=== PATIENT | male | born 1950 | race Caucasian/White ===

== ENCOUNTER 2018-06-13 20:42 | Emergency (ER) | payer MEDICARE ==
[~2018-06-13] VITALS: Ht 175.3 cm; Wt 65.9 kg
[2018-06-13 20:44] VITALS: BP 162/103
[2018-06-13 22:09] LABS: VENOUS BASE EXCESS 0.8 (-2.0-2.0); VENOUS HCO3 26.8 MEQ/L (23.0-27.0); VENOUS O2 SATURATION 61.8 % (60.0-80.0); VENOUS PARTIAL PRESSURE CO2 48.5 mmHg (38.0-50.0); VENOUS PARTIAL PRESSURE O2 33.5 mmHg (30.0-50.0); VENOUS PH 7.361 UNITS (7.330-7.430); VENOUS STANDARD HCO3 24.3 MEQ/L; VENOUS TOTAL CO2 28.3 MEQ/L (24.0-28.0)
[2018-06-13 22:29] LABS: HEMOGLOBIN A1c 15.4 %
[2018-06-13 23:00] LABS: CALCIUM LEVEL 8.6 MG/DL (8.8-10.2); CREATININE FOR GFR 1.33 MG/DL (0.70-1.30); GLOMERULAR FILTRATION RATE 57.3 (>49); POTASSIUM SERUM 4.2 MEQ/L (3.5-5.1)
[2018-06-13] MEDS ORDERED: LEVEMIR (INSULIN DETEMIR) 1 UNITS/0.01ML SC ONE (23:30)
[2018-06-13] MEDS ORDERED: CVS1KIT XX (23:39)
[2018-06-13] MEDS ORDERED: LANTINJ4 SC (23:39)
== END 2018-06-14 00:39 | disposition home or self-care (01) ==
LOC: M ED 20:42
DX: E11.65 Type 2 diabetes mellitus with hyperglycemia (principal); Z88.1 Allergy status to other antibiotic agents; Z88.2 Allergy status to sulfonamides; Z88.8 Allergy status to other drugs, medicaments and biological substances

== ENCOUNTER → 2019-11-27 | Outpatient (CLI) | payer MEDICARE ==
[~2019-11-27] MED LIST: CVS1KIT XX; GLIP5TAB8 PO; LANTINJ4 SC
== END ==
LOC: M LABSMTC 12:35
PROVIDERS: ATTEND Anesthesiology
DX: Z01.818 Encounter for other preprocedural examination (principal); Z11.59 Encounter for screening for other viral diseases; Z03.818 Encounter for observation for suspected exposure to other biological agents ruled out
CPT/HCPCS: C9803; U0003

== ENCOUNTER 2019-11-30 07:32 | Day surgery (SDC) | payer MEDICARE ==
[~2019-11-30] VITALS: Ht 175.3 cm; Wt 73.7 kg
[~2019-11-30 07:32] MED LIST changes: +LIDOCAINE 1% MDV 20ML VIAL SQ PRN; +LIDOCAINE 2% 100MG/5ML SDV (FOR ANES.) As Ordered ONE; +MIDAZOLAM INJ 2MG/2ML VIAL (J2250 PER 1MG) As Ordered ONE; +ONDANSETRON 4MG/2ML VIAL As Ordered ONE; +propofoL 200 MG/20 ML VIAL As Ordered ONE
[2019-11-30] MEDS ORDERED: LR 1,000 ML IV ONE (08:00)
[2019-11-30] MEDS ORDERED: CIPRODEX OTIC SUSP 7.5ML As Ordered ONE (08:22)
[2019-11-30] MEDS ORDERED: dexameTHASONE 4 MG/ML 1ML VIAL (J1100 PER 1MG) As Ordered ONE (08:35)
[2019-11-30] MEDS ORDERED: fentaNYL 100 MCG/2 ML INJECTION (J3010) As Ordered ONE (09:21)
[2019-11-30] MEDS ORDERED: PERCOCET 5MG/325MG TAB As Ordered ONE (09:21)
[2019-11-30] MEDS: fentaNYL 100 MCG/2 ML INJECTION (J3010) IV PRN ×4 (09:25→09:50)
[2019-11-30] MEDS ORDERED: METOCLOPRAMIDE INJ 10MG/2ML VIAL (J2765 PER 1) IV PRN (09:30)
[2019-11-30] MEDS ORDERED: LR 1,000 ML IV SCH (09:30)
[2019-11-30] MEDS ORDERED: ONDANSETRON 4MG/2ML VIAL IV PRN (09:30)
[2019-11-30] MEDS ORDERED: PERCOCET 5MG/325MG TAB PO PRN (09:30)
[2019-11-30 12:00] VITALS: BP 166/93
--- NOTE | 2019-12-02 08:52 | RO ---
DATE OF PROCEDURE: 11/30/2019 PREOPERATIVE DIAGNOSIS: Chronic otitis media with effusion. POSTOPERATIVE DIAGNOSIS: Chronic otitis media with effusion. PROCEDURE: Bilateral myringotomies with T-tubes. SURGEON: Dr. Orion Zhao DOWEL INSERTING MACHINE OPERATOR: ANESTHESIA: INDICATIONS: This is a 69-year-old who has had a life long history of having chronic middle ear fluid and T-tubes to manage it. The previous set of tubes had fallen out and he developed conductive hearing loss. DESCRIPTION OF PROCEDURE: Satisfactory mask anesthesia was administered. The right ear examined and cleaned under the microscope. Anterior inferior myringotomy made. Mild hyperemic and inflamed tympanic membrane encountered. Serous fluid suctioned from the middle ear. A T-tube was inserted easily into the myringotomy position. Ciprodex drops used to irrigate the tube. Next, the left ear was examined and cleaned under the microscope. Anterior inferior myringotomy made. Serous fluid suctioned. A T-tube easily inserted and positioned in the tympanic membrane. Ciprodex drops instilled. He tolerated the procedure well and was sent to recovery in satisfactory condition. He will be seen back in the office in 1 week.
== END 2019-11-30 12:10 | disposition home or self-care (01) ==
LOC: M SDC 07:32
PROVIDERS: ATTEND Specialist
DX: H65.23 Chronic serous otitis media, bilateral (principal); I10 Essential (primary) hypertension; E11.9 Type 2 diabetes mellitus without complications; E78.00 Pure hypercholesterolemia, unspecified; Z79.84 Long term (current) use of oral hypoglycemic drugs; Z88.2 Allergy status to sulfonamides; Z88.8 Allergy status to other drugs, medicaments and biological substances
CPT/HCPCS: 69436; J1100; J2250; J2405

== ENCOUNTER → 2020-06-09 | Outpatient (CLI) | payer MEDICARE ==
[~2020-06-09] MED LIST changes: -LIDOCAINE 1% MDV 20ML VIAL SQ PRN; -LIDOCAINE 2% 100MG/5ML SDV (FOR ANES.) As Ordered ONE; -MIDAZOLAM INJ 2MG/2ML VIAL (J2250 PER 1MG) As Ordered ONE; -ONDANSETRON 4MG/2ML VIAL As Ordered ONE; -propofoL 200 MG/20 ML VIAL As Ordered ONE
--- NOTE | 2020-06-09 16:41 | REP ---
INDICATION: L KNEE TWISTED, PAIN COMPARISON: None. TECHNIQUE: AP, lateral, bilateral oblique views of the left knee. FINDINGS: Lateral view demonstrates a moderate suprapatellar effusion. The osseous structures demonstrate osteopenia and moderate to early advanced tricompartmental osteoarthritic degenerative changes including cortical irregularity, sclerosis to the tibial plateau and posterior patellar margin with so seated joint space narrowing and early chondrocalcinosis. No obvious acute fracture identified. IMPRESSION: Moderate suprapatellar effusion. Osteopenia and tricompartmental degenerative changes. No obvious acute fracture or dislocation. <Electronically signed by Paolo Hernadez > 06/09/20 [id number]
== END ==
LOC: M RAD 15:47
PROVIDERS: ATTEND Physician Assistant
DX: M25.562 Pain in left knee (principal); M25.462 Effusion, left knee

== ENCOUNTER → 2020-07-05 | Outpatient (CLI) | payer SELFPAY | LOC: M LABSMTC 13:08 | PROVIDERS: ATTEND Pediatrics | DX: Z20.822 Contact with and (suspected) exposure to COVID-19 (principal) ==

== ENCOUNTER → 2020-07-07 | Outpatient (CLI) | payer OTHER ==
--- NOTE | 2020-07-08 05:35 | REP ---
INDICATION: ENCOUNTER FOR GENERAL ADULT MEDICAL EXAM W ABNORMAL FINDINGS COMPARISON: None. TECHNIQUE: PA and lateral. FINDINGS: The mediastinum and cardiac silhouette are normal. The lung bishop are clear and without acute consolidation, effusion, or pneumothorax. The skeletal structures are intact and normal. IMPRESSION: No acute cardiopulmonary process. <Electronically signed by Paolo Hernadez > 07/08/20 0531
== END ==
LOC: M RAD 15:53
PROVIDERS: ATTEND Nurse Practitioner Adult Health
DX: Z00.00 Encounter for general adult medical examination without abnormal findings (principal)

== ENCOUNTER → 2020-07-19 | Outpatient (CLI) | payer SELFPAY | LOC: M LABSMTC 13:24 | PROVIDERS: ATTEND Pediatrics | DX: Z20.822 Contact with and (suspected) exposure to COVID-19 (principal) ==

== ENCOUNTER → 2020-09-02 | Outpatient (CLI) | payer OTHER ==
--- NOTE | 2020-09-02 18:03 | REP ---
INDICATION: PREOP. COMPARISON: None. TECHNIQUE: Single AP radiograph bilateral knees. FINDINGS: Standing AP radiograph both knees demonstrate advanced osteoarthritis on the right. There is extensive a joint space narrowing in the medial compartment with some remodeling of the medial tibial plateau and well established spurring. There is lateral compartment spurring and mild joint space narrowing. Diffuse osteopenia is noted. Joint spaces are preserved on the left. IMPRESSION: Advanced osteoarthritis right knee as above. <Electronically signed by Rafat Diaz > 09/02/20 1800
== END ==
LOC: M SOG 11:15
PROVIDERS: ATTEND Family Medicine
DX: M17.11 Unilateral primary osteoarthritis, right knee (principal); M85.88 Other specified disorders of bone density and structure, other site; F10.99 Alcohol use, unspecified with unspecified alcohol-induced disorder; F41.8 Other specified anxiety disorders; F32.89 Other specified depressive episodes

== ENCOUNTER → 2020-09-06 | Outpatient (CLI) | payer OTHER ==
[2020-09-06 13:32] LABS: BASO # 0.1 10^3/uL (0.0-0.2); BASO % 1.6 % (0.0-1.0); EOS # 0.1 10^3/uL (0.0-0.5); EOS % 2.8 % (0.0-3.0); HEMATOCRIT 41.1 % (42.0-52.0); HEMOGLOBIN 14.3 g/dl (13.5-17.5); LYMPH # 0.7 10^3/uL (1.5-5.0); LYMPH % 16.7 % (24.0-44.0); MEAN CORPUSCULAR HEMOGLOBIN 31.7 pg (27.0-33.0); MEAN CORPUSCULAR HGB CONC 34.8 g/dl (32.0-36.5); MEAN CORPUSCULAR VOLUME 91.1 fl (80.0-96.0); MONO # 0.3 10^3/uL (0.0-0.8); MONO % 6.8 % (2.0-8.0); NEUTROPHILS # 3.1 10^3/uL (1.5-8.5); NEUTROPHILS % 71.6 % (36.0-66.0); PLATELET COUNT, AUTOMATED 161 10^3/uL (150-450); RED BLOOD COUNT 4.51 10^6/uL (4.30-6.10); WHITE BLOOD COUNT 4.3 10^3/uL (4.0-10.0)
[2020-09-06 13:33] LABS: APPEARANCE, URINE CLEAR (CLEAR); BACTERIA, URINE AUTO NEGATIVE (NEGATIVE); BILIRUBIN, URINE AUTO NEGATIVE (NEGATIVE); BLOOD, URINE BLOOD NEGATIVE (NEGATIVE); COLOR, URINE YELLOW (YELLOW); GLUCOSE, URINE (UA) AUTO 3+ mg/dL (NEGATIVE); KETONE, URINE AUTO NEGATIVE (NEGATIVE); LEUKOCYTE ESTERASE, URINE AUTO NEGATIVE (NEGATIVE); NITRITE, URINE AUTO NEGATIVE (NEGATIVE); PROTEIN, URINE AUTO 3+ mg/dL (NEGATIVE); RBC, URINE AUTO 0 /HPF (0-3); SPECIFIC GRAVITY URINE AUTO 1.018 (1.002-1.035); SQUAMOUS EPITHELIAL CELL UR AU 0 /HPF (0-6); UROBILINOGEN, URINE AUTO 0.2 mg/dL (0.0-2.0); WBC, URINE AUTO 0 /HPF (0-3)
[2020-09-06 13:41] LABS: PROTHROMBIN TIME 13.4 SECONDS (12.5-14.3)
[2020-09-06 14:12] LABS: ALBUMIN 3.8 GM/DL (3.2-5.2); BILIRUBIN,TOTAL 0.7 MG/DL (0.2-1.0); CALCIUM LEVEL 9.2 MG/DL (8.8-10.2); CHOLESTEROL RISK RATIO 6.641 (<5); CREATININE FOR GFR 1.37 MG/DL (0.70-1.30); POTASSIUM SERUM 3.9 MEQ/L (3.5-5.1); PROSTATIC SPECIFIC AG MONITOR 0.71 NG/ML (< 4.00); THYROID STIMULATING HORMONE 2.32 uIU/ML (0.358-3.740); TOTAL PROTEIN 6.6 GM/DL (6.4-8.2)
[2020-09-06 14:38] LABS: HEMOGLOBIN A1c 11.3 %
--- NOTE | 2020-09-06 15:56 | REP ---
INDICATION: ENCOUNTER FOR PREPROCEDURAL EXAMINATION, LAB 1ST THEN XR. COMPARISON: 07/07/2020. TECHNIQUE: Upright PA and lateral chest. FINDINGS: The lung bishop are clear. Cardiac size is normal. The matilde, mediastinum and skeletal structures are unremarkable. IMPRESSION: Essentially negative PA and lateral chest There is no significant interval change. <Electronically signed by Vinod Almonte > 09/06/20 [id number]
== END ==
LOC: M LAB 12:24
PROVIDERS: ATTEND Nurse Practitioner Family
DX: Z01.818 Encounter for other preprocedural examination (principal); F17.210 Nicotine dependence, cigarettes, uncomplicated; Z79.84 Long term (current) use of oral hypoglycemic drugs

== ENCOUNTER 2020-10-24 12:30 | Outpatient (RCR) | payer OTHER ==
[2020-11-09] MEDS ORDERED: FERR1TAB8 PO (09:16)
[2020-11-09] MEDS ORDERED: DOK1CAP7 PO (09:16)
[2020-11-09] MEDS ORDERED: ASCO50TA PO (09:16)
[2020-11-09] MEDS ORDERED: ASPI-551 PO (09:16)
[2020-11-09] MEDS ORDERED: ACET1TAB55 PO (09:16)
[2020-11-09] MEDS ORDERED: SENN18TA PO (09:16)
[2020-11-09] MEDS ORDERED: OXYC-517 PO (09:16)
== END 2020-11-14 ==
LOC: M PT 12:30
PROVIDERS: ATTEND Orthopaedic Surgery Adult Reconstructive Orthopaedic Surgery
DX: M17.12 Unilateral primary osteoarthritis, left knee (principal)

== ENCOUNTER → 2020-10-27 | Outpatient (CLI) | payer OTHER ==
--- NOTE | 2020-10-28 19:32 | REP ---
INDICATION: PRE OP PLANNING ASSESS BONE QUALITY/DEFORMITY. COMPARISON: Radiographs 09/02/2020. TECHNIQUE: Axial CT left hip, knee and ankle performed, with sagittal and coronal reconstruction images, per Oh protocol. FINDINGS: The left hip demonstrates no fracture or dislocation. There is mild joint space narrowing, subchondral sclerosis and spurring. At the knee there is no fracture or dislocation. There is mild diffuse joint space narrowing and subchondral sclerosis, with mild spurring of the tibial spines and femoral condyles. There is irregularity of the articulating surfaces of the medial and lateral femoral condyles, particularly medially where there is a small osteochondral defect. Small subcortical cyst is seen in the lateral tibial plateau. There is moderate lateral patellofemoral compartment narrowing and subchondral sclerosis. There is mild diffuse patellar spurring. There is a small joint effusion. The ankle mortise is anatomic. There is spurring of the medial malleolus. There is mild posterior calcaneal spurring. IMPRESSION: Degenerative changes as above. <Electronically signed by Vinod Cuevas > 10/28/20 0337
== END ==
LOC: M RAD 10:21
PROVIDERS: ATTEND Orthopaedic Surgery Adult Reconstructive Orthopaedic Surgery
DX: Z01.818 Encounter for other preprocedural examination (principal); M17.12 Unilateral primary osteoarthritis, left knee; M77.32 Calcaneal spur, left foot

== ENCOUNTER → 2020-11-02 | Outpatient (CLI) | payer OTHER | LOC: M LABSMTC 12:31 | PROVIDERS: ATTEND Anesthesiology | DX: Z01.812 Encounter for preprocedural laboratory examination (principal); Z20.822 Contact with and (suspected) exposure to COVID-19 ==

== ENCOUNTER 2020-11-07 08:13 | Observation (INO) | payer OTHER ==
[~2020-11-07] VITALS: Ht 175.3 cm; Wt 70.8 kg
[~2020-11-07 08:13] MED LIST changes: +ACETAMINOPHEN 500 MG TAB PO ONE; +LIDOCAINE 1% MDV 20ML VIAL SQ PRN; +LR 1,000 ML IV ONE; +NAPROXEN 250 MG TAB PO ONE; +NS 1,000 ML IV ONE; +PREGABALIN 25 MG CAP (LYRICA) PO ONE; +ROPIVA 125MG/EPINEPH 0.25MG/CLONID 40MCG/KETOR 15MG IN NS 50ML SYRINGE PA ONE; +ceFAZolin SOD 2 GM in IV 1 EA IV ONE; +dexameTHASONE 20MG/5ML VIAL (J1100 PER 1MG) IV ONE
[2020-11-07] MEDS ORDERED: MIDAZOLAM INJ 2MG/2ML VIAL (J2250 PER 1MG) As Ordered ONE (10:22)
[2020-11-07] MEDS ORDERED: fentaNYL 100 MCG/2 ML INJECTION (J3010) As Ordered ONE (10:23)
[2020-11-07] MEDS ORDERED: TRANEXAMIC ACID 100 MG/ML 10ML VIAL As Ordered ONE (11:12)
[2020-11-07] MEDS ORDERED: ROCURONIUM BROMIDE 50 MG/5 ML VIAL As Ordered ONE (11:14)
[2020-11-07] MEDS ORDERED: propofoL 200 MG/20 ML VIAL As Ordered ONE ×2 (11:14→12:32)
[2020-11-07] MEDS ORDERED: ePHEDrine SULFATE 25 MG/5 ML(5MG/ML) SYRINGE As Ordered ONE (12:00)
[2020-11-07] MEDS ORDERED: PHENYLephrine 500MCG 5ML (100MCG/ML) SYRINGE As Ordered ONE (12:03)
[2020-11-07] MEDS ORDERED: GLYCOPYRROLATE INJ 0.2 MG/ML 2 ML VIAL As Ordered ONE (12:04)
[2020-11-07] MEDS ORDERED: ESMOLOL INJ 100MG/10ML VIAL As Ordered ONE (12:12)
[2020-11-07] MEDS ORDERED: dexameTHASONE 4 MG/ML 1ML VIAL (J1100 PER 1MG) As Ordered ONE (12:32)
[2020-11-07] MEDS ORDERED: METOCLOPRAMIDE INJ 10MG/2ML VIAL (J2765 PER 1) As Ordered ONE (12:32)
[2020-11-07] MEDS ORDERED: ONDANSETRON 4MG/2ML VIAL As Ordered ONE (12:35)
[2020-11-07] MEDS ORDERED: LIDOCAINE 2% 100MG/5ML SDV (FOR ANES.) As Ordered ONE (13:10)
[2020-11-07] MEDS ORDERED: HYDROmorphone HCL 2 MG/ML 1ML VIAL (J1170) As Ordered ONE (13:14)
[2020-11-07] MEDS ORDERED: ONDANSETRON 4MG/2ML VIAL IV PRN ×2 (14:55→15:00)
[2020-11-07] MEDS ORDERED: LR 1,000 ML IV SCH ×2 (14:55→15:10)
[2020-11-07] MEDS ORDERED: oxyCODONE 5MG TAB PO PRN (14:55)
[2020-11-07] MEDS ORDERED: HumaLOG INSULIN (NovoLOG) PER UNIT SC ONE (14:55)
--- NOTE | 2020-11-07 14:57 | ROOPDOC ---
[facility] Report Of Operation Report of Operation DATE OF PROCEDURE: 11/07/20 PREPROCEDURE DIAGNOSES: left knee osteoarthritis POSTPROCEDURE DIAGNOSES: left knee osteoarthritis PROCEDURE: Oh left total knee arthroplasty SURGEON: Rickey Sams MD FISHER EEL SPEAR: Vincent Varela MD ANESTHESIA: Gen. ESTIMATED BLOOD LOSS: Less than 100 mL . COMPLICATIONS: No known complications REMARKS: Postoperative knee flexion was 140 and extension was to 1 Components: Dubois triathlon Asymmetric patella 40 x 11 mm Tibial bearing, 5 x 11 mm thickness CS Triathlon tibial component size 5 Triathlon cruciate retaining femur 5 left CR PROCEDURE NOTE: The patient was seen in the preoperative area and the left lower cavity was marked. He denied any change in his medical history.. DESCRIPTION OF PROCEDURE: The patient was brought to the operating room and a general anesthetic was induced after a procedural pause. The patient was then positioned appropriately on the operating room table. The left lower extremity received a tourniquet which was inflated for approximately 45 min during the case. The left lower extremity underwent a chlorhexidine scrub followed by 2 times alcohol wash, followed by hydrogen peroxide. He then had the left lower extremity undergo a chlorhexidine wash 2. The patient underwent a standard sterile prep and drape. The Oh leg positioner was attached to the table. After marking and final prep and drape, a surgical safety checklist was performed. The 4.0 mm tibial pins were placed approximately 4 fingerbreadths below the tibial tubercle. The skin was incised with the blade for each of these incisions. A standard incision was carried out. A medial arthrotomy was performed. The joint was opened up and the patella was everted. A small medial soft tissue release was carried out for access. Fluid was suctioned from within the knee. The fat pad was excised using electrocautery. Some soft tissue release at the anterior lateral aspect of the femur was elevated to access the bone. Medial distal femoral 4.0 pins were placed for the femoral tracking system. Femoral and tibial verification check points were placed on the femur and tibia. The arrays were attached to the femur and tibia and appropriately adjusted. Registration of the femur and tibia, then occurred. The leg was brought out into extension and balancing occurred using varus and valgus stresses and a lateral based spoon in extension. The knee was then brought up into flexion and a lateral based spoon and a Estevez was used to apply tension. The knee was then appropriately balanced using the Stylitics software. The Stylitics robot was then brought in and used to make the appropriate cuts with appropriate soft tissue protection. Rongeur was used to remove any bony edges that remained. Trialing then occurred. Some slight tightness in flexion, so an additional degree of posterior slope was dialed into the tibia and this was cut using the Stylitics robotic saw. Trialing then occurred. In flexion and extension, There appeared to be appropr iate balanced gaps. The patella was everted and a free hand cut was performed removing approximately 10 mm of bone from the cartilage surface. The 40 mm asymmetric patellar reaming jig was placed and the holes were reamed. The femoral mediolateral placement was adjusted and the lug holes were reamed for the CR knee. Once trialing was completed. The tibia was then pinned in appropriate external rotation and the keel punch was utilized. The pegged drill guide was then placed and the 4 holes were drilled. The local anesthetic RACK cocktail was instilled in the posterior capsular region and surround. The ligament was then irrigated with normal sterile saline. The tourniquet was let down for the remainder of the case. There was no significant oozing. The leg was then brought up into flexion and appropriate retraction occurred to allow impaction of the tibial component, which was press-fit, followed by insertion of the polyethylene liner and then insertion of the femoral component which was impacted as it was press-fit. The leg was brought into extension and the patellar component was placed and with the compression device. The patellar component was secured to the patella. The wound was then irrigated and the topical tranexamic acid was applied with some Betadine wash and allowed to sit for 3 minutes. Closure began with #1 Vicryl interrupted 3, followed by a running strata fix suture. The subcutaneous tissue was closed with interrupted dyed #1 Vicryl followed by running 2. 0 Vicryl and a running 3.0 antibacterial Monocryl suture. The 2 tibial incisions were closed with 3. 0 Monocryl. Mastisol and Steri-Strips were applied. Mediplex dressing was applied. Telfa, Tegaderm was applied to the lower incisions. ABD pads were applied followed by a Lamonte wrap. Patient tolerated the procedure well with no known complications. They had the anesthetic reversed and were taken to the recovery room in stable condition with no known complications. The patient will be admitted to the hospitalist service. X-ray imaging and PACU will be taken to determine the weightbearing status, which will be weightbearing as tolerated. RICKEY SAMS MD November 07, 2020 14:57
[2020-11-07] MEDS ORDERED: SENNA 8.6 MG TAB (SENOKOT) PO PRN (15:00)
[2020-11-07] MEDS ORDERED: traMADol 50 MG TAB PO PRN ×2 (15:00)
--- NOTE | 2020-11-07 15:00 | REP ---
INDICATION: s/p arthroplasty COMPARISON: None. TECHNIQUE: AP and cross-table lateral views. FINDINGS: Normal appearance and positioning to the femoral and tibial components. Overlying postsurgical changes including soft tissue swelling, subcutaneous and intra-articular emphysema. IMPRESSION: Status post left knee replacement. <Electronically signed by Paolo Hernadez > 11/07/20 [id number]
[2020-11-07] MEDS: fentaNYL 100 MCG/2 ML INJECTION (J3010) IV PRN ×2 (15:01→15:26)
[2020-11-07] MEDS ORDERED: MOM 30ML SUSPENSION UDC PO PRN (15:15)
[2020-11-07 16:15] VITALS: BP 144/83
[2020-11-07 16:45] VITALS: BP 143/89
--- NOTE | 2020-11-07 17:04 | HPEPDOC ---
General Date of Admission 11/07/20 Date of Service: November 07, 2020 Chief Complaint The patient is a 70-year-old male admitted with a reason for visit of Left Knee Osteoarthritis. Source: Patient History of Present Illness 70year old male admitted s/p elective left total knee arthroplasty. Patient complains of sharp aching pain at the left knee surgical site about 7/10 in intensity with no radiation. 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 Diabetes Chronic otitis media s/p Bilateral myringotomies with T-tubes. Osteoarthritis Surgical History left rotator cuff repair right hip replacement right patella surgery Bilateral inguinal hernia repair. Family History Significant Family History: Heart disease (father ), Other Mother stroke Twin brother born with club foot now has right BKA. Social History * Smoker: non-smoker Alcohol: Denies Drugs: denies A-FIB/CHADSVASC A-FIB History Current/History of A-Fib/PAF?: No Review of Systems Constitutional: Denies: Chills, Fever, Night Sweats Eyes: Denies: Pain, Vision change ENT: Denies: Head Aches, Ear Pain, Dysphagia Skin: Denies: Rash, Lesions, Breakdown Pulmonary: Denies: Dyspnea, Cough Cardiovascular: Denies: Chest Pain, Palpitations, Orthopnea, Paroxysmal Noc. Dyspnea, Lt Headedness Gastrointestinal: Denies: Nausea, Vomiting, Abdominal Pain, Diarrhea Genitourinary: Denies: Dysuria, Frequency, Incontinence, Retention Physical Examination General Exam: Positive: Alert, Cooperative, No Acute Distress Eye Exam: Positive: PERRLA, Conjunctiva & lids normal, EOMI; Negative: Sclera icteric ENT Exam: Positive: Atraumatic, Mucous membr. moist/pink, Pharynx Normal Neck Exam: Positive: Supple; Negative: JVD, thyromegaly Chest Exam: Positive: Clear to auscultation, Normal air movement Heart Exam: Positive: Rate Normal, Regular Rhythm, Normal S1, Normal S2; Negative: Murmurs, Rubs Abdomen Exam: Positive: Normal bowel sounds, Soft; Negative: Tenderness, Hepatospenomegaly Extremity Exam: Negative: Clubbing, Cyanosis, Edema Neuro Exam: Positive: Normal Speech, Strength at 5/5 X4 ext, Normal Tone Psych Exam: Positive: Memory Intact, Oriented x 3 Vital Signs Vital Signs Date Time Temp Pulse Resp B/P (MAP) Pulse Ox O2 Delivery O2 Flow Rate FiO2 11/07/20 15:15 18 11/07/20 15:00 91 139/76 (97) 97 Nasal Cannula 3 11/07/20 14:27 98.1 Laboratory Data Labs 24H Laboratory Tests 2 11/07/20 08:47: Bedside Glucose (Misc Panel) 125H 11/07/20 14:41: Bedside Glucose (Misc Panel) 223H Assessment/Plan 70year old male admitted s/p elective left total knee arthroplasty. s/p Left total knee arthroplasty weight bearing as per ortho PT/OT pain control with tylenol and tramadol DVT prophylaxis with ASA 81 bid. DM continue glipizide carb consistent diet. Plan / VTE VTE Prophylaxis Ordered?: Yes EDGARDO PASCAL MD November 07, 2020 15:25
[2020-11-07 17:45] VITALS: BP 139/86
[2020-11-07] MEDS: ACETAMINOPHEN TAB 650MG DOSE (2X325MG) PO SCH (18:00)
[2020-11-07 18:45] VITALS: BP 136/98
[2020-11-07 19:45] VITALS: BP 138/88
[2020-11-07] MEDS: glipiZIDE (GLUCOTROL) 5 MG TAB PO SCH (20:36)
[2020-11-07] MEDS: ceFAZolin SOD 2 GM in IV 1 EA IV SCH (20:36)
[2020-11-07] MEDS: oxyCODONE 5MG TAB PO PRN (20:36)
[2020-11-07] MEDS: DOCUSATE SODIUM 100MG CAPSULE PO SCH (20:36)
[2020-11-07] MEDS: NAPROXEN 250 MG TAB PO SCH (20:37)
[2020-11-07] MEDS: ASPIRIN 81MG ENTERIC TABLET PO SCH (20:37)
[2020-11-07 20:45] VITALS: BP 138/85
[2020-11-08 02:00] VITALS: BP 113/76
[2020-11-08] MEDS: ceFAZolin SOD 2 GM in IV 1 EA IV SCH (02:55)
[2020-11-08] MEDS: ACETAMINOPHEN TAB 650MG DOSE (2X325MG) PO SCH ×4 (02:55→18:23)
[2020-11-08 06:00] VITALS: BP 115/74
[2020-11-08] MEDS: oxyCODONE 5MG TAB PO PRN ×4 (06:33→21:03)
[2020-11-08] MEDS: glipiZIDE (GLUCOTROL) 5 MG TAB PO SCH ×2 (06:33→18:22)
[2020-11-08 06:45] LABS: HEMATOCRIT 35.9 % (42.0-52.0); HEMOGLOBIN 11.7 g/dl (13.5-17.5); MEAN CORPUSCULAR HEMOGLOBIN 31.5 pg (27.0-33.0); MEAN CORPUSCULAR HGB CONC 32.6 g/dl (32.0-36.5); MEAN CORPUSCULAR VOLUME 96.5 fl (80.0-96.0); PLATELET COUNT, AUTOMATED 102 10^3/uL (150-450); RED BLOOD COUNT 3.72 10^6/uL (4.30-6.10)
[2020-11-08 07:12] LABS: CALCIUM LEVEL 8.3 MG/DL (8.8-10.2); CREATININE FOR GFR 1.79 MG/DL (0.70-1.30); GLOMERULAR FILTRATION RATE 40.4 (>49); POTASSIUM SERUM 4.4 MEQ/L (3.5-5.1)
--- NOTE | 2020-11-08 08:12 | IPNPDOC ---
Text Note Date of Service The patient was seen on 11/08/20. NOTE Postop day 1 for left total knee arthroplasty Patient states that he is doing reasonably well. He states that only the oxycodone pain medication helps. The tramadol did not really alleviate his pain. Otherwise, he does not have any significant complaints or concerns. The bulky dressing was taken down. There is a little bit of staining of the distal end of the dressing associated with a Telfa and Tegaderm over the pin sites. This was reinforced with a Tegaderm just to ensure that there would not be any disruption of the seal Patient was grossly neurovascularly intact with sensation to the first webspace and the foot. He is able to move his foot and ankle. He had a palpable posterior tibial pulse. X-ray imaging was taken in PACU. This demonstrated that the left total knee arthroplasty prosthesis was in good position without any obvious signs of complication. The patient did not get an opportunity to work with physical therapy yesterday. He will work with him today. The plan will hopefully be for discharge home today. Of note, the patient would like a prescription for oxycodone on discharge is the tramadol was not effective for his pain relief. Discharge Instructions Total Knee Arthroplasty 1. Pain: You may take oxycodone as prescribed for pain. Supplement with ibuprofen and Tylenol as needed. Ice pack to operative hip as tolerated. 2. Wound care: Remove dressing on postop day 7. Call [phone] with any questions or concerns. Hygiene: The patient may shower, keeping the wound of the stream of the shower. No tub baths. Check dressing seal prior to bathing. 3. Activity: WBAT on the left lower extremity. Front wheeled walker versus crutches for ambulation. Fall precautions. 4. Driving: No driving until cleared by your surgeon. Do not drive if taking narcotic pain medications as these may make you drowsy. 5. DVT Prophylaxis: Continue taking aspirin 81 mg by mouth twice a day as prescribed for the prevention of blood clots. Ankle pumps every 1 hour while awake. ELEUTERIO hose at all times for 1 month after surgery. May remove for hygiene and wound care. 6. Placement: Plan is to discharge patient to home with home health including nursing and physical therapy. 7. Surgeon Follow-up: The patient is scheduled to be seen in Dr. Sams's office 2 weeks post op with xrays. 8. Primary care Follow-up: Please see your primary care provider in the next 2 to 5 weeks for general medical re-evaluation and medication review. 9. Labs: CBC without differential and BMP to be drawn on postop day 3 with results to PCP and please fax to [phone]. 10. Please contact [facility] if you have any questions or concerns at [phone]. VS,Fishbone, I+O VS, Fishbone, I+O Laboratory Tests 11/08/20 06:16 Vital Signs Date Time Temp Pulse Resp B/P (MAP) Pulse Ox O2 Delivery O2 Flow Rate FiO2 11/08/20 06:33 16 11/08/20 06:00 99.0 69 115/74 (88) 98 Room Air 11/07/20 15:00 3 I&O- Last 24 Hours up to 6 AM 11/08/20 06:00 Intake Total 2470 ml Output Total 700 ml Balance 1770 ml RICKEY SAMS MD November 08, 2020 08:12
[2020-11-08] MEDS: FERROUS SULFATE 325MG TAB PO SCH (08:14)
[2020-11-08] MEDS: DOCUSATE SODIUM 100MG CAPSULE PO SCH ×2 (08:14→21:02)
[2020-11-08] MEDS: NAPROXEN 250 MG TAB PO SCH (08:14)
[2020-11-08] MEDS: ASCORBIC ACID 500 MG TAB PO SCH (08:15)
[2020-11-08] MEDS: ASPIRIN 81MG ENTERIC TABLET PO SCH ×2 (08:15→21:03)
[2020-11-08 10:00] VITALS: BP 123/78
--- NOTE | 2020-11-08 11:43 | IPNPDOC ---
Subjective Date Seen The patient was seen on 11/08/20. Subjective Chief Complaint/HPI Complains of pain in the surgical site other gonzáles no complaints. Objective Physical Examination General Exam: Positive: Alert, Cooperative, No Acute Distress Eye Exam: Positive: PERRLA, Conjunctiva & lids normal, EOMI; Negative: Sclera icteric ENT Exam: Positive: Atraumatic, Mucous membr. moist/pink, Pharynx Normal Neck Exam: Positive: Supple; Negative: JVD, thyromegaly Chest Exam: Positive: Clear to auscultation, Normal air movement Heart Exam: Positive: Rate Normal, Regular Rhythm, Normal S1, Normal S2; Negative: Murmurs, Rubs Abdomen Exam: Positive: Normal bowel sounds, Soft; Negative: Tenderness, Hepatospenomegaly Extremity Exam: Negative: Clubbing, Cyanosis, Edema Neuro Exam: Positive: Normal Speech, Strength at 5/5 X4 ext, Normal Tone Psych Exam: Positive: Memory Intact, Oriented x 3 Assessment /Plan Assessment 70year old male admitted s/p elective left total knee arthroplasty. s/p Left total knee arthroplasty weight bearing as per ortho PT/OT pain control with tylenol and tramadol and oxycodone. DVT prophylaxis with ASA 81 bid. DM continue glipizide carb consistent diet. ESTEBAN will stop naproxen. Plan/VTE VTE Prophylaxis Ordered?: Yes VS, I&O, 24H, Fishbone Vital Signs/I&O Vital Signs Date Time Temp Pulse Resp B/P (MAP) Pulse Ox O2 Delivery O2 Flow Rate FiO2 11/08/20 11:26 18 11/08/20 10:00 97.8 75 123/78 (93) 97 Room Air 11/07/20 15:00 3 I&O- Last 24 Hours up to 6 AM 11/08/20 06:00 Intake Total 2470 ml Output Total 700 ml Balance 1770 ml Laboratory Data 24H LABS Laboratory Tests 2 11/07/20 14:41: Bedside Glucose (Misc Panel) 223H 11/07/20 16:26: Bedside Glucose (Misc Panel) 195H 11/08/20 06:16: Nucleated Red Blood Cells % (auto) 0.0, Anion Gap 7L, Glomerular Filtration Rate 40.4L, Calcium Level 8.3L CBC/BMP Laboratory Tests 11/08/20 06:16 EDGARDO PASCAL MD November 08, 2020 11:43
[2020-11-08] MEDS: SENNA 8.6 MG TAB (SENOKOT) PO SCH ×2 (12:12→21:03)
[2020-11-08 14:00] VITALS: BP 109/68
[2020-11-08 22:00] VITALS: BP 135/75
[2020-11-09] MEDS: ACETAMINOPHEN TAB 650MG DOSE (2X325MG) PO SCH ×3 (01:23→12:31)
[2020-11-09] MEDS: oxyCODONE 5MG TAB PO PRN ×3 (01:23→10:46)
[2020-11-09 06:00] VITALS: BP 135/76
--- NOTE | 2020-11-09 07:54 | IPNPDOC ---
Text Note Date of Service The patient was seen on 11/09/20. NOTE Patient is postop day 2 from a left total knee arthroplasty. Patient reports that he was doing well but towards the end of the day, he was having some issues with mobility and it was decided that he would have a little bit more physical therapy as result of having to use the walker with the upper arm attachment support. Overall, he states that his pain is controlled with the oxycodone. The tramadol does not work for him. He is mobilizing with a walker. He has no significant complaints or concerns today. He reports that the dressing was changed yesterday because he had some bruising developed after starting with physical therapy. On physical examination, the dressing has been changed to a 12 inch Mepilex. It appears to be intact and clean and dry. He has a palpable posterior tibial pulse on the left and grossly neurovascularly intact with motion to the left foot and ankle. Overall, the patient is doing quite well. He will likely be discharged home today. Discharge Instructions Total Knee Arthroplasty 1. Pain: You may take oxycodone as prescribed for pain. Supplement with ibuprofen and Tylenol as needed. Ice pack to operative knee as tolerated. 2. Wound care: Remove dressing on postop day 7. Call [phone] with any questions or concerns. Hygiene: The patient may shower, keeping the wound of the stream of the shower. No tub baths. Check dressing seal prior to bathing. 3. Activity: WBAT on the left lower extremity. Front wheeled walker versus crutches for ambulation. Fall precautions. 4. Driving: No driving until cleared by your surgeon. Do not drive if taking narcotic pain medications as these may make you drowsy. 5. DVT Prophylaxis: Continue taking aspirin 81 mg by mouth twice a day as prescribed for the prevention of blood clots. Ankle pumps every 1 hour while awake. ELEUTERIO hose at all times for 1 month after surgery. May remove for hygiene and wound care. 6. Placement: Plan is to discharge patient to home with home health including nursing and physical therapy. 7. Surgeon Follow-up: The patient is scheduled to be seen in Dr. Sams's office 2 weeks post op with xrays. 8. Primary care Follow-up: Please see your primary care provider in the next 2 to 5 weeks for general medical re-evaluation and medication review. 9. Labs: CBC without differential and BMP to be drawn on postop day 3 with results to PCP and please fax to [phone]. 03. Please contact [facility] if you have any questions or concerns at [phone]. VS,Fishbone, I+O VS, Fishbone, I+O Vital Signs Date Time Temp Pulse Resp B/P (MAP) Pulse Ox O2 Delivery O2 Flow Rate FiO2 11/09/20 06:49 16 11/09/20 06:00 97.5 67 135/76 (95) 97 Room Air 11/07/20 15:00 3 I&O- Last 24 Hours up to 6 AM 11/09/20 05:59 Intake Total 2480 ml Output Total 1000 ml Balance 1480 ml RICKEY SAMS MD November 09, 2020 07:54
[2020-11-09] MEDS: FERROUS SULFATE 325MG TAB PO SCH (08:21)
[2020-11-09] MEDS: ASPIRIN 81MG ENTERIC TABLET PO SCH (08:21)
[2020-11-09] MEDS: DOCUSATE SODIUM 100MG CAPSULE PO SCH (08:21)
[2020-11-09] MEDS: ASCORBIC ACID 500 MG TAB PO SCH (08:21)
[2020-11-09] MEDS: SENNA 8.6 MG TAB (SENOKOT) PO SCH (08:21)
[2020-11-09] MEDS: glipiZIDE (GLUCOTROL) 5 MG TAB PO SCH (08:21)
[2020-11-09] MEDS ORDERED: SENN18TA PO (09:16)
[2020-11-09] MEDS ORDERED: OXYC-517 PO (09:16)
[2020-11-09] MEDS ORDERED: ACET1TAB55 PO (09:16)
[2020-11-09] MEDS ORDERED: DOK1CAP7 PO (09:16)
[2020-11-09] MEDS ORDERED: ASCO50TA PO (09:16)
[2020-11-09] MEDS ORDERED: ASPI-551 PO (09:16)
[2020-11-09] MEDS ORDERED: FERR1TAB8 PO (09:16)
[2020-11-09 10:44] LABS: HEMATOCRIT 35.3 % (42.0-52.0); HEMOGLOBIN 11.7 g/dl (13.5-17.5); MEAN CORPUSCULAR HEMOGLOBIN 31.5 pg (27.0-33.0); MEAN CORPUSCULAR HGB CONC 33.1 g/dl (32.0-36.5); MEAN CORPUSCULAR VOLUME 94.9 fl (80.0-96.0); PLATELET COUNT, AUTOMATED 111 10^3/uL (150-450); RED BLOOD COUNT 3.72 10^6/uL (4.30-6.10); WHITE BLOOD COUNT 6.5 10^3/uL (4.0-10.0)
[2020-11-09 11:03] LABS: CALCIUM LEVEL 9.1 MG/DL (8.8-10.2); CREATININE FOR GFR 1.54 MG/DL (0.70-1.30); GLOMERULAR FILTRATION RATE 48.1 (>49); POTASSIUM SERUM 4.5 MEQ/L (3.5-5.1)
--- NOTE | 2020-11-09 11:39 | DS.PDOC ---
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 Diabetes Chronic otitis media s/p Bilateral myringotomies with T-tubes. Osteoarthritis left rotator cuff repair right hip replacement right patella surgery Bilateral inguinal hernia repair. COMPLICATIONS/CHIEF COMPLAINT: Left Knee Osteoarthritis. HOSPITAL COURSE: 70year old male admitted s/p elective left total knee arthroplasty. s/p Left total knee arthroplasty weight bearing as per ortho PT/OT pain control with tylenol and oxycodone. DVT prophylaxis with ASA 81 bid. DM continue glipizide carb consistent diet. ESTEBAN Creatinine improved from 1.7 to 1.5. Avoid ibuprofen DISCHARGE MEDICATIONS: Please see below. ALLERGIES: Please see below. PHYSICAL EXAMINATION ON DISCHARGE: VITAL SIGNS: Please see below. General Exam: Positive: Alert, Cooperative, No Acute Distress Eye Exam: Positive: PERRLA, Conjunctiva & lids normal, EOMI; Negative: Sclera icteric ENT Exam: Positive: Atraumatic, Mucous membr. moist/pink, Pharynx Normal Neck Exam: Positive: Supple; Negative: JVD, thyromegaly Chest Exam: Positive: Clear to auscultation, Normal air movement Heart Exam: Positive: Rate Normal, Regular Rhythm, Normal S1, Normal S2; Negative: Murmurs, Rubs Abdomen Exam: Positive: Normal bowel sounds, Soft; Negative: Tenderness, Hepatosplenomegaly Extremity Exam: Negative: Clubbing, Cyanosis, Edema Neuro Exam: Positive: Normal Speech, Strength at 5/5 X4 ext, Normal Tone Psych Exam: Positive: Memory Intact, Oriented x 3 LABORATORY DATA: Please see below. ACTIVITY: [As tolerated]. DIET: Carb consistent DISCHARGE PLAN: Home with home services and home PT DISCHARGE INSTRUCTIONS: Follow-up with Dr. Fitzgerald in 2 weeks DISCHARGE CONDITION: [Stable]. TIME SPENT ON DISCHARGE: 35 minutes. Vital Signs/I&Os Vital Signs Date Time Temp Pulse Resp B/P (MAP) Pulse Ox O2 Delivery O2 Flow Rate FiO2 11/09/20 10:46 18 11/09/20 06:00 97.5 67 135/76 (95) 97 Room Air 11/07/20 15:00 3 I&O- Last 24 Hours up to 6 AM 11/09/20 06:00 Intake Total 2450 ml Output Total 1100 ml Balance 1350 ml Laboratory Data Labs 24H Laboratory Tests 2 11/08/20 16:47: Bedside Glucose (Misc Panel) 297H 11/09/20 06:16: Bedside Glucose (Misc Panel) 121H 11/09/20 10:02: Nucleated Red Blood Cells % (auto) 0.0, Anion Gap 5L, Glomerular Filtration Rate 48.1L, Calcium Level 9.1 CBC/BMP Laboratory Tests 11/09/20 10:02 FSBS Laboratory Tests Test 11/08/20 16:47 11/09/20 06:16 Range/Units Bedside Glucose (Misc Panel) 297 121 80-115 MG/DL Discharge Medications Scheduled Ascorbic Acid (Vitamin C) 500 Mg Tablet, 500 MG PO DAILY Aspirin (Aspirin EC) 81 Mg Tablet.dr, 81 MG PO BID Ferrous Sulfate (Ferrous Sulfate) 325 Mg Tablet, 325 MG PO DAILY Glipizide (Glipizide) 5 Mg Tablet, 5 MG PO BID, (Reported) Senna (Senna Lax) 8.6 Mg Tablet, 2 TAB PO BID Scheduled PRN Acetaminophen (Acetaminophen) 325 Mg Tablet, 650 MG PO Q6HP PRN for PAIN LEVEL 1-4 Docusate Sodium (Dok) 100 Mg Capsule, 100 MG PO BID PRN for CONSTIPATION Oxycodone HCl (Oxycodone HCl) 5 Mg Tablet, 1-2 TAB PO Q6-8HP PRN for MODERATE/SEVERE PAIN (PS 5-10) Allergies Coded Allergies: Sulfa (Sulfonamide Antibiotics) (Verified Allergy, Unknown, swelling/rash, 11/26/19) metformin (Verified Allergy, Unknown, swelling, 11/26/19) EDGARDO PASCAL MD November 09, 2020 11:39
== END 2020-11-09 13:00 | disposition home health service (06) ==
LOC: M SDC 08:13 → M MS5PR 08:14
PROVIDERS: ADMIT Internal Medicine Nephrology; ATTEND Internal Medicine Nephrology
DX: M17.12 Unilateral primary osteoarthritis, left knee (principal); N17.9 Acute kidney failure, unspecified; E11.9 Type 2 diabetes mellitus without complications; Q74.0 Other congenital malformations of upper limb(s), including shoulder girdle; Z79.899 Other long term (current) drug therapy; Z79.84 Long term (current) use of oral hypoglycemic drugs; Z79.82 Long term (current) use of aspirin; Z88.8 Allergy status to other drugs, medicaments and biological substances; Z88.2 Allergy status to sulfonamides
CPT/HCPCS: 27446; 36415; 73560; 80048; 85027; 88304; 88311; 96374; 96376; 97116; 97161; 97165; 97530; C1776; G0378; J0690; J1100; J1170; J2250; J2370; J2405; J2765; J3010; S2900

== ENCOUNTER 2020-11-22 07:52 | Inpatient (IN) | payer OTHER ==
[~2020-11-22] VITALS: Ht 175.3 cm; Wt 70.1 kg
[~2020-11-22 07:52] MED LIST changes: +ACET1TAB55 PO; -ACETAMINOPHEN 500 MG TAB PO ONE; +ASCO50TA PO; +ASPI-551 PO; +DOK1CAP7 PO; +FERR1TAB8 PO; -LIDOCAINE 1% MDV 20ML VIAL SQ PRN; -LR 1,000 ML IV ONE; -NAPROXEN 250 MG TAB PO ONE; -NS 1,000 ML IV ONE; +OXYC-517 PO; -PREGABALIN 25 MG CAP (LYRICA) PO ONE; -ROPIVA 125MG/EPINEPH 0.25MG/CLONID 40MCG/KETOR 15MG IN NS 50ML SYRINGE PA ONE; +SENN18TA PO; -ceFAZolin SOD 2 GM in IV 1 EA IV ONE; -dexameTHASONE 20MG/5ML VIAL (J1100 PER 1MG) IV ONE
[2020-11-22] MEDS ORDERED: NAPR-849 PO (08:09)
[2020-11-22] MEDS ORDERED: TRAM50TA2 PO (08:09)
--- NOTE | 2020-11-22 08:32 | REPVR ---
PROCEDURE INFORMATION: Exam: CT Head Without Contrast Exam date and time: 11/22/2020 8:15 AM Age: 70 years old Clinical indication: Pain; Other: Neuro deficits TECHNIQUE: Imaging protocol: Computed tomography of the head without contrast. Radiation optimization: All CT scans at this facility use at least one of these dose optimization techniques: automated exposure control; mA and/or kV adjustment per patient size (includes targeted exams where dose is matched to clinical indication); or iterative reconstruction. COMPARISON: No relevant prior studies available. FINDINGS: Brain: There is no acute intracranial hemorrhage or mass effect. Mild diffuse volume loss is within the range of normal for patient age. There are small vessel ischemic changes within the periventricular and subcortical white matter, but the normal mckeon/white matter delineation is maintained. Chronic appearing lacunar infarcts involve the basal ganglia. Cerebral ventricles: Prominence of the ventricular system is commensurate with volume loss. Paranasal sinuses: Visualized sinuses are unremarkable. No fluid levels. Mastoid air cells: Visualized mastoid air cells are well aerated. Bones/joints: Unremarkable. No acute fracture. Soft tissues: Unremarkable. IMPRESSION: No acute hemorrhage or edema. Electronically signed by: Isabella Bonilla On 11/22/2020 08:32:08 AM
--- NOTE | 2020-11-22 09:20 | REP ---
INDICATION: CVA. COMPARISON: 09/06/2020. TECHNIQUE: Single portable AP view of the chest was performed. FINDINGS: There is mild elevation of the right hemidiaphragm. There is no acute infiltrate. The heart is normal in size. There is mild calcification and tortuosity of the thoracic aorta. The mediastinal silhouette is unchanged. IMPRESSION: No acute pulmonary disease. <Electronically signed by Vinod Cuevas > 11/22/20 0916
[2020-11-22 09:43] LABS: HEMATOCRIT 34.4 % (42.0-52.0); HEMOGLOBIN 11.6 g/dl (13.5-17.5); MEAN CORPUSCULAR HEMOGLOBIN 31.4 pg (27.0-33.0); MEAN CORPUSCULAR HGB CONC 33.7 g/dl (32.0-36.5); MEAN CORPUSCULAR VOLUME 93.2 fl (80.0-96.0); PLATELET COUNT, AUTOMATED 207 10^3/uL (150-450); RED BLOOD COUNT 3.69 10^6/uL (4.30-6.10); WHITE BLOOD COUNT 6.8 10^3/uL (4.0-10.0)
[2020-11-22 09:54] LABS: INR 1.03; PROTHROMBIN TIME 13.7 SECONDS (12.5-14.3)
[2020-11-22 09:55] LABS: PARTIAL THROMBOPLASTIN TIME 24.2 SECONDS (24.2-38.5)
[2020-11-22] MEDS ORDERED: ASPI-161 PO (10:05)
[2020-11-22] MEDS ORDERED: VITA-158 PO (10:05)
[2020-11-22] MEDS ORDERED: FERR1TAB8 PO (10:05)
[2020-11-22] MEDS ORDERED: OXYC-517 PO (10:05)
[2020-11-22] MEDS ORDERED: [UNRECOGNIZED DRUG - CODE] PO (10:05)
--- NOTE | 2020-11-22 10:10 | REP ---
INDICATION: left leg swelling post op r/o DVT COMPARISON: None. TECHNIQUE: Real time compression and duplex Doppler interrogation of the left lower extremity deep venous system is performed, including the right common femoral vein.Compression of the left peroneal and posterior tibial veins is performed. FINDINGS: The left common femoral, superficial femoral and popliteal veins are fully compressible with transducer pressure and demonstrate normal spontaneous and phasic flow, without evidence of deep venous thrombosis.The right common femoral vein demonstrates no thrombus.The visualized left peroneal and posterior tibial veins demonstrate no thrombus. IMPRESSION: No evidence of deep venous thrombosis of the left lower extremity femoral popliteal venous system.No thrombus in the visualized left peroneal and posterior tibial veins. <Electronically signed by Vinod Cuevas > 11/22/20 1007
[2020-11-22 10:13] LABS: CK-MB VALUE MASS < 1.0 NG/ML (<3.6); CPK CREATINE PHOSPHOKINASE 42 U/L (39-308); MB/CK RELATIVE INDEX 2.38 (< OR =4); TROPONIN I < 0.02 NG/ML (< 0.10)
[2020-11-22 10:21] LABS: RSV AMPLIFICATION NEGATIVE (NEGATIVE)
[2020-11-22 11:29] LABS: CHOLESTEROL LEVEL 174 MG/DL (<200); CHOLESTEROL RISK RATIO 4.461 (<5); HDL CHOLESTEROL 39 MG/DL (>40); LDL CHOLESTEROL 112 MG/DL (<100); NON-HDL-C 135 MG/DL; TRIGLYCERIDES LEVEL 116 MG/DL (<150)
[2020-11-22] MEDS ORDERED: traMADol 50 MG TAB PO PRN (11:50)
[2020-11-22] MEDS ORDERED: ENOXAPARIN 40MG/0.4ML SYRINGE (J1650 PER 10MG) SC SCH (11:55)
[2020-11-22] MEDS ORDERED: DEXTROSE 50% 50 ML SYRINGE IV PRN (11:55)
[2020-11-22] MEDS ORDERED: MORPHINE 2 MG/ML 1ML VIAL (J2270) IV ONE (11:55)
[2020-11-22] MEDS ORDERED: NS 1,000 ML IV ONE (11:55)
[2020-11-22] MEDS ORDERED: GLUCOSE 4GM CHEW TABLET PO PRN (11:55)
[2020-11-22] MEDS ORDERED: oxyCODONE 5MG TAB PO ONE (11:55)
[2020-11-22] MEDS ORDERED: GLUCAGON INJ 1MG VIAL SC PRN (11:55)
[2020-11-22 12:35] LABS: C REACTIVE PROTEIN QUANTITATIV 9.65 MG/DL (0.00-0.30)
[2020-11-22] MEDS: ASPIRIN 325 MG TAB PO SCH (13:30)
[2020-11-22 13:31] LABS: ERYTHROCYTE SEDIMENTATION RATE 58 mm/hr (0-20)
[2020-11-22] MEDS: HEPARIN SOD (PORCINE) 5000UNITS/ML 1ML VIAL/SYRINGE SQ SCH ×2 (13:31→22:34)
[2020-11-22] MEDS: FERROUS SULFATE 325MG TAB PO SCH (13:35)
[2020-11-22] MEDS: ASCORBIC ACID 500 MG TAB PO SCH (13:35)
[2020-11-22 15:00] VITALS: BP 164/95
[2020-11-22] MEDS: HumaLOG INSULIN (NovoLOG) PER UNIT SC SCH ×2 (15:33→17:18)
--- NOTE | 2020-11-22 17:33 | ECGEPIP ---
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
[2020-11-22 20:00] VITALS: BP 160/90
[2020-11-22] MEDS: ATORVASTATIN 20 MG TAB PO SCH (20:12)
[2020-11-22] MEDS: MORPHINE 2 MG/ML 1ML VIAL (J2270) IV PRN (20:14)
--- NOTE | 2020-11-22 20:18 | HPE ---
HISTORY AND PHYSICAL DATE OF ADMISSION: 11/22/2020 CHIEF COMPLAINT: Left sided weakness. HISTORY OF PRESENT ILLNESS: This is a 70-year-old male with history of recent left total knee replacement on 11/07/2020, discharged on aspirin 81 mg twice a day, congenital absence of the right forearm and hand, diabetes, chronic otitis media status post bilateral myringotomies with PE tubes and osteoarthritis presented to the Emergency Room with acute onset of left sided weakness noted at 4:00 a.m. this morning when he was walking to the bathroom. Patient awakened from sleep needing to go to the bathroom to urinate when he noticed significant weakness of the left arm, slurred speech and difficulty ambulating to the bathroom. Patient was in his usual state of health last evening before going to bed. He had been a previous smoke, but quit smoking about 50 years ago and only had at the most a 10 pack history of smoking. Patient could barely walk, unable to lift his left arm and urinated on himself. He stayed on the floor for about 2 hours unable to call to his who was sleeping upstairs. found him downstairs and subsequently called 911. Patient was unable to get his phone up on the shelf and remained at home waiting for his to wake up. In the ER CT of the head was negative, glucose was normal at 119, EKG showed sinus rhythm with chronic right bundle branch block. Patient was given aspirin 325, Lipitor 40. Hospitalist was asked to admit the patient for acute CVA. Patient also complains of redness of the left lower extremity at the incision site with ulcers managed by his orthopedic surgeon as well as swelling of the left lower extremity. No fever or chills at home. PAST MEDICAL HISTORY: 1. Congenital absence right forearm and hand. 2. Diabetes. 3. Chronic otitis media status post bilateral myringotomies with PE tubes. 4. Osteoarthritis. PAST SURGICAL HISTORY: 1. Left Oh robotic assisted knee arthroplasty 11/07/2020. 2. Left rotator cuff repair. 3. Right hip replacement. 4. Right patellar surgery. 5. Bilateral inguinal hernia repair. ALLERGIES: 1. SULFA. 2. METFORMIN. HOME MEDICATIONS: 1. Ascorbic acid 500 daily. 2. Aspirin 81 twice a day. 3. Ferrous sulfate 325 daily. 4. Glipizide 5 mg twice a day. 5. Oxycodone 5 q6h as needed. 6. Tramadol 50 q6h as needed. 7. Naprosyn 220 twice a day. FAMILY HISTORY: Mother age 96 with CVA, father had heart disease, twin brother born with clubbed foot now has right BKA. SOCIAL HISTORY: Previous smoker quit over 50 years ago, at most maybe smoked 10 years. No alcohol use. 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 REVIEW OF SYSTEMS: Per HPI, 12 point system otherwise negative. PHYSICAL EXAMINATION: Vital signs: Temperature 96.9, pulse 64 sinus rhythm, respiratory rate 18, blood pressure 172/88, 99% on room air. General: Patient is awake, alert, oriented to person, place and time, answering questions appropriately. HEENT: Patient has a notable left sided facial drooping, tongue is deviated, uvula deviated. No pronator drift. Extraocular muscles are intact. Patient has slight slurring of speech, but still comprehensible and appropriate without word salad or significant expressive aphasia. No pronator drift. Finger to nose testing has sight dysmetria. Patient has decreased sensation on the left forearm, upper arm, lower extremity. Motor function of the left arm is 2/5, motor function of the left leg is 3/5. Gait was not tested. Right upper extremity has a congenital absence of the right forearm and hand. He has 5/5 motor function out of the right lower extremity. Lungs: Clear to auscultation, no wheezes, rhonchi or rales. Heart: S1 and S2 sinus rhythm. Abdomen: Soft, nontender, nondistended, positive bowel sounds. Extremities: Left lower extremity post-surgical scar bandaged, slight edema. LABORATORY DATA: Sodium 143, potassium 4, chloride 11, bicarb 25, bun 27, creatinine 1.5, ionized calcium 5, hematocrit 31. Glucose 119. White count 6.8, hemoglobin 11.6, hematocrit 34, platelet count 207. INR 1.03. Coronavirus negative. IMAGING STUDIES: Venous Doppler left lower extremity: No DVT noted. No thrombus in the left peroneal and posterior tibial vein. Chest x-ray: No acute pulmonary disease. CT of the head: No acute hemorrhage or edema. ASSESSMENT: This is a 70-year-old male with recent left knee replacement robotic assisted 11/07/2020, diabetes, otitis media, osteoarthritis, congenital absence of right forearm and hand presented to the Emergency Room with acute onset of left sided weakness, slurred speech and acute kidney injury, creatinine of 1.5. Patient will be admitted as an inpatient for 2 midnights for a CVA. IMPRESSIONS/PLAN: 1. 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 until swallow evaluation is done to rule out aspiration. Patient will be given aspirin 325 mg, Lipitor 40, check lipid panel, if possible MRI of the brain, MRA of the brain, MRA of the carotids if not CTA, but at risk of contrast induced nephropathy. Neuro checks every [address] Figueroa has been consulted recommended increasing the aspirin to 325 daily. Acute rehab screen, PT, TO, activity as tolerated, assisted ambulation with fall precautions. If speech therapist recommends an oral diet we will resume our recommended diet for n.p.o. Fingersticks q6h while n.p.o. and changed to AC and HS once patient is able to resume an oral diet. 2. DVT prophylaxis: With Lovenox. 3. Recent left total knee replacement: Consult orthopedic surgery for post-op management regarding activity level and dressing changes. 4. Uncontrolled hypertension: Allow for permissive hypertension 24 hours after acute CVA therefore we will permit 160-180 blood pressure. Norvasc 2.5 mg twice a day and may be titrated up to 10 mg daily. CODE STATUS: Health Care Proxy is Yue Rasheeda significant other. Patient is a Full Code. Phone number is [phone]. [facility]
[2020-11-22] MEDS: oxyCODONE 5MG TAB PO PRN (22:36)
[2020-11-23 00:19] VITALS: BP 147/85
[2020-11-23] MEDS: MORPHINE 2 MG/ML 1ML VIAL (J2270) IV PRN ×3 (01:29→20:08)
[2020-11-23 03:25] VITALS: BP 160/82
[2020-11-23 04:00] VITALS: BP 121/86
[2020-11-23] MEDS: oxyCODONE 5MG TAB PO PRN ×3 (04:52→21:36)
[2020-11-23] MEDS: HumaLOG INSULIN (NovoLOG) PER UNIT SC SCH ×4 (06:00→20:32)
[2020-11-23 06:22] LABS: HEMATOCRIT 33.4 % (42.0-52.0); MEAN CORPUSCULAR HEMOGLOBIN 31.1 pg (27.0-33.0); MEAN CORPUSCULAR HGB CONC 32.9 g/dl (32.0-36.5); MEAN CORPUSCULAR VOLUME 94.4 fl (80.0-96.0); PLATELET COUNT, AUTOMATED 191 10^3/uL (150-450); RED BLOOD COUNT 3.54 10^6/uL (4.30-6.10); WHITE BLOOD COUNT 6.3 10^3/uL (4.0-10.0)
[2020-11-23] MEDS: HEPARIN SOD (PORCINE) 5000UNITS/ML 1ML VIAL/SYRINGE SQ SCH ×3 (06:29→21:37)
[2020-11-23 06:53] LABS: ALT/SGPT 10 U/L (12-78); BILIRUBIN,TOTAL 0.6 MG/DL (0.2-1.0); BLOOD UREA NITROGEN 21 MG/DL (7-18); CALCIUM LEVEL 8.7 MG/DL (8.8-10.2); CARBON DIOXIDE LEVEL 22 MEQ/L (21-32); CHLORIDE LEVEL 113 MEQ/L (98-107); CREATININE FOR GFR 1.11 MG/DL (0.70-1.30); GLOMERULAR FILTRATION RATE > 60.0 (>49); GLUCOSE, FASTING 89 MG/DL (70-100); POTASSIUM SERUM 3.9 MEQ/L (3.5-5.1); SODIUM LEVEL 145 MEQ/L (136-145); TOTAL PROTEIN 5.6 GM/DL (6.4-8.2)
[2020-11-23 07:41] VITALS: BP 170/100
[2020-11-23] MEDS: ASPIRIN 325 MG TAB PO SCH (08:14)
[2020-11-23] MEDS: FERROUS SULFATE 325MG TAB PO SCH (08:14)
[2020-11-23] MEDS: ASCORBIC ACID 500 MG TAB PO SCH (08:15)
[2020-11-23] MEDS ORDERED: ISOVUE-370 76% 100ML VIAL As Ordered ONE (08:44)
[2020-11-23] MEDS ORDERED: amLODIPine 5 MG TAB PO ONE (09:00)
[2020-11-23] MEDS ORDERED: LIDOCAINE 1% MDV 20ML VIAL As Ordered ONE (10:28)
--- NOTE | 2020-11-23 10:38 | ECHO ---
ECHOCARDIOGRAM DATE OF PROCEDURE: 11/22/2020 Age: 70 Gender: Male Height: 175 cm Weight: 70 kg REFERRING PHYSICIAN: Lydia Peace MD INDICATION: Stroke. MEASUREMENTS: IVS 1.3 cm LV 5.3 cm LVPW 1.2 cm LA 3.9 cm Aorta 3.9 cm FINDINGS: This study is of good technical quality, underlying sinus rhythm. Normal LV size with mild LVH and normal LV systolic function, estimated LVEF 65% to 70%. Normal right ventricle size and systolic function. Both atria appear grossly normal. The aortic valve is tricuspid, it is mildly sclerotic, but mobility is preserved. Mitral and tricuspid valves appear normal. Limited views of pulmonic valve also appear normal. No pericardial effusion is noted. Inferior vena cava was not visualized. Aortic root and aortic arch appear normal. Abdominal aorta was not seen. Doppler interrogation of the aortic valve reveals no insufficiency or stenosis. There is mild mitral and tricuspid insufficiency. Calculated pulmonary artery pressure is within normal limits assuming normal central venous pressure. Trace pulmonic insufficiency is seen. Mitral inflow pattern and tissue Doppler imaging of mitral annulus revealed grade 1 diastolic dysfunction. CONCLUSIONS: 1. Study is of acceptable technical quality, underlying sinus rhythm. 2. Normal LV size with mild LVH and preserved LV systolic function. Grade 1 diastolic dysfunction. No significant valvular disease. 3. Unable to estimate central venous pressure, but likely normal pulmonary artery pressure.
[2020-11-23 12:00] VITALS: BP 160/100
--- NOTE | 2020-11-23 16:09 | IPN ---
PROGRESS NOTE DATE: 11/23/2020 SUBJECTIVE: The patient continues to have significant weakness of his left side. No new deficits overnight. Per nursing, the patient appears to have much more trouble swallowing this morning even though he was cleared for thin liquids yesterday and a regular diet. Afebrile. No cough. Telemetry sinus rhythm. OBJECTIVE: VITAL SIGNS: Temperature 99.5, pulse 88, respiratory rate 18, blood pressure 160/100, 98% on room air. GENERAL: The patient is awake, alert, and oriented x3 with slight expressive aphasia. Comprehensible speech, but slightly slurred. HEENT: Left facial drooping. Tongue is deviated. No pronator drift. Extraocular muscles are intact. Pupils are equally round, reactive to light, and accommodation. The patient has decreased sensation left forearm and upper arm. He has a congenital right forearm and hand absence. Motor function of the right lower extremity is 5/5, left lower extremity is 2/5, left upper extremity is 0/5. HEART: S1, S2. Sinus rhythm. LUNGS: Clear to auscultation. No wheezing, rales, or rhonchi. EXTREMITIES: Left knee post knee replacement bandaged. Calf is slightly larger on the left than the right side. NEUROLOGIC: The patient has a left-sided facial droop, slurred speech, comprehensible, but with mild expressive aphasia with slurring. Left upper extremity is 0/5 and left lower extremity is 2/5 motor function. Decreased sensation left upper and lower extremity. Right lower extremity has 5/5 motor function. The patient has a congenital right forearm and arm absence. LABORATORY DATA: White count 6.3, hemoglobin 11, hematocrit 33, platelet count 191,000. Sodium 141, potassium 3.9, chloride 113, bicarb 22, BUN 21, creatinine 1.11, glucose of 89. Lipid panel total cholesterol 174, LDL 112, HDL 39, procalcitonin 0.05. IMAGING DATA: CT of the head 11/22/2020, no acute hemorrhage or edema. Echocardiogram with mild LVH and grade 1 diastolic dysfunction. No significant valvular disease. 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 He presented to the emergency room with acute onset of left-sided weakness both of the upper and lower extremity when he woke up at 4 a.m. on 11/22/2020, urinated on himself, and unable to get up. EMS was called. The patient was found to have left-sided weakness. CT of the head was negative. Glucose was 119. EKG was sinus rhythm with chronic right bundle branch block. The patient is admitted for possible cerebrovascular accident (CVA) and had been kept on aspirin 325 daily. Current issues: 1. Left-sided weakness. The patient had a swallow evaluation, but has had increasing issues with dysphagia and coughing at the bedside. Therefore, a repeat swallow evaluation today by speech therapy to rule out aspiration. Since the patient has a penile implant, he is unable to obtain an MRI of the brain, MRA of the brain, and MRA of the carotids. Therefore, a CTA of the head and neck has been ordered and repeat CT head without contrast to document for possible acute CVA. He is currently on aspirin and Lipitor. Neurology has been consulted. Acute rehab unit with physical therapy (PT) and occupational therapy (OT) and neuro checks q. 4 hourly. 2. Recent left total knee replacement. Dressing changes per orthopedic surgery recommendations. Venous Doppler of the left lower extremity had no deep vein thrombosis (DVT). Procalcitonin is negative. 3. Hypertension, uncontrolled. Once CT of the head confirms CVA, will have permissive hypertension overnight, Norvasc has been added this morning 5 mg. Will wait for the repeat imaging and further recommendations from neurology. MAHNAZ
--- NOTE | 2020-11-23 17:44 | REP ---
PROCEDURE NAME: PICC LINE INSERTION W/SITERITE CLINICAL INFORMATION: poor iv access. COMPARISON: None. PROCEDURE DESCRIPTION: The procedure was performed by ANA ROSA Lopes, under the direct supervision of Dr. Cuevas. The risks and benefits of the procedure were explained to the patient and an informed consent was obtained both verbally and written. Directly prior to the start of the procedure a formal time-out was completed in the procedure room. The left basilic vein was localized using ultrasound guidance. The skin was prepped and draped in sterile fashion. One mL of 1% lidocaine 10 mg/mL was used as a local anesthetic. Using ultrasound guidance the left basilic vein was cannulated, and a 0.018 guidewire was inserted and advanced to the level of SVC using fluoroscopic guidance. The needle was removed and a 5.5 Malagasy dilator and peel-away sheath was inserted over the guidewire. A 5.5 Malagasy dual lumen catheter was cut to a length of 40 cm. The dilator was removed and the catheter was inserted over the guidewire with the tip ending at the level of the SVC. The peel-away sheath was removed and the catheter was flushed with heparinized saline as per hospital protocol. The catheter was affixed to the skin and a sterile dressing was applied. The patient tolerated the procedure well and there were no immediate complications. CONCLUSION: PICC line insertion into the left basilic vein. 0.1 minutes of fluoroscopy time was utilized for this procedure. Some fluoroscopic images are performed with last image hold technology. These images require no additional radiation. <Electronically signed by Yue Noland > 11/23/20 1547 <Electronically signed by Vinod Cuevas > 11/23/20 8220
[2020-11-23 20:00] VITALS: BP 176/85
[2020-11-23] MEDS: ATORVASTATIN 20 MG TAB PO SCH (20:08)
--- NOTE | 2020-11-23 20:29 | REPVR ---
PROCEDURE INFORMATION: Exam: MRA Neck Without Contrast Exam date and time: 11/23/2020 7:41 PM Age: 70 years old Clinical indication: Paralysis, transient of limb; Patient HX: Left hemiparesis/slurred speech TECHNIQUE: Imaging protocol: Magnetic resonance angiography of the neck without contrast. COMPARISON: No relevant prior studies available. FINDINGS: Right common carotid artery: No stenosis. No dissection or occlusion. Right internal carotid artery: No stenosis of the extracranial segment. No dissection or occlusion. Right external carotid artery: No stenosis. No dissection or occlusion of the origin. Right vertebral artery: No stenosis. No dissection or occlusion. Left common carotid artery: No stenosis. No dissection or occlusion. Left internal carotid artery: No stenosis of the extracranial segment. No dissection or occlusion. Left external carotid artery: No stenosis. No dissection or occlusion of the origin. Left vertebral artery: No stenosis. No dissection or occlusion. IMPRESSION: No stenosis or occlusion. REFERENCES: NASCET CRITERIA. The degree of internal carotid artery stenosis is based on NASCET criteria. Normal is no stenosis. Mild is less than 50% stenosis. Moderate is 50-69% stenosis. Severe is 70% to 99% stenosis. Total occlusion is no detectable patent lumen. Electronically signed by: Jose Diaz On 11/23/2020 20:29:42 PM
--- NOTE | 2020-11-23 20:31 | REPVR ---
PROCEDURE INFORMATION: Exam: MRA Head Without Contrast; Arteriography Exam date and time: 11/23/2020 7:41 PM Age: 70 years old Clinical indication: Paralysis, transient of limb; Patient HX: Left hemiparesis/slurred speech TECHNIQUE: Imaging protocol: Magnetic resonance angiography head without contrast. Exam focused on the arteries. COMPARISON: CT Head without contrast 11/22/2020 8:14 AM FINDINGS: ANTERIOR CIRCULATION: Right internal carotid artery: Intracranial segment is patent with no significant stenosis. No aneurysm. Right middle cerebral artery: No occlusion or significant stenosis. No aneurysm. Right anterior cerebral artery: No occlusion or significant stenosis. No aneurysm. Left internal carotid artery: Intracranial segment is patent with no significant stenosis. No aneurysm. Left middle cerebral artery: No occlusion or significant stenosis. No aneurysm. Left anterior cerebral artery: No occlusion or significant stenosis. No aneurysm. POSTERIOR CIRCULATION: Right vertebral artery: No occlusion or significant stenosis. No aneurysm. Left vertebral artery: No occlusion or significant stenosis. No aneurysm. Basilar artery: No occlusion or significant stenosis. No aneurysm. Right posterior cerebral artery: No occlusion or significant stenosis. No aneurysm. Left posterior cerebral artery: No occlusion or significant stenosis. No aneurysm. IMPRESSION: No stenosis or occlusion. Electronically signed by: Jose Diaz On 11/23/2020 20:30:58 PM
--- NOTE | 2020-11-23 20:34 | REPVR ---
PROCEDURE INFORMATION: Exam: MR Head Without Contrast Exam date and time: 11/23/2020 7:41 PM Age: 70 years old Clinical indication: Numbness / parasthesia; Patient HX: Left hemiparesis/slurred speech TECHNIQUE: Imaging protocol: MR of the head without contrast. COMPARISON: CT Head without contrast 11/22/2020 8:14 AM FINDINGS: Brain: Focus of subacute ischemia demonstrated in the right basal ganglia and posterior periventricular region on both diffusion weighted and ADC map images as well as T1 and T2 weighted images. No evidence of hemorrhage. Multiple foci of T2 lengthening are demonstrated in the subcortical, periventricular and centrum semiovale white matter consistent with age-related small vessel gliosis. Moderate parenchymal atrophy. Cerebral ventricles: The degree of ventricular dilatation is normal for age and/or degree of atrophy present. Bones/joints: Unremarkable. Paranasal sinuses: Normal as visualized. No acute sinusitis. Mastoid air cells: Normal as visualized. No mastoid effusion. Orbital cavity: Unremarkable. Soft tissues: Unremarkable. IMPRESSION: 1. Focus of subacute ischemia in the right basal ganglia extending into the posterior periventricular region. 2. Multiple foci of T2 lengthening are demonstrated in the subcortical, periventricular and centrum semiovale white matter consistent with age-related small vessel gliosis. 3. Moderate parenchymal atrophy. 4. The degree of ventricular dilatation is normal for age and/or degree of atrophy present. Electronically signed by: Jose Diaz On 11/23/2020 20:33:38 PM
[2020-11-24] VITALS (7 sets, daily range): BP systolic 127–188; BP diastolic 70–96
[2020-11-24] MEDS: MORPHINE 2 MG/ML 1ML VIAL (J2270) IV PRN ×2 (02:16→20:27)
[2020-11-24] MEDS: oxyCODONE 5MG TAB PO PRN (04:10)
[2020-11-24] MEDS: HEPARIN SOD (PORCINE) 5000UNITS/ML 1ML VIAL/SYRINGE SQ SCH (05:20)
[2020-11-24 05:48] LABS: HEMATOCRIT 33.3 % (42.0-52.0); HEMOGLOBIN 11.2 g/dl (13.5-17.5); MEAN CORPUSCULAR HEMOGLOBIN 31.6 pg (27.0-33.0); MEAN CORPUSCULAR HGB CONC 33.6 g/dl (32.0-36.5); MEAN CORPUSCULAR VOLUME 94.1 fl (80.0-96.0); PLATELET COUNT, AUTOMATED 203 10^3/uL (150-450); RED BLOOD COUNT 3.54 10^6/uL (4.30-6.10); WHITE BLOOD COUNT 8.8 10^3/uL (4.0-10.0)
[2020-11-24 06:11] LABS: ALBUMIN 2.8 GM/DL (3.2-5.2); ALT/SGPT 10 U/L (12-78); BILIRUBIN,TOTAL 0.7 MG/DL (0.2-1.0); BLOOD UREA NITROGEN 21 MG/DL (7-18); CALCIUM LEVEL 8.8 MG/DL (8.8-10.2); CARBON DIOXIDE LEVEL 28 MEQ/L (21-32); CHLORIDE LEVEL 107 MEQ/L (98-107); CREATININE FOR GFR 1.18 MG/DL (0.70-1.30); GLOMERULAR FILTRATION RATE > 60.0 (>49); GLUCOSE, FASTING 170 MG/DL (70-100); POTASSIUM SERUM 3.8 MEQ/L (3.5-5.1); SODIUM LEVEL 142 MEQ/L (136-145); TOTAL PROTEIN 6.3 GM/DL (6.4-8.2)
--- NOTE | 2020-11-24 06:44 | CR ---
CONSULTATION DATE: 11/22/2020 REFERRING PHYSICIAN: Lydia Peace MD REASON FOR CONSULTATION: Suspected stroke. HISTORY OF PRESENT ILLNESS: Ese Shannon is a 70-year-old man with history of left total knee replacement in Oct, 2020 at [facility] and was discharged home on aspirin 81 mg twice a day. He has history of penile implant, diabetes and presented to [facility] due to left-sided weakness which he noted when he woke up around 4 a.m. in the morning. He had difficulty walking. He felt slurred speech. He felt left arm was weaker than the left leg. He was in his usual state of health last evening before going to bed. The patient was unable to walk at home and unable to lift his arm. He urinated on himself. He stayed on the floor for two hours until his partner who was sleeping upstairs woke up and called 911. In the emergency department, CT scan of head was unremarkable. Blood glucose was 119 and EKG showed sinus rhythm with chronic right bundle branch block. He denies dysphagia, diplopia, urinary incontinence, falls or loss of consciousness. PAST MEDICAL HISTORY: 1. 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 2. Diabetes. 3. Chronic otitis media, status post bilateral ear tubes. 4. Osteoarthritis. 5. Right knee arthroplasty. 6. Left rotator cuff repair. 7. Right hip replacement. 8. Bilateral inguinal hernia repair. ALLERGIES: SULFA, METFORMIN. HOME MEDICATIONS: 1. Aspirin 81 mg p.o. daily. 2. Ferrous sulfate 325 mg p.o. daily. 3. Glipizide 5 mg p.o. b.i.d. 4. Oxycodone 5 mg q.6 hours. 5. Tramadol 50 mg p.o. q.6 hours p.r.n. 6. Naproxen 220 mg p.o. b.i.d. FAMILY HISTORY: Mother had stroke. Father had heart disease. SOCIAL HISTORY: He quit smoking 50 years ago. He denies alcohol or illicit drugs. REVIEW OF SYSTEMS: All systems were reviewed and found to be noncontributory except as mentioned in history of present illness. PHYSICAL EXAMINATION: VITAL SIGNS: Temperature 97.5, pulse 65, respiratory rate 18, blood pressure 164/95, 98% saturation on room air. HEART: Regular rate and rhythm. LUNGS: Clear to auscultation. ABDOMEN: Soft, nontender, nondistended. EXTREMITIES: No pedal edema. MUSCULOSKELETAL: No abnormalities. He had right knee replacement recently. NEUROLOGICAL: No tremor or signs of meningeal irritation. The patient is awake, alert, oriented to place, person and time. Normal speech, comprehension and repetition. Extraocular muscles are intact. He has left-sided upper motor neuron type facial weakness affecting left lower face. Strength in his left arm is 0/5 and left leg is 3+/5 throughout. Left plantar is upgoing. Gait could not be tested. He has left-sided dysmetria of leg. Sensation is intact to touch, cold on both sides. ASSESSMENT: 1. Suspected ischemic stroke causing left hemiplegia and dysarthria. 2. Diabetes and dyslipidemia. PLAN: 1. MRI brain. If he cannot do MRI scan of brain due his penile implant or recent right knee replacement, we should repeat CT scan of head after 24 hours, do CTA of head and neck with contrast. 2. Aspirin 325 mg p.o. daily and Lipitor 40 mg p.o. daily. 3. Physical and occupational therapy. 4. Rule out cardiac source, coagulopathy and vasculopathy with echocardiogram and extensive blood tests. Continue telemetry monitoring. 5. Keep blood pressure below 180/100. 6. Follow with our office in 1-2 weeks after hospital discharge.
[2020-11-24] MEDS ORDERED: NALOXONE INJ 0.4MG/1ML VIAL (J2310 PER 1MG) IV PRN (07:25)
[2020-11-24] MEDS ORDERED: COLCHICINE 0.6 MG TABLET PO ONE (07:25)
[2020-11-24] MEDS ORDERED: MORPHINE 10 MG/ML 1ML VIAL (J2270) IV ONE (07:25)
[2020-11-24] MEDS: HumaLOG INSULIN (NovoLOG) PER UNIT SC SCH ×4 (07:55→20:31)
[2020-11-24] MEDS ORDERED: lisinopriL 5 MG TAB PO ONE (08:00)
--- NOTE | 2020-11-24 09:22 | IPNPDOC ---
Text Note Date of Service The patient was seen on 11/24/20. NOTE Patient is postop day 14 for left total knee arthroplasty. Patient was seen today on admission to the hospital. He did have a clinic appointment scheduled for today, which she was unable to attend secondary to his admission. The patient reports that the other day he suffered what sounds like a stroke affecting the left side of his body causing significant weakness, etc. He was admitted to the hospital. Unfortunately, it sounds like he had been doing quite well with his exercises and range of motion and was progressing quite rapidly. Prior to this event. His history is advised of the patient's admission to the hospital and I have trouble to the hospital to evaluate his knee as he did have some blisters associated with the dressing. Examination of the left lower extremity demonstrates that the patient is able to move his foot and ankle, slowly. He has intact sensation to first webspace, and he has a palpable posterior tibial pulse. The Telfa dressing that was placed at the 1 week visit. Assessing his blisters was still in position. This was removed. There is no active bleeding or oozing noted. The Steri-Strips were in position and these were removed. The blisters appeared to be healing without any persisting fluid filled blisters just the remnant scars. The wound was cleansed with alcohol. Xeroform gauze was applied over the blistered areas and Telfa candace nds were placed to cover the incision and blistered areas. I have ordered physical therapy for passive range of motion to the patient's left knee and he will, of course, have other physical therapy exercises associated with his recent hospital admission. It is important that his range of motion be maintained to the left knee. Otherwise, it will stiffen up and not functioning appropriately. On talking to the nurse, sounds like the plan is to get him to acute rehabilitation as soon as possible so that he may have therapy at least 3 times daily. He will have naeem stockings ordered. His dressing will be changed every 3 days as needed. He'll be reevaluated in one to 2 weeks' time. VS,Fishbone, I+O VS, Fishbone, I+O Laboratory Tests 11/24/20 05:19 Vital Signs Date Time Temp Pulse Resp B/P (MAP) Pulse Ox O2 Delivery O2 Flow Rate FiO2 11/24/20 08:00 98.3 92 18 96 Room Air 11/24/20 04:00 174/86 (115) I&O- Last 24 Hours up to 6 AM 11/24/20 05:59 Intake Total 1200 ml Output Total 350 ml Balance 850 ml RICKEY SAMS MD Nov 24, 2020 09:22
[2020-11-24] MEDS: ASCORBIC ACID 500 MG TAB PO SCH (09:32)
[2020-11-24] MEDS: ASPIRIN 325 MG TAB PO SCH (09:32)
[2020-11-24] MEDS: FERROUS SULFATE 325MG TAB PO SCH (09:32)
--- NOTE | 2020-11-24 09:42 | REP ---
INDICATION: left ue swelling s/p picc r/o dvt COMPARISON: None. TECHNIQUE: Real time compression and duplex Doppler evaluation of the Left upper extremity deep venous system is performed. FINDINGS: The Left subclavian, jugular, axillary, brachial and cephalic veins are fully compressible where accessible with transducer pressure, and demonstrate no intraluminal thrombus and normal venous waveforms. There is no evidence of deep venous thrombosis.The Right subclavian vein is fully compressible where accessible with transducer pressure, and demonstrates no intraluminal thrombus and normal venous waveforms. There is echogenic material seen adjacent to the PICC line in the left basilic vein, compatible with very mild amount of thrombus. There is nonocclusive thrombus seen throughout the left median cubital vein. IMPRESSION: No evidence of deep venous thrombosis of the Left upper extremity deep vein system. Very mild thrombus adjacent to the PICC line in the left basilic vein. Nonocclusive thrombus left median cubital vein. <Electronically signed by Vinod Cuevas > 11/24/20 0900
--- NOTE | 2020-11-24 11:43 | IPN ---
PROGRESS NOTE DATE: 11/24/2020 SUBJECTIVE: The patient has no new neurological complaints. He continues to have left sided weakness, both upper and lower extremities completely flaccid. No other issues per nursing overnight. On telemetry remains in sinus rhythm. Patient complained of swelling in the left upper extremity status post PICC line placement. No evidence of DVT. Patient had been given Colchicine x1. OBJECTIVE: VITAL SIGNS: Temperature is 98.3, pulse is 92, respiratory rate is 18, blood pressure is 174/86, 96% on room air. GENERAL: Patient is awake, alert and oriented to himself, place and time, answering questions appropriately with some slurring of speech but comprehensible. He has left facial droop, 0/5 motor function left upper extremity, left lower extremity 3/5. Babinski noted on the left. No changes in sensation. HEENT: Extraocular muscles are intact. Pupils are equally round and reactive to light and accommodation. LUNGS: Clear to auscultation. No wheezing, rales, or rhonchi. HEART: S1 and S2, sinus rhythm. ABDOMEN: Soft, nontender and nondistended. EXTREMITIES: Patient has a congenital absence of the right forearm and upper arm, left knee postop bandage noted with ulcers. No purulence. LABORATORY DATA AND IMAGING STUDIES/MICROBIOLOGY: Have been reviewed. ASSESSMENT AND PLAN: This is a 70-year-old male with recent left knee replacement who presented to the Emergency Room with a dense left sided weakness and dysarthria, found to have a new right basal ganglia CVA with left hemiplegia. He has a past medical history of Type 2 diabetes, congenital absence of the right forearm and hand, otitis media, osteoarthritis and recent left robotic assisted knee arthroplasty on 11/07/2020 and was admitted on 11/22/2020 when he woke up with left sided weakness. CT of the head was negative. Glucose was 113. EKG showed sinus rhythm, chronic right bundle branch block. Active issues are as follows: 1. Right basal ganglia CVA. Patient is being evaluated by ARU. Patient is currently dependent on his left side for activities of daily living and is quite worried that he has lost function of this. At this time, there is no irregular rhythm on telemetry. He is currently on aspirin 325 daily along with Lipitor. Neurologist has been consulted. We are asking acute rehab unit to evaluate him and if possible discharge to ARU. DVT prophylaxis with Heparin sub q. 2. Speech Therapy and evaluation. No signs of aspiration. 3. Left total knee replacement with ulcers, managed by Dr. Fitzgerald with dressing changes. 4. Hypertension, uncontrolled. Was allowed for permissive hypertension, now we would like the blood pressure to be lower than 160 but higher than 130, therefore we will do a trial of Lisinopril and Norvasc this morning, pain control with Oxycodone. MTDD
[2020-11-24] MEDS ORDERED: atenoloL 25 MG TAB PO ONE (12:00)
[2020-11-24] MEDS: oxyCODONE 5MG TAB PO SCH ×2 (12:09→17:25)
--- NOTE | 2020-11-24 15:00 | IPNPDOC ---
Date Seen The patient was seen on 11/24/20. Progress Note Addendum to progress note: 11/24/20 Venous Doppler left upper extremity:Very mild thrombus adjacent to the PICC line in the left basilic vein. Nonocclusive thrombus left median cubital vein. Assessment: Left upper extremity catheter-related superficial venous thrombosis of the left basilic vein and left median cubital vein Plan: - Lovenox 40 mg subcutaneous daily for 45 days - DC PICC line if venous access is not needed. VS, I&O, 24H, Fishbone Vital Signs/I&O Vital Signs Date Time Temp Pulse Resp B/P (MAP) Pulse Ox O2 Delivery O2 Flow Rate FiO2 11/24/20 12:39 20 11/24/20 12:10 143/79 11/24/20 12:09 95 Room Air 11/24/20 08:00 98.3 92 I&O- Last 24 Hours up to 6 AM 11/24/20 06:00 Intake Total 1200 ml Output Total 350 ml Balance 850 ml Laboratory Data 24H LABS Laboratory Tests 2 11/23/20 20:24: Bedside Glucose (Misc Panel) 239H 11/24/20 05:19: Nucleated Red Blood Cells % (auto) 0.0, Anion Gap 7L, Glomerular Filtration Rate > 60.0, Calcium Level 8.8, Total Bilirubin 0.7, Aspartate Amino Transf (AST/SGOT) 7, Alanine Aminotransferase (ALT/SGPT) 10L, Alkaline Phosphatase 88, Total Protein 6.3L, Albumin 2.8L, Albumin/Globulin Ratio 0.8 11/24/20 11:45: Bedside Glucose (Misc Panel) 242H CBC/BMP Laboratory Tests 11/24/20 05:19 KALEIGH REDDY MD Nov 24, 2020 15:00
[2020-11-24] MEDS ORDERED: ENOXAPARIN 40MG/0.4ML SYRINGE (J1650 PER 10MG) SC ONE (18:00)
[2020-11-24] MEDS: ATORVASTATIN 20 MG TAB PO SCH (20:27)
[2020-11-25] MEDS: oxyCODONE 5MG TAB PO SCH ×4 (00:40→18:10)
[2020-11-25] MEDS ORDERED: SODIUM CHLORIDE 0.9% INJ 10 ML SYR IV PRN (05:40)
[2020-11-25] MEDS: SODIUM CHLORIDE 0.9% INJ 10 ML SYR IV SCH ×2 (05:49→18:10)
[2020-11-25 06:00] VITALS: BP 124/61
[2020-11-25 06:14] LABS: HEMATOCRIT 30.6 % (42.0-52.0); HEMOGLOBIN 10.3 g/dl (13.5-17.5); MEAN CORPUSCULAR HEMOGLOBIN 31.5 pg (27.0-33.0); MEAN CORPUSCULAR HGB CONC 33.7 g/dl (32.0-36.5); MEAN CORPUSCULAR VOLUME 93.6 fl (80.0-96.0); PLATELET COUNT, AUTOMATED 178 10^3/uL (150-450); RED BLOOD COUNT 3.27 10^6/uL (4.30-6.10); WHITE BLOOD COUNT 8.3 10^3/uL (4.0-10.0)
[2020-11-25 06:44] LABS: ALBUMIN 2.5 GM/DL (3.2-5.2); BILIRUBIN,TOTAL 0.9 MG/DL (0.2-1.0); CALCIUM LEVEL 8.4 MG/DL (8.8-10.2); CREATININE FOR GFR 1.38 MG/DL (0.70-1.30); GLOMERULAR FILTRATION RATE 54.5 (>49); POTASSIUM SERUM 3.8 MEQ/L (3.5-5.1); TOTAL PROTEIN 5.3 GM/DL (6.4-8.2)
[2020-11-25] MEDS: ASCORBIC ACID 500 MG TAB PO SCH (08:05)
[2020-11-25] MEDS: ASPIRIN 325 MG TAB PO SCH (08:05)
[2020-11-25] MEDS: FERROUS SULFATE 325MG TAB PO SCH (08:05)
[2020-11-25] MEDS: HumaLOG INSULIN (NovoLOG) PER UNIT SC SCH ×3 (08:06→18:09)
[2020-11-25] MEDS: MORPHINE 2 MG/ML 1ML VIAL (J2270) IV PRN ×2 (08:11→15:30)
[2020-11-25] MEDS ORDERED: NS 1,000 ML IV ONE ×2 (08:50→14:15)
[2020-11-25] MEDS ORDERED: LOVE1INJ SC (08:55)
[2020-11-25] MEDS ORDERED: ASPI-1 PO (08:55)
[2020-11-25] MEDS ORDERED: OXYC-517 PO (08:55)
[2020-11-25] MEDS ORDERED: ATOR1TAB21 PO (08:55)
[2020-11-25] MEDS ORDERED: ENOXAPARIN 40MG/0.4ML SYRINGE (J1650 PER 10MG) SC SCH (09:00)
[2020-11-25] MEDS ORDERED: SENOKOT S TAB PO PRN (12:10)
[2020-11-25] MEDS ORDERED: MOM 30ML SUSPENSION UDC PO PRN (12:10)
[2020-11-25] MEDS ORDERED: MIRALAX *UNIT DOSE* 17GM PACKET PO PRN (12:10)
[2020-11-25 13:20] LABS: CREATININE FOR GFR 1.38 MG/DL (0.70-1.30); GLOMERULAR FILTRATION RATE 54.5 (>49); POTASSIUM SERUM 3.8 MEQ/L (3.5-5.1)
[2020-11-25 13:21] LABS: CALCIUM LEVEL 8.1 MG/DL (8.8-10.2)
[2020-11-25 14:00] VITALS: BP 114/65
--- NOTE | 2020-11-25 14:24 | DS.PDOC ---
Discharge Summary General Date of Admission Nov 22, 2020 at 10:58 Date of Discharge 11/26/20 Discharge Summary DISCHARGE DIAGNOSES: RIGHT BASAL GANGLIA CVA WITH LEFT SIDED WEAKNESS RECENT LEFT KNEE REPLACEMENT W ULCERS CONGENITAL ABSENCE OF RIGHT FOREARM AND HAND TYPE 2 DM OA LOW GRADE FEVER POOR IV ACCESS S/P PICC LINE PLACEMENT PICC-LINE RELATED SUPERFICIAL BASILIC AND CEPHALIC VEIN THROMBOSIS PROCEDURE: PICC LINE PLACEMENT DISCHARGE MEDICATIONS: SE BELOW ALLERGY: SEE BELOW DISCHARGE INSTRUCTIONS: PCP, NEUROLOGY, ORHTO FU 1 WK AFTER HOSPITAL DISCHARGE HOSPITAL COURSE: This is a 70-year-old male with recent left knee replacement who presented to the Emergency Room with a dense left sided weakness and dysarthria, found to have a new right basal ganglia CVA with left hemiplegia. He has a past medical history of Type 2 diabetes, congenital absence of the right forearm and hand, otitis media, osteoarthritis and recent left robotic assisted knee arthroplasty on 11/07/2020 and was admitted on 11/22/2020 when he woke up with left sided weakness. CT of the head was negative. Glucose was 113. EKG showed sinus rhythm, chronic right bundle branch block. Right basal ganglia CVA. Patient is being evaluated by ARU. Patient is currently dependent on his left side for activities of daily living and is quite worried that he has lost function of this. At this time, there is no irregular rhythm on telemetry. He is currently on aspirin 325 daily along with Lipitor. Neurologist has been consulted.discharged to ARU. DVT prophylaxis with llovenox sq Speech Therapy and evaluation. Left total knee replacement with ulcers, managed by Dr. Fitzgerald with dressing changes. Hypertension, uncontrolled initially and treated with lisinopril and norvasc. now normotensive and not requiring meds. allowed for permissive hypertension. Acute kidney injury due to contrast nephropathy s/p ivfluids. encourage 2- 3liters oral intake .renally dose meds and avoid nephrotoxins PICC line related superficial thrombosis of cephalic and basilic veins. on lovenox. elevate. ice for comfort prn. low grade fever. rechecked blood cx, esr, crp, cxr, ua urine cs. one dose avelox for presumed pneumonia, but will await culture results. check procalcitonin. monitor postop knee ulcers r/o picc line infection, or infected hardware s/p knee replacement. DISCHARGE PHYSICAL EXAMINATION: VITALS; SEE BELOW GENERAL: Patient is awake, alert and oriented to himself, place and time, answering questions appropriately with some slurring of speech but comprehensible. He has left facial droop, 0/5 motor function left upper extremity, left lower extremity 3/5. Babinski noted on the left. No changes in sensation. HEENT: Extraocular muscles are intact. Pupils are equally round and reactive to light and accommodation. LUNGS: Clear to auscultation. No wheezing, rales, or rhonchi. HEART: S1 and S2, sinus rhythm. ABDOMEN: Soft, nontender and nondistended. EXTREMITIES: Patient has a congenital absence of the right forearm and upper arm, left knee postop bandage noted with ulcers. No purulence. LABORATORY DATA AND IMAGING STUDIES/MICROBIOLOGY: SEE CHART TIME SPENT ON DISCHARGE: 30 MIN Vital Signs/I&Os Vital Signs Date Time Temp Pulse Resp B/P (MAP) Pulse Ox O2 Delivery O2 Flow Rate FiO2 11/25/20 11:47 19 11/25/20 11:17 Room Air 11/25/20 06:00 98.4 68 124/61 (82) 98 I&O- Last 24 Hours up to 6 AM 11/25/20 06:00 Intake Total 955 ml Output Total 100 ml Balance 855 ml Laboratory Data Labs 24H Laboratory Tests 2 11/24/20 17:05: Bedside Glucose (Misc Panel) 156H 11/24/20 20:31: Bedside Glucose (Misc Panel) 117H 11/25/20 05:57: Nucleated Red Blood Cells % (auto) 0.0, Anion Gap 8, Glomerular Filtration Rate 54.5, Calcium Level 8.4L, Total Bilirubin 0.9, Aspartate Amino Transf (AST/SGOT) 7, Alanine Aminotransferase (ALT/SGPT) 8L, Alkaline Phosphatase 79, Total Pr otein 5.3L, Albumin 2.5L, Albumin/Globulin Ratio 0.9 11/25/20 11:21: Anion Gap 6L, Glomerular Filtration Rate 54.5, Calcium Level 8.1L 11/25/20 11:53: Bedside Glucose (Misc Panel) 157H CBC/BMP Laboratory Tests 11/25/20 05:57 11/25/20 11:21 FSBS Laboratory Tests Test 11/24/20 17:05 11/24/20 20:31 11/25/20 11:53 Range/Units Bedside Glucose (Misc Panel) 156 117 157 80-115 MG/DL Discharge Medications Scheduled Ascorbic Acid (Vitamin C) 500 Mg Tablet, 500 MG PO DAILY, (Reported) Aspirin (Aspirin) 325 Mg Tablet, 325 MG PO DAILY Atorvastatin Calcium (Atorvastatin Calcium) 20 Mg Tablet, 40 MG PO QHS Enoxaparin Sodium (Lovenox) 40 Mg/0.4 Ml Syringe, 40 MG SC DAILY Ferrous Sulfate (Ferrous Sulfate) 325 Mg Tablet, 325 MG PO DAILY, (Reported) Glipizide (Glipizide) 5 Mg Tablet, 5 MG PO BID, (Reported) Oxycodone HCl (Oxycodone HCl) 5 Mg Tablet, 5 MG PO Q6H Scheduled PRN Oxycodone HCl (Oxycodone HCl) 5 Mg Tablet, 5 MG PO Q6H PRN for SEVERE PAIN (PS 8-10), (Reported) Tramadol HCl (Tramadol HCl) 50 Mg Tablet, 50 MG PO Q6H PRN for PAIN, (Reported) Allergies Coded Allergies: Sulfa (Sulfonamide Antibiotics) (Verified Allergy, Unknown, swelling/rash, 11/26/19) metformin (Verified Allergy, Unknown, swelling, 11/26/19) KALEIGH REDDY MD Nov 25, 2020 14:18
[2020-11-25] MEDS ORDERED: OXYMETAZOLINE 0.05% NASAL SPRAY (AFRIN) ONE (15:25)
--- NOTE | 2020-11-25 15:29 | REP ---
INDICATION: FEVER S/P CVA R/O ASPIRATION PNEUMONITIS VS PNEUMONIA. COMPARISON: 11/22/2020 the latest prior TECHNIQUE: Portable AP and lateral FINDINGS: The cardiomediastinal silhouette is unchanged. Since the last examination left-sided PICC line catheter has been placed the tip of which is in the superior vena cava. There is no change in lung bishop. No acute patchy parenchymal opacities or pleural effusions have developed. The osseous structures appear stable. IMPRESSION: There is no evidence of acute disease. There is no significant change compared to the prior exam with the exception of a PICC line catheter now being present as described above. <Electronically signed by Neville Rain > 11/25/20 [id number]
[2020-11-25] MEDS ORDERED: predniSONE 5 MG TAB PO SCH (15:30)
[2020-11-25] MEDS ORDERED: PRED5TA PO (15:31)
[2020-11-25] MEDS ORDERED: MOXIFLOXACIN HCL 400 MG in IV 1 EA IV ONE (16:00)
[2020-11-25] MEDS ORDERED: ACETAMINOPHEN 500 MG TAB PO ONE (19:30)
[2020-11-26] MEDS ORDERED: OXYMETAZOLINE 0.05% NASAL SPRAY (AFRIN) SCH (06:00)
== END 2020-11-25 19:16 | DRG 65 ==
LOC: M ED 07:52 → EDBD 07:52 → M ED INP 10:58 → ENRESERV 13:56 → M PCU 15:06 → M MSPAV 11-24 13:28
PROVIDERS: ADMIT General Practice; ATTEND General Practice
PROC: 02HV33Z Insertion of Infusion Device into Superior Vena Cava, Percutaneous Approach (ICD-10-PCS; principal; 2020-11-23 10:13)
DX: I63.59 Cerebral infarction due to unspecified occlusion or stenosis of other cerebral artery (principal); T82.868A Thrombosis due to vascular prosthetic devices, implants and grafts, initial encounter; N17.9 Acute kidney failure, unspecified; G81.94 Hemiplegia, unspecified affecting left nondominant side; Q71.21 Congenital absence of both forearm and hand, right upper limb; E11.9 Type 2 diabetes mellitus without complications; H66.90 Otitis media, unspecified, unspecified ear; M19.90 Unspecified osteoarthritis, unspecified site; I10 Essential (primary) hypertension; I45.10 Unspecified right bundle-branch block; R13.10 Dysphagia, unspecified; E78.5 Hyperlipidemia, unspecified; M10.9 Gout, unspecified; N14.1 Nephropathy induced by other drugs, medicaments and biological substances; Z20.822 Contact with and (suspected) exposure to COVID-19; Z79.899 Other long term (current) drug therapy; Z79.84 Long term (current) use of oral hypoglycemic drugs; Z96.652 Presence of left artificial knee joint; Z79.82 Long term (current) use of aspirin; Z88.2 Allergy status to sulfonamides; Z88.8 Allergy status to other drugs, medicaments and biological substances; Z87.891 Personal history of nicotine dependence; Z96.641 Presence of right artificial hip joint; R47.81 Slurred speech

== ENCOUNTER 2020-11-24 13:06 | Inpatient (IN) | payer OTHER ==
[~2020-11-24] VITALS: Ht 175.3 cm; Wt 71.3 kg
[~2020-11-24 13:06] MED LIST changes: +ASPI-161 PO; +NAPR-849 PO; +TRAM50TA2 PO; +VITA-158 PO; +[UNRECOGNIZED DRUG - CODE] PO
[2020-11-25] MEDS ORDERED: ATOR1TAB21 PO (08:55)
[2020-11-25] MEDS ORDERED: ASPI-1 PO (08:55)
[2020-11-25] MEDS ORDERED: LOVE1INJ SC (08:55)
[2020-11-25] MEDS ORDERED: OXYC-517 PO (08:55)
[2020-11-25] MEDS ORDERED: PRED5TA PO (15:31)
[2020-11-25] MEDS ORDERED: GLUCOSE 4GM CHEW TABLET PO PRN (17:30)
[2020-11-25] MEDS ORDERED: GLUCAGON INJ 1MG VIAL SC PRN (17:30)
[2020-11-25] MEDS: HumaLOG INSULIN (NovoLOG) PER UNIT SC SCH ×2 (17:30→20:42)
[2020-11-25] MEDS ORDERED: BISACODYL 10 MG SUPP PR PRN (17:30)
[2020-11-25] MEDS ORDERED: DEXTROSE 50% 50 ML SYRINGE IV PRN (17:30)
[2020-11-25] MEDS ORDERED: MIRALAX *UNIT DOSE* 17GM PACKET PO PRN (17:30)
[2020-11-25 20:00] VITALS: BP 162/90
[2020-11-25] MEDS: oxyCODONE 5MG TAB PO PRN (20:40)
[2020-11-25] MEDS: ACETAMINOPHEN TAB 650MG DOSE (2X325MG) PO PRN (20:40)
[2020-11-25] MEDS: SENNA 8.6 MG TAB (SENOKOT) PO SCH (20:42)
[2020-11-25] MEDS: ATORVASTATIN 20 MG TAB PO SCH (20:42)
[2020-11-25] MEDS: DOCUSATE SODIUM 100MG CAPSULE PO SCH (20:42)
[2020-11-25] MEDS: predniSONE 5 MG TAB PO SCH (20:42)
[2020-11-26] MEDS: oxyCODONE 5MG TAB PO PRN ×4 (01:06→21:43)
[2020-11-26 06:00] VITALS: BP 161/80
[2020-11-26] MEDS: METOPROLOL TART 12.5 MG PER 1/2 TAB PO SCH ×3 (06:00→22:26)
[2020-11-26] MEDS: SODIUM CHLORIDE 0.9% INJ 10 ML SYR IV SCH ×2 (06:10→17:08)
[2020-11-26 07:25] LABS: BASO % 0.2 % (0.0-1.0); EOS % 0.2 % (0.0-3.0); HEMATOCRIT 30.8 % (42.0-52.0); HEMOGLOBIN 10.2 g/dl (13.5-17.5); LYMPH # 0.4 10^3/uL (1.5-5.0); LYMPH % 6.3 % (24.0-44.0); MEAN CORPUSCULAR HEMOGLOBIN 30.9 pg (27.0-33.0); MEAN CORPUSCULAR HGB CONC 33.1 g/dl (32.0-36.5); MEAN CORPUSCULAR VOLUME 93.3 fl (80.0-96.0); MONO # 0.2 10^3/uL (0.0-0.8); MONO % 3.8 % (2.0-8.0); NEUTROPHILS # 5.3 10^3/uL (1.5-8.5); NEUTROPHILS % 88.7 % (36.0-66.0); PLATELET COUNT, AUTOMATED 165 10^3/uL (150-450)
[2020-11-26 07:39] LABS: ALBUMIN 2.4 GM/DL (3.2-5.2); BILIRUBIN,TOTAL 0.5 MG/DL (0.2-1.0); CALCIUM LEVEL 8.5 MG/DL (8.8-10.2); CREATININE FOR GFR 1.31 MG/DL (0.70-1.30); GLOMERULAR FILTRATION RATE 57.9 (>49); POTASSIUM SERUM 4.3 MEQ/L (3.5-5.1); TOTAL PROTEIN 5.3 GM/DL (6.4-8.2)
--- NOTE | 2020-11-26 08:00 | IPN ---
PROGRESS NOTE DATE: 11/26/2020 SUBJECTIVE: The patient had a rectal temperature of 101.9 yesterday at 1400 and low grade temperature of 100.5 orally. He was given one dose of Avelox. Chest x-ray shows no acute infiltrate or atelectasis. PICC line is noted in the left upper extremity into the superior vena cava. White count was normal. Sed rate was elevated at 75 from 58. CRP was elevated at 17.4 from 9.65. Procalcitonin was 0.16. The patient had no white count. Blood culture was sent with no growth so far. UA was negative with 1 WBC and negative bacteria. He denies any dysuria, urgency, or frequency. Denies any aspiration. He currently still complains of left wrist, elbow, and right ankle pain and swelling currently on prednisone for gout flare. Overnight at 1641, he had a low grade temperature of 100.4. Repeat UA and blood culture are still pending this morning. Despite blood pressure 161 systolic this morning, he denies any chest pain, pressure, tightness, shortness of breath, headache, changes in vision, or feeling of malaise. He otherwise denies any nausea, vomiting, diarrhea, abdominal pain. No other new complaints aside from left-sided weakness. OBJECTIVE: VITAL SIGNS: Temperature 97, T-max of 101.9 rectally yesterday 11/25/2020, pulse 52 sinus, respiratory rate 16, blood pressure 161/80, 96% on room air. GENERAL: The patient is awake, alert, and oriented to person, place, and time. Answering questions appropriately. His speech is fluent. No pallor or icterus. No respiratory distress. HEENT: Pupils are equally round, reactive to light, and accommodation. Extraocular muscles are intact. He has left-sided facial weakness with left facial drooping. LUNGS: Clear to auscultation. No wheezing, rales, or rhonchi. HEART: S1, S2. Sinus rhythm, bradycardic. ABDOMEN: Soft, nontender, and nondistended with positive bowel sounds. EXTREMITIES: Left upper extremity is 0/5 motor strength. Left lower extremity is 3/5. Right upper extremity has congenital absence of the right forearm and hand. No cyanosis, clubbing, or pitting edema. ASSESSMENT: 1. Suspected ischemic stroke causing left hemiplegia and dysarthria. 2. Type 2 diabetes. 3. Dyslipidemia. 4. Superficial thrombosis of the left cephalic and basilic vein secondary to peripherally inserted central catheter (PICC) line. 5. Fever. 6. Acute kidney injury due to contrast nephropathy. 7. Acute gout flare of the left wrist, elbow, and right ankle. 8. Right basal ganglia cerebrovascular accident (CVA) with left-sided weakness. PLAN: The patient did receive one dose of Avelox yesterday on 11/25/2020. He remained afebrile overnight. Normal white count with procalcitonin 0.16. No empiric antibiotics will be given today unless patient is febrile or patient develops a bacteremia. Differential diagnosis for fever includes thrombophlebitis from the left upper extremity PICC line related superficial thrombosis, but clinically does not have any erythema or tracking, tenderness of the left upper extremity, possible urinary tract infection (UTI), health care-associated pneumonia, atelectasis or central fever, line infection secondary to PICC line. No empiric antibiotics for now unless the patient becomes septic. Continue with acute rehabilitation unit (ARU). Continue encouraging oral fluid intake due to acute kidney injury from contrast nephropathy. Deep vein thrombosis (DVT) prophylaxis currently on Lovenox, which is helpful for the superficial thrombosis of the left cephalic and basilic vein as well. The patient is to be repositioned q. 2 hourly cough and turned. Incentive spirometry while awake to prevent atelectasis and for blood pressure. Blood pressure should be maintained at 130 due to significant right basal ganglia CVA; therefore, we will give Norvasc 10 mg this morning. MTDD
[2020-11-26] MEDS: ANUSOL HC CREAM 30GM TOP SCH ×2 (09:00→22:24)
--- NOTE | 2020-11-26 09:15 | HPEPDOC ---
User Support Analyst Note DATE OF ADMISSION: 11-25-20 DATE OF SERVICE: 11-26-20 TIME OF ADMISSION: Please refer to physician's admission order. 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 CTH was negative for intracranial hemorrhage and MRI revealed a right basal ganglia ischemic infarct with extension into the posterior periventricular region. MRA brain was negative for intracranial stenosis and imaging also did not reveal carotid stenosis. Neurology recommended statin and ASA 325mg daily. He developed LUE swelling with Doppler revealing Left basilica vein and left median cubital vein thrombosis for which he was started on Lovenox. He also was suspected to have a gout flair with fever and swelling noted in his left hand and fingers for which he was given colchicine and started on oral steroids. He had mobility and ADL impairment and deemed medically appropriate for discharge to ARU on 11-25-20. REVIEW OF SYSTEMS: The following is a completed review of systems and has been reviewed. Review of systems otherwise unremarkable. PAIN: Patient self reports no pain EYES: No recent vision changes EARS, NOSE, & THROAT: No throat pain, or dysphagia, or rhinorrhea CARDIOVASCULAR: Denies chest pain or palpitations PULMONARY: Denies shortness of breath GASTROINTESTINAL: Denies constipation/diarrhea GENITOURINARY: denies dysuria MUSCULOSKELETAL: left sided paresis, congenital RUE amputation NEUROLOGICAL: +left sided hemiparesis HEMATOLOGICAL: denies easy bruising SKIN: denies rash, LUE PICC PSYCHIATRIC: Unremarkable All other review of systems found to be negative. PAST MEDICAL HISTORY: as per HPI PAST SURGICAL HISTORY: left RTC repair, right THR, right patellar surgery, left TKR, bilateral inguinal hernia repair ALLERGIES: Please see below. MEDICATIONS: Please see below. FAMILY HISTORY: SOCIAL HISTORY: Former smoker, no etoh/illicit drugs DIET: low sodium and consistent carb PHYSICAL EXAMINATION: VITAL SIGNS: Please see below. GENERAL: Pleasant and cooperative. No acute distress. +left sided facial droop HEENT: PERRL. Extraocular movements intact. Clear conjunctiva CARDIOVASCULAR: Regular rate and rhythm. No murmurs, rubs, or gallops LUNGS: Clear to auscultation bilaterally. No wheezes. No rhonchi ABDOMEN: Soft, nontender, nondistended. Positive bowel sounds. Normal active bowel sounds NEUROLOGICAL: Alert and oriented times three. Cranial nerves II through XII grossly intact. Sensation grossly decreased to light touch LLE and LUE +left elbow extensor tone EXTREMITIES: 3/5 LLE, 5/5 RLE, trace LUE, grossly 5/5 right upper arm (forearm congenital amputation). + erythema swelling of left D1, D2 PIP and MCP joints with tophi SKIN: LUE PICC left knee with anterior surgical incision, no salma-incisional induration or erythema LABORATORY DATA: Please see below. IMAGING:Imaging documentation personally reviewed by record FUNCTIONAL STATUS: Premorbid: Independent with all activities of daily life as well as mobility On Admission: Moderate assist for bed mobility, dressing, toileting, ambulation/transfers. GOALS: Supervision-contact guard for bed mobility, dressing, toileting, ambulation/transfers, bathing ASSESSMENT:70-year-old M with past medical history of DM who presents status post right basal ganglia infarct affecting his dominant side PLAN: 1. Rehab- OT/PT- advance mobility and ADLs, strengthen/stretch/maintain ROM all 4 limbs, splint for left wrist, avoid e-stim to LUE at this time given superficial VTE -NUT CRACKER for cog and swallow 2. NEuro- s/p right basal ganglia infarct on ASA 325mg and statin, c/u good BP management, f/u neuro outpatient 3.Cardiac- hx of HTN c/u BP meds -HLD c/u statin -medicine consulted to assist in overall management 4. Resp- monitor for infection 5. Endo- hx of DM with hyperglycemia now on prednisone for gout- c/u ISS and levemir 6. Rheum- gout flair s/p dose of colchicine on inpatient side, c/u prednisone, will add topical hydrocortisone 7. DVT ppc- lovenox- + superficial VTE LUE 8. Pain- tyelenol and oxycodone 9. Dispo- tbd POST ADMISSION PHYSICIAN EVALUATION: Medical and functional status: Description of medical status, medical assessment: As above. Rehabilitation diagnosis and current and prior cold morbid medical conditions as above. Risk of complications and plans to mitigate them as above. Description of functional status current status is as above. Prior status as above. Status compared to preadmission: There are no clinically significant differences between the patient's current status and the information described on the preadmission screening document. Treatment plan anticipated: Treatment plan is as described above. Required disciplines including physical therapy, occupational therapy, others as noted above Intensity of services: 3 hours a day, 6 days a week. Special considerations: There are no specific special or safety considerations that would likely preclude immediate implementation of an intensive rehabilitation program or subsequently influence the plan of care. ATTESTATION: Considering all the information above, it is my best judgment that this patient requires intensive rehabilitation therapy as described above and an inpatient hospital environment due to the complexity of nursing, medical, and rehabilitation needs required by the patient. Furthermore, this patient can reasonably be expected to participate in an benefit from an inpatient rehabilitation stay with an interdisciplinary team approach to the delivery of rehabilitation care under the direction and supervision of rehabilitation physician PROGNOSIS: good ESTIMATED LENGTH OF STAY:14-18 days. PROJECTED DISCHARGE DESTINATION: Home with family support and any durable medical equipment required to increase functional safety and mobility TIME SPENT COUNSELING AND COORDINATING INITIAL CARE: Greater than 70 minutes. Vital Signs Vital Sign - Last 24 Hours 11/25/20 11/25/20 11/25/20 11/25/20 20:00 20:40 21:10 21:30 Temp 100.2 98.2 Pulse 80 Resp 16 16 16 B/P (MAP) 162/90 (114) Pulse Ox 95 O2 Delivery Room Air Room Air Room Air 11/26/20 11/26/20 11/26/20 11/26/20 01:06 01:36 06:00 06:10 Temp 97.0 Pulse 52 Resp 18 18 16 18 B/P (MAP) 161/80 (107) Pulse Ox 96 O2 Delivery Room Air Room Air Room Air Room Air 11/26/20 06:40 Resp 16 O2 Delivery Room Air Laboratory Data CBC/BMP Laboratory Tests 11/26/20 06:45 Labs 24H Laboratory Tests 2 11/25/20 20:32: Bedside Glucose (Misc Panel) 209H 11/26/20 06:07: Bedside Glucose (Misc Panel) 279H 11/26/20 06:45: Immature Granulocyte % (Auto) 0.8, Neutrophils (%) (Auto) 88.7H, Lymphocytes (%) (Auto) 6.3L, Monocytes (%) (Auto) 3.8, Eosinophils (%) (Auto) 0.2, Basophils (%) (Auto) 0.2, Neutrophils # (Auto) 5.3, Lymphocytes # (Auto) 0.4L, Monocytes # (Auto) 0.2, Eosinophils # (Auto) 0.0, Basophils # (Auto) 0.0, Nucleated Red Blood Cells % (auto) 0.0, Anion Gap 6L, Glomerular Filtration Rate 57.9, Calcium Level 8.5L, Total Bilirubin 0.5, Aspartate Amino Transf (AST/SGOT) 9, Alanine Aminotransferase (ALT/SGPT) 9L, Alkaline Phosphatase 82, Total Protein 5.3L, Albumin 2.4L, Albumin/Globulin Ratio 0.8 FSBS Laboratory Tests Test 11/25/20 20:32 11/26/20 06:07 Range/Units Bedside Glucose (Misc Panel) 209 279 80-115 MG/DL Home Medications Scheduled Ascorbic Acid (Vitamin C) 500 Mg Tablet, 500 MG PO DAILY, (Reported) Aspirin (Aspirin) 325 Mg Tablet, 325 MG PO DAILY Atorvastatin Calcium (Atorvastatin Calcium) 20 Mg Tablet, 40 MG PO QHS Enoxaparin Sodium (Lovenox) 40 Mg/0.4 Ml Syringe, 40 MG SC DAILY Ferrous Sulfate (Ferrous Sulfate) 325 Mg Tablet, 325 MG PO DAILY, (Reported) Glipizide (Glipizide) 5 Mg Tablet, 5 MG PO BID, (Reported) Oxycodone HCl (Oxycodone HCl) 5 Mg Tablet, 5 MG PO Q6H Prednisone (Prednisone) 5 Mg Tablet, 15 MG PO BID Scheduled PRN Oxycodone HCl (Oxycodone HCl) 5 Mg Tablet, 5 MG PO Q6H PRN for SEVERE PAIN (PS 8-10), (Reported) Tramadol HCl (Tramadol HCl) 50 Mg Tablet, 50 MG PO Q6H PRN for PAIN, (Reported) Allergies Coded Allergies: Sulfa (Sulfonamide Antibiotics) (Verified Allergy, Unknown, swelling/rash, 11/26/19) metformin (Verified Allergy, Unknown, swelling, 11/26/19) A-FIB/CHADSVASC A-FIB History Current/History of A-Fib/PAF?: No Current PO Anticoag Therapy: No MAUREEN DALLAS MD Nov 26, 2020 09:15
[2020-11-26 09:38] VITALS: BP 121/69
[2020-11-26] MEDS: HumaLOG INSULIN (NovoLOG) PER UNIT SC SCH ×4 (09:38→22:27)
[2020-11-26] MEDS: predniSONE 5 MG TAB PO SCH ×2 (09:39→22:30)
[2020-11-26] MEDS: ASCORBIC ACID 500 MG TAB PO SCH (09:40)
[2020-11-26] MEDS: PANTOPRAZOLE 40MG TAB (PROTONIX) PO SCH (09:40)
[2020-11-26] MEDS: DOCUSATE SODIUM 100MG CAPSULE PO SCH ×2 (09:40→22:24)
[2020-11-26] MEDS: FERROUS SULFATE 325MG TAB PO SCH (09:40)
[2020-11-26] MEDS: LEVEMIR (INSULIN DETEMIR) 1 UNITS/0.01ML SC SCH ×2 (09:41→22:26)
[2020-11-26] MEDS: ENOXAPARIN 40MG/0.4ML SYRINGE (J1650 PER 10MG) SC SCH (09:42)
[2020-11-26] MEDS: ASPIRIN ENTERIC 325 MG TAB PO SCH (09:43)
[2020-11-26] MEDS: SODIUM CHLORIDE 0.9% INJ 10 ML SYR IV PRN (12:14)
[2020-11-26 14:00] VITALS: BP 110/66
[2020-11-26 20:00] VITALS: BP 129/65
[2020-11-26] MEDS: ATORVASTATIN 20 MG TAB PO SCH (22:23)
[2020-11-26] MEDS: SENNA 8.6 MG TAB (SENOKOT) PO SCH (22:24)
[2020-11-26] MEDS: ACETAMINOPHEN TAB 650MG DOSE (2X325MG) PO PRN (22:25)
[2020-11-27] MEDS: oxyCODONE 5MG TAB PO PRN ×4 (03:12→21:03)
[2020-11-27] MEDS: SODIUM CHLORIDE 0.9% INJ 10 ML SYR IV SCH ×2 (04:56→18:15)
[2020-11-27] MEDS: METOPROLOL TART 12.5 MG PER 1/2 TAB PO SCH (05:50)
[2020-11-27 06:11] VITALS: BP 159/73
[2020-11-27] MEDS: HumaLOG INSULIN (NovoLOG) PER UNIT SC SCH ×4 (07:45→21:00)
[2020-11-27] MEDS: LEVEMIR (INSULIN DETEMIR) 1 UNITS/0.01ML SC SCH ×2 (07:45→21:04)
[2020-11-27] MEDS: ASPIRIN ENTERIC 325 MG TAB PO SCH (07:45)
[2020-11-27] MEDS: predniSONE 5 MG TAB PO SCH ×2 (07:46→21:01)
[2020-11-27] MEDS: FERROUS SULFATE 325MG TAB PO SCH (07:46)
[2020-11-27] MEDS: PANTOPRAZOLE 40MG TAB (PROTONIX) PO SCH (07:46)
[2020-11-27] MEDS: DOCUSATE SODIUM 100MG CAPSULE PO SCH ×2 (07:46→21:01)
[2020-11-27] MEDS: ASCORBIC ACID 500 MG TAB PO SCH (07:46)
[2020-11-27] MEDS: ENOXAPARIN 40MG/0.4ML SYRINGE (J1650 PER 10MG) SC SCH (07:47)
[2020-11-27] MEDS: ANUSOL HC CREAM 30GM TOP SCH ×2 (09:19→21:05)
[2020-11-27 10:39] LABS: BASO % 0.1 % (0.0-1.0); HEMATOCRIT 32.1 % (42.0-52.0); HEMOGLOBIN 10.8 g/dl (13.5-17.5); LYMPH # 0.4 10^3/uL (1.5-5.0); LYMPH % 4.1 % (24.0-44.0); MEAN CORPUSCULAR HEMOGLOBIN 31.4 pg (27.0-33.0); MEAN CORPUSCULAR HGB CONC 33.6 g/dl (32.0-36.5); MEAN CORPUSCULAR VOLUME 93.3 fl (80.0-96.0); MONO # 0.3 10^3/uL (0.0-0.8); MONO % 2.9 % (2.0-8.0); NEUTROPHILS # 8.2 10^3/uL (1.5-8.5); PLATELET COUNT, AUTOMATED 241 10^3/uL (150-450); RED BLOOD COUNT 3.44 10^6/uL (4.30-6.10); WHITE BLOOD COUNT 8.9 10^3/uL (4.0-10.0)
[2020-11-27 10:56] LABS: ALBUMIN 2.6 GM/DL (3.2-5.2); BILIRUBIN,DIRECT 0.1 MG/DL (0.0-0.2); BILIRUBIN,TOTAL 0.3 MG/DL (0.2-1.0); C REACTIVE PROTEIN QUANTITATIV 9.37 MG/DL (0.00-0.30); CALCIUM LEVEL 8.6 MG/DL (8.8-10.2); CREATININE FOR GFR 1.54 MG/DL (0.70-1.30); GLOMERULAR FILTRATION RATE 48.1 (>49); POTASSIUM SERUM 4.6 MEQ/L (3.5-5.1); TOTAL PROTEIN 5.8 GM/DL (6.4-8.2)
[2020-11-27] MEDS ORDERED: NS 1,000 ML IV ONE (11:05)
[2020-11-27 11:24] LABS: ERYTHROCYTE SEDIMENTATION RATE 83 mm/hr (0-20)
[2020-11-27] MEDS ORDERED: **hydrALAZINE** 10 MG TAB PO ONE (12:00)
[2020-11-27] MEDS: NS 1,000 ML IV SCH ×2 (13:00→22:21)
[2020-11-27 14:00] VITALS: BP 130/68
--- NOTE | 2020-11-27 14:20 | IPN ---
PROGRESS NOTE DATE: 11/27/2020 SUBJECTIVE: Patient says that the left elbow, left wrist and left ankle are feeling better with less swelling. No fever overnight. No cough, shortness of breath, dysuria, urgency or frequency. He is trying to drink as much liquids as he can with his diet deanna jonathan, but noted that this has increased sugars. He is still on a tapered dose of prednisone for his gout, elevating the left upper extremity due to superficial cephalic vain and basilic vein thrombosis. Despite high blood pressure, he denies any chest pain, pressure, tightness, headaches or shortness of breath, changes in vision, despite elevated glucose, most likely due to prednisone. Patient denies any polyphagia or polyuria. OBJECTIVE: VITAL SIGNS: Temperature 97.1, pulse 51, respiratory rate 18, blood pressure 159/73, 97% on room air. GENERAL: Patient is awake, alert, oriented to person, place and time, answering questions appropriately. Speech is fluent. No pallor or icterus. HEENT: Left-sided asymmetry with left facial drooping. Extraocular muscles are intact. LUNGS: Clear to auscultation. No wheezing, rales or rhonchi. HEART: S1, S2. Sinus bradycardia. ABDOMEN: Soft, nontender, nondistended. Positive bowel sounds. EXTREMITIES: Left upper extremity zero/5 motor strength, left lower extremity 3/5. Patient has a congenital absence of the right forearm and hand. No cyanosis, clubbing or pitting edema. He has some erythema noted in the left upper extremity. ASSESSMENT: 1. Ischemic cerebrovascular accident (CVA) with left hemiplegia and dysarthria with right basal ganglia CVA. 2. Acute gout flare, left wrist, left elbow, left ankle. 3. Steroid induced hyperglycemia with type 2 diabetes, uncontrolled. 4. Superficial thrombosis, left cephalic and basilic vein secondary to peripherally inserted central catheter (PICC) line. 5. Poor intravenous (IV) access requiring peripherally inserted central catheter (PICC) line. 6. Hypertension, uncontrolled. 7. Dyslipidemia. 8. Acute kidney injury due to contrast nephropathy. 9. Fever of unknown origin, resolved. PLAN: Patient has sinus bradycardia. Therefore, I have discontinued patient's beta daniel. He is kept on Norvasc for uncontrolled hypertension. We are giving him hydralazine because he cannot have any angiotensin converting enzyme (DASH) inhibitors or angiotensin receptor daniel (ARB). No beta blockers due to bradycardia. If needed, we can titrate the hydralazine and add another vasodilator, such as isosorbide. At this time, glucose is elevated due to prednisone being used for patient's gout flare. He is unable to be given nonsteroidal antiinflammatories (NSAIDs) or colchicine due to acute kidney injury from contrast nephropathy. Despite encouragement of oral intake from 2.5 to 3 liters daily, patient is unable to correct his renal dysfunction. Therefore, he will be given intravenous (IV) fluids for now. We will check basic metabolic panel. Avoid nonsteroidal antiinflammatories, ARBs and DASH inhibitors due to renal failure and monitor patient's metabolic panel with repeat basic metabolic panel at 1800. He is currently on Lovenox for the superficial thrombosis of the left superficial cephalic and basilic veins secondary to peripherally inserted central catheter (PICC) line. He has no other IV access aside from this PICC line. Patient is only on aspirin and Lipitor for ischemic stroke in the right basal ganglia. He will need a contact worker lithography to determine if a loop recorder is appropriate. Patient did not have any atrial fibrillation or atrial flutter during the telemetry monitoring during this admission. He is being worked up for a hypercoagulable state as outpatient by his neurologist, but most likely would benefit from a loop recorder to rule out cryptogenic stroke caused by atrial fibrillation/atrial flutter. Patient has not had a fever. He did have one dose of Avalox. Chest x-ray and urinalysis (UA) were all negative. Blood culture has no growth. Empiric antibiotics to be continued. MTDD
[2020-11-27 19:10] LABS: BLOOD UREA NITROGEN 31 MG/DL (7-18); CALCIUM LEVEL 7.9 MG/DL (8.8-10.2); CARBON DIOXIDE LEVEL 21 MEQ/L (21-32); CHLORIDE LEVEL 113 MEQ/L (98-107); CREATININE FOR GFR 1.24 MG/DL (0.70-1.30); GLOMERULAR FILTRATION RATE > 60.0 (>49); GLUCOSE, FASTING 205 MG/DL (70-100); POTASSIUM SERUM 3.7 MEQ/L (3.5-5.1); SODIUM LEVEL 143 MEQ/L (136-145)
[2020-11-27 20:00] VITALS: BP 131/71
[2020-11-27] MEDS: ATORVASTATIN 20 MG TAB PO SCH (21:01)
[2020-11-27] MEDS: SENNA 8.6 MG TAB (SENOKOT) PO SCH (21:02)
[2020-11-27] MEDS: **hydrALAZINE** 10 MG TAB PO SCH (21:06)
[2020-11-28] MEDS: oxyCODONE 5MG TAB PO PRN ×5 (00:01→21:05)
[2020-11-28] MEDS: **hydrALAZINE** 10 MG TAB PO SCH ×3 (05:14→21:16)
[2020-11-28 05:37] LABS: BASO % 0.2 % (0.0-1.0); EOS % 0.2 % (0.0-3.0); HEMATOCRIT 28.5 % (42.0-52.0); HEMOGLOBIN 9.5 g/dl (13.5-17.5); LYMPH # 0.5 10^3/uL (1.5-5.0); LYMPH % 8.3 % (24.0-44.0); MEAN CORPUSCULAR HEMOGLOBIN 31.5 pg (27.0-33.0); MEAN CORPUSCULAR HGB CONC 33.3 g/dl (32.0-36.5); MEAN CORPUSCULAR VOLUME 94.4 fl (80.0-96.0); MONO # 0.3 10^3/uL (0.0-0.8); MONO % 4.1 % (2.0-8.0); NEUTROPHILS # 5.3 10^3/uL (1.5-8.5); NEUTROPHILS % 86.1 % (36.0-66.0); PLATELET COUNT, AUTOMATED 209 10^3/uL (150-450); RED BLOOD COUNT 3.02 10^6/uL (4.30-6.10); WHITE BLOOD COUNT 6.1 10^3/uL (4.0-10.0)
[2020-11-28 05:56] LABS: CALCIUM LEVEL 7.9 MG/DL (8.8-10.2); CREATININE FOR GFR 1.3 MG/DL (0.70-1.30); GLOMERULAR FILTRATION RATE 58.4 (>49); POTASSIUM SERUM 4.2 MEQ/L (3.5-5.1)
[2020-11-28] MEDS: SODIUM CHLORIDE 0.9% INJ 10 ML SYR IV SCH ×2 (06:00→16:53)
[2020-11-28 06:43] VITALS: BP 144/70
--- NOTE | 2020-11-28 09:14 | IPNPDOC ---
PM&R Progress Note DATE OF SERVICE: Nov 28, 2020 Manager Consumer Progress Note Subjective: Patient wondering if he can begin e-stim on his left arm as soon as possible stating he does not any movement in the arm. He is happy to note his left leg is getting stronger, but given his limited use of his right arm he is concerned about self care given he relied primarily on his LUE in the past. REVIEW OF SYSTEMS: The following is a completed review of systems and has been reviewed. Review of systems otherwise unremarkable. PAIN: Patient self reports no pain EYES: No recent vision changes EARS, NOSE, & THROAT: No throat pain, or dysphagia, or rhinorrhea CARDIOVASCULAR: Denies chest pain or palpitations PULMONARY: Denies shortness of breath GASTROINTESTINAL: Denies constipation/diarrhea GENITOURINARY: denies dysuria, +increased frequency MUSCULOSKELETAL: left sided paresis, congenital RUE amputation NEUROLOGICAL: +left sided hemiparesis HEMATOLOGICAL: denies easy bruising SKIN: denies rash, LUE PICC PSYCHIATRIC: Unremarkable All other review of systems found to be negative. PHYSICAL EXAMINATION: VITAL SIGNS: Please see below. GENERAL: Pleasant and cooperative. No acute distress. +left sided facial droop HEENT: PERRL. Extraocular movements intact. Clear conjunctiva CARDIOVASCULAR: Regular rate and rhythm. No murmurs, rubs, or gallops LUNGS: Clear to auscultation bilaterally. No wheezes. No rhonchi ABDOMEN: Soft, nontender, nondistended. Positive bowel sounds. Normal active bowel sounds NEUROLOGICAL: Alert and oriented times three. Cranial nerves II through XII grossly intact. Sensation grossly decreased to light touch LLE and LUE +left elbow extensor tone EXTREMITIES: 3+/5 LLE, 5/5 RLE, trace LUE, grossly 5/5 right upper arm (forearm congenital amputation). + erythema swelling of left D1, D2 PIP and MCP joints with tophi (improving) SKIN: LUE PICC left knee with anterior surgical incision, no salma-incisional induration or erythema ASSESSMENT:70-year-old M with past medical history of DM congenital RUE ampuation who presents status post right basal ganglia infarct affecting his lef t dominant side PLAN: 1. Rehab- OT/PT- advance mobility and ADLs, strengthen/stretch/maintain ROM all 4 limbs, splint for left wrist, avoid e-stim to LUE at this time given superficial VTE -edema glove and LUE splint ordered -FRUIT HARVESTER for cog and swallow 2. NEuro- s/p right basal ganglia infarct on ASA 325mg and statin, c/u good BP management, f/u neuro outpatient -will start SSRI for motor recovery -will aim to coordinate LOOP recorder placement as son as possible for cryptogenic Afib 3.Cardiac- hx of HTN c/u BP meds -HLD c/u statin -medicine consulted to assist in overall management 4. Resp- monitor for infection 5. Endo- hx of DM with hyperglycemia now on prednisone for gout- c/u ISS and lev milla 6. Rheum- gout flair s/p dose of colchicine on inpatient side, c/u prednisone, will add topical hydrocortisone 7. DVT ppc- lovenox- + superficial VTE LUE, will repeat Doppler to see if superficial VTEs have resolved so therapy can begin E-stim 8. Pain- tyelenol and oxycodone 9. Dispo- tbd Allergies Coded Allergies: Sulfa (Sulfonamide Antibiotics) (Verified Allergy, Unknown, swelling/rash, 11/26/19) metformin (Verified Allergy, Unknown, swelling, 11/26/19) Vital Signs Vital Signs Date Time Temp Pulse Resp B/P (MAP) Pulse Ox O2 Delivery O2 Flow Rate FiO2 11/28/20 06:43 97.1 57 18 144/70 (94) 98 Room Air Laboratory Data CBC/BMP Laboratory Tests 11/27/20 09:49 11/27/20 18:17 11/28/20 05:22 Labs 24H Laboratory Tests 2 11/27/20 09:49: Immature Granulocyte % (Auto) 0.9, Neutrophils (%) (Auto) 92.0H, Lymphocytes (%) (Auto) 4.1L, Monocytes (%) (Auto) 2.9, Eosinophils (%) (Auto) 0.0, Basophils (%) (Auto) 0.1, Neutrophils # (Auto) 8.2, Lymphocytes # (Auto) 0.4L, Monocytes # (Auto) 0.3, Eosinophils # (Auto) 0.0, Basophils # (Auto) 0.0, Nucleated Red Blood Cells % (auto) 0.0, Erythrocyte Sedimentation Rate 83H, Anion Gap 9, Glomerular Filtration Rate 48.1L, Calcium Level 8.6L, Total Bilirubin 0.3, Direct Bilirubin 0.1, Aspartate Amino Transf (AST/SGOT) 10, Alanine Aminotransferase (ALT/SGPT) 16, Alkaline Phosphatase 92, C-Reactive Protein, Quantitative 9.37H, Total Protein 5.8L, Albumin 2.6L, Albumin/Globulin Ratio 0.8 11/27/20 11:47: Bedside Glucose (Misc Panel) 304H 11/27/20 16:34: Bedside Glucose (Misc Panel) 211H 11/27/20 18:17: Anion Gap 9, Glomerular Filtration Rate > 60.0, Calcium Level 7.9L 11/27/20 20:48: Bedside Glucose (Misc Panel) 219H 11/28/20 05:22: Immature Granulocyte % (Auto) 1.1, Neutrophils (%) (Auto) 86.1H, Lymphocytes (%) (Auto) 8.3L, Monocytes (%) (Auto) 4.1, Eosinophils (%) (Auto) 0.2, Basophils (%) (Auto) 0.2, Neutrophils # (Auto) 5.3, Lymphocytes # (Auto) 0.5L, Monocytes # (Auto) 0.3, Eosinophils # (Auto) 0.0, Basophils # (Auto) 0.0, Nucleated Red Blood Cells % (auto) 0.0, Anion Gap 7L, Glomerular Filtration Rate 58.4, Calcium Level 7.9L 11/28/20 05:26: Bedside Glucose (Misc Panel) 169H Microbiology Microbiology 11/26/20 Blood Culture - Preliminary, Resulted No growth after 24 hours . All specim... 11/26/20 Blood Culture - Preliminary, Resulted No growth after 24 hours . All specim... Current Medications Current Medications Current Medications Medications (Trade) Dose Ordered Sig/Regina Route PRN Reason Start Time Stop Time Status Last Admin Dose Admin Acetaminophen (Tylenol Tab) 650 mg Q4HP PRN PO fever/ MILD PAIN (PS 1-4) 11/25/20 17:30 11/26/20 22:25 Amlodipine Besylate (Norvasc) 10 mg DAILY PO 11/27/20 09:00 11/26/20 09:25 DC Amlodipine Besylate (Norvasc) 10 mg DAILY PO 11/27/20 09:00 11/27/20 07:46 Ascorbic Acid (Vitamin C) 500 mg DAILY PO 11/26/20 09:00 11/27/20 07:46 Aspirin (Ecotrin) 325 mg DAILY PO 11/26/20 09:00 11/27/20 07:45 Atorvastatin Calcium (Lipitor) 40 mg QHS PO 11/25/20 21:00 11/27/20 21:01 Bisacodyl (Dulcolax Suppository) 10 mg DAILYPRN PRN [place] CONSTIPATION 11/25/20 17:30 Dextrose (Dextrose 50%) 25 ml ASDIRECTED PRN IV SEE LABEL COMMENTS 11/25/20 17:30 Docusate Sodium (Colace) 100 mg BID PO 11/25/20 21:00 11/27/20 21:01 Enoxaparin Sodium (Lovenox) 40 mg DAILY SC 11/26/20 09:00 11/27/20 07:47 Ferrous Sulfate (Ferrous Sulfate) 325 mg DAILY PO 11/26/20 09:00 11/27/20 07:46 Glucagon (Glucagon) 1 mg ASDIRECTED PRN SC SEE LABEL COMMENTS 11/25/20 17:30 Glucose (Glucose) 16 GM ASDIRECTED PRN PO SEE LABEL COMMENTS 11/25/20 17:30 Heparin Sodium (Heparin (Flush)) 200 units ASDIRECTED PRN IV SEE LABEL COMMENTS 11/26/20 04:50 11/26/20 12:13 Heparin Sodium (Heparin (Flush)) 200 units PICC IV 11/26/20 06:00 11/27/20 18:15 Hydralazine HCl (Apresoline) 10 mg Q8H PO 11/27/20 22:00 11/28/20 05:14 Hydrocortisone (Proctosol Hc) apply to left hand D... BID TOP 11/26/20 09:00 11/27/20 21:05 Insulin Detemir (Levemir Insulin) 5 units BID SC 11/26/20 09:15 11/27/20 11:04 DC 11/27/20 07:45 Insulin Detemir (Levemir Insulin) 10 units QHS SC 11/27/20 21:00 11/27/20 21:04 Insulin Human Lispro (HumaLOG INSULIN) SEE PROTOCOL TABLE AC SC 11/25/20 17:30 11/27/20 17:30 Insulin Human Lispro (HumaLOG INSULIN) SEE PROTOCOL TABLE QHS SC 11/25/20 21:00 11/26/20 22:27 Metoprolol Tartrate (Lopressor) 12.5 mg Q8H PO 11/26/20 06:00 11/27/20 11:01 DC 11/27/20 05:50 Oxycodone HCl (Roxicodone, Oxyir) 5 mg Q4HP PRN PO PAIN 11/25/20 17:30 11/28/20 04:47 Pantoprazole Sodium (Protonix) 40 mg DAILY PO 11/26/20 09:00 11/27/20 07:46 Polyethylene Glycol (Miralax) 1 pkt DAILY PRN PO CONSTIPATION 11/25/20 17:30 Prednisone (Deltasone) 15 mg BID PO 11/25/20 21:00 11/27/20 21:01 Senna (Senokot) 1 tab QHS PO 11/25/20 21:00 11/27/20 21:02 Sodium Chloride 1,000 ml @ 100 mls/hr Q10H IV 11/27/20 12:00 11/28/20 07:59 DC 11/27/20 22:21 Sodium Chloride (Saline Lock Flush) 10 ml ASDIRECTED PRN IV SEE LABEL COMMENTS 11/26/20 04:50 11/26/20 12:14 Sodium Chloride (Saline Lock Flush) 10 ml PICC IV 11/26/20 06:00 11/27/20 18:15 MAUREEN DALLAS MD Nov 28, 2020 09:14
[2020-11-28] MEDS: SODIUM CHLORIDE 0.9% INJ 10 ML SYR IV PRN (09:25)
[2020-11-28] MEDS: ASPIRIN ENTERIC 325 MG TAB PO SCH (09:26)
[2020-11-28] MEDS: ENOXAPARIN 40MG/0.4ML SYRINGE (J1650 PER 10MG) SC SCH (09:26)
[2020-11-28] MEDS: predniSONE 5 MG TAB PO SCH ×2 (09:26→20:59)
[2020-11-28] MEDS: ASCORBIC ACID 500 MG TAB PO SCH (09:26)
[2020-11-28] MEDS: PANTOPRAZOLE 40MG TAB (PROTONIX) PO SCH (09:27)
[2020-11-28] MEDS: FERROUS SULFATE 325MG TAB PO SCH (09:27)
[2020-11-28] MEDS: DOCUSATE SODIUM 100MG CAPSULE PO SCH ×2 (09:27→20:59)
[2020-11-28] MEDS: HumaLOG INSULIN (NovoLOG) PER UNIT SC SCH ×4 (09:27→21:00)
[2020-11-28] MEDS: ANUSOL HC CREAM 30GM TOP SCH ×2 (09:45→21:00)
[2020-11-28 14:00] VITALS: BP 153/74
[2020-11-28 20:00] VITALS: BP 145/68
[2020-11-28] MEDS: SENNA 8.6 MG TAB (SENOKOT) PO SCH (20:59)
[2020-11-28] MEDS: ATORVASTATIN 20 MG TAB PO SCH (20:59)
[2020-11-28] MEDS: LEVEMIR (INSULIN DETEMIR) 1 UNITS/0.01ML SC SCH (21:00)
[2020-11-29] MEDS: oxyCODONE 5MG TAB PO PRN ×4 (02:25→22:37)
[2020-11-29 05:23] VITALS: BP 147/85
[2020-11-29] MEDS: SODIUM CHLORIDE 0.9% INJ 10 ML SYR IV SCH ×2 (06:27→17:45)
[2020-11-29] MEDS: **hydrALAZINE** 10 MG TAB PO SCH ×3 (06:27→22:37)
[2020-11-29] MEDS: SODIUM CHLORIDE 0.9% INJ 10 ML SYR IV PRN (06:28)
[2020-11-29] MEDS: predniSONE 5 MG TAB PO SCH ×2 (07:46→20:32)
[2020-11-29] MEDS: DOCUSATE SODIUM 100MG CAPSULE PO SCH ×2 (07:46→20:32)
[2020-11-29] MEDS: HumaLOG INSULIN (NovoLOG) PER UNIT SC SCH ×4 (07:46→20:32)
[2020-11-29] MEDS: FERROUS SULFATE 325MG TAB PO SCH (07:47)
[2020-11-29] MEDS: ASCORBIC ACID 500 MG TAB PO SCH (07:47)
[2020-11-29] MEDS: PANTOPRAZOLE 40MG TAB (PROTONIX) PO SCH (07:47)
[2020-11-29] MEDS: ENOXAPARIN 40MG/0.4ML SYRINGE (J1650 PER 10MG) SC SCH (07:47)
[2020-11-29] MEDS: ASPIRIN ENTERIC 325 MG TAB PO SCH (07:47)
[2020-11-29] MEDS: ANUSOL HC CREAM 30GM TOP SCH ×2 (07:48→20:33)
[2020-11-29] MEDS: FLUoxetine 20 MG CAP PO SCH (09:36)
[2020-11-29] MEDS: TAMSULOSIN 0.4 MG CAP PO SCH (09:36)
[2020-11-29] MEDS ORDERED: OXYMETAZOLINE 0.05% NASAL SPRAY (AFRIN) ONE (11:00)
--- NOTE | 2020-11-29 11:22 | IPNPDOC ---
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 REVIEW OF SYSTEMS: The following is a completed review of systems and has been reviewed. Review of systems otherwise unremarkable. PAIN: Patient self reports no pain EYES: No recent vision changes EARS, NOSE, & THROAT: No throat pain, or dysphagia, or rhinorrhea CARDIOVASCULAR: Denies chest pain or palpitations PULMONARY: Denies shortness of breath GASTROINTESTINAL: Denies constipation/diarrhea GENITOURINARY: denies dysuria, +increased frequency MUSCULOSKELETAL: left sided paresis, congenital RUE amputation NEUROLOGICAL: +left sided hemiparesis HEMATOLOGICAL: denies easy bruising SKIN: denies rash, LUE PICC PSYCHIATRIC: Unremarkable All other review of systems found to be negative. PHYSICAL EXAMINATION: VITAL SIGNS: Please see below. GENERAL: Pleasant and cooperative. No acute distress. +left sided facial droop HEENT: PERRL. Extraocular movements intact. Clear conjunctiva CARDIOVASCULAR: Regular rate and rhythm. No murmurs, rubs, or gallops LUNGS: Clear to auscultation bilaterally. No wheezes. No rhonchi ABDOMEN: Soft, nontender, nondistended. Positive bowel sounds. Normal active bowel sounds NEUROLOGICAL: Alert and oriented times three. Cranial nerves II through XII grossly intact. Sensation grossly decreased to light touch LLE and LUE +left elbow extensor tone EXTREMITIES: 3+/5 LLE, 5/5 RLE, trace LUE, grossly 5/5 right upper arm (forearm congenital amputation). + erythema swelling of left D1, D2 PIP and MCP joints with tophi (c/u to improve) +bilat LE edema SKIN: LUE PICC left knee with anterior surgical incision, no salma-incisional induration or erythema ASSESSMENT:70-year-old M with past medical history of DM congenital RUE ampuation who presents status post right basal ganglia infarct affecting his left dominant side PLAN: 1. Rehab- OT/PT- advance mobility and ADLs, strengthen/stretch/maintain ROM all 4 limbs, splint for left wrist, avoid e-stim to LUE at this time given superficial VTE -edema glove and LUE splint ordered -[employer] for cog and swallow 2. NEuro- s/p right basal ganglia infarct on ASA 325mg and statin, c/u good BP management, f/u neuro outpatient -will start SSRI for motor recovery -will aim to coordinate LOOP recorder placement as son as possible for cryptogenic Afib 3.Cardiac- hx of HTN c/u BP meds -HLD c/u statin -medicine consulted to assist in overall management 4. Resp- monitor for infection 5. Endo- hx of DM with hyperglycemia now on prednisone for gout- c/u ISS and levemir 6. Rheum- gout flair s/p dose of colchicine on inpatient side, c/u predni sone,c/u topical hydrocortisone 7. DVT ppc- lovenox- + superficial VTE LUE, repeat Doppler ordered to see if superficial VTEs have resolved so therapy can begin E-stim 8. Pain- tyelenol and oxycodone 9. - UA ordered due to reports of increased frequency, however negative, will start flomax for suspected BPH 10. Renal- recent ESTEBAN s/p IVF per hospitalist 11. Dispo- tbd Allergies Coded Allergies: Sulfa (Sulfonamide Antibiotics) (Verified Allergy, Unknown, swelling/rash, 11/26/19) metformin (Verified Allergy, Unknown, swelling, 11/26/19) Vital Signs Vital Signs Date Time Temp Pulse Resp B/P (MAP) Pulse Ox O2 Delivery O2 Flow Rate FiO2 11/29/20 07:48 61 128/74 11/29/20 05:23 97.6 18 99 Room Air Laboratory Data Labs 24H Laboratory Tests 2 11/28/20 12:19: Bedside Glucose (Misc Panel) 183H 11/28/20 15:25: Urine Color YELLOW, Urine Appearance CLEAR, Urine pH 5.0, Urine Specific [place] 1.015, Urine Protein 2+H, Urine Glucose (UA) 1+H, Urine Ketones NEGATIVE, Urine Blood NEGATIVE, Urine Nitrite NEGATIVE, Urine Bilirubin NEGATIVE, Urine Urobilinogen 0.2, Urine Leukocyte Esterase NEGATIVE, Urine WBC (Auto) 1, Urine RBC (Auto) 1, Urine Hyaline Casts (Auto) 0, Urine Bacteria (Auto) NEGATIVE, Urine Squamous Epithelial Cells 0, Urine Sperm (Auto) 11/28/20 16:27: Bedside Glucose (Misc Panel) 263H 11/28/20 19:53: Bedside Glucose (Misc Panel) 260H 11/29/20 05:32: Bedside Glucose (Misc Panel) 260H Microbiology Microbiology 11/26/20 Blood Culture - Preliminary, Resulted No Growth after 48 hours. All Specime... 11/26/20 Blood Culture - Preliminary, Resulted No Growth after 48 hours. All Specime... Current Medications Current Medications Current Medications Medications (Trade) Dose Ordered Sig/Regina Route PRN Reason Start Time Stop Time Status Last Admin Dose Admin Acetaminophen (Tylenol Tab) 650 mg Q4HP PRN PO fever/ MILD PAIN (PS 1-4) 11/25/20 17:30 11/26/20 22:25 Amlodipine Besylate (Norvasc) 10 mg DAILY PO 11/27/20 09:00 11/26/20 09:25 DC Amlodipine Besylate (Norvasc) 10 mg DAILY PO 11/27/20 09:00 11/29/20 07:48 Ascorbic Acid (Vitamin C) 500 mg DAILY PO 11/26/20 09:00 11/29/20 07:47 Aspirin (Ecotrin) 325 mg DAILY PO 11/26/20 09:00 11/29/20 07:47 Atorvastatin Calcium (Lipitor) 40 mg QHS PO 11/25/20 21:00 11/28/20 20:59 Bisacodyl (Dulcolax Suppository) 10 mg DAILYPRN PRN NM CONSTIPATION 11/25/20 17:30 Dextrose (Dextrose 50%) 25 ml ASDIRECTED PRN IV SEE LABEL COMMENTS 11/25/20 17:30 Docusate Sodium (Colace) 100 mg BID PO 11/25/20 21:00 11/29/20 07:46 Enoxaparin Sodium (Lovenox) 40 mg DAILY SC 11/26/20 09:00 11/29/20 07:47 Ferrous Sulfate (Ferrous Sulfate) 325 mg DAILY PO 11/26/20 09:00 11/29/20 07:47 Fluoxetine HCl (PROzac) 20 mg DAILY PO 11/29/20 09:25 11/29/20 09:36 Glucagon (Glucagon) 1 mg ASDIRECTED PRN SC SEE LABEL COMMENTS 11/25/20 17:30 Glucose (Glucose) 16 GM ASDIRECTED PRN PO SEE LABEL COMMENTS 11/25/20 17:30 Heparin Sodium (Heparin (Flush)) 200 units ASDIRECTED PRN IV SEE LABEL COMMENTS 11/26/20 04:50 11/29/20 06:28 Heparin Sodium (Heparin (Flush)) 200 units PICC IV 11/26/20 06:00 11/29/20 06:27 Hydralazine HCl (Apresoline) 10 mg Q8H PO 11/27/20 22:00 11/29/20 06:27 Hydrocortisone (Proctosol Hc) apply to left hand D... BID TOP 11/26/20 09:00 11/29/20 07:48 Insulin Detemir (Levemir Insulin) 5 units BID SC 11/26/20 09:15 11/27/20 11:04 DC 11/27/20 07:45 Insulin Detemir (Levemir Insulin) 10 units QHS SC 11/27/20 21:00 11/28/20 21:00 Insulin Human Lispro (HumaLOG INSULIN) SEE PROTOCOL TABLE AC SC 11/25/20 17:30 11/29/20 07:46 Insulin Human Lispro (HumaLOG INSULIN) SEE PROTOCOL TABLE QHS SC 11/25/20 21:00 11/28/20 21:00 Metoprolol Tartrate (Lopressor) 12.5 mg Q8H PO 11/26/20 06:00 11/27/20 11:01 DC 11/27/20 05:50 Oxycodone HCl (Roxicodone, Oxyir) 5 mg Q4HP PRN PO PAIN 11/25/20 17:30 11/29/20 02:25 Pantoprazole Sodium (Protonix) 40 mg DAILY PO 11/26/20 09:00 11/29/20 07:47 Polyethylene Glycol (Miralax) 1 pkt DAILY PRN PO CONSTIPATION 11/25/20 17:30 Prednisone (Deltasone) 15 mg BID PO 11/25/20 21:00 11/29/20 07:46 Senna (Senokot) 1 tab QHS PO 11/25/20 21:00 11/28/20 20:59 Sodium Chloride 1,000 ml @ 100 mls/hr Q10H IV 11/27/20 12:00 11/28/20 07:59 DC 11/27/20 22:21 Sodium Chloride (Saline Lock Flush) 10 ml ASDIRECTED PRN IV SEE LABEL COMMENTS 11/26/20 04:50 11/29/20 06:28 Sodium Chloride (Saline Lock Flush) 10 ml PICC IV 11/26/20 06:00 11/29/20 06:27 Tamsulosin HCl (Flomax) 0.4 mg DAILY PO 11/29/20 09:25 11/29/20 09:36 MAUREEN DALLAS MD Nov 29, 2020 11:22
[2020-11-29 14:00] VITALS: BP 123/87
--- NOTE | 2020-11-29 14:06 | REP ---
INDICATION: monitor VTEs. COMPARISON: None. TECHNIQUE: Multiple ultrasonographic images of the deep venous structures of the left upper extremity were obtained to rule out deep venous thrombosis. The contralateral subclavian vein was also interrogated in a limited fashion for comparison. FINDINGS: There is no abnormal echogenic material seen in any of the visualized deep venous structures of the left upper extremity. Coaptation where applicable is appropriate throughout. A portion of the brachial vein could not be imaged due to bandage in place. The echogenic material seen previously adjacent to the PICC line catheter is no longer present. Once again, there is echogenic material seen in the left median cubital vein which is not part of the deep venous system. IMPRESSION: Negative exam with limitation as described above. <Electronically signed by Neville Rain > 11/29/20 [id number]
[2020-11-29 20:00] VITALS: BP 137/75
[2020-11-29] MEDS: ACETAMINOPHEN TAB 650MG DOSE (2X325MG) PO PRN (20:31)
[2020-11-29] MEDS: SENNA 8.6 MG TAB (SENOKOT) PO SCH (20:32)
[2020-11-29] MEDS: ATORVASTATIN 20 MG TAB PO SCH (20:32)
[2020-11-29] MEDS: LEVEMIR (INSULIN DETEMIR) 1 UNITS/0.01ML SC SCH (20:33)
[2020-11-30] MEDS: oxyCODONE 5MG TAB PO PRN ×3 (03:06→23:19)
[2020-11-30] MEDS: SODIUM CHLORIDE 0.9% INJ 10 ML SYR IV SCH ×2 (05:31→17:24)
[2020-11-30] MEDS: **hydrALAZINE** 10 MG TAB PO SCH ×3 (05:31→21:20)
[2020-11-30] MEDS: SODIUM CHLORIDE 0.9% INJ 10 ML SYR IV PRN (05:32)
[2020-11-30 06:00] VITALS: BP 136/71
[2020-11-30] MEDS: DOCUSATE SODIUM 100MG CAPSULE PO SCH ×2 (09:07→21:19)
[2020-11-30] MEDS: TAMSULOSIN 0.4 MG CAP PO SCH (09:07)
[2020-11-30] MEDS: ASCORBIC ACID 500 MG TAB PO SCH (09:07)
[2020-11-30] MEDS: ENOXAPARIN 40MG/0.4ML SYRINGE (J1650 PER 10MG) SC SCH (09:07)
[2020-11-30] MEDS: ASPIRIN ENTERIC 325 MG TAB PO SCH (09:08)
[2020-11-30] MEDS: FERROUS SULFATE 325MG TAB PO SCH (09:08)
[2020-11-30] MEDS: predniSONE 5 MG TAB PO SCH ×2 (09:08→21:20)
[2020-11-30] MEDS: PANTOPRAZOLE 40MG TAB (PROTONIX) PO SCH (09:08)
[2020-11-30] MEDS: FLUoxetine 20 MG CAP PO SCH (09:08)
[2020-11-30] MEDS: ANUSOL HC CREAM 30GM TOP SCH ×2 (09:08→21:21)
[2020-11-30] MEDS: HumaLOG INSULIN (NovoLOG) PER UNIT SC SCH ×4 (09:09→21:22)
[2020-11-30] MEDS: glipiZIDE (GLUCOTROL) 5 MG TAB PO SCH (12:35)
[2020-11-30 14:00] VITALS: BP 144/73
--- NOTE | 2020-11-30 15:34 | IPNPDOC ---
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 REVIEW OF SYSTEMS: The following is a completed review of systems and has been reviewed. Review of systems otherwise unremarkable. PAIN: Patient self reports no pain EYES: No recent vision changes EARS, NOSE, & THROAT: No throat pain, or dysphagia, or rhinorrhea CARDIOVASCULAR: Denies chest pain or palpitations PULMONARY: Denies shortness of breath GASTROINTESTINAL: Denies constipation/diarrhea GENITOURINARY: denies dysuria, +increased frequency (improving) MUSCULOSKELETAL: left sided paresis, congenital RUE amputation NEUROLOGICAL: +left sided hemiparesis HEMATOLOGICAL: denies easy bruising SKIN: denies rash, LUE PICC PSYCHIATRIC: Unremarkable All other review of systems found to be negative. PHYSICAL EXAMINATION: VITAL SIGNS: Please see below. GENERAL: Pleasant and cooperative. No acute distress. +left sided facial droop HEENT: PERRL. Extraocular movements intact. Clear conjunctiva CARDIOVASCULAR: Regular rate and rhythm. No murmurs, rubs, or gallops LUNGS: Clear to auscultation bilaterally. No wheezes. No rhonchi ABDOMEN: Soft, nontender, nondistended. Positive bowel sounds. Normal active bowel sounds NEUROLOGICAL: Alert and oriented times three. Cranial nerves II through XII grossly intact. Sensation grossly decreased to light touch LLE and LUE +left elbow extensor tone EXTREMITIES: 3+/5 LLE, 5/5 RLE, trace LUE, grossly 5/5 right upper arm (forearm congenital amputation). + erythema swelling of left D1, D2 PIP and MCP joints with tophi (c/u to improve) +bilat LE edema (improving) SKIN: LUE PICC left knee with anterior surgical incision, no salma-incisional induration or erythema ASSESSMENT:70-year-old M with past medical history of DM congenital RUE amputation who presents status post right basal ganglia infarct affecting his left dominant side PLAN: 1. 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 NEuro- s/p right basal ganglia infarct on ASA 325mg and statin, c/u good BP management, f/u neuro outpatient -c/u SSRI for motor recovery -will aim to coordinate LOOP recorder placement as son as possible for cryptogenic Afib- patient has cardio appointment 12-07-20 to get set up for this procedure 3.Cardiac- hx of HTN c/u BP meds -HLD c/u statin -medicine consulted to assist in overall management 4. Resp- monitor for infection 5. Endo- hx of DM with hyperglycemia now on prednisone for gout- c/u ISS and levemir, added back halved dose of glipizide which patient takes at home 6. Rheum- gout flair s/p dose of colchicine on inpatient side, c/u prednisone,c/u topical hydrocortisone 7. DVT ppc- lovenox- + superficial VTE LUE, repeat Doppler 11-29-20 showing resolution of left basilic superficial VTE but persistent left median cubital vein superficial VTE- warm compressed ordered, will c/u to defer E-stim treatment to LUE until this resolves, repeat Doppler 12/05/20 8. Pain- tyelenol and oxycodone 9. - UA ordered due to reports of increased frequency, however negative, c/u flomax for suspected BPH 10. Renal- recent ESTEBAN s/p IVF per hospitalist 11. Dispo- tbd Allergies Coded Allergies: Sulfa (Sulfonamide Antibiotics) (Verified Allergy, Unknown, swelling/rash, 11/26/19) metformin (Verified Allergy, Unknown, swelling, 11/26/19) Vital Signs Vital Signs Date Time Temp Pulse Resp B/P (MAP) Pulse Ox O2 Delivery O2 Flow Rate FiO2 11/30/20 14:00 98.4 69 18 144/73 (96) 99 Room Air Laboratory Data Labs 24H Laboratory Tests 2 11/29/20 16:30: Bedside Glucose (Misc Panel) 349H 11/29/20 19:41: Bedside Glucose (Misc Panel) 365H 11/30/20 05:28: Bedside Glucose (Misc Panel) 266H 11/30/20 11:20: Bedside Glucose (Misc Panel) 242H Microbiology Microbiology 11/26/20 Blood Culture - Preliminary, Resulted No Growth after 72 hours. All specime... 11/26/20 Blood Culture - Preliminary, Resulted No Growth after 72 hours. All specime... Current Medications Current Medications Current Medications Medications (Trade) Dose Ordered Sig/Regina Route PRN Reason Start Time Stop Time Status Last Admin Dose Admin Acetaminophen (Tylenol Tab) 650 mg Q4HP PRN PO fever/ MILD PAIN (PS 1-4) 11/25/20 17:30 11/29/20 20:31 Amlodipine Besylate (Norvasc) 10 mg DAILY PO 11/27/20 09:00 11/26/20 09:25 DC Amlodipine Besylate (Norvasc) 10 mg DAILY PO 11/27/20 09:00 11/30/20 09:07 Ascorbic Acid (Vitamin C) 500 mg DAILY PO 11/26/20 09:00 11/30/20 09:07 Aspirin (Ecotrin) 325 mg DAILY PO 11/26/20 09:00 11/30/20 09:08 Atorvastatin Calcium (Lipitor) 40 mg QHS PO 11/25/20 21:00 11/29/20 20:32 Bisacodyl (Dulcolax Suppository) 10 mg DAILYPRN PRN DE CONSTIPATION 11/25/20 17:30 Dextrose (Dextrose 50%) 25 ml ASDIRECTED PRN IV SEE LABEL COMMENTS 11/25/20 17:30 Docusate Sodium (Colace) 100 mg BID PO 11/25/20 21:00 11/30/20 09:07 Enoxaparin Sodium (Lovenox) 40 mg DAILY SC 11/26/20 09:00 11/30/20 09:07 Ferrous Sulfate (Ferrous Sulfate) 325 mg DAILY PO 11/26/20 09:00 11/30/20 09:08 Fluoxetine HCl (PROzac) 20 mg DAILY PO 11/29/20 09:25 11/30/20 09:08 Glipizide (Glucotrol) 5 mg DAILY@0730 PO 11/30/20 07:30 11/30/20 12:35 Glucagon (Glucagon) 1 mg ASDIRECTED PRN SC SEE LABEL COMMENTS 11/25/20 17:30 Glucose (Glucose) 16 GM ASDIRECTED PRN PO SEE LABEL COMMENTS 11/25/20 17:30 Heparin Sodium (Heparin (Flush)) 200 units ASDIRECTED PRN IV SEE LABEL COMMENTS 11/26/20 04:50 11/30/20 05:32 Heparin Sodium (Heparin (Flush)) 200 units PICC IV 11/26/20 06:00 11/30/20 05:31 Hydralazine HCl (Apresoline) 10 mg Q8H PO 11/27/20 22:00 11/30/20 13:45 Hydrocortisone (Proctosol Hc) apply to left hand D... BID TOP 11/26/20 09:00 11/30/20 09:08 Insulin Detemir (Levemir Insulin) 5 units BID SC 11/26/20 09:15 11/27/20 11:04 DC 11/27/20 07:45 Insulin Detemir (Levemir Insulin) 10 units QHS SC 11/27/20 21:00 11/29/20 10:57 DC 11/28/20 21:00 Insulin Detemir (Levemir Insulin) 14 units QHS SC 11/29/20 21:00 11/29/20 20:33 Insulin Human Lispro (HumaLOG INSULIN) SEE PROTOCOL TABLE AC SC 11/25/20 17:30 11/30/20 12:36 Insulin Human Lispro (HumaLOG INSULIN) SEE PROTOCOL TABLE QHS SC 11/25/20 21:00 11/29/20 20:32 Metoprolol Tartrate (Lopressor) 12.5 mg Q8H PO 11/26/20 06:00 11/27/20 11:01 DC 11/27/20 05:50 Oxycodone HCl (Roxicodone, Oxyir) 5 mg Q4HP PRN PO PAIN 11/25/20 17:30 11/30/20 03:06 Pantoprazole Sodium (Protonix) 40 mg DAILY PO 11/26/20 09:00 11/30/20 09:08 Polyethylene Glycol (Miralax) 1 pkt DAILY PRN PO CONSTIPATION 11/25/20 17:30 Prednisone (Deltasone) 15 mg BID PO 11/25/20 21:00 11/30/20 09:08 Senna (Senokot) 1 tab QHS PO 11/25/20 21:00 11/29/20 20:32 Sodium Chloride 1,000 ml @ 100 mls/hr Q10H IV 11/27/20 12:00 11/28/20 07:59 DC 11/27/20 22:21 Sodium Chloride (Saline Lock Flush) 10 ml ASDIRECTED PRN IV SEE LABEL COMMENTS 11/26/20 04:50 6/16/21 05:32 Sodium Chloride (Saline Lock Flush) 10 ml PICC IV 11/26/20 06:00 11/30/20 05:31 Tamsulosin HCl (Flomax) 0.4 mg DAILY PO 11/29/20 09:25 11/30/20 09:07 MAUREEN DALLAS MD Nov 30, 2020 15:34
[2020-11-30 20:00] VITALS: BP 168/87
[2020-11-30] MEDS: ATORVASTATIN 20 MG TAB PO SCH (21:19)
[2020-11-30] MEDS: SENNA 8.6 MG TAB (SENOKOT) PO SCH (21:19)
[2020-11-30] MEDS: LEVEMIR (INSULIN DETEMIR) 1 UNITS/0.01ML SC SCH (21:21)
[2020-12-01] MEDS: oxyCODONE 5MG TAB PO PRN ×3 (03:25→20:52)
[2020-12-01] MEDS: SODIUM CHLORIDE 0.9% INJ 10 ML SYR IV SCH ×2 (05:21→17:29)
[2020-12-01] MEDS: **hydrALAZINE** 10 MG TAB PO SCH ×3 (05:22→21:12)
[2020-12-01 05:43] VITALS: BP 128/74
[2020-12-01] MEDS: FERROUS SULFATE 325MG TAB PO SCH (07:49)
[2020-12-01] MEDS: HumaLOG INSULIN (NovoLOG) PER UNIT SC SCH ×4 (07:49→20:54)
[2020-12-01] MEDS: PANTOPRAZOLE 40MG TAB (PROTONIX) PO SCH (07:49)
[2020-12-01] MEDS: ASCORBIC ACID 500 MG TAB PO SCH (07:49)
[2020-12-01] MEDS: FLUoxetine 20 MG CAP PO SCH (07:50)
[2020-12-01] MEDS: TAMSULOSIN 0.4 MG CAP PO SCH (07:50)
[2020-12-01] MEDS: ASPIRIN ENTERIC 325 MG TAB PO SCH (07:50)
[2020-12-01] MEDS: glipiZIDE (GLUCOTROL) 5 MG TAB PO SCH ×2 (07:50→17:28)
[2020-12-01] MEDS: ENOXAPARIN 40MG/0.4ML SYRINGE (J1650 PER 10MG) SC SCH (07:51)
[2020-12-01] MEDS: predniSONE 5 MG TAB PO SCH ×2 (07:51→20:51)
[2020-12-01] MEDS: DOCUSATE SODIUM 100MG CAPSULE PO SCH ×2 (07:51→20:51)
[2020-12-01] MEDS: ANUSOL HC CREAM 30GM TOP SCH ×2 (07:52→20:54)
[2020-12-01 20:00] VITALS: BP 130/84
[2020-12-01] MEDS: SENNA 8.6 MG TAB (SENOKOT) PO SCH (20:52)
[2020-12-01] MEDS: ATORVASTATIN 20 MG TAB PO SCH (20:52)
[2020-12-01] MEDS: LEVEMIR (INSULIN DETEMIR) 1 UNITS/0.01ML SC SCH (20:53)
[2020-12-02] MEDS: oxyCODONE 5MG TAB PO PRN ×2 (00:55→20:31)
[2020-12-02] MEDS: **hydrALAZINE** 10 MG TAB PO SCH ×3 (06:00→21:11)
[2020-12-02 06:30] VITALS: BP 135/78
[2020-12-02] MEDS: SODIUM CHLORIDE 0.9% INJ 10 ML SYR IV SCH ×2 (06:53→17:16)
[2020-12-02 07:05] LABS: HEMATOCRIT 34.9 % (42.0-52.0); HEMOGLOBIN 11.7 g/dl (13.5-17.5); MEAN CORPUSCULAR HEMOGLOBIN 31.3 pg (27.0-33.0); MEAN CORPUSCULAR HGB CONC 33.5 g/dl (32.0-36.5); MEAN CORPUSCULAR VOLUME 93.3 fl (80.0-96.0); PLATELET COUNT, AUTOMATED 264 10^3/uL (150-450); RED BLOOD COUNT 3.74 10^6/uL (4.30-6.10); WHITE BLOOD COUNT 13.1 10^3/uL (4.0-10.0)
[2020-12-02 07:30] LABS: BLOOD UREA NITROGEN 32 MG/DL (7-18); CALCIUM LEVEL 8.7 MG/DL (8.8-10.2); CARBON DIOXIDE LEVEL 29 MEQ/L (21-32); CHLORIDE LEVEL 107 MEQ/L (98-107); CREATININE FOR GFR 1.24 MG/DL (0.70-1.30); GLOMERULAR FILTRATION RATE > 60.0 (>49); GLUCOSE, FASTING 201 MG/DL (70-100); POTASSIUM SERUM 4.4 MEQ/L (3.5-5.1); SODIUM LEVEL 140 MEQ/L (136-145)
[2020-12-02] MEDS: HumaLOG INSULIN (NovoLOG) PER UNIT SC SCH ×4 (07:54→20:07)
[2020-12-02] MEDS: glipiZIDE (GLUCOTROL) 5 MG TAB PO SCH ×2 (07:54→17:14)
[2020-12-02] MEDS: ENOXAPARIN 40MG/0.4ML SYRINGE (J1650 PER 10MG) SC SCH (07:55)
[2020-12-02] MEDS: ASCORBIC ACID 500 MG TAB PO SCH (07:56)
[2020-12-02] MEDS: DOCUSATE SODIUM 100MG CAPSULE PO SCH ×2 (07:56→20:06)
[2020-12-02] MEDS: FLUoxetine 20 MG CAP PO SCH (07:56)
[2020-12-02] MEDS: predniSONE 5 MG TAB PO SCH ×2 (07:56→20:07)
[2020-12-02] MEDS: PANTOPRAZOLE 40MG TAB (PROTONIX) PO SCH (07:56)
[2020-12-02] MEDS: FERROUS SULFATE 325MG TAB PO SCH (07:57)
[2020-12-02] MEDS: ASPIRIN ENTERIC 325 MG TAB PO SCH (07:57)
[2020-12-02] MEDS: TAMSULOSIN 0.4 MG CAP PO SCH (08:01)
[2020-12-02] MEDS: ANUSOL HC CREAM 30GM TOP SCH ×2 (08:02→20:08)
[2020-12-02 08:14] LABS: LYMPHOCYTES 9 % (16-44); METAMYELOCYTES 1 % (0-0); MONOCYTES 7 % (0-5); NEUTROPHILS 81 % (28-66); PLATELET ESTIMATE NORMAL (NORMAL)
[2020-12-02 14:00] VITALS: BP 133/72
[2020-12-02 20:00] VITALS: BP 152/75
[2020-12-02] MEDS: SENNA 8.6 MG TAB (SENOKOT) PO SCH (20:06)
[2020-12-02] MEDS: ATORVASTATIN 20 MG TAB PO SCH (20:07)
[2020-12-02] MEDS: LEVEMIR (INSULIN DETEMIR) 1 UNITS/0.01ML SC SCH (20:08)
[2020-12-03] MEDS: oxyCODONE 5MG TAB PO PRN ×2 (01:40→20:15)
[2020-12-03] MEDS: SODIUM CHLORIDE 0.9% INJ 10 ML SYR IV PRN (05:32)
[2020-12-03] MEDS: SODIUM CHLORIDE 0.9% INJ 10 ML SYR IV SCH ×2 (05:32→17:26)
[2020-12-03] MEDS: **hydrALAZINE** 10 MG TAB PO SCH ×3 (05:40→21:17)
[2020-12-03 06:00] VITALS: BP 147/71
[2020-12-03] MEDS: HumaLOG INSULIN (NovoLOG) PER UNIT SC SCH ×4 (07:39→20:14)
[2020-12-03] MEDS: glipiZIDE (GLUCOTROL) 5 MG TAB PO SCH ×2 (07:39→17:30)
[2020-12-03] MEDS: ASPIRIN ENTERIC 325 MG TAB PO SCH (07:39)
[2020-12-03] MEDS: ASCORBIC ACID 500 MG TAB PO SCH (07:40)
[2020-12-03] MEDS: FERROUS SULFATE 325MG TAB PO SCH (07:40)
[2020-12-03] MEDS: DOCUSATE SODIUM 100MG CAPSULE PO SCH ×2 (07:40→20:15)
[2020-12-03] MEDS: PANTOPRAZOLE 40MG TAB (PROTONIX) PO SCH (07:40)
[2020-12-03] MEDS: predniSONE 5 MG TAB PO SCH ×2 (07:40→20:15)
[2020-12-03] MEDS: FLUoxetine 20 MG CAP PO SCH (07:40)
[2020-12-03] MEDS: TAMSULOSIN 0.4 MG CAP PO SCH (07:40)
[2020-12-03] MEDS: ENOXAPARIN 40MG/0.4ML SYRINGE (J1650 PER 10MG) SC SCH (07:41)
[2020-12-03] MEDS: ANUSOL HC CREAM 30GM TOP SCH ×2 (09:00→20:16)
[2020-12-03 14:00] VITALS: BP 138/80
[2020-12-03 20:00] VITALS: BP 155/96
[2020-12-03] MEDS: ATORVASTATIN 20 MG TAB PO SCH (20:15)
[2020-12-03] MEDS: LEVEMIR (INSULIN DETEMIR) 1 UNITS/0.01ML SC SCH (20:15)
[2020-12-03] MEDS: SENNA 8.6 MG TAB (SENOKOT) PO SCH (20:15)
[2020-12-04] MEDS: oxyCODONE 5MG TAB PO PRN ×3 (00:20→20:05)
[2020-12-04] MEDS: SODIUM CHLORIDE 0.9% INJ 10 ML SYR IV PRN (05:38)
[2020-12-04] MEDS: SODIUM CHLORIDE 0.9% INJ 10 ML SYR IV SCH ×2 (05:38→17:22)
[2020-12-04] MEDS: **hydrALAZINE** 10 MG TAB PO SCH ×3 (05:39→21:06)
[2020-12-04 06:00] VITALS: BP 134/72
[2020-12-04] MEDS: FERROUS SULFATE 325MG TAB PO SCH (08:24)
[2020-12-04] MEDS: TAMSULOSIN 0.4 MG CAP PO SCH (08:24)
[2020-12-04] MEDS: ASCORBIC ACID 500 MG TAB PO SCH (08:24)
[2020-12-04] MEDS: predniSONE 5 MG TAB PO SCH ×2 (08:24→20:05)
[2020-12-04] MEDS: PANTOPRAZOLE 40MG TAB (PROTONIX) PO SCH (08:24)
[2020-12-04] MEDS: ASPIRIN ENTERIC 325 MG TAB PO SCH (08:24)
[2020-12-04] MEDS: FLUoxetine 20 MG CAP PO SCH (08:24)
[2020-12-04] MEDS: glipiZIDE (GLUCOTROL) 5 MG TAB PO SCH ×2 (08:24→17:22)
[2020-12-04] MEDS: DOCUSATE SODIUM 100MG CAPSULE PO SCH ×2 (08:24→20:05)
[2020-12-04] MEDS: ANUSOL HC CREAM 30GM TOP SCH ×2 (08:25→20:06)
[2020-12-04] MEDS: ENOXAPARIN 40MG/0.4ML SYRINGE (J1650 PER 10MG) SC SCH (08:25)
[2020-12-04] MEDS: HumaLOG INSULIN (NovoLOG) PER UNIT SC SCH ×4 (08:26→20:06)
[2020-12-04 13:34] VITALS: BP 127/84
[2020-12-04 20:00] VITALS: BP 134/77
[2020-12-04] MEDS: ATORVASTATIN 20 MG TAB PO SCH (20:05)
[2020-12-04] MEDS: LEVEMIR (INSULIN DETEMIR) 1 UNITS/0.01ML SC SCH (20:05)
[2020-12-04] MEDS: SENNA 8.6 MG TAB (SENOKOT) PO SCH (20:05)
[2020-12-05] MEDS: oxyCODONE 5MG TAB PO PRN ×3 (00:25→21:20)
[2020-12-05] MEDS: SODIUM CHLORIDE 0.9% INJ 10 ML SYR IV PRN (05:29)
[2020-12-05] MEDS: SODIUM CHLORIDE 0.9% INJ 10 ML SYR IV SCH ×2 (05:29→18:11)
[2020-12-05] MEDS: **hydrALAZINE** 10 MG TAB PO SCH (05:29)
[2020-12-05 05:57] LABS: HEMATOCRIT 33.6 % (42.0-52.0); MEAN CORPUSCULAR HEMOGLOBIN 30.9 pg (27.0-33.0); MEAN CORPUSCULAR HGB CONC 32.7 g/dl (32.0-36.5); MEAN CORPUSCULAR VOLUME 94.4 fl (80.0-96.0); PLATELET COUNT, AUTOMATED 184 10^3/uL (150-450); RED BLOOD COUNT 3.56 10^6/uL (4.30-6.10); WHITE BLOOD COUNT 9.1 10^3/uL (4.0-10.0)
[2020-12-05 06:00] VITALS: BP 160/85
[2020-12-05 06:16] LABS: LYMPHOCYTES 11 % (16-44); MONOCYTES 3 % (0-5); MYELOCYTES 1 % (0-0); NEUTROPHILS 82 % (28-66); PLATELET ESTIMATE NORMAL (NORMAL)
[2020-12-05 06:20] LABS: BLOOD UREA NITROGEN 35 MG/DL (7-18); CALCIUM LEVEL 8.8 MG/DL (8.8-10.2); CARBON DIOXIDE LEVEL 28 MEQ/L (21-32); CHLORIDE LEVEL 108 MEQ/L (98-107); GLOMERULAR FILTRATION RATE > 60.0 (>49); GLUCOSE, FASTING 176 MG/DL (70-100); POTASSIUM SERUM 4.5 MEQ/L (3.5-5.1); SODIUM LEVEL 140 MEQ/L (136-145)
[2020-12-05] MEDS: HumaLOG INSULIN (NovoLOG) PER UNIT SC SCH ×4 (07:53→21:10)
[2020-12-05] MEDS: FLUoxetine 20 MG CAP PO SCH (07:53)
[2020-12-05] MEDS: glipiZIDE (GLUCOTROL) 5 MG TAB PO SCH ×2 (07:53→18:10)
[2020-12-05] MEDS: PANTOPRAZOLE 40MG TAB (PROTONIX) PO SCH (07:54)
[2020-12-05] MEDS: predniSONE 5 MG TAB PO SCH ×2 (07:54→21:11)
[2020-12-05] MEDS: ASPIRIN ENTERIC 325 MG TAB PO SCH (07:54)
[2020-12-05] MEDS: ASCORBIC ACID 500 MG TAB PO SCH (07:54)
[2020-12-05] MEDS: TAMSULOSIN 0.4 MG CAP PO SCH (07:54)
[2020-12-05] MEDS: FERROUS SULFATE 325MG TAB PO SCH (07:54)
[2020-12-05] MEDS: DOCUSATE SODIUM 100MG CAPSULE PO SCH ×2 (07:55→21:11)
[2020-12-05] MEDS: ENOXAPARIN 40MG/0.4ML SYRINGE (J1650 PER 10MG) SC SCH (07:55)
[2020-12-05] MEDS: ANUSOL HC CREAM 30GM TOP SCH ×2 (07:56→21:12)
[2020-12-05] MEDS: LEVEMIR (INSULIN DETEMIR) 1 UNITS/0.01ML SC SCH ×2 (10:06→21:11)
--- NOTE | 2020-12-05 10:15 | REP ---
INDICATION: monitor superficial VTE. COMPARISON: Comparison left upper quadrant sonogram November 29, 2020.. TECHNIQUE: Left upper extremity duplex venous scanning. 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 The cephalic vein is not well visualized in mid and distal region due to edema. A PICC line is again noted in the basilic vein. There is nonocclusive thrombus visible in the median cubital vein on today's exam. No other evidence of the left upper extremity venous thrombosis is seen.. Normal phasicity and flow are seen in the left subclavian and internal jugular veins. IMPRESSION: A short segment of nonocclusive thrombus is visible in the median cubital vein. No other evidence of left upper extremity venous thrombosis is seen. A left-sided PICC line is noted in the basilic vein.. <Electronically signed by Rafat Diaz > 12/05/20 1011
[2020-12-05 14:00] VITALS: BP 138/61
[2020-12-05] MEDS: **hydrALAZINE HCL** 25 MG TAB PO SCH ×2 (14:26→21:11)
--- NOTE | 2020-12-05 15:44 | IPNPDOC ---
PM&R Progress Note DATE OF SERVICE: Dec 01, 2020 Managing Director Progress Note Subjective: patient seen in therapy and is agreeable to trial of e-stim for his deltoids and triceps, and understands importance of avoiding his elbow flexors until his clot has resolved. He reports feeling well and is getting some return in his arm. REVIEW OF SYSTEMS: The following is a completed review of systems and has been reviewed. Review of systems otherwise unremarkable. PAIN: Patient self reports no pain EYES: No recent vision changes EARS, NOSE, & THROAT: No throat pain, or dysphagia, or rhinorrhea CARDIOVASCULAR: Denies chest pain or palpitations PULMONARY: Denies shortness of breath GASTROINTESTINAL: Denies constipation/diarrhea GENITOURINARY: denies dysuria, +increased frequency (improving) MUSCULOSKELETAL: left sided paresis, congenital RUE amputation NEUROLOGICAL: +left sided hemiparesis HEMATOLOGICAL: denies easy bruising SKIN: denies rash, LUE PICC PSYCHIATRIC: Unremarkable All other review of systems found to be negative. PHYSICAL EXAMINATION: VITAL SIGNS: Please see below. GENERAL: Pleasant and cooperative. No acute distress. +left sided facial droop HEENT: PERRL. Extraocular movements intact. Clear conjunctiva CARDIOVASCULAR: Regular rate and rhythm. No murmurs, rubs, or gallops LUNGS: Clear to auscultation bilaterally. No wheezes. No rhonchi ABDOMEN: Soft, nontender, nondistended. Positive bowel sounds. Normal active bowel sounds NEUROLOGICAL: Alert and oriented times three. Cranial nerves II through XII grossly intact. Sensation grossly decreased to light touch LLE and LUE +left elbow extensor tone EXTREMITIES: 4/5 LLE, 5/5 RLE, trace LUE, grossly 5/5 right upper arm (forearm congenital amputation). + erythema swelling of left D1, D2 PIP and MCP joints with tophi (c/u to improve) +bilat LE edema (improving) SKIN: LUE PICC left knee with anterior surgical incision, no salma-incisional induration or erythema ASSESSMENT:70-year-old M with past medical history of DM congenital RUE amputation who presents status post right basal ganglia infarct affecting his left dominant side PLAN: 1. Rehab- OT/PT- advance mobility and ADLs, strengthen/stretch/maintain ROM all 4 limbs, splint for left wrist, e-stim ok on triceps and deltoids, avoid elbow flexion and wrist extension activation given superficial VTEs -edema glove and LUE splint ordered -CAREER TECHNOLOGY TEACHER for cog and swallow 2. NEuro- s/p right basal ganglia infarct on ASA 325mg and statin, c/u good BP management, f/u neuro outpatient -c/u SSRI for motor recovery - coordinating LOOP recorder placement as son as possible for cryptogenic Afib- patient has cardio appointment 12-07-20 to get set up for this procedure 3.Cardiac- hx of HTN c/u BP meds -HLD c/u statin -medicine consulted to assist in overall management 4. Resp- monitor for infection 5. Endo- hx of DM with hyperglycemia now on prednisone for gout- c/u ISS and levemir, added back halved dose of glipizide which patient takes at home 6. Rheum- gout flair s/p dose of colchicine on inpatient side, c/u prednisone,c/u topical hydrocortisone 7. DVT ppc- lovenox- + superficial VTE LUE, repeat Doppler 11-29-20 showing resolution of left basilic superficial VTE but persistent left median cubital vein superficial VTE- warm compressed ordered, will c/u to defer E-stim treatment to LUE until this resolves, repeat Doppler 12/05/20 8. Pain- tyelenol and oxycodone 9. - UA ordered due to reports of increased frequency, however negative, c/u flomax for suspected BPH 10. Renal- recent ESTEBAN s/p IVF per hospitalist 11. Dispo- tbd Allergies Coded Allergies: Sulfa (Sulfonamide Antibiotics) (Verified Allergy, Unknown, swelling/rash, 11/26/19) metformin (Verified Allergy, Unknown, swelling, 11/26/19) Vital Signs Vital Signs Date Time Temp Pulse Resp B/P (MAP) Pulse Ox O2 Delivery O2 Flow Rate FiO2 12/05/20 14:26 138/61 12/05/20 14:00 98.0 76 18 100 Room Air Laboratory Data CBC/BMP Laboratory Tests 12/05/20 05:30 12/05/20 05:31 Labs 24H Laboratory Tests 2 12/04/20 16:21: Bedside Glucose (Misc Panel) 402H 12/04/20 19:20: Bedside Glucose (Misc Panel) 366H 12/05/20 05:30: Immature Granulocyte % (Auto) , Neutrophils (%) (Auto) , Nucleated Red Blood Cells % (auto) 0.0, Neutrophils 82H, Band Neutrophils 3, Lymphocytes (Manual) 11L, Monocytes (Manual) 3, Myelocytes 1H, Red Blood Cell Morphology NORMAL, Platelet Estimate NORMAL 12/05/20 05:31: Anion Gap 4L, Glomerular Filtration Rate > 60.0, Calcium Level 8.8 12/05/20 05:32: Bedside Glucose (Misc Panel) 185H 12/05/20 11:27: Bedside Glucose (Misc Panel) 135H Microbiology Microbiology 11/26/20 Blood Culture - Final, Complete NO GROWTH AFTER 5 DAYS 11/26/20 Blood Culture - Final, Complete NO GROWTH AFTER 5 DAYS Current Medications Current Medications Current Medications Medications (Trade) Dose Ordered Sig/Regina Route PRN Reason Start Time Stop Time Status Last Admin Dose Admin Acetaminophen (Tylenol Tab) 650 mg Q4HP PRN PO fever/ MILD PAIN (PS 1-4) 11/25/20 17:30 11/29/20 20:31 Amlodipine Besylate (Norvasc) 10 mg DAILY PO 11/27/20 09:00 11/26/20 09:25 DC Amlodipine Besylate (Norvasc) 10 mg DAILY PO 11/27/20 09:00 12/05/20 07:54 Ascorbic Acid (Vitamin C) 500 mg DAILY PO 11/26/20 09:00 12/05/20 07:54 Aspirin (Ecotrin) 325 mg DAILY PO 11/26/20 09:00 12/05/20 07:54 Atorvastatin Calcium (Lipitor) 40 mg QHS PO 11/25/20 21:00 12/04/20 20:05 Bisacodyl (Dulcolax Suppository) [address] CONSTIPATION 11/25/20 17:30 Dextrose (Dextrose 50%) 25 ml ASDIRECTED PRN IV SEE LABEL COMMENTS 11/25/20 17:30 Docusate Sodium (Colace) 100 mg BID PO 11/25/20 21:00 12/04/20 20:05 Enoxaparin Sodium (Lovenox) 40 mg DAILY SC 11/26/20 09:00 12/05/20 07:55 Ferrous Sulfate (Ferrous Sulfate) 325 mg DAILY PO 11/26/20 09:00 12/05/20 07:54 Fluoxetine HCl (PROzac) 20 mg DAILY PO 11/29/20 09:25 12/05/20 07:53 Glipizide (Glucotrol) 5 mg BID@0730,1730 PO 12/01/20 17:30 12/05/20 07:53 Glipizide (Glucotrol) 5 mg DAILY@0730 PO 11/30/20 07:30 12/01/20 07:54 DC 12/01/20 07:50 Glucagon (Glucagon) 1 mg ASDIRECTED PRN SC SEE LABEL COMMENTS 11/25/20 17:30 Glucose (Glucose) 16 GM ASDIRECTED PRN PO SEE LABEL COMMENTS 11/25/20 17:30 Heparin Sodium (Heparin (Flush)) 200 units ASDIRECTED PRN IV SEE LABEL COMMENTS 11/26/20 04:50 12/05/20 05:29 Heparin Sodium (Heparin (Flush)) 200 units PICC IV 11/26/20 06:00 12/05/20 05:29 Hydralazine HCl (Apresoline) 10 mg Q8H PO 11/27/20 22:00 12/05/20 08:12 DC 12/05/20 05:29 Hydralazine HCl (Apresoline) 25 mg Q8H PO 12/05/20 14:00 12/05/20 14:26 Hydrocortisone (Proctosol Hc) apply to left hand D... BID TOP 11/26/20 09:00 12/05/20 07:56 Insulin Detemir (Levemir Insulin) 5 units BID SC 11/26/20 09:15 11/27/20 11:04 DC 11/27/20 07:45 Insulin Detemir (Levemir Insulin) 5 units DAILY SC 12/05/20 09:00 12/05/20 10:06 Insulin Detemir (Levemir Insulin) 10 units QHS SC 11/27/20 21:00 11/29/20 10:57 DC 11/28/20 21:00 Insulin Detemir (Levemir Insulin) 14 units QHS SC 11/29/20 21:00 12/04/20 20:05 Insulin Human Lispro (HumaLOG INSULIN) SEE PROTOCOL TABLE AC SC 11/25/20 17:30 12/05/20 12:29 Insulin Human Lispro (HumaLOG INSULIN) SEE PROTOCOL TABLE QHS SC 11/25/20 21:00 12/04/20 20:06 Metoprolol Tartrate (Lopressor) 12.5 mg Q8H PO 11/26/20 06:00 11/27/20 11:01 DC 11/27/20 05:50 Oxycodone HCl (Roxicodone, Oxyir) 5 mg Q4HP PRN PO PAIN 11/25/20 17:30 12/05/20 04:25 Pantoprazole Sodium (Protonix) 40 mg DAILY PO 11/26/20 09:00 12/05/20 07:54 Polyethylene Glycol (Miralax) 1 pkt DAILY PRN PO CONSTIPATION 11/25/20 17:30 Prednisone (Deltasone) 15 mg BID PO 11/25/20 21:00 12/05/20 07:54 Senna (Senokot) 1 tab QHS PO 11/25/20 21:00 12/04/20 20:05 Sodium Chloride 1,000 ml @ 100 mls/hr Q10H IV 11/27/20 12:00 11/28/20 07:59 DC 11/27/20 22:21 Sodium Chloride (Saline Lock Flush) 10 ml ASDIRECTED PRN IV SEE LABEL COMMENTS 11/26/20 04:50 12/05/20 05:29 Sodium Chloride (Saline Lock Flush) 10 ml PICC IV 11/26/20 06:00 12/05/20 05:29 Tamsulosin HCl (Flomax) 0.4 mg DAILY PO 11/29/20 09:25 12/05/20 07:54 MAUREEN DALLAS MD Dec 05, 2020 15:44
--- NOTE | 2020-12-05 15:45 | IPNPDOC ---
PM&R Progress Note DATE OF SERVICE: Dec 05, 2020 Barrel Assembler Helper Progress Note Subjective: Patient seen in his room stating he is able to bring his left hand to his mouth and extend it. he is pleased to have some return in his left arm. REVIEW OF SYSTEMS: The following is a completed review of systems and has been reviewed. Review of systems otherwise unremarkable. PAIN: Patient self reports no pain EYES: No recent vision changes EARS, NOSE, & THROAT: No throat pain, or dysphagia, or rhinorrhea CARDIOVASCULAR: Denies chest pain or palpitations PULMONARY: Denies shortness of breath GASTROINTESTINAL: Denies constipation/diarrhea GENITOURINARY: denies dysuria, +increased frequency (improving) MUSCULOSKELETAL: left sided paresis, congenital RUE amputation NEUROLOGICAL: +left sided hemiparesis HEMATOLOGICAL: denies easy bruising SKIN: denies rash, LUE PICC PSYCHIATRIC: Unremarkable All other review of systems found to be negative. PHYSICAL EXAMINATION: VITAL SIGNS: Please see below. GENERAL: Pleasant and cooperative. No acute distress. +left sided facial droop HEENT: PERRL. Extraocular movements intact. Clear conjunctiva CARDIOVASCULAR: Regular rate and rhythm. No murmurs, rubs, or gallops LUNGS: Clear to auscultation bilaterally. No wheezes. No rhonchi ABDOMEN: Soft, nontender, nondistended. Positive bowel sounds. Normal active bowel sounds NEUROLOGICAL: Alert and oriented times three. Cranial nerves II through XII grossly intact. Sensation grossly decreased to light touch LLE and LUE +left elbow extensor tone EXTREMITIES: 4/5 LLE, 5/5 RLE, 3/5 elbow flexion and extension 2/5 nurse practitioner per diem, grossly 5/5 right upper arm (forearm congenital amputation). + erythema swelling of left D1, D2 PIP and MCP joints (resolved) +bilat LE edema (improving) SKIN: LUE PICC left knee with anterior surgical incision, no salma-incisional induration or erythema ASSESSMENT:70-year-old M with past medical history of DM congenital RUE amputation who presents status post right basal ganglia infarct affecting his left dominant side PLAN: 1. Rehab- OT/PT- advance mobility and ADLs, strengthen/stretch/maintain ROM all 4 limbs, splint for left wrist, e-stim ok on triceps and deltoids, avoid elbow flexion and wrist extension activation given superficial VTEs -edema glove and LUE splint ordered -PATHOLOGIST ASSISTANT for cog and swallow 2. NEuro- s/p right basal ganglia infarct on ASA 325mg and statin, c/u good BP management, f/u neuro outpatient -c/u SSRI for motor recovery - coordinating LOOP recorder placement as son as possible for cryptogenic Afib- patient has cardio appointment 12-07-20 to get set up for this procedure 3.Cardiac- hx of HTN c/u BP meds -HLD c/u statin -medicine consulted to assist in overall management 4. Resp- monitor for infection 5. Endo- hx of DM with hyperglycemia now on prednisone for gout- c/u ISS and levemir, c/u home dose of glipizide, added daytime levemir, will begin to taper prednisone, hyperglycemia should resolve 6. Rheum- gout flair s/p dose of colchicine on inpatient side, c/u prednisone (will begin to taper) ,c/u topical hydrocortisone 7. DVT ppc- lovenox- + superficial VTE LUE, repeat Doppler 11-29-20 showing resolution of left basilic superficial VTE but persistent left median cubital vein superficial VTE- warm compressed ordered -repeat doppler 12-05-20 showing persistent left median cubital vein thrombus, will obtain repeat Doppler within a week 8. Pain- tyelenol and oxycodone 9. - UA ordered due to reports of increased frequency, however negative, c/u flomax for suspected BPH- symptoms improving 10. Renal- recent ESTEBAN s/p IVF per hospitalist 11. Dispo- tbd Allergies Coded Allergies: Sulfa (Sulfonamide Antibiotics) (Verified Allergy, Unknown, swelling/rash, 11/26/19) metformin (Verified Allergy, Unknown, swelling, 11/26/19) Vital Signs Vital Signs Date Time Temp Pulse Resp B/P (MAP) Pulse Ox O2 Delivery O2 Flow Rate FiO2 12/05/20 14:26 138/61 12/05/20 14:00 98.0 76 18 100 Room Air Laboratory Data CBC/BMP Laboratory Tests 12/05/20 05:30 12/05/20 05:31 Labs 24H Laboratory Tests 2 12/04/20 16:21: Bedside Glucose (Misc Panel) 402H 12/04/20 19:20: Bedside Glucose (Misc Panel) 366H 12/05/20 05:30: Immature Granulocyte % (Auto) , Neutrophils (%) (Auto) , Nucleated Red Blood Cells % (auto) 0.0, Neutrophils 82H, Band Neutrophils 3, Lymphocytes (Manual) 11L, Monocytes (Manual) 3, Myelocytes 1H, Red Blood Cell Morphology NORMAL, P latelet Estimate NORMAL 12/05/20 05:31: Anion Gap 4L, Glomerular Filtration Rate > 60.0, Calcium Level 8.8 12/05/20 05:32: Bedside Glucose (Misc Panel) 185H 12/05/20 11:27: Bedside Glucose (Misc Panel) 135H Microbiology Microbiology 11/26/20 Blood Culture - Final, Complete NO GROWTH AFTER 5 DAYS 11/26/20 Blood Culture - Final, Complete NO GROWTH AFTER 5 DAYS Current Medications Current Medications Current Medications Medications (Trade) Dose Ordered Sig/Regina Route PRN Reason Start Time Stop Time Status Last Admin Dose Admin Acetaminophen (Tylenol Tab) 650 mg Q4HP PRN PO fever/ MILD PAIN (PS 1-4) 11/25/20 17:30 11/29/20 20:31 Amlodipine Besylate (Norvasc) 10 mg DAILY PO 11/27/20 09:00 11/26/20 09:25 DC Amlodipine Besylate (Norvasc) 10 mg DAILY PO 11/27/20 09:00 12/05/20 07:54 Ascorbic Acid (Vitamin C) 500 mg DAILY PO 11/26/20 09:00 12/05/20 07:54 Aspirin (Ecotrin) 325 mg DAILY PO 11/26/20 09:00 12/05/20 07:54 Atorvastatin Calcium (Lipitor) 40 mg QHS PO 11/25/20 21:00 12/04/20 20:05 Bisacodyl (Dulcolax Suppository) 10 mg DAILYPRN PRN [place] CONSTIPATION 11/25/20 17:30 Dextrose (Dextrose 50%) 25 ml ASDIRECTED PRN IV SEE LABEL COMMENTS 11/25/20 17:30 Docusate Sodium (Colace) 100 mg BID PO 11/25/20 21:00 12/04/20 20:05 Enoxaparin Sodium (Lovenox) 40 mg DAILY SC 11/26/20 09:00 12/05/20 07:55 Ferrous Sulfate (Ferrous Sulfate) 325 mg DAILY PO 11/26/20 09:00 12/05/20 07:54 Fluoxetine HCl (PROzac) 20 mg DAILY PO 11/29/20 09:25 12/05/20 07:53 Glipizide (Glucotrol) 5 mg BID@0730,1730 PO 12/01/20 17:30 12/05/20 07:53 Glipizide (Glucotrol) 5 mg DAILY@0730 PO 11/30/20 07:30 12/01/20 07:54 DC 12/01/20 07:50 Glucagon (Glucagon) 1 mg ASDIRECTED PRN SC SEE LABEL COMMENTS 11/25/20 17:30 Glucose (Glucose) 16 GM ASDIRECTED PRN PO SEE LABEL COMMENTS 11/25/20 17:30 Heparin Sodium (Heparin (Flush)) 200 units ASDIRECTED PRN IV SEE LABEL COMMENTS 11/26/20 04:50 12/05/20 05:29 Heparin Sodium (Heparin (Flush)) 200 units PICC IV 11/26/20 06:00 12/05/20 05:29 Hydralazine HCl (Apresoline) 10 mg Q8H PO 11/27/20 22:00 12/05/20 08:12 DC 12/05/20 05:29 Hydralazine HCl (Apresoline) 25 mg Q8H PO 12/05/20 14:00 12/05/20 14:26 Hydrocortisone (Proctosol Hc) apply to left hand D... BID TOP 11/26/20 09:00 12/05/20 07:56 Insulin Detemir (Levemir Insulin) 5 units BID SC 11/26/20 09:15 11/27/20 11:04 DC 11/27/20 07:45 Insulin Detemir (Levemir Insulin) 5 units DAILY SC 12/05/20 09:00 12/05/20 10:06 Insulin Detemir (Levemir Insulin) 10 units QHS SC 11/27/20 21:00 11/29/20 10:57 DC 11/28/20 21:00 Insulin Detemir (Levemir Insulin) 14 units QHS SC 11/29/20 21:00 12/04/20 20:05 Insulin Human Lispro (HumaLOG INSULIN) SEE PROTOCOL TABLE AC SC 11/25/20 17:30 12/05/20 12:29 Insulin Human Lispro (HumaLOG INSULIN) SEE PROTOCOL TABLE QHS SC 11/25/20 21:00 12/04/20 20:06 Metoprolol Tartrate (Lopressor) 12.5 mg Q8H PO 11/26/20 06:00 11/27/20 11:01 DC 11/27/20 05:50 Oxycodone HCl (Roxicodone, Oxyir) 5 mg Q4HP PRN PO PAIN 11/25/20 17:30 12/05/20 04:25 Pantoprazole Sodium (Protonix) 40 mg DAILY PO 11/26/20 09:00 12/05/20 07:54 Polyethylene Glycol (Miralax) 1 pkt DAILY PRN PO CONSTIPATION 11/25/20 17:30 Prednisone (Deltasone) 15 mg BID PO 11/25/20 21:00 12/05/20 07:54 Senna (Senokot) 1 tab QHS PO 11/25/20 21:00 12/04/20 20:05 Sodium Chloride 1,000 ml @ 100 mls/hr Q10H IV 11/27/20 12:00 11/28/20 07:59 DC 11/27/20 22:21 Sodium Chloride (Saline Lock Flush) 10 ml ASDIRECTED PRN IV SEE LABEL COMMENTS 11/26/20 04:50 12/05/20 05:29 Sodium Chloride (Saline Lock Flush) 10 ml PICC IV 11/26/20 06:00 12/05/20 05:29 Tamsulosin HCl (Flomax) 0.4 mg DAILY PO 11/29/20 09:25 12/05/20 07:54 MAUREEN DALLAS MD Dec 05, 2020 15:45
[2020-12-05 20:55] VITALS: BP 144/81
[2020-12-05] MEDS: SENNA 8.6 MG TAB (SENOKOT) PO SCH (21:11)
[2020-12-05] MEDS: ATORVASTATIN 20 MG TAB PO SCH (21:11)
[2020-12-06] MEDS: oxyCODONE 5MG TAB PO PRN ×2 (01:53→20:56)
[2020-12-06] MEDS: **hydrALAZINE HCL** 25 MG TAB PO SCH ×3 (05:39→20:58)
[2020-12-06] MEDS: SODIUM CHLORIDE 0.9% INJ 10 ML SYR IV SCH ×2 (05:39→17:55)
[2020-12-06 05:45] VITALS: BP 153/84
[2020-12-06] MEDS: HumaLOG INSULIN (NovoLOG) PER UNIT SC SCH ×4 (09:15→20:51)
[2020-12-06] MEDS: ASCORBIC ACID 500 MG TAB PO SCH (09:16)
[2020-12-06] MEDS: FLUoxetine 20 MG CAP PO SCH (09:16)
[2020-12-06] MEDS: LEVEMIR (INSULIN DETEMIR) 1 UNITS/0.01ML SC SCH ×2 (09:16→20:52)
[2020-12-06] MEDS: FERROUS SULFATE 325MG TAB PO SCH (09:16)
[2020-12-06] MEDS: DOCUSATE SODIUM 100MG CAPSULE PO SCH ×2 (09:16→20:55)
[2020-12-06] MEDS: glipiZIDE (GLUCOTROL) 5 MG TAB PO SCH ×2 (09:17→17:53)
[2020-12-06] MEDS: ENOXAPARIN 40MG/0.4ML SYRINGE (J1650 PER 10MG) SC SCH (09:17)
[2020-12-06] MEDS: TAMSULOSIN 0.4 MG CAP PO SCH (09:17)
[2020-12-06] MEDS: PANTOPRAZOLE 40MG TAB (PROTONIX) PO SCH (09:17)
[2020-12-06] MEDS: predniSONE 10 MG TAB PO SCH ×2 (09:17→20:55)
[2020-12-06] MEDS: ASPIRIN ENTERIC 325 MG TAB PO SCH (09:17)
[2020-12-06] MEDS: ANUSOL HC CREAM 30GM TOP SCH ×2 (09:18→20:51)
--- NOTE | 2020-12-06 10:55 | IPNPDOC ---
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 He states he is having leg cramping at night and would like to trial gabapentin. REVIEW OF SYSTEMS: The following is a completed review of systems and has been reviewed. Review of systems otherwise unremarkable. PAIN: Patient self reports no pain EYES: No recent vision changes EARS, NOSE, & THROAT: No throat pain, or dysphagia, or rhinorrhea CARDIOVASCULAR: Denies chest pain or palpitations PULMONARY: Denies shortness of breath GASTROINTESTINAL: Denies constipation/diarrhea GENITOURINARY: denies dysuria, +increased frequency (improving) MUSCULOSKELETAL: left sided paresis, congenital RUE amputation NEUROLOGICAL: +left sided hemiparesis HEMATOLOGICAL: denies easy bruising SKIN: denies rash, LUE PICC PSYCHIATRIC: Unremarkable All other review of systems found to be negative. PHYSICAL EXAMINATION: VITAL SIGNS: Please see below. GENERAL: Pleasant and cooperative. No acute distress. +left sided facial droop HEENT: PERRL. Extraocular movements intact. Clear conjunctiva CARDIOVASCULAR: Regular rate and rhythm. No murmurs, rubs, or gallops LUNGS: Clear to auscultation bilaterally. No wheezes. No rhonchi ABDOMEN: Soft, nontender, nondistended. Positive bowel sounds. Normal active bowel sounds NEUROLOGICAL: Alert and oriented times three. Cranial nerves II through XII grossly intact. Sensation grossly decreased to light touch LLE and LUE EXTREMITIES: 4/5 LLE, 5/5 RLE, 3/5 elbow flexion and extension 3/5 mathematics technician, grossly 5/5 right upper arm (forearm congenital amputation). + erythema swelling of left D1, D2 PIP and MCP joints (resolved) +bilat LE edema (improving) SKIN: LUE PICC left knee with anterior surgical incision, no salma-incisional induration ASSESSMENT:70-year-old M with past medical history of DM congenital RUE amput ation who presents status post right basal ganglia infarct affecting his left dominant side PLAN: 1. Rehab- OT/PT- advance mobility and ADLs, strengthen/stretch/maintain ROM all 4 limbs, splint for left wrist, e-stim ok on triceps and deltoids, avoid elbow flexion and wrist extension activation given superficial VTEs -edema glove and LUE splint ordered -DRYING TUMBLER OPERATOR for cog and swallow 2. NEuro- s/p right basal ganglia infarct on ASA 325mg and statin, c/u good BP management, f/u neuro outpatient -c/u SSRI for motor recovery - coordinating LOOP recorder placement as son as possible for cryptogenic Afib- patient has cardio appointment 12-07-20 to get set up for this procedure, patient given option for transport or for his significant other to drive him to appointment and he would prefer his partner to drive him, PT to do car transfer training with partner prior to appointment 3.Cardiac- hx of HTN c/u BP meds -HLD c/u statin -medicine consulted to assist in overall management 4. Resp- monitor for infection 5. Endo- hx of DM with hyperglycemia now on prednisone for gout- c/u ISS and levemir, c/u home dose of glipizide, added daytime levemir, c/u taper prednisone, hyperglycemia should resolve 6. Rheum- gout flair s/p dose of colchicine on inpatient side, c/u prednisone (w ill begin to taper) ,c/u topical hydrocortisone 7. DVT ppc- lovenox- + superficial VTE LUE, repeat Doppler 11-29-20 showing resol ution of left basilic superficial VTE but persistent left median cubital vein superficial VTE- warm compresses ordered -repeat doppler 12-05-20 showing persistent left median cubital vein thrombus, will obtain repeat Doppler in a week 8. Pain- tyelenol and oxycodone -gabapentin 200mg qHS for leg cramping 9. - UA ordered due to reports of increased frequency, however negative, c/u flomax for suspected BPH- symptoms improving, will increase dose to 0.8mg 10. Renal- recent ESTEBAN s/p IVF per hospitalist 11. Dispo- tbd Allergies Coded Allergies: Sulfa (Sulfonamide Antibiotics) (Verified Allergy, Unknown, swelling/rash, 11/26/19) metformin (Verified Allergy, Unknown, swelling, 11/26/19) Vital Signs Vital Signs Date Time Temp Pulse Resp B/P (MAP) Pulse Ox O2 Delivery O2 Flow Rate FiO2 12/06/20 09:17 64 138/82 12/06/20 05:45 97.8 18 98 Room Air Laboratory Data Labs 24H Laboratory Tests 2 12/05/20 11:27: Bedside Glucose (Misc Panel) 135H 6/21/21 16:42: Bedside Glucose (Misc Panel) 254H 12/05/20 20:49: Bedside Glucose (Misc Panel) 325H 12/06/20 06:11: Bedside Glucose (Misc Panel) 180H Microbiology Microbiology 11/26/20 Blood Culture - Final, Complete NO GROWTH AFTER 5 DAYS 11/26/20 Blood Culture - Final, Complete NO GROWTH AFTER 5 DAYS Current Medications Current Medications Current Medications Medications (Trade) Dose Ordered Sig/Regina Route PRN Reason Start Time Stop Time Status Last Admin Dose Admin Acetaminophen (Tylenol Tab) 650 mg Q4HP PRN PO fever/ MILD PAIN (PS 1-4) 11/25/20 17:30 11/29/20 20:31 Amlodipine Besylate (Norvasc) 10 mg DAILY PO 11/27/20 09:00 11/26/20 09:25 DC Amlodipine Besylate (Norvasc) 10 mg DAILY PO 11/27/20 09:00 12/06/20 09:17 Ascorbic Acid (Vitamin C) 500 mg DAILY PO 11/26/20 09:00 12/06/20 09:16 Aspirin (Ecotrin) 325 mg DAILY PO 11/26/20 09:00 12/06/20 09:17 Atorvastatin Calcium (Lipitor) 40 mg QHS PO 11/25/20 21:00 12/05/20 21:11 Bisacodyl (Dulcolax Suppository) 10 mg DAILYPRN PRN DC CONSTIPATION 11/25/20 17:30 Dextrose (Dextrose 50%) 25 ml ASDIRECTED PRN IV SEE LABEL COMMENTS 11/25/20 17:30 Docusate Sodium (Colace) 100 mg BID PO 11/25/20 21:00 12/06/20 09:16 Enoxaparin Sodium (Lovenox) 40 mg DAILY SC 11/26/20 09:00 12/06/20 09:17 Ferrous Sulfate (Ferrous Sulfate) 325 mg DAILY PO 11/26/20 09:00 12/06/20 09:16 Fluoxetine HCl (PROzac) 20 mg DAILY PO 11/29/20 09:25 12/06/20 09:16 Glipizide (Glucotrol) 5 mg BID@0730,1730 PO 12/01/20 17:30 12/06/20 09:17 Glipizide (Glucotrol) 5 mg DAILY@0730 PO 11/30/20 07:30 12/01/20 07:54 DC 12/01/20 07:50 Glucagon (Glucagon) 1 mg ASDIRECTED PRN SC SEE LABEL COMMENTS 11/25/20 17:30 Glucose (Glucose) 16 GM ASDIRECTED PRN PO SEE LABEL COMMENTS 11/25/20 17:30 Heparin Sodium (Heparin (Flush)) 200 units ASDIRECTED PRN IV SEE LABEL COMMENTS 11/26/20 04:50 12/05/20 05:29 Heparin Sodium (Heparin (Flush)) 200 units PICC IV 11/26/20 06:00 12/06/20 05:39 Hydralazine HCl (Apresoline) 10 mg Q8H PO 11/27/20 22:00 12/05/20 08:12 DC 12/05/20 05:29 Hydralazine HCl (Apresoline) 25 mg Q8H PO 12/05/20 14:00 12/06/20 05:39 Hydrocortisone (Proctosol Hc) apply to left hand D... BID TOP 11/26/20 09:00 12/06/20 09:18 Insulin Detemir (Levemir Insulin) 5 units BID SC 11/26/20 09:15 11/27/20 11:04 DC 11/27/20 07:45 Insulin Detemir (Levemir Insulin) 5 units DAILY SC 12/05/20 09:00 12/06/20 09:16 Insulin Detemir (Levemir Insulin) 10 units QHS SC 11/27/20 21:00 11/29/20 10:57 DC 11/28/20 21:00 Insulin Detemir (Levemir Insulin) 14 units QHS SC 11/29/20 21:00 12/05/20 21:11 Insulin Human Lispro (HumaLOG INSULIN) SEE PROTOCOL TABLE AC SC 11/25/20 17:30 12/06/20 09:15 Insulin Human Lispro (HumaLOG INSULIN) SEE PROTOCOL TABLE QHS SC 11/25/20 21:00 12/05/20 21:10 Metoprolol Tartrate (Lopressor) 12.5 mg Q8H PO 11/26/20 06:00 11/27/20 11:01 DC 11/27/20 05:50 Oxycodone HCl (Roxicodone, Oxyir) 5 mg Q4HP PRN PO PAIN 11/25/20 17:30 12/06/20 01:53 Pantoprazole Sodium (Protonix) 40 mg DAILY PO 11/26/20 09:00 12/06/20 09:17 Polyethylene Glycol (Miralax) 1 pkt DAILY PRN PO CONSTIPATION 11/25/20 17:30 Prednisone (Deltasone) 10 mg BID PO 12/06/20 09:00 12/06/20 09:17 Prednisone (Deltasone) 15 mg BID PO 11/25/20 21:00 12/05/20 23:00 DC 12/05/20 21:11 Senna (Senokot) 1 tab QHS PO 11/25/20 21:00 12/05/20 21:11 Sodium Chloride 1,000 ml @ 100 mls/hr Q10H IV 11/27/20 12:00 11/28/20 07:59 DC 11/27/20 22:21 Sodium Chloride (Saline Lock Flush) 10 ml ASDIRECTED PRN IV SEE LABEL COMMENTS 11/26/20 04:50 12/05/20 05:29 Sodium Chloride (Saline Lock Flush) 10 ml PICC IV 11/26/20 06:00 12/06/20 05:39 Tamsulosin HCl (Flomax) 0.4 mg DAILY PO 11/29/20 09:25 12/06/20 09:17 MAUREEN DALLAS MD Dec 06, 2020 10:55
[2020-12-06 14:00] VITALS: BP 158/78
--- NOTE | 2020-12-06 17:17 | IPNPDOC ---
Text Note Date of Service The patient was seen on 12/06/20. NOTE Patient seen in ARU, roughly 3 weeks postop for L TKA. Subsequent stroke around 2 weeks post op. Admitted to hospital with Left sided paralysis/weakness. Overall, the patient is doing relatively well. He states that PT has been working with ROM for his L TKA in addition to his stroke rehab. He reports that the blister dressings were taken down today and denies any bleeding or drainage or otherwise. Incision appears to be healing well with no signs of infection. Blistered areas appear to be healing well, scabbed over with no drainage apparent. Pt states that he has anticipated dc date of December 19, or so. He will contact the office with plans to see him around his 6 week f/u, post op L TKA. Pt will contact the office with any concerns in the interim. Continue PT and ROM, strengthening. F/u up in the office 3-4 weeks. VS,Fishbone, I+O VS, Fishbone, I+O Vital Signs Date Time Temp Pulse Resp B/P (MAP) Pulse Ox O2 Delivery O2 Flow Rate FiO2 12/06/20 14:35 158/78 12/06/20 14:00 98.5 87 18 98 Room Air I&O- Last 24 Hours up to 6 AM 12/06/20 06:00 Intake Total 470 ml Output Total 1375 ml Balance -905 ml RICKEY SAMS MD Dec 06, 2020 17:17
[2020-12-06 20:30] VITALS: BP 140/79
[2020-12-06] MEDS: SENNA 8.6 MG TAB (SENOKOT) PO SCH (20:52)
[2020-12-06] MEDS: ATORVASTATIN 20 MG TAB PO SCH (20:52)
[2020-12-06] MEDS: GABAPENTIN 100 MG CAP PO SCH (20:54)
[2020-12-07] MEDS: oxyCODONE 5MG TAB PO PRN ×2 (01:56→20:16)
[2020-12-07] MEDS: SODIUM CHLORIDE 0.9% INJ 10 ML SYR IV SCH ×2 (05:40→16:56)
[2020-12-07] MEDS: **hydrALAZINE HCL** 25 MG TAB PO SCH ×3 (05:41→21:13)
[2020-12-07 06:04] VITALS: BP 158/87
[2020-12-07] MEDS: METOPROLOL TART 12.5 MG PER 1/2 TAB PO SCH ×2 (07:22→20:16)
[2020-12-07] MEDS: ENOXAPARIN 40MG/0.4ML SYRINGE (J1650 PER 10MG) SC SCH (07:23)
[2020-12-07] MEDS: ASPIRIN ENTERIC 325 MG TAB PO SCH (07:23)
[2020-12-07] MEDS: glipiZIDE (GLUCOTROL) 5 MG TAB PO SCH ×2 (07:23→16:31)
[2020-12-07] MEDS: FLUoxetine 20 MG CAP PO SCH (07:23)
[2020-12-07] MEDS: PANTOPRAZOLE 40MG TAB (PROTONIX) PO SCH (07:23)
[2020-12-07] MEDS: DOCUSATE SODIUM 100MG CAPSULE PO SCH ×2 (07:23→20:15)
[2020-12-07] MEDS: predniSONE 10 MG TAB PO SCH ×2 (07:23→20:15)
[2020-12-07] MEDS: TAMSULOSIN 0.4 MG CAP PO SCH (07:23)
[2020-12-07] MEDS: ASCORBIC ACID 500 MG TAB PO SCH (07:23)
[2020-12-07] MEDS: LEVEMIR (INSULIN DETEMIR) 1 UNITS/0.01ML SC SCH ×2 (07:24→20:16)
[2020-12-07] MEDS: HumaLOG INSULIN (NovoLOG) PER UNIT SC SCH ×4 (07:24→20:17)
[2020-12-07] MEDS: FERROUS SULFATE 325MG TAB PO SCH (07:24)
[2020-12-07] MEDS: ANUSOL HC CREAM 30GM TOP SCH ×2 (07:25→20:17)
--- NOTE | 2020-12-07 10:57 | IPNPDOC ---
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 He denies fevers, chills, cough, burning with urination. REVIEW OF SYSTEMS: The following is a completed review of systems and has been reviewed. Review of systems otherwise unremarkable. PAIN: Patient self reports no pain EYES: No recent vision changes EARS, NOSE, & THROAT: No throat pain, or dysphagia, or rhinorrhea CARDIOVASCULAR: Denies chest pain or palpitations PULMONARY: Denies shortness of breath GASTROINTESTINAL: Denies constipation/diarrhea GENITOURINARY: denies dysuria, +increased frequency (improving) MUSCULOSKELETAL: left sided paresis, congenital RUE amputation NEUROLOGICAL: +left sided hemiparesis HEMATOLOGICAL: denies easy bruising SKIN: denies rash, LUE PICC PSYCHIATRIC: Unremarkable All other review of systems found to be negative. PHYSICAL EXAMINATION: VITAL SIGNS: Please see below. GENERAL: Pleasant and cooperative. No acute distress. +left sided facial droop HEENT: PERRL. Extraocular movements intact. Clear conjunctiva CARDIOVASCULAR: Regular rate and rhythm. No murmurs, rubs, or gallops LUNGS: Clear to auscultation bilaterally. No wheezes. No rhonchi ABDOMEN: Soft, nontender, nondistended. Positive bowel sounds. Normal active bowel sounds NEUROLOGICAL: Alert and oriented times three. Cranial nerves II through XII grossly intact. Sensation grossly decreased to light touch LLE and LUE EXTREMITIES: 4/5 LLE, 5/5 RLE, 3/5 elbow flexion and extension 3/5 emergency services director, grossly 5/5 right upper arm (forearm congenital amputation). + erythema swelling of left D1, D2 PIP and MCP joints (resolved) +bilat LE edema (improving) SKIN: LUE PICC left knee with anterior surgical incision, no salma-incisional induration ASSESSMENT:70-year-old M with past medical history of DM congenital RUE amputation who presents status post right basal ganglia infarct affecting his left dominant side PLAN: 1. Rehab- OT/PT- advance mobility and ADLs, strengthen/stretch/maintain ROM all 4 limbs, splint for left wrist, e-stim ok on triceps and deltoids, avoid elbow flexion and wrist extension activation given superficial VTEs -edema glove and LUE splint ordered -TITLE PROCESSOR for cog and swallow 2. NEuro- s/p right basal ganglia infarct on ASA 325mg and statin, c/u good BP management, f/u neuro outpatient -c/u SSRI for motor recovery - coordinating LOOP recorder placement as son as possible for cryptogenic Afib- patient has cardio appointment today, 12-07-20 to get set up for this procedure, patient given option for transport or for his significant other to drive him to appointment and he would prefer his partner to drive him, PT to do car transfer training with partner prior to appointment 3.Cardiac- hx of HTN c/u BP meds -HLD c/u statin -medicine consulted to assist in overall management 4. Resp- monitor for infection 5. Endo- hx of DM with hyperglycemia now on prednisone for gout- c/u ISS and levemir, c/u home dose of glipizide, added daytime levemir, c/u taper prednisone, hyperglycemia should resolve 6. Rheum- gout flair s/p dose of colchicine on inpatient side, c/u prednisone (will begin to taper) ,c/u topical hydrocortisone 7. DVT ppc- lovenox- + superficial VTE LUE, repeat Doppler 11-29-20 showing resolution of left basilic superficial VTE but persistent left median cubital vein superficial VTE- warm compresses ordered -repeat doppler 12-05-20 showing persistent left median cubital vein thrombus, will obtain repeat Doppler in a week 8. Pain- Tylenol and oxycodone -gabapentin 200mg qHS for leg cramping 9. - UA ordered due to reports of increased frequency, however negative, c/u flomax for suspected BPH- symptoms improving, will increase dose to 0.8mg 10. Renal- recent ESTEBAN s/p IVF per hospitalist 11. Dispo- tbd Spoke with Yue, patient's significant other this morning who reported concerns about taking responsibility for his transfer to cardiology. She was concerned patient was not medically stable and felt uncertain if she could manage the responsibility. She was told that patient is medically stable and moving very well in therapy and that she would be provided with training beforehand. It was explained to Yue that the patient had been offered transport services yesterday in the event she did not want to transport him and that because he had opted for her to help him instead, that the assumption was that she had agreed to this plan as well. She acknowledged over the phone that she had in fact agreed to this plan yesterday when speaking with Till, however she states that today she didn't feel comfortable, so she was reassured that she did not have to do the transfer and that we would postpone the appointment as it was too late notice for transportation to schedule transport today. In spite of this conversation, Yue did come in for car transfer training, and did in fact drive Till to his cardiology appointment. Appropriate Waiver was signed. Allergies Coded Allergies: Sulfa (Sulfonamide Antibiotics) (Verified Allergy, Unknown, swelling/rash, 11/26/19) metformin (Verified Allergy, Unknown, swelling, 11/26/19) Vital Signs Vital Signs Date Time Temp Pulse Resp B/P (MAP) Pulse Ox O2 Delivery O2 Flow Rate FiO2 12/07/20 07:23 66 158/87 12/07/20 06:04 99.2 18 98 Room Air Laboratory Data Labs 24H Laboratory Tests 2 12/06/20 11:27: Bedside Glucose (Misc Panel) 139H 12/06/20 16:24: Bedside Glucose (Misc Panel) 178H 12/06/20 19:40: Bedside Glucose (Misc Panel) 297H 12/07/20 05:48: Bedside Glucose (Misc Panel) 160H Current Medications Current Medications Current Medications Medications (Trade) Dose Ordered Sig/Regina Route PRN Reason Start Time Stop Time Status Last Admin Dose Admin Acetaminophen (Tylenol Tab) 650 mg Q4HP PRN PO fever/ MILD PAIN (PS 1-4) 11/25/20 17:30 11/29/20 20:31 Amlodipine Besylate (Norvasc) 10 mg DAILY PO 11/27/20 09:00 11/26/20 09:25 DC Amlodipine Besylate (Norvasc) 10 mg DAILY PO 11/27/20 09:00 12/07/20 07:23 Ascorbic Acid (Vitamin C) 500 mg DAILY PO 11/26/20 09:00 12/07/20 07:23 Aspirin (Ecotrin) 325 mg DAILY PO 11/26/20 09:00 12/07/20 07:23 Atorvastatin Calcium (Lipitor) 40 mg QHS PO 11/25/20 21:00 12/06/20 20:52 Bisacodyl (Dulcolax Suppository) 10 mg DAILYPRN PRN PA CONSTIPATION 11/25/20 17:30 Dextrose (Dextrose 50%) 25 ml ASDIRECTED PRN IV SEE LABEL COMMENTS 11/25/20 17:30 Docusate Sodium (Colace) 100 mg BID PO 11/25/20 21:00 12/07/20 07:23 Enoxaparin Sodium (Lovenox) 40 mg DAILY SC 11/26/20 09:00 12/07/20 07:23 Ferrous Sulfate (Ferrous Sulfate) 325 mg DAILY PO 11/26/20 09:00 12/07/20 07:24 Fluoxetine HCl (PROzac) 20 mg DAILY PO 11/29/20 09:25 12/07/20 07:23 Gabapentin (Neurontin) 200 mg QHS PO 12/06/20 21:00 12/06/20 20:54 Glipizide (Glucotrol) 5 mg BID@0730,1730 PO 12/01/20 17:30 12/07/20 07:23 Glipizide (Glucotrol) 5 mg DAILY@0730 PO 11/30/20 07:30 12/01/20 07:54 DC 12/01/20 07:50 Glucagon (Glucagon) 1 mg ASDIRECTED PRN SC SEE LABEL COMMENTS 11/25/20 17:30 Glucose (Glucose) 16 GM ASDIRECTED PRN PO SEE LABEL COMMENTS 11/25/20 17:30 Heparin Sodium (Heparin (Flush)) 200 units ASDIRECTED PRN IV SEE LABEL COMMENTS 11/26/20 04:50 12/05/20 05:29 Heparin Sodium (Heparin (Flush)) 200 units PICC IV 11/26/20 06:00 12/07/20 05:40 Hydralazine HCl (Apresoline) 10 mg Q8H PO 11/27/20 22:00 12/05/20 08:12 DC 12/05/20 05:29 Hydralazine HCl (Apresoline) 25 mg Q8H PO 12/05/20 14:00 12/07/20 05:41 Hydrocortisone (Proctosol Hc) apply to left hand D... BID TOP 11/26/20 09:00 12/07/20 07:25 Insulin Detemir (Levemir Insulin) 5 units BID SC 11/26/20 09:15 11/27/20 11:04 DC 11/27/20 07:45 Insulin Detemir (Levemir Insulin) 5 units DAILY SC 12/05/20 09:00 12/07/20 07:24 Insulin Detemir (Levemir Insulin) 10 units QHS SC 11/27/20 21:00 11/29/20 10:57 DC 11/28/20 21:00 Insulin Detemir (Levemir Insulin) 14 units QHS SC 11/29/20 21:00 12/06/20 20:52 Insulin Human Lispro (HumaLOG INSULIN) SEE PROTOCOL TABLE AC SC 11/25/20 17:30 12/07/20 07:24 Insulin Human Lispro (HumaLOG INSULIN) SEE PROTOCOL TABLE QHS SC 11/25/20 21:00 12/06/20 20:51 Metoprolol Tartrate (Lopressor) 12.5 mg BID PO 12/07/20 09:00 12/07/20 07:22 Metoprolol Tartrate (Lopressor) 12.5 mg Q8H PO 11/26/20 06:00 11/27/20 11:01 DC 11/27/20 05:50 Oxycodone HCl (Roxicodone, Oxyir) 5 mg Q4HP PRN PO PAIN 11/25/20 17:30 12/07/20 01:56 Pantoprazole Sodium (Protonix) 40 mg DAILY PO 11/26/20 09:00 12/07/20 07:23 Polyethylene Glycol (Miralax) 1 pkt DAILY PRN PO CONSTIPATION 11/25/20 17:30 Prednisone (Deltasone) 10 mg BID PO 12/06/20 09:00 12/07/20 07:23 Prednisone (Deltasone) 15 mg BID PO 11/25/20 21:00 12/05/20 23:00 DC 12/05/20 21:11 Senna (Senokot) 1 tab QHS PO 11/25/20 21:00 12/06/20 20:52 Sodium Chloride 1,000 ml @ 100 mls/hr Q10H IV 11/27/20 12:00 11/28/20 07:59 DC 11/27/20 22:21 Sodium Chloride (Saline Lock Flush) 10 ml ASDIRECTED PRN IV SEE LABEL COMMENTS 11/26/20 04:50 12/05/20 05:29 Sodium Chloride (Saline Lock Flush) 10 ml PICC IV 11/26/20 06:00 12/07/20 05:40 Tamsulosin HCl (Flomax) 0.4 mg DAILY PO 11/29/20 09:25 12/06/20 15:15 DC 12/06/20 09:17 Tamsulosin HCl (Flomax) 0.8 mg DAILY PO 12/07/20 09:00 12/07/20 07:23 MAUREEN DALLAS MD Dec 07, 2020 10:57
[2020-12-07 13:26] VITALS: BP 131/66
[2020-12-07 20:00] VITALS: BP 131/75
[2020-12-07] MEDS: SENNA 8.6 MG TAB (SENOKOT) PO SCH (20:15)
[2020-12-07] MEDS: GABAPENTIN 100 MG CAP PO SCH (20:15)
[2020-12-07] MEDS: ATORVASTATIN 20 MG TAB PO SCH (20:15)
[2020-12-08] MEDS: **hydrALAZINE HCL** 25 MG TAB PO SCH ×3 (05:25→21:29)
[2020-12-08] MEDS: SODIUM CHLORIDE 0.9% INJ 10 ML SYR IV SCH ×2 (05:25→17:33)
[2020-12-08] MEDS: SODIUM CHLORIDE 0.9% INJ 10 ML SYR IV PRN (05:26)
[2020-12-08 06:00] VITALS: BP 134/70
[2020-12-08] MEDS: METOPROLOL TART 12.5 MG PER 1/2 TAB PO SCH (07:33)
[2020-12-08] MEDS: FLUoxetine 20 MG CAP PO SCH (07:45)
[2020-12-08] MEDS: FERROUS SULFATE 325MG TAB PO SCH (07:45)
[2020-12-08] MEDS: glipiZIDE (GLUCOTROL) 5 MG TAB PO SCH (07:45)
[2020-12-08] MEDS: DOCUSATE SODIUM 100MG CAPSULE PO SCH ×2 (07:45→20:11)
[2020-12-08] MEDS: TAMSULOSIN 0.4 MG CAP PO SCH (07:45)
[2020-12-08] MEDS: PANTOPRAZOLE 40MG TAB (PROTONIX) PO SCH (07:45)
[2020-12-08] MEDS: predniSONE 10 MG TAB PO SCH (07:45)
[2020-12-08] MEDS: ASCORBIC ACID 500 MG TAB PO SCH (07:45)
[2020-12-08] MEDS: LEVEMIR (INSULIN DETEMIR) 1 UNITS/0.01ML SC SCH (07:46)
[2020-12-08] MEDS: ENOXAPARIN 40MG/0.4ML SYRINGE (J1650 PER 10MG) SC SCH (07:46)
[2020-12-08] MEDS: HumaLOG INSULIN (NovoLOG) PER UNIT SC SCH ×4 (07:46→20:13)
[2020-12-08] MEDS: ASPIRIN ENTERIC 325 MG TAB PO SCH (07:47)
[2020-12-08] MEDS: ANUSOL HC CREAM 30GM TOP SCH (07:47)
--- NOTE | 2020-12-08 10:10 | IPNPDOC ---
PM&R Progress Note DATE OF SERVICE: Dec 08, 2020 Lead Teacher Progress Note Subjective: Patient reporting his left hand is swollen again and feels his gout flair is getting worse. He is concerned he was hypoglycemic earlier today and would like to try a higher dose of his evening gabapentin to help with leg cramping. His eyes are watering and feel itchy. REVIEW OF SYSTEMS: The following is a completed review of systems and has been reviewed. Review of systems otherwise unremarkable. PAIN: Patient self reports evening muscle cramping EYES: No recent vision changes EARS, NOSE, & THROAT: No throat pain, or dysphagia, or rhinorrhea CARDIOVASCULAR: Denies chest pain or palpitations PULMONARY: Denies shortness of breath GASTROINTESTINAL: Denies constipation/diarrhea GENITOURINARY: denies dysuria, +increased frequency (improving) MUSCULOSKELETAL: left sided paresis, congenital RUE amputation NEUROLOGICAL: +left sided hemiparesis HEMATOLOGICAL: denies easy bruising SKIN: denies rash, LUE PICC PSYCHIATRIC: Unremarkable All other review of systems found to be negative. PHYSICAL EXAMINATION: VITAL SIGNS: Please see below. GENERAL: Pleasant and cooperative. No acute distress. +left sided facial droop HEENT: PERRL. Extraocular movements intact. Clear conjunctiva CARDIOVASCULAR: Regular rate and rhythm. No murmurs, rubs, or gallops LUNGS: Clear to auscultation bilaterally. No wheezes. No rhonchi ABDOMEN: Soft, nontender, nondistended. Positive bowel sounds. Normal active bowel sounds NEUROLOGICAL: Alert and oriented times three. Cranial nerves II through XII grossly intact. Sensation grossly decreased to light touch LLE and LUE EXTREMITIES: 4/5 LLE, 5/5 RLE, 3/5 elbow flexion and extension 3/5 digital asset coordinator, grossly 5/5 right upper arm (forearm congenital amputation). + erythema swelling of left D1, D2 PIP and MCP joints +bilat LE edema (worse today) SKIN: LUE PICC left knee with anterior surgical incision, no salma-incisional induration ASSESSMENT:70-year-old M with past medical history of DM congenital RUE amputation who presents status post right basal ganglia infarct affecting his left dominant side PLAN: 1. Rehab- OT/PT- advance mobility and ADLs, strengthen/stretch/maintain ROM all 4 limbs, splint for left wrist, e-stim ok on triceps and deltoids, avoid elbow flexion and wrist extension activation given superficial VTE -edema glove and LUE splint ordered -TAGMAN for cog and swallow 2. NEuro- s/p right basal ganglia infarct on ASA 325mg and statin, c/u good BP management, f/u neuro outpatient -c/u SSRI for motor recovery - coordinating LOOP recorder placement as son as possible for cryptogenic Afib- patient had cardio appointment 12-07-20 and waiting for insurance approval for loop recorder 3.Cardiac- hx of HTN c/u BP meds, will add lasix for LE edema and d/c amlodipine as may be contributing to swelling -HLD c/u statin -medicine consulted to assist in overall management 4. Resp- monitor for infection -viki and nasal saline for allergies 5. Endo- hx of DM with hyperglycemia and today hypoglycemic, will need to c/u to adjust meds while going back up on prednisone today 6. Rheum- gout flair s/p dose of colchicine on inpatient side, c/u prednisone (will begin to taper), c/u topical hydrocortisone 7. DVT ppx- lovenox- + superficial VTE LUE, repeat Doppler 11-29-20 showing resolution of left basilic superficial VTE but persistent left median cubital vein superficial VTE- warm compresses ordered -repeat doppler 12-05-20 showing persistent left median cubital vein thrombus, will obtain repeat Doppler 12-12-20 8. Pain- Tylenol and oxycodone -gabapentin increase to 400mg qHS for leg cramping 9. - UA ordered due to reports of increased frequency, however negative, c/u flomax for suspected BPH- symptoms improving,c/u increased dose 0.8mg 10. Renal- recent ESTEBAN s/p IVF per hospitalist- resolved 11. Dispo- tbd Allergies Coded Allergies: Sulfa (Sulfonamide Antibiotics) (Verified Allergy, Unknown, swelling/rash, 11/26/19) metformin (Verified Allergy, Unknown, swelling, 11/26/19) Vital Signs Vital Signs Date Time Temp Pulse Resp B/P (MAP) Pulse Ox O2 Delivery O2 Flow Rate FiO2 12/08/20 07:45 53 134/70 12/08/20 06:00 98.3 18 97 Room Air Laboratory Data Labs 24H Laboratory Tests 2 12/07/20 16:12: Bedside Glucose (Misc Panel) 73L 12/07/20 19:30: Bedside Glucose (Misc Panel) 267H 12/08/20 05:27: Bedside Glucose (Misc Panel) 191H Current Medications Current Medications Current Medications Medications (Trade) Dose Ordered Sig/Regina Route PRN Reason Start Time Stop Time Status Last Admin Dose Admin Acetaminophen (Tylenol Tab) 650 mg Q4HP PRN PO fever/ MILD PAIN (PS 1-4) 11/25/20 17:30 11/29/20 20:31 Amlodipine Besylate (Norvasc) 10 mg DAILY PO 11/27/20 09:00 11/26/20 09:25 DC Amlodipine Besylate (Norvasc) 10 mg DAILY PO 11/27/20 09:00 12/08/20 07:45 Ascorbic Acid (Vitamin C) 500 mg DAILY PO 11/26/20 09:00 12/08/20 07:45 Aspirin (Ecotrin) 325 mg DAILY PO 11/26/20 09:00 12/08/20 07:47 Atorvastatin Calcium (Lipitor) 40 mg QHS PO 11/25/20 21:00 12/07/20 20:15 Bisacodyl (Dulcolax Suppository) 10 mg DAILYPRN PRN [place] CONSTIPATION 11/25/20 17:30 Dextrose (Dextrose 50%) 25 ml ASDIRECTED PRN IV SEE LABEL COMMENTS 11/25/20 17:30 Docusate Sodium (Colace) 100 mg BID PO 11/25/20 21:00 12/08/20 07:45 Enoxaparin Sodium (Lovenox) 40 mg DAILY SC 11/26/20 09:00 12/08/20 07:46 Ferrous Sulfate (Ferrous Sulfate) 325 mg DAILY PO 11/26/20 09:00 12/08/20 07:45 Fluoxetine HCl (PROzac) 20 mg DAILY PO 11/29/20 09:25 12/08/20 07:45 Gabapentin (Neurontin) 200 mg QHS PO 12/06/20 21:00 12/07/20 20:15 Glipizide (Glucotrol) 5 mg BID@0730,1730 PO 12/01/20 17:30 12/08/20 07:45 Glipizide (Glucotrol) 5 mg DAILY@0730 PO 11/30/20 07:30 12/01/20 07:54 DC 12/01/20 07:50 Glucagon (Glucagon) 1 mg ASDIRECTED PRN SC SEE LABEL COMMENTS 11/25/20 17:30 Glucose (Glucose) 16 GM ASDIRECTED PRN PO SEE LABEL COMMENTS 11/25/20 17:30 Heparin Sodium (Heparin (Flush)) 200 units ASDIRECTED PRN IV SEE LABEL COMMENTS 11/26/20 04:50 12/08/20 05:26 Heparin Sodium (Heparin (Flush)) 200 units PICC IV 11/26/20 06:00 12/08/20 05:25 Hydralazine HCl (Apresoline) 10 mg Q8H PO 11/27/20 22:00 12/05/20 08:12 DC 12/05/20 05:29 Hydralazine HCl (Apresoline) 25 mg Q8H PO 12/05/20 14:00 12/08/20 05:25 Hydrocortisone (Proctosol Hc) apply to left hand D... BID TOP 11/26/20 09:00 12/08/20 07:47 Insulin Detemir (Levemir Insulin) 5 units BID SC 11/26/20 09:15 11/27/20 11:04 DC 11/27/20 07:45 Insulin Detemir (Levemir Insulin) 5 units DAILY SC 12/05/20 09:00 12/08/20 07:46 Insulin Detemir (Levemir Insulin) 10 units QHS SC 11/27/20 21:00 11/29/20 10:57 DC 11/28/20 21:00 Insulin Detemir (Levemir Insulin) 14 units QHS SC 11/29/20 21:00 12/07/20 20:16 Insulin Human Lispro (HumaLOG INSULIN) SEE PROTOCOL TABLE AC SC 11/25/20 17:30 12/08/20 07:46 Insulin Human Lispro (HumaLOG INSULIN) SEE PROTOCOL TABLE QHS SC 11/25/20 21:00 12/07/20 20:17 Metoprolol Tartrate (Lopressor) 12.5 mg BID PO 12/07/20 09:00 12/07/20 20:16 Metoprolol Tartrate (Lopressor) 12.5 mg Q8H PO 11/26/20 06:00 11/27/20 11:01 DC 11/27/20 05:50 Oxycodone HCl (Roxicodone, Oxyir) 5 mg Q4HP PRN PO PAIN 11/25/20 17:30 12/07/20 20:16 Pantoprazole Sodium (Protonix) 40 mg DAILY PO 11/26/20 09:00 12/08/20 07:45 Polyethylene Glycol (Miralax) 1 pkt DAILY PRN PO CONSTIPATION 11/25/20 17:30 Prednisone (Deltasone) 10 mg BID PO 12/06/20 09:00 12/08/20 07:45 Prednisone (Deltasone) 15 mg BID PO 11/25/20 21:00 12/05/20 23:00 DC 12/05/20 21:11 Senna (Senokot) 1 tab QHS PO 11/25/20 21:00 12/07/20 20:15 Sodium Chloride 1,000 ml @ 100 mls/hr Q10H IV 11/27/20 12:00 11/28/20 07:59 DC 11/27/20 22:21 Sodium Chloride (Saline Lock Flush) 10 ml ASDIRECTED PRN IV SEE LABEL COMMENTS 11/26/20 04:50 12/08/20 05:26 Sodium Chloride (Saline Lock Flush) 10 ml PICC IV 11/26/20 06:00 12/08/20 05:25 Tamsulosin HCl (Flomax) 0.4 mg DAILY PO 11/29/20 09:25 12/06/20 15:15 DC 12/06/20 09:17 Tamsulosin HCl (Flomax) 0.8 mg DAILY PO 12/07/20 09:00 12/08/20 07:45 MAUREEN DALLAS MD Dec 08, 2020 10:10
[2020-12-08 13:15] VITALS: BP 112/67
[2020-12-08] MEDS: glipiZIDE *2.5MG* 1/2 TABLET PO SCH (17:33)
[2020-12-08] MEDS: FUROSEMIDE 20 MG TAB PO SCH (18:39)
[2020-12-08] MEDS: DICLOFENAC EPOLAMINE 1.3 % PATCH TOP SCH (18:40)
[2020-12-08 20:00] VITALS: BP 116/79
[2020-12-08] MEDS: ATORVASTATIN 20 MG TAB PO SCH (20:11)
[2020-12-08] MEDS: SENNA 8.6 MG TAB (SENOKOT) PO SCH (20:11)
[2020-12-08] MEDS: GABAPENTIN 400MG CAP PO SCH (20:11)
[2020-12-08] MEDS: POLYVINYL ALCOHOL OPHTH SOLN 15 ML(LIQUITEARS) OU SCH ×2 (20:13→21:29)
[2020-12-08] MEDS: FEXOFENADINE 60 MG TAB PO SCH (20:13)
[2020-12-08] MEDS: predniSONE 5 MG TAB PO SCH (20:13)
[2020-12-08] MEDS ORDERED: LEVEMIR (INSULIN DETEMIR) 1 UNITS/0.01ML SC SCH ×2 (21:00)
[2020-12-09] MEDS: oxyCODONE 5MG TAB PO PRN (03:28)
[2020-12-09 06:30] VITALS: BP 132/78
[2020-12-09] MEDS: SODIUM CHLORIDE 0.9% INJ 10 ML SYR IV SCH ×2 (06:38→17:04)
[2020-12-09] MEDS: **hydrALAZINE HCL** 25 MG TAB PO SCH ×3 (06:38→21:48)
[2020-12-09] MEDS: SODIUM CHLORIDE 0.9% INJ 10 ML SYR IV PRN (06:38)
[2020-12-09] MEDS: DICLOFENAC EPOLAMINE 1.3 % PATCH TOP SCH ×2 (06:39→17:05)
[2020-12-09] MEDS: PANTOPRAZOLE 40MG TAB (PROTONIX) PO SCH (07:39)
[2020-12-09] MEDS: ASPIRIN ENTERIC 325 MG TAB PO SCH (07:39)
[2020-12-09] MEDS: ENOXAPARIN 40MG/0.4ML SYRINGE (J1650 PER 10MG) SC SCH (07:39)
[2020-12-09] MEDS: ASCORBIC ACID 500 MG TAB PO SCH (07:39)
[2020-12-09] MEDS: FERROUS SULFATE 325MG TAB PO SCH (07:41)
[2020-12-09] MEDS: DOCUSATE SODIUM 100MG CAPSULE PO SCH ×2 (07:41→21:48)
[2020-12-09] MEDS: predniSONE 5 MG TAB PO SCH ×2 (07:41→21:48)
[2020-12-09] MEDS: FLUoxetine 20 MG CAP PO SCH (07:41)
[2020-12-09] MEDS: FEXOFENADINE 60 MG TAB PO SCH (07:41)
[2020-12-09] MEDS: glipiZIDE *2.5MG* 1/2 TABLET PO SCH ×2 (07:41→16:53)
[2020-12-09] MEDS: TAMSULOSIN 0.4 MG CAP PO SCH (07:41)
[2020-12-09] MEDS: POLYVINYL ALCOHOL OPHTH SOLN 15 ML(LIQUITEARS) OU SCH ×4 (07:42→21:50)
[2020-12-09] MEDS: FUROSEMIDE 20 MG TAB PO SCH (07:42)
[2020-12-09] MEDS: HumaLOG INSULIN (NovoLOG) PER UNIT SC SCH ×4 (07:43→21:50)
[2020-12-09] MEDS ORDERED: predniSONE 5 MG TAB PO SCH (09:00)
[2020-12-09 14:00] VITALS: BP 116/66
[2020-12-09 21:00] VITALS: BP 139/78
[2020-12-09] MEDS: ATORVASTATIN 20 MG TAB PO SCH (21:48)
[2020-12-09] MEDS: SENNA 8.6 MG TAB (SENOKOT) PO SCH (21:48)
[2020-12-09] MEDS: GABAPENTIN 400MG CAP PO SCH (21:48)
[2020-12-09] MEDS: LEVEMIR (INSULIN DETEMIR) 1 UNITS/0.01ML SC SCH (21:49)
[2020-12-10] MEDS: DICLOFENAC EPOLAMINE 1.3 % PATCH TOP SCH ×2 (06:37→17:39)
[2020-12-10] MEDS: **hydrALAZINE HCL** 25 MG TAB PO SCH ×3 (06:37→21:00)
[2020-12-10 06:58] VITALS: BP 160/84
[2020-12-10] MEDS: SODIUM CHLORIDE 0.9% INJ 10 ML SYR IV SCH ×2 (07:00→17:40)
[2020-12-10] MEDS: HumaLOG INSULIN (NovoLOG) PER UNIT SC SCH ×4 (08:14→20:59)
[2020-12-10] MEDS: LEVEMIR (INSULIN DETEMIR) 1 UNITS/0.01ML SC SCH ×2 (08:15→21:29)
[2020-12-10] MEDS: POLYVINYL ALCOHOL OPHTH SOLN 15 ML(LIQUITEARS) OU SCH ×4 (08:15→21:00)
[2020-12-10] MEDS: PANTOPRAZOLE 40MG TAB (PROTONIX) PO SCH (08:15)
[2020-12-10] MEDS: DOCUSATE SODIUM 100MG CAPSULE PO SCH ×2 (08:15→20:58)
[2020-12-10] MEDS: ENOXAPARIN 40MG/0.4ML SYRINGE (J1650 PER 10MG) SC SCH (08:15)
[2020-12-10] MEDS: TAMSULOSIN 0.4 MG CAP PO SCH (08:15)
[2020-12-10] MEDS: glipiZIDE *2.5MG* 1/2 TABLET PO SCH ×2 (08:15→17:41)
[2020-12-10] MEDS: predniSONE 5 MG TAB PO SCH ×2 (08:16→20:58)
[2020-12-10] MEDS: ASCORBIC ACID 500 MG TAB PO SCH (08:16)
[2020-12-10] MEDS: FERROUS SULFATE 325MG TAB PO SCH (08:16)
[2020-12-10] MEDS: FLUoxetine 20 MG CAP PO SCH (08:16)
[2020-12-10] MEDS: FEXOFENADINE 60 MG TAB PO SCH (08:16)
[2020-12-10] MEDS: FUROSEMIDE 20 MG TAB PO SCH (08:16)
[2020-12-10] MEDS: ASPIRIN ENTERIC 325 MG TAB PO SCH (08:16)
[2020-12-10 14:00] VITALS: BP 117/77
[2020-12-10] MEDS: GABAPENTIN 400MG CAP PO SCH (20:57)
[2020-12-10] MEDS: ATORVASTATIN 20 MG TAB PO SCH (20:58)
[2020-12-10] MEDS: SENNA 8.6 MG TAB (SENOKOT) PO SCH (20:58)
[2020-12-10 21:00] VITALS: BP 149/75
--- NOTE | 2020-12-10 22:00 | IPNPDOC ---
PM&R Progress Note DATE OF SERVICE: Dec 09, 2020 Online Marketing Coordinator Progress Note Subjective: Patient reporting his left hand feels better with flector patch and increased oral steroids. He is continuing to get more return in his left arm. REVIEW OF SYSTEMS: The following is a completed review of systems and has been reviewed. Review of systems otherwise unremarkable. PAIN: Patient self reports evening muscle cramping EYES: No recent vision changes EARS, NOSE, & THROAT: No throat pain, or dysphagia, or rhinorrhea CARDIOVASCULAR: Denies chest pain or palpitations PULMONARY: Denies shortness of breath GASTROINTESTINAL: Denies constipation/diarrhea GENITOURINARY: denies dysuria, +increased frequency (improving) MUSCULOSKELETAL: left sided paresis, congenital RUE amputation NEUROLOGICAL: +left sided hemiparesis HEMATOLOGICAL: denies easy bruising SKIN: denies rash, LUE PICC PSYCHIATRIC: Unremarkable All other review of systems found to be negative. PHYSICAL EXAMINATION: VITAL SIGNS: Please see below. GENERAL: Pleasant and cooperative. No acute distress. +left sided facial droop HEENT: PERRL. Extraocular movements intact. Clear conjunctiva CARDIOVASCULAR: Regular rate and rhythm. No murmurs, rubs, or gallops LUNGS: Clear to auscultation bilaterally. No wheezes. No rhonchi ABDOMEN: Soft, nontender, nondistended. Positive bowel sounds. Normal active bowel sounds NEUROLOGICAL: Alert and oriented times three. Cranial nerves II through XII grossly intact. Sensation grossly decreased to light touch LLE and LUE EXTREMITIES: 4/5 LLE, 5/5 RLE, 3/5 elbow flexion and extension 3/5 chip person, grossly 5/5 right upper arm (forearm congenital amputation). + erythema swelling of left D1, D2 PIP and MCP joints +bilat LE edema (improved) SKIN: LUE PICC left knee with anterior surgical incision, no salma-incisional induration ASSESSMENT:70-year-old M with past medical history of DM congenital RUE amputation who presents status post right basal ganglia infarct affecting his left dominant side PLAN: 1. Rehab- OT/PT- advance mobility and ADLs, strengthen/stretch/maintain ROM all 4 limbs, splint for left wrist, e-stim ok on triceps and deltoids, avoid elbow flexion and wrist extension activation given superficial VTE -edema glove and LUE splint ordered -DIRECTOR MARKET INTELLIGENCE for cog and swallow 2. NEuro- s/p right basal ganglia infarct on ASA 325mg and statin, c/u good BP management, f/u neuro outpatient -c/u SSRI for motor recovery - coordinating LOOP recorder placement as son as possible for cryptogenic Afib- patient had cardio appointment 12-07-20 and waiting for insurance approval for loop recorder 3.Cardiac- hx of HTN c/u BP meds, will add lasix for LE edema and d/c amlodipine as may be contributing to swelling (improved today) -HLD c/u statin -medicine consulted to assist in overall management 4. Resp- monitor for infection -hortencia and nasal saline for allergies 5. Endo- hx of DM with hyperglycemia and today hypoglycemic, will need to c/u to adjust meds while on prednisone for gout flair 6. Rheum- gout flair s/p dose of colchicine on inpatient side, c/u prednisone, had to icnrease dose back up to 15mg BID 12-08-20, added flecotr patch 7. DVT ppx- lovenox- + superficial VTE LUE, repeat Doppler 11-29-20 showing resolution of left basilic superficial VTE but persistent left median cubital vein superficial VTE- warm compresses ordered -repeat doppler 12-05-20 showing persistent left median cubital vein thrombus, will obtain repeat Doppler 12-12-20 8. Pain- Tylenol and oxycodone -gabapentin increased to 400mg qHS for leg cramping 9. - UA ordered due to reports of increased frequency, however negative, c/u flomax for suspected BPH- symptoms improving,c/u increased dose 0.8mg 10. Renal- recent ESTEBAN s/p IVF per hospitalist- resolved 11. Dispo- tbd Allergies Coded Allergies: Sulfa (Sulfonamide Antibiotics) (Verified Allergy, Unknown, swelling/rash, 11/26/19) metformin (Verified Allergy, Unknown, swelling, 11/26/19) Vital Signs Vital Signs Date Time Temp Pulse Resp B/P (MAP) Pulse Ox O2 Delivery O2 Flow Rate FiO2 12/10/20 21:00 149/75 12/10/20 14:00 98.0 106 18 97 Room Air Laboratory Data Labs 24H Laboratory Tests 2 12/10/20 07:05: Bedside Glucose (Misc Panel) 228H 12/10/20 11:31: Bedside Glucose (Misc Panel) 94 12/10/20 16:31: Bedside Glucose (Misc Panel) 279H 12/10/20 19:35: Bedside Glucose (Misc Panel) 308H Current Medications Current Medications Current Medications Medications (Trade) Dose Ordered Sig/Regina Route PRN Reason Start Time Stop Time Status Last Admin Dose Admin Acetaminophen (Tylenol Tab) 650 mg Q4HP PRN PO fever/ MILD PAIN (PS 1-4) 11/25/20 17:30 11/29/20 20:31 Amlodipine Besylate (Norvasc) 10 mg DAILY PO 11/27/20 09:00 11/26/20 09:25 DC Amlodipine Besylate (Norvasc) 10 mg DAILY PO 11/27/20 09:00 12/08/20 16:42 DC 12/08/20 07:45 Artificial Tears (Akwa Tears) 2 drop QID OU 12/08/20 17:00 12/10/20 21:00 Ascorbic Acid (Vitamin C) 500 mg DAILY PO 11/26/20 09:00 12/10/20 08:16 Aspirin (Ecotrin) 325 mg DAILY PO 11/26/20 09:00 12/10/20 08:16 Atorvastatin Calcium (Lipitor) 40 mg QHS PO 11/25/20 21:00 12/10/20 20:58 Bisacodyl (Dulcolax Suppository) 10 mg DAILYPRN PRN [place] CONSTIPATION 11/25/20 17:30 Dextrose (Dextrose 50%) 25 ml ASDIRECTED PRN IV SEE LABEL COMMENTS 11/25/20 17:30 Diclofenac Epolamine (Flector 1.3%) 1 patch Q12H TOP 12/08/20 18:00 12/10/20 17:39 Docusate Sodium (Colace) 100 mg BID PO 11/25/20 21:00 12/10/20 20:58 Enoxaparin Sodium (Lovenox) 40 mg DAILY SC 11/26/20 09:00 12/10/20 08:15 Ferrous Sulfate (Ferrous Sulfate) 325 mg DAILY PO 11/26/20 09:00 12/10/20 08:16 Fexofenadine HCl (Hortencia) 60 mg DAILY PO 12/08/20 09:00 12/10/20 08:16 Fluoxetine HCl (PROzac) 20 mg DAILY PO 11/29/20 09:25 12/10/20 08:16 Furosemide (Lasix) 20 mg DAILY PO 12/08/20 09:00 12/10/20 08:16 Gabapentin (Neurontin) 200 mg QHS PO 12/06/20 21:00 12/08/20 16:42 DC 12/07/20 20:15 Gabapentin (Neurontin) 400 mg QHS PO 12/08/20 21:00 12/10/20 20:57 Glipizide (Glucotrol) 2.5 mg BID@0730,1730 PO 12/08/20 17:30 12/10/20 17:41 Glipizide (Glucotrol) 5 mg BID@0730,1730 PO 12/01/20 17:30 12/08/20 14:47 DC 12/08/20 07:45 Glipizide (Glucotrol) 5 mg DAILY@0730 PO 11/30/20 07:30 12/01/20 07:54 DC 12/01/20 07:50 Glucagon (Glucagon) 1 mg ASDIRECTED PRN SC SEE LABEL COMMENTS 11/25/20 17:30 Glucose (Glucose) 16 GM ASDIRECTED PRN PO SEE LABEL COMMENTS 11/25/20 17:30 Heparin Sodium (Heparin (Flush)) 200 units ASDIRECTED PRN IV SEE LABEL COMMENTS 11/26/20 04:50 12/09/20 06:38 Heparin Sodium (Heparin (Flush)) 200 units PICC IV 11/26/20 06:00 12/10/20 17:40 Home Med (Med Rec Complete!) ASDIRECTED XX 12/08/20 17:10 12/08/20 17:50 DC Hydralazine HCl (Apresoline) 10 mg Q8H PO 11/27/20 22:00 12/05/20 08:12 DC 12/05/20 05:29 Hydralazine HCl (Apresoline) 25 mg Q8H PO 12/05/20 14:00 12/10/20 21:00 Hydrocortisone (Proctosol Hc) apply to left hand D... BID TOP 11/26/20 09:00 12/08/20 16:42 DC 12/08/20 07:47 Insulin Detemir (Levemir Insulin) 5 units BID SC 11/26/20 09:15 11/27/20 11:04 DC 11/27/20 07:45 Insulin Detemir (Levemir Insulin) 5 units BID CA 12/09/20 21:00 12/10/20 20:56 DC 12/10/20 08:15 Insulin Detemir (Levemir Insulin) 5 units DAILY CA 12/05/20 09:00 12/08/20 10:07 DC 12/08/20 07:46 Insulin Detemir (Levemir Insulin) 5 units QHS CA 12/08/20 21:00 12/08/20 14:46 DC Insulin Detemir (Levemir Insulin) 5 units QHS CA 12/08/20 21:00 12/09/20 18:08 DC 12/08/20 22:05 Insulin Detemir (Levemir Insulin) 10 units BID CA 12/10/20 21:00 12/10/20 21:29 Insulin Detemir (Levemir Insulin) 10 units QHS CA 11/27/20 21:00 11/29/20 10:57 DC 11/28/20 21:00 Insulin Detemir (Levemir Insulin) 14 units QHS CA 11/29/20 21:00 12/08/20 10:07 DC 12/07/20 20:16 Insulin Human Lispro (HumaLOG INSULIN) SEE PROTOCOL TABLE AC CA 11/25/20 17:30 12/08/20 14:46 DC 12/08/20 07:46 Insulin Human Lispro (HumaLOG INSULIN) SEE PROTOCOL TABLE AC CA 12/08/20 17:30 12/10/20 17:40 Insulin Human Lispro (HumaLOG INSULIN) [facility] 11/25/20 21:00 12/08/20 14:46 DC 12/07/20 20:17 Insulin Human Lispro (HumaLOG INSULIN) [facility] 12/08/20 21:00 12/10/20 20:59 Metoprolol Tartrate (Lopressor) 12.5 mg BID PO 12/07/20 09:00 12/08/20 16:42 DC 12/07/20 20:16 Metoprolol Tartrate (Lopressor) 12.5 mg Q8H PO 11/26/20 06:00 11/27/20 11:01 DC 11/27/20 05:50 Oxycodone HCl (Roxicodone, Oxyir) 5 mg Q4HP PRN PO PAIN 11/25/20 17:30 12/09/20 03:28 Pantoprazole Sodium (Protonix) 40 mg DAILY PO 11/26/20 09:00 12/10/20 08:15 Polyethylene Glycol (Miralax) 1 pkt DAILY PRN PO CONSTIPATION 11/25/20 17:30 Prednisone (Deltasone) 5 mg BID PO 12/09/20 09:00 12/08/20 16:42 DC Prednisone (Deltasone) 5 mg DAILY PO 12/12/20 09:00 12/08/20 16:42 DC Prednisone (Deltasone) 10 mg BID PO 12/06/20 09:00 12/08/20 16:42 DC 12/08/20 07:45 Prednisone (Deltasone) 15 mg BID PO 11/25/20 21:00 12/05/20 23:00 DC 12/05/20 21:11 Prednisone (Deltasone) 15 mg BID PO 12/08/20 21:00 12/10/20 20:58 Senna (Senokot) 1 tab QHS PO 11/25/20 21:00 12/10/20 20:58 Sodium Chloride 1,000 ml @ 100 mls/hr Q10H IV 11/27/20 12:00 11/28/20 07:59 DC 11/27/20 22:21 Sodium Chloride (Saline Lock Flush) 10 ml ASDIRECTED PRN IV SEE LABEL COMMENTS 11/26/20 04:50 12/09/20 06:38 Sodium Chloride (Saline Lock Flush) 10 ml PICC IV 11/26/20 06:00 12/10/20 17:40 Tamsulosin HCl (Flomax) 0.4 mg DAILY PO 11/29/20 09:25 12/06/20 15:15 DC 12/06/20 09:17 Tamsulosin HCl (Flomax) 0.8 mg DAILY PO 12/07/20 09:00 12/10/20 08:15 MAUREEN DALLAS MD Dec 10, 2020 22:00
[2020-12-11] MEDS: oxyCODONE 5MG TAB PO PRN (01:12)
[2020-12-11] MEDS: SODIUM CHLORIDE 0.9% INJ 10 ML SYR IV SCH ×2 (05:59→18:02)
[2020-12-11] MEDS: **hydrALAZINE HCL** 25 MG TAB PO SCH ×3 (05:59→20:31)
[2020-12-11] MEDS: DICLOFENAC EPOLAMINE 1.3 % PATCH TOP SCH ×2 (06:00→18:02)
[2020-12-11 06:24] VITALS: BP 175/86
[2020-12-11] MEDS: ASPIRIN ENTERIC 325 MG TAB PO SCH (07:54)
[2020-12-11] MEDS: FERROUS SULFATE 325MG TAB PO SCH (07:54)
[2020-12-11] MEDS: DOCUSATE SODIUM 100MG CAPSULE PO SCH ×2 (07:54→20:30)
[2020-12-11] MEDS: FLUoxetine 20 MG CAP PO SCH (07:55)
[2020-12-11] MEDS: predniSONE 5 MG TAB PO SCH ×2 (07:55→20:30)
[2020-12-11] MEDS: PANTOPRAZOLE 40MG TAB (PROTONIX) PO SCH (07:55)
[2020-12-11] MEDS: ASCORBIC ACID 500 MG TAB PO SCH (07:55)
[2020-12-11] MEDS: glipiZIDE *2.5MG* 1/2 TABLET PO SCH ×2 (07:55→18:01)
[2020-12-11] MEDS: FEXOFENADINE 60 MG TAB PO SCH (07:55)
[2020-12-11] MEDS: LEVEMIR (INSULIN DETEMIR) 1 UNITS/0.01ML SC SCH ×2 (07:56→20:32)
[2020-12-11] MEDS: HumaLOG INSULIN (NovoLOG) PER UNIT SC SCH ×4 (07:56→20:32)
[2020-12-11] MEDS: FUROSEMIDE 20 MG TAB PO SCH (07:56)
[2020-12-11] MEDS: ENOXAPARIN 40MG/0.4ML SYRINGE (J1650 PER 10MG) SC SCH (07:57)
[2020-12-11] MEDS: POLYVINYL ALCOHOL OPHTH SOLN 15 ML(LIQUITEARS) OU SCH ×4 (07:57→20:31)
[2020-12-11] MEDS: TAMSULOSIN 0.4 MG CAP PO SCH (07:59)
[2020-12-11 14:00] VITALS: BP 127/85
[2020-12-11 19:52] VITALS: BP 137/82
[2020-12-11] MEDS: SENNA 8.6 MG TAB (SENOKOT) PO SCH (20:30)
[2020-12-11] MEDS: GABAPENTIN 400MG CAP PO SCH (20:30)
[2020-12-11] MEDS: ATORVASTATIN 20 MG TAB PO SCH (20:30)
[2020-12-12 05:45] VITALS: BP 138/82
[2020-12-12] MEDS: SODIUM CHLORIDE 0.9% INJ 10 ML SYR IV SCH ×2 (05:49→16:56)
[2020-12-12] MEDS: **hydrALAZINE HCL** 25 MG TAB PO SCH ×3 (05:49→21:20)
[2020-12-12] MEDS: DICLOFENAC EPOLAMINE 1.3 % PATCH TOP SCH ×2 (05:51→16:59)
[2020-12-12 06:02] LABS: BASO % 0.1 % (0.0-1.0); EOS % 0.1 % (0.0-3.0); HEMATOCRIT 36.7 % (42.0-52.0); HEMOGLOBIN 12.1 g/dl (13.5-17.5); LYMPH # 0.5 10^3/uL (1.5-5.0); LYMPH % 6.5 % (24.0-44.0); MEAN CORPUSCULAR HEMOGLOBIN 31.8 pg (27.0-33.0); MEAN CORPUSCULAR VOLUME 96.6 fl (80.0-96.0); MONO # 0.4 10^3/uL (0.0-0.8); NEUTROPHILS # 6.3 10^3/uL (1.5-8.5); NEUTROPHILS % 86.9 % (36.0-66.0); PLATELET COUNT, AUTOMATED 118 10^3/uL (150-450); WHITE BLOOD COUNT 7.3 10^3/uL (4.0-10.0)
[2020-12-12 06:24] LABS: CALCIUM LEVEL 8.9 MG/DL (8.8-10.2); CREATININE FOR GFR 1.29 MG/DL (0.70-1.30); POTASSIUM SERUM 4.5 MEQ/L (3.5-5.1)
[2020-12-12] MEDS: HumaLOG INSULIN (NovoLOG) PER UNIT SC SCH ×4 (08:07→20:13)
[2020-12-12] MEDS: TAMSULOSIN 0.4 MG CAP PO SCH (08:08)
[2020-12-12] MEDS: PANTOPRAZOLE 40MG TAB (PROTONIX) PO SCH (08:08)
[2020-12-12] MEDS: FERROUS SULFATE 325MG TAB PO SCH (08:08)
[2020-12-12] MEDS: FEXOFENADINE 60 MG TAB PO SCH (08:08)
[2020-12-12] MEDS: FLUoxetine 20 MG CAP PO SCH (08:08)
[2020-12-12] MEDS: ASPIRIN ENTERIC 325 MG TAB PO SCH (08:08)
[2020-12-12] MEDS: LEVEMIR (INSULIN DETEMIR) 1 UNITS/0.01ML SC SCH ×2 (08:08→20:13)
[2020-12-12] MEDS: ASCORBIC ACID 500 MG TAB PO SCH (08:08)
[2020-12-12] MEDS: DOCUSATE SODIUM 100MG CAPSULE PO SCH ×2 (08:08→20:12)
[2020-12-12] MEDS: FUROSEMIDE 20 MG TAB PO SCH (08:08)
[2020-12-12] MEDS: predniSONE 5 MG TAB PO SCH ×2 (08:08→20:12)
[2020-12-12] MEDS: ENOXAPARIN 40MG/0.4ML SYRINGE (J1650 PER 10MG) SC SCH (08:09)
[2020-12-12] MEDS: glipiZIDE *2.5MG* 1/2 TABLET PO SCH ×2 (08:09→16:55)
[2020-12-12] MEDS: POLYVINYL ALCOHOL OPHTH SOLN 15 ML(LIQUITEARS) OU SCH ×4 (08:09→20:12)
--- NOTE | 2020-12-12 08:41 | REP ---
INDICATION: monitor superfical VTE COMPARISON: 11/29/2020 TECHNIQUE: Grayscale and color Doppler ultrasound examination using linear high-frequency transducer. FINDINGS: Ultrasound examination of the left upper extremity is limited due to multiple factors including overlying bandage material and edema. Normal appearance to the visualized jugular, duplicated brachial veins, subclavian and axillary veins noted. A PICC line is identified in the basilic vein. There is a focal area of occluding thrombus within the mid basilic vein near the PICC line insertion site. IMPRESSION: 1. Focal occluding thrombus in the mid basilic vein in the region of the PICC line insertion. <Electronically signed by Paolo Hernadez > 12/12/20 0837
[2020-12-12] MEDS ORDERED: predniSONE 5 MG TAB PO SCH (09:00)
--- NOTE | 2020-12-12 10:03 | IPNPDOC ---
Text Note Date of Service The patient was seen on 12/12/20. NOTE Patient was seen and examined. No acute overnight events. Continues to partic ipate in therapy. Physical examination GENERAL: Patient is awake, alert, oriented to person, place and time, answering questions appropriately. Speech is fluent. No pallor or icterus. HEENT: Regular rate and rhythm. No murmurs, rubs, or gallops LUNGS: Clear to auscultation. No wheezing, rales or rhonchi. HEART: S1, S2. Sinus bradycardia. ABDOMEN: Soft, nontender, nondistended. Positive bowel sounds. EXTREMITIES: 4/5 LLE, 5/5 RLE, 3/5 elbow flexion and 3/5 regrinder operator, grossly 5/5 right upper arm Labs reviewed Radiology reviewed Assessment and plan 1. Ischemic cerebrovascular accident (CVA) with left hemiplegia and dysarthria with right basal ganglia CVA.on ASA 325mg and statin, the patient will require a loop recorder placement and the patient has a cardiology appointment after his discharge. He needs an insurance approval for the loop recorder. As this could be a cryptogenic stroke which is not proven at this time. The patient has not been started on anticoagulation. 2. Acute gout flare, left wrist, left elbow, left ankle. . He was on colchicine and now has been on prednisone 15 mg twice a day. Will reassess and taper as needed. 3. Steroid induced hyperglycemia with type 2 diabetes, uncontrolled. Continue long and short-acting insulin and adjust the insulin according to 24-hour requirement. 4. Superficial thrombosis, left cephalic and basilic vein secondary to peripherally inserted central catheter (PICC) line. repeat Doppler 11-29-20 showing resolution of left basilic superficial VTE but persistent left median cubital vein superficial VTE 5. Poor intravenous (IV) access requiring peripherally inserted central catheter (PICC) line. Continue monitoring 6. Hypertension, uncontrolled. Continue current regimen. 7. Dyslipidemia.. Continue statins 8. Acute kidney injury due to contrast nephropathy. Resolved. Avoid any nephrotoxic drugs. Disposition as per primary. VS,Fishbone, I+O VS, Fishbone, I+O Laboratory Tests 12/12/20 05:40 Vital Signs Date Time Temp Pulse Resp B/P (MAP) Pulse Ox O2 Delivery O2 Flow Rate FiO2 12/12/20 05:49 138/82 12/12/20 05:45 97.7 68 18 99 Room Air I&O- Last 24 Hours up to 6 AM 12/12/20 06:00 Intake Total 770 ml Balance 770 ml SANCHEZ HOPKINS MD Dec 12, 2020 09:57
[2020-12-12 14:00] VITALS: BP 155/81
[2020-12-12 20:00] VITALS: BP 132/76
[2020-12-12] MEDS: GABAPENTIN 400MG CAP PO SCH (20:12)
[2020-12-12] MEDS: ATORVASTATIN 20 MG TAB PO SCH (20:12)
[2020-12-12] MEDS: SENNA 8.6 MG TAB (SENOKOT) PO SCH (20:12)
[2020-12-12] MEDS ORDERED: DICLOFENAC EPOLAMINE 1.3 % PATCH TOP PRN (20:25)
--- NOTE | 2020-12-12 20:56 | IPNPDOC ---
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 He presented to [facility] ED on 11-22-20 after getting up at night. Also, the restroom and finding left arm weakness, slurred speech, and difficulty walking. CTH was negative for intracranial hemorrhage and MRI revealed a right basal ganglia ischemic infarct with extension into the posterior periventricular region. MRA brain was negative for intracranial stenosis and imaging also did not reveal carotid stenosis. Neurology recommended statin and ASA 325mg daily. He developed LUE swelling with Doppler revealing Left basilica vein and left median cubital vein thrombosis for which he was started on Lovenox. He also was suspected to have a gout flair with fever and swelling noted in his left hand and fingers for which he was given Colchicine and started on oral steroids. He had mobility and ADL impairment and deemed medically appropriate for admission to ARU on 11-25-20. 12.09.2020 Patient reporting his left hand feels better with flector patch and increased oral steroids. He is continuing to get more return in his left arm. 12.12.2020 . Patient feels his gain significant benefit yazdanism of active range of motion in the left hand and only wishes to use Flector patch as needed. He is relieved with yazdanism of function of his left upper extremity. He notes had a bowel movement today. He notes he was under recent workup and is scheduled to have a loop monitor placed for recurrent cardiac arrhythmias. REVIEW OF SYSTEMS: The following is a completed review of systems and has been reviewed. Review of systems otherwise unremarkable. PAIN: Patient self reports evening muscle cramping EYES: No recent vision changes EARS, NOSE, & THROAT: No throat pain, or dysphagia, or rhinorrhea CARDIOVASCULAR: Denies chest pain or palpitations PULMONARY: Denies shortness of breath GASTROINTESTINAL: Denies constipation/diarrhea GENITOURINARY: denies dysuria, +increased frequency (improving) MUSCULOSKELETAL: left sided paresis, congenital RUE amputation NEUROLOGICAL: +left sided hemiparesis HEMATOLOGICAL: denies easy bruising SKIN: denies rash, LUE PICC PSYCHIATRIC: Unremarkable All other review of systems found to be negative. PHYSICAL EXAMINATION: VITAL SIGNS: Please see below. GENERAL: Pleasant and cooperative. No acute distress. Mild left sided facial droop . Cranial nerves II-12 otherwise intact. Phocomelia right upper extremity. HEENT: PERRL. Extraocular movements intact. Clear conjunctiva CARDIOVASCULAR: Regular rate and rhythm. No murmurs LUNGS: Clear to auscultation bilaterally. No wheezes. No rhonchi ABDOMEN: Soft, nontender, nondistended. Positive bowel sounds. Normal active bowel sounds NEUROLOGICAL: Alert and oriented times three. Cranial nerves II through XII gr ossly intact. 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 Left hand noted for swelling of left D1, D2 PIP and MCP joints flector strips over digits and hand. Full range of motion bilateral shoulders, lacks full grasp on left. Recent left old right anterior healed midline knee incisions. No swelling, redness, drainage or tenderness. 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 Rehab- OT/PT- advance mobility and ADLs, strengthen/stretch/maintain ROM all 4 limbs, splint for left wrist, e-stim ok on triceps and deltoids, avoid elbow flexion and wrist extension activation given superficial VTE -edema glove and LUE splint -DIGITAL ART DIRECTOR for cog and swallow 2. Neuro- s/p right basal ganglia infarct on ASA 325mg and statin, c/u good BP management, f/u neuro outpatient -c/u SSRI for motor recovery - coordinating LOOP recorder placement as soon as possible for cryptogenic Afib- patient had cardio appointment 12-07-20 and waiting for insurance approval for loop recorder 3.Cardiac- hx of HTN c/u BP meds, will add lasix for LE edema and d/c amlodipine as may be contributing to swelling (improved today) -HLD c/u statin -medicine consulted to assist in overall management 4. Resp- monitor for infection -hortencia and nasal saline for allergies 5. Endo- hx of DM with hyperglycemia and today hypoglycemic, will need to c/u to adjust meds while on prednisone for gout flair 6. Rheum- gout flair s/p dose of colchicine on inpatient side, c/u prednisone, had to icnrease dose back up to 15mg BID 12-08-20, added flecotr patch 7. DVT ppx- lovenox- + superficial VTE LUE, repeat Doppler 11-29-20 showing resolution then 12/12/20 showing persistence of left basilic superficial VTE ,persistent left median cubital vein superficial VTE- warm compresses ordered -repeat doppler 12-05-20 showing persistent left median cubital vein thrombus, will obtain repeat Doppler 12-12-20 8. Pain- Tylenol and oxycodone -gabapentin increased to 400mg qHS for leg cramping 9. - UA ordered due to reports of increased frequency, however negative, c/u flomax for suspected BPH- symptoms improving,c/u increased dose 0.8mg 10. Renal- recent ESTEBAN s/p IVF per hospitalist- resolved 11. Dispo- tbd Allergies Coded Allergies: Sulfa (Sulfonamide Antibiotics) (Verified Allergy, Unknown, swelling/rash, 11/26/19) metformin (Verified Allergy, Unknown, swelling, 11/26/19) Vital Signs Vital Signs Date Time Temp Pulse Resp B/P (MAP) Pulse Ox O2 Delivery O2 Flow Rate FiO2 12/12/20 14:02 155/81 12/12/20 14:00 97.3 97 20 97 Room Air Laboratory Data CBC/BMP Laboratory Tests 12/12/20 05:40 Labs 24H Laboratory Tests 2 12/12/20 05:40: Immature Granulocyte % (Auto) 1.4, Neutrophils (%) (Auto) 86.9H, Lymphocytes (%) (Auto) 6.5L, Monocytes (%) (Auto) 5.0, Eosinophils (%) (Auto) 0.1, Basophils (%) (Auto) 0.1, Neutrophils # (Auto) 6.3, Lymphocytes # (Auto) 0.5L, Monocytes # (Auto) 0.4, Eosinophils # (Auto) 0.0, Basophils # (Auto) 0.0, Nucleated Red Blood Cells % (auto) 0.0, Anion Gap 4L, Glomerular Filtration Rate 59.0, Calcium Level 8.9 12/12/20 11:22: Bedside Glucose (Misc Panel) 104 12/12/20 16:38: Bedside Glucose (Misc Panel) 275H 12/12/20 19:36: Bedside Glucose (Misc Panel) 314H Current Medications Current Medications Current Medications Medications (Trade) Dose Ordered Sig/Regina Route PRN Reason Start Time Stop Time Status Last Admin Dose Admin Acetaminophen (Tylenol Tab) 650 mg Q4HP PRN PO fever/ MILD PAIN (PS 1-4) 11/25/20 17:30 11/29/20 20:31 Amlodipine Besylate (Norvasc) 10 mg DAILY PO 11/27/20 09:00 11/26/20 09:25 DC Amlodipine Besylate (Norvasc) 10 mg DAILY PO 11/27/20 09:00 12/08/20 16:42 DC 12/08/20 07:45 Artificial Tears (Akwa Tears) 2 drop QID OU 12/08/20 17:00 12/12/20 20:12 Ascorbic Acid (Vitamin C) 500 mg DAILY PO 11/26/20 09:00 12/12/20 08:08 Aspirin (Ecotrin) 325 mg DAILY PO 11/26/20 09:00 12/12/20 08:08 Atorvastatin Calcium (Lipitor) 40 mg QHS PO 11/25/20 21:00 12/12/20 20:12 Bisacodyl (Dulcolax Suppository) 10 mg DAILYPRN PRN ME CONSTIPATION 11/25/20 17:30 Dextrose (Dextrose 50%) 25 ml ASDIRECTED PRN IV SEE LABEL COMMENTS 11/25/20 17:30 Diclofenac Epolamine (Flector 1.3%) 1 patch Q12H TOP 12/08/20 18:00 12/12/20 20:21 DC 12/12/20 05:51 Diclofenac Epolamine (Flector 1.3%) 1 patch Q12H PRN TOP PAIN LEVEL 5-10 12/12/20 20:25 Docusate Sodium (Colace) 100 mg BID PO 11/25/20 21:00 12/12/20 20:12 Enoxaparin Sodium (Lovenox) 40 mg DAILY SC 11/26/20 09:00 12/12/20 08:09 Ferrous Sulfate (Ferrous Sulfate) 325 mg DAILY PO 11/26/20 09:00 12/12/20 08:08 Fexofenadine HCl (Hortencia) 60 mg DAILY PO 12/08/20 09:00 12/12/20 08:08 Fluoxetine HCl (PROzac) 20 mg DAILY PO 11/29/20 09:25 12/12/20 08:08 Furosemide (Lasix) 20 mg DAILY PO 12/08/20 09:00 12/12/20 08:08 Gabapentin (Neurontin) 200 mg QHS PO 12/06/20 21:00 12/08/20 16:42 DC 12/07/20 20:15 Gabapentin (Neurontin) 400 mg QHS PO 12/08/20 21:00 12/12/20 20:12 Glipizide (Glucotrol) 2.5 mg BID@0730,1730 PO 12/08/20 17:30 12/12/20 16:55 Glipizide (Glucotrol) 5 mg BID@0730,1730 PO 12/01/20 17:30 12/08/20 14:47 DC 12/08/20 07:45 Glipizide (Glucotrol) 5 mg DAILY@0730 PO 11/30/20 07:30 12/01/20 07:54 DC 12/01/20 07:50 Glucagon (Glucagon) 1 mg ASDIRECTED PRN SC SEE LABEL COMMENTS 11/25/20 17:30 Glucose (Glucose) 16 GM ASDIRECTED PRN PO SEE LABEL COMMENTS 11/25/20 17:30 Heparin Sodium (Heparin (Flush)) 200 units ASDIRECTED PRN IV SEE LABEL COMMENTS 11/26/20 04:50 12/09/20 06:38 Heparin Sodium (Heparin (Flush)) 200 units PICC IV 11/26/20 06:00 12/12/20 16:56 Home Med (Med Rec Complete!) ASDIRECTED XX 12/08/20 17:10 12/08/20 17:50 DC Hydralazine HCl (Apresoline) 10 mg Q8H PO 11/27/20 22:00 12/05/20 08:12 DC 12/05/20 05:29 Hydralazine HCl (Apresoline) 25 mg Q8H PO 12/05/20 14:00 12/12/20 14:02 Hydrocortisone (Proctosol Hc) apply to left hand D... BID TOP 11/26/20 09:00 12/08/20 16:42 DC 12/08/20 07:47 Insulin Detemir (Levemir Insulin) 5 units BID UT 11/26/20 09:15 11/27/20 11:04 DC 11/27/20 07:45 Insulin Detemir (Levemir Insulin) 5 units BID UT 12/09/20 21:00 12/10/20 20:56 DC 12/10/20 08:15 Insulin Detemir (Levemir Insulin) 5 units DAILY UT 12/05/20 09:00 12/08/20 10:07 DC 12/08/20 07:46 Insulin Detemir (Levemir Insulin) 5 units QHS UT 12/08/20 21:00 12/08/20 14:46 DC Insulin Detemir (Levemir Insulin) 5 units QHS UT 12/08/20 21:00 12/09/20 18:08 DC 12/08/20 22:05 Insulin Detemir (Levemir Insulin) 10 units BID UT 12/10/20 21:00 12/12/20 20:13 Insulin Detemir (Levemir Insulin) 10 units QHS UT 11/27/20 21:00 11/29/20 10:57 DC 11/28/20 21:00 Insulin Detemir (Levemir Insulin) 14 units QHS UT 11/29/20 21:00 12/08/20 10:07 DC 12/07/20 20:16 Insulin Human Lispro (HumaLOG INSULIN) SEE PROTOCOL TABLE AC UT 11/25/20 17:30 12/08/20 14:46 DC 12/08/20 07:46 Insulin Human Lispro (HumaLOG INSULIN) SEE PROTOCOL TABLE AC UT 12/08/20 17:30 12/12/20 16:55 Insulin Human Lispro (HumaLOG INSULIN) SEE PROTOCOL TABLE QHS UT 11/25/20 21:00 12/08/20 14:46 DC 12/07/20 20:17 Insulin Human Lispro (HumaLOG INSULIN) SEE PROTOCOL TABLE QHS SC 12/08/20 21:00 12/12/20 20:13 Metoprolol Tartrate (Lopressor) 12.5 mg BID PO 12/07/20 09:00 12/08/20 16:42 DC 12/07/20 20:16 Metoprolol Tartrate (Lopressor) 12.5 mg Q8H PO 11/26/20 06:00 11/27/20 11:01 DC 11/27/20 05:50 Oxycodone HCl (Roxicodone, Oxyir) 5 mg Q4HP PRN PO PAIN 11/25/20 17:30 12/11/20 01:12 Pantoprazole Sodium (Protonix) 40 mg DAILY PO 11/26/20 09:00 12/12/20 08:08 Polyethylene Glycol (Miralax) 1 pkt DAILY PRN PO CONSTIPATION 11/25/20 17:30 Prednisone (Deltasone) 5 mg BID PO 12/09/20 09:00 12/08/20 16:42 DC Prednisone (Deltasone) 5 mg DAILY PO 12/12/20 09:00 12/08/20 16:42 DC Prednisone (Deltasone) 10 mg BID PO 12/06/20 09:00 12/08/20 16:42 DC 12/08/20 07:45 Prednisone (Deltasone) 15 mg BID PO 11/25/20 21:00 12/05/20 23:00 DC 12/05/20 21:11 Prednisone (Deltasone) 15 mg BID PO 12/08/20 21:00 12/12/20 20:12 Senna (Senokot) 1 tab QHS PO 11/25/20 21:00 12/12/20 20:12 Sodium Chloride 1,000 ml @ 100 mls/hr Q10H IV 11/27/20 12:00 11/28/20 07:59 DC 11/27/20 22:21 Sodium Chloride (Saline Lock Flush) 10 ml ASDIRECTED PRN IV SEE LABEL COMMENTS 11/26/20 04:50 12/09/20 06:38 Sodium Chloride (Saline Lock Flush) 10 ml PICC IV 11/26/20 06:00 12/12/20 16:56 Tamsulosin HCl (Flomax) 0.4 mg DAILY PO 11/29/20 09:25 12/06/20 15:15 DC 12/06/20 09:17 Tamsulosin HCl (Flomax) 0.8 mg DAILY PO 12/07/20 09:00 12/12/20 08:08 JUANJOSE GUZMAN MD Dec 12, 2020 20:56
[2020-12-13] MEDS: oxyCODONE 5MG TAB PO PRN ×3 (00:30→20:09)
[2020-12-13] MEDS: **hydrALAZINE HCL** 25 MG TAB PO SCH ×3 (05:23→21:20)
[2020-12-13] MEDS: SODIUM CHLORIDE 0.9% INJ 10 ML SYR IV SCH ×2 (05:24→18:16)
[2020-12-13] MEDS: SODIUM CHLORIDE 0.9% INJ 10 ML SYR IV PRN (05:24)
[2020-12-13 06:00] VITALS: BP 160/83
[2020-12-13] MEDS: ASCORBIC ACID 500 MG TAB PO SCH (08:19)
[2020-12-13] MEDS: FERROUS SULFATE 325MG TAB PO SCH (08:19)
[2020-12-13] MEDS: FLUoxetine 20 MG CAP PO SCH (08:19)
[2020-12-13] MEDS: ASPIRIN ENTERIC 325 MG TAB PO SCH (08:20)
[2020-12-13] MEDS: DOCUSATE SODIUM 100MG CAPSULE PO SCH ×2 (08:20→20:08)
[2020-12-13] MEDS: glipiZIDE *2.5MG* 1/2 TABLET PO SCH ×2 (08:20→18:16)
[2020-12-13] MEDS: TAMSULOSIN 0.4 MG CAP PO SCH (08:20)
[2020-12-13] MEDS: predniSONE 5 MG TAB PO SCH ×2 (08:20→20:08)
[2020-12-13] MEDS: PANTOPRAZOLE 40MG TAB (PROTONIX) PO SCH (08:20)
[2020-12-13] MEDS: FEXOFENADINE 60 MG TAB PO SCH (08:20)
[2020-12-13] MEDS: FUROSEMIDE 20 MG TAB PO SCH (08:21)
[2020-12-13] MEDS: LEVEMIR (INSULIN DETEMIR) 1 UNITS/0.01ML SC SCH ×2 (08:21→20:09)
[2020-12-13] MEDS: HumaLOG INSULIN (NovoLOG) PER UNIT SC SCH ×4 (08:21→20:09)
[2020-12-13] MEDS: POLYVINYL ALCOHOL OPHTH SOLN 15 ML(LIQUITEARS) OU SCH ×4 (08:22→20:09)
[2020-12-13] MEDS: ENOXAPARIN 40MG/0.4ML SYRINGE (J1650 PER 10MG) SC SCH (08:22)
--- NOTE | 2020-12-13 10:35 | IPNPDOC ---
PM&R Progress Note DATE OF SERVICE: Dec 13, 2020 Rcp Progress Note DATE OF ADMISSION: Nov 25, 2020 at 19:56 DATE OF SERVICE: Dec 13, 2020 CC: Left foreleg discomfort, L hemiparesis, swelling, pain redness left hand with decreased rolling chair pusher. 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 He presented to [facility] ED on after getting up at night. Also, the restroom and finding left arm weakness, slurred speech, and difficulty walking. CTH was negative for intracranial hemorrhage and MRI revealed a right basal ganglia ischemic infarct with extension into the posterior periventricular region. MRA brain was negative for intracranial stenosis and imaging also did not reveal carotid stenosis. Neurol ogy recommended statin and ASA 325mg daily. He developed LUE swelling with Doppler revealing Left basilica vein and left median cubital vein thrombosis for which he was started on Lovenox. He also was suspected to have a gout flair with fever and swelling noted in his left hand and fingers for which he was given Colchicine and started on oral steroids. He had mobility and ADL impairment and deemed medically appropriate for admission to ARU on 11-25-20. 12.09.2020 Patient reporting his left hand feels better with flector patch and increased oral steroids. He is continuing to get more return in his left arm. 12.12.2020 . Patient feels he has gained significant benefit mu-ism of active range of motion in the left hand and only wishes to use Flector patch as needed. He is relieved with mu-ism of function of his left upper extremity. He notes had a bowel movement today. He notes he was under recent workup and is scheduled to have a loop monitor placed for recurrent cardiac arrhythmias. 12.13.2020 keeping a positive attitude, discussed persisting clot and PICC in LUE and need to avoid overhead activities on left, notes new discomfort left foreleg, however knee has no change. Reading several novels, excellent cognitive function. Is desirous of ultimate goal to be cleared to return to driving, willing to take all steps, possibly include use of "knobs" or other adaptive equipment, using universal cuff on right. REVIEW OF SYSTEMS: The following is a completed review of systems and has been reviewed. Review of systems otherwise unremarkable. PAIN: Patient self reports evening muscle cramping EYES: No recent vision changes EARS, NOSE, & THROAT: No throat pain, or dysphagia, or rhinorrhea CARDIOVASCULAR: Denies chest pain or palpitations PULMONARY: Denies shortness of breath GASTROINTESTINAL: Denies constipation/diarrhea GENITOURINARY: denies dysuria, +increased frequency (improving) MUSCULOSKELETAL: left sided paresis, congenital RUE amputation NEUROLOGICAL: +left sided hemiparesis HEMATOLOGICAL: denies easy bruising SKIN: denies rash, LUE PICC PSYCHIATRIC: Unremarkable All other review of systems found to be negative. PHYSICAL EXAMINATION: VITAL SIGNS: Please see below. GENERAL: Pleasant and cooperative. No acute distress.. 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 HEENT: PERRL. Extraocular movements intact. Clear conjunctiva CARDIOVASCULAR: Regular rate and rhythm. No murmurs LUNGS: Clear to auscultation bilaterally. No wheezes. No rhonchi ABDOMEN: Soft, nontender, nondistended. Positive bowel sounds. Normal active bowel sounds NEUROLOGICAL: Alert and oriented times three. Cranial nerves II through XII grossly intact. Sensation grossly decreased to light touch LLE and LUE EXTREMITIES: 4/5 LLE, 5/5 RLE, left 3+/5 elbow flexion and extension 2+/5 rolling chair pusher w ith swollen hand and digits, erythematous changes and warmth left MCP, PIP, DIP with hypertrophy of all, 5/5 right residual limb proximal arm/shoulder girdle . Lacks full grasp on left. Recent left old right anterior healed midline knee incisions. Notes tenderness left medial foreleg, No swelling, redness, drainage or tenderness. Homans negative. SKIN: LUE PICC FUNCTIONAL STATUS: 6.29.2020 Discussed in Team Meeting, goals updated. Recent therapy intervention notes Pt instructed gait training with R platform walker with CGA- SBA; occasional VCs to slow gait speed to emphasize L heel strike and reduce tripping due to toe in gait bilaterally, R >L. Pt sitting in recliner at end of session- pt manages tray in place, dons universal cuff with LUE ASSESSMENT:70-year-old M with past medical history of DM Phocomelia with concordant advanced aging effects ( associated with probable [place] lidomide exposure, although unconfirmed, patient born in [place] Osteoarthritis with gouty flare left hand Cardiac arrhythmias including episodes of afib, stable, awaiting loop monitoring HTN Superficial VT left upper extremity s/p PICC BPH s/p recent UTI Mild Anemia Now status post right basal ganglia infarct affecting his left dominant side PLAN: 1. 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 Neuro- s/p right basal ganglia infarct on ASA 325mg and statin, c/u good BP management, f/u neuro outpatient -c/u SSRI for motor recovery - coordinating LOOP recorder placement as soon as possible for cryptogenic Afib- patient had cardio appointment 12-07-20 and waiting for insurance approval for loop recorder 3.Cardiac- hx of HTN c/u BP meds, will add lasix for LE edema and d/c amlodipine as may be contributing to swelling (improved today) -HLD c/u statin -medicine consulted to assist in overall management 4. Resp- monitor for infection -hortencia and nasal saline for allergies 5. Endo- hx of DM with hyperglycemia and today hypoglycemic, will need to c/u to adjust meds while on prednisone for gout flair FBS 90s-100s, well controlled. 6. Rheum- gout flair s/p dose of colchicine on inpatient side, c/u prednisone, had to icnrease dose back up to 15mg BID 12-08-20, added flecotr patch 7. DVT ppx- lovenox- + superficial VTE LUE, repeat Doppler 11-29-20 showing resolution then 12/12/20 showing persistence of left basilic superficial VTE ,persistent left median cubital vein superficial VTE- warm compresses ordered -repeat doppler 12-05-20 showing persistent left median cubital vein thrombus, will obtain repeat Doppler 12-12-20 8. Pain- Tylenol and oxycodone -gabapentin increased to 400mg qHS for leg cramping 9. - UA ordered due to reports of increased frequency, however negative, c/u flomax for suspected BPH- symptoms improving,c/u increased dose 0.8mg 10. Renal- recent ESTEBAN s/p IVF per hospitalist- resolved 11. Dispo- tbd TIME SPENT: Chart Review, examination and documentation [30] minutes. Allergies Coded Allergies: Sulfa (Sulfonamide Antibiotics) (Verified Allergy, Unknown, swelling/rash, 11/26/19) metformin (Verified Allergy, Unknown, swelling, 11/26/19) Vital Signs Vital Signs Date Time Temp Pulse Resp B/P (MAP) Pulse Ox O2 Delivery O2 Flow Rate FiO2 12/13/20 06:00 97.7 66 18 160/83 (108) 97 Room Air Laboratory Data Labs 24H Laboratory Tests 2 12/12/20 11:22: Bedside Glucose (Misc Panel) 104 12/12/20 16:38: Bedside Glucose (Misc Panel) 275H 12/12/20 19:36: Bedside Glucose (Misc Panel) 314H 12/13/20 05:21: Bedside Glucose (Misc Panel) 187H Current Medications Current Medications Current Medications Medications (Trade) Dose Ordered Sig/Regina Route PRN Reason Start Time Stop Time Status Last Admin Dose Admin Acetaminophen (Tylenol Tab) 650 mg Q4HP PRN PO fever/ MILD PAIN (PS 1-4) 11/25/20 17:30 11/29/20 20:31 Amlodipine Besylate (Norvasc) 10 mg DAILY PO 11/27/20 09:00 11/26/20 09:25 DC Amlodipine Besylate (Norvasc) 10 mg DAILY PO 11/27/20 09:00 12/08/20 16:42 DC 12/08/20 07:45 Artificial Tears (Akwa Tears) 2 drop QID OU 12/08/20 17:00 12/13/20 08:22 Ascorbic Acid (Vitamin C) 500 mg DAILY PO 11/26/20 09:00 12/13/20 08:19 Aspirin (Ecotrin) 325 mg DAILY PO 11/26/20 09:00 12/13/20 08:20 Atorvastatin Calcium (Lipitor) 40 mg QHS PO 11/25/20 21:00 12/12/20 20:12 Bisacodyl (Dulcolax Suppository) [address] CONSTIPATION 11/25/20 17:30 Dextrose (Dextrose 50%) 25 ml ASDIRECTED PRN IV SEE LABEL COMMENTS 11/25/20 17:30 Diclofenac Epolamine (Flector 1.3%) 1 patch Q12H TOP 12/08/20 18:00 12/12/20 20:21 DC 12/12/20 05:51 Diclofenac Epolamine (Flector 1.3%) 1 patch Q12H PRN TOP PAIN LEVEL 5-10 12/12/20 20:25 Docusate Sodium (Colace) 100 mg BID PO 11/25/20 21:00 12/13/20 08:20 Enoxaparin Sodium (Lovenox) 40 mg DAILY SC 11/26/20 09:00 12/13/20 08:22 Ferrous Sulfate (Ferrous Sulfate) 325 mg DAILY PO 11/26/20 09:00 12/13/20 08:19 Fexofenadine HCl (Hortencia) 60 mg DAILY PO 12/08/20 09:00 12/13/20 08:20 Fluoxetine HCl (PROzac) 20 mg DAILY PO 11/29/20 09:25 12/13/20 08:19 Furosemide (Lasix) 20 mg DAILY PO 12/08/20 09:00 12/13/20 08:21 Gabapentin (Neurontin) 200 mg QHS PO 12/06/20 21:00 12/08/20 16:42 DC 12/07/20 20:15 Gabapentin (Neurontin) 400 mg QHS PO 12/08/20 21:00 12/12/20 20:12 Glipizide (Glucotrol) 2.5 mg BID@0730,1730 PO 12/08/20 17:30 12/13/20 08:20 Glipizide (Glucotrol) 5 mg BID@0730,1730 PO 12/01/20 17:30 12/08/20 14:47 DC 12/08/20 07:45 Glipizide (Glucotrol) 5 mg DAILY@0730 PO 11/30/20 07:30 12/01/20 07:54 DC 12/01/20 07:50 Glucagon (Glucagon) 1 mg ASDIRECTED PRN SC SEE LABEL COMMENTS 11/25/20 17:30 Glucose (Glucose) 16 GM ASDIRECTED PRN PO SEE LABEL COMMENTS 11/25/20 17:30 Heparin Sodium (Heparin (Flush)) 200 units ASDIRECTED PRN IV SEE LABEL COMMENTS 11/26/20 04:50 12/13/20 05:24 Heparin Sodium (Heparin (Flush)) 200 units PICC IV 11/26/20 06:00 12/13/20 05:24 Home Med (Med Rec Complete!) ASDIRECTED XX 12/08/20 17:10 12/08/20 17:50 DC Hydralazine HCl (Apresoline) 10 mg Q8H PO 11/27/20 22:00 12/05/20 08:12 DC 12/05/20 05:29 Hydralazine HCl (Apresoline) 25 mg Q8H PO 12/05/20 14:00 12/13/20 05:23 Hydrocortisone (Proctosol Hc) apply to left hand D... BID TOP 11/26/20 09:00 12/08/20 16:42 DC 12/08/20 07:47 Insulin Detemir (Levemir Insulin) 5 units BID SC 11/26/20 09:15 11/27/20 11:04 DC 11/27/20 07:45 Insulin Detemir (Levemir Insulin) 5 units BID SC 12/09/20 21:00 12/10/20 20:56 DC 12/10/20 08:15 Insulin Detemir (Levemir Insulin) 5 units DAILY SC 12/05/20 09:00 12/08/20 10:07 DC 12/08/20 07:46 Insulin Detemir (Levemir Insulin) 5 units QHS SC 12/08/20 21:00 12/08/20 14:46 DC Insulin Detemir (Levemir Insulin) 5 units QHS SC 12/08/20 21:00 12/09/20 18:08 DC 12/08/20 22:05 Insulin Detemir (Levemir Insulin) 10 units BID SC 12/10/20 21:00 12/13/20 08:21 Insulin Detemir (Levemir Insulin) 10 units QHS SC 11/27/20 21:00 11/29/20 10:57 DC 11/28/20 21:00 Insulin Detemir (Levemir Insulin) 14 units QHS SC 11/29/20 21:00 12/08/20 10:07 DC 12/07/20 20:16 Insulin Human Lispro (HumaLOG INSULIN) SEE PROTOCOL TABLE AC SC 11/25/20 17:30 12/08/20 14:46 DC 12/08/20 07:46 Insulin Human Lispro (HumaLOG INSULIN) SEE PROTOCOL TABLE AC [place] 12/08/20 17:30 12/13/20 08:21 Insulin Human Lispro (HumaLOG INSULIN) [facility]OCOL [facility] 11/25/20 21:00 12/08/20 14:46 DC 12/07/20 20:17 Insulin Human Lispro (HumaLOG INSULIN) SEE PROTOCOL TABLE QHS [place] 12/08/20 21:00 12/12/20 20:13 Metoprolol Tartrate (Lopressor) 12.5 mg BID PO 12/07/20 09:00 12/08/20 16:42 DC 12/07/20 20:16 Metoprolol Tartrate (Lopressor) 12.5 mg Q8H PO 11/26/20 06:00 11/27/20 11:01 DC 11/27/20 05:50 Oxycodone HCl (Roxicodone, Oxyir) 5 mg Q4HP PRN PO PAIN 11/25/20 17:30 12/13/20 00:30 Pantoprazole Sodium (Protonix) 40 mg DAILY PO 11/26/20 09:00 12/13/20 08:20 Polyethylene Glycol (Miralax) 1 pkt DAILY PRN PO CONSTIPATION 11/25/20 17:30 Prednisone (Deltasone) 5 mg BID PO 12/09/20 09:00 12/08/20 16:42 DC Prednisone (Deltasone) 5 mg DAILY PO 12/12/20 09:00 12/08/20 16:42 DC Prednisone (Deltasone) 10 mg BID PO 12/06/20 09:00 12/08/20 16:42 DC 12/08/20 07:45 Prednisone (Deltasone) 15 mg BID PO 11/25/20 21:00 12/05/20 23:00 DC 12/05/20 21:11 Prednisone (Deltasone) 15 mg BID PO 12/08/20 21:00 12/13/20 08:20 Senna (Senokot) 1 tab QHS PO 11/25/20 21:00 12/12/20 20:12 Sodium Chloride 1,000 ml @ 100 mls/hr Q10H IV 11/27/20 12:00 11/28/20 07:59 DC 11/27/20 22:21 Sodium Chloride (Saline Lock Flush) 10 ml ASDIRECTED PRN IV SEE LABEL COMMENTS 11/26/20 04:50 12/13/20 05:24 Sodium Chloride (Saline Lock Flush) 10 ml PICC IV 11/26/20 06:00 12/13/20 05:24 Tamsulosin HCl (Flomax) 0.4 mg DAILY PO 11/29/20 09:25 12/06/20 15:15 DC 12/06/20 09:17 Tamsulosin HCl (Flomax) 0.8 mg DAILY PO 12/07/20 09:00 12/13/20 08:20 JUANJOSE GUZMAN MD Dec 13, 2020 10:35
--- NOTE | 2020-12-13 12:38 | IPNPDOC ---
Text Note Date of Service The patient was seen on 12/13/20. NOTE Patient was seen and examined. No acute overnight events. Continues to participate in therapy. Physical examination GENERAL: Patient is awake, alert, oriented to person, place and time, answering questions appropriately. Speech is fluent. No pallor or icterus. HEENT: Regular rate and rhythm. No murmurs, rubs, or gallops LUNGS: Clear to auscultation. No wheezing, rales or rhonchi. HEART: S1, S2. Sinus bradycardia. ABDOMEN: Soft, nontender, nondistended. Positive bowel sounds. EXTREMITIES: 4/5 LLE, 5/5 RLE, 3/5 elbow flexion and 3/5 machine umbrella tipper, grossly 5/5 right upper arm Labs reviewed Radiology reviewed Assessment and plan 1. Ischemic cerebrovascular accident (CVA) with left hemiplegia and dysarthria with right basal ganglia CVA.on ASA 325mg and statin, the patient will require a loop recorder placement and the patient has a cardiology appointment after his discharge. He needs an insurance approval for the loop recorder. As this could be a cryptogenic stroke which is not proven at this time. The patient has not been started on anticoagulation. 2. Acute gout flare, left wrist, left elbow, left ankle. . He was on colchicine and now has been on prednisone 15 mg twice a day. Will reassess and taper as needed. 3. Steroid induced hyperglycemia with type 2 diabetes, uncontrolled. Continue long and short-acting insulin and adjust the insulin according to 24-hour requirement. 4. Superficial thrombosis, left cephalic and basilic vein secondary to peripherally inserted central catheter (PICC) line. repeat Doppler reviewed. Still superficial. No need of full dose AC 5. Poor intravenous (IV) access requiring peripherally inserted central catheter (PICC) line. Continue monitoring 6. Hypertension, uncontrolled. Continue current regimen. 7. Dyslipidemia.. Continue statins 8. Acute kidney injury due to contrast nephropathy. Resolved. Avoid any nephrotoxic drugs. Disposition as per primary. VS,Fishbone, I+O VS, Fishbone, I+O Vital Signs Date Time Temp Pulse Resp B/P (MAP) Pulse Ox O2 Delivery O2 Flow Rate FiO2 12/13/20 06:00 97.7 66 18 160/83 (108) 97 Room Air I&O- Last 24 Hours up to 6 AM 12/13/20 06:00 Intake Total 590 ml Balance 590 ml SANCHEZ HOPKINS MD Dec 13, 2020 12:38
[2020-12-13 14:00] VITALS: BP 134/73
[2020-12-13 20:00] VITALS: BP 134/78
[2020-12-13] MEDS: SENNA 8.6 MG TAB (SENOKOT) PO SCH (20:08)
[2020-12-13] MEDS: ATORVASTATIN 20 MG TAB PO SCH (20:08)
[2020-12-13] MEDS: GABAPENTIN 400MG CAP PO SCH (20:08)
[2020-12-14] MEDS: oxyCODONE 5MG TAB PO PRN ×3 (00:18→20:36)
[2020-12-14] MEDS: SODIUM CHLORIDE 0.9% INJ 10 ML SYR IV PRN ×2 (05:27→17:01)
[2020-12-14] MEDS: SODIUM CHLORIDE 0.9% INJ 10 ML SYR IV SCH ×2 (05:27→16:59)
[2020-12-14] MEDS: **hydrALAZINE HCL** 25 MG TAB PO SCH ×3 (05:31→20:38)
[2020-12-14 06:00] VITALS: BP 149/87
[2020-12-14] MEDS: LEVEMIR (INSULIN DETEMIR) 1 UNITS/0.01ML SC SCH ×2 (08:12→20:37)
[2020-12-14] MEDS: HumaLOG INSULIN (NovoLOG) PER UNIT SC SCH ×4 (08:13→20:36)
[2020-12-14] MEDS: ENOXAPARIN 40MG/0.4ML SYRINGE (J1650 PER 10MG) SC SCH (08:14)
[2020-12-14] MEDS: FEXOFENADINE 60 MG TAB PO SCH (08:16)
[2020-12-14] MEDS: glipiZIDE *2.5MG* 1/2 TABLET PO SCH ×2 (08:17→16:58)
[2020-12-14] MEDS: ASCORBIC ACID 500 MG TAB PO SCH (08:17)
[2020-12-14] MEDS: ASPIRIN ENTERIC 325 MG TAB PO SCH (08:17)
[2020-12-14] MEDS: TAMSULOSIN 0.4 MG CAP PO SCH (08:17)
[2020-12-14] MEDS: FERROUS SULFATE 325MG TAB PO SCH (08:17)
[2020-12-14] MEDS: FUROSEMIDE 20 MG TAB PO SCH (08:17)
[2020-12-14] MEDS: predniSONE 5 MG TAB PO SCH (08:17)
[2020-12-14] MEDS: PANTOPRAZOLE 40MG TAB (PROTONIX) PO SCH (08:17)
[2020-12-14] MEDS: FLUoxetine 20 MG CAP PO SCH (08:17)
[2020-12-14] MEDS: POLYVINYL ALCOHOL OPHTH SOLN 15 ML(LIQUITEARS) OU SCH ×4 (08:18→20:37)
[2020-12-14] MEDS: DOCUSATE SODIUM 100MG CAPSULE PO SCH ×2 (08:18→20:36)
--- NOTE | 2020-12-14 10:39 | IPNPDOC ---
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 He presented to [facility] ED on after getting up at night. Also, the restroom and finding left arm weakness, slurred speech, and difficulty walking. CTH was negative for intracranial hemorrhage and MRI revealed a right basal ganglia ischemic infarct with extension into the posterior periventricular region. MRA brain was negative for intracranial stenosis and imaging also did not reveal carotid stenosis. Neurol ogy recommended statin and ASA 325mg daily. He developed LUE swelling with Doppler revealing Left basilica vein and left median cubital vein thrombosis for which he was started on Lovenox. He also was suspected to have a gout flair with fever and swelling noted in his left hand and fingers for which he was given Colchicine and started on oral steroids. He had mobility and ADL impairment and deemed medically appropriate for admission to ARU on 11-25-20. 12.09.2020 Patient reporting his left hand feels better with flector patch and increased oral steroids. He is continuing to get more return in his left arm. 12.12.2020 . Patient feels he has gained significant benefit islam of active range of motion in the left hand and only wishes to use Flector patch as needed. He is relieved with islam of function of his left upper extremity. He notes had a bowel movement today. He notes he was under recent workup and is scheduled to have a loop monitor placed for recurrent cardiac arrhythmias. 12.13.2020 keeping a positive attitude, discussed persisting clot and PICC in LUE and need to avoid overhead activities on left, notes new discomfort left foreleg, however knee has no change. Reading several novels, excellent cognitive function. Is desirous of ultimate goal to be cleared to return to driving, willing to take all steps, possibly include use of "knobs" or other adaptive equipment, using universal cuff on right. 12.14.2020 he slept better last night. Does note episode of cramping in the left thigh but when kicking and balance activities in therapy yesterday. Express concern on status of follow up on the loop monitor placement and agrees with the idea taking advantage of his excellent progress for an earlier discharge. 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 He is not particularly keen on the use of the Flector patch, but does agree to drink more fluids to see if that might help with the cramping episodes. REVIEW OF SYSTEMS: The following is a completed review of systems and has been reviewed. Review of systems otherwise unremarkable. PAIN: Patient self reports evening muscle cramping EYES: No recent vision changes EARS, NOSE, & THROAT: No throat pain, or dysphagia, or rhinorrhea CARDIOVASCULAR: Denies chest pain or palpitations PULMONARY: Denies shortness of breath GASTROINTESTINAL: Denies constipation/diarrhea GENITOURINARY: denies dysuria, +increased frequency (improving) MUSCULOSKELETAL: left sided paresis, congenital RUE amputation NEUROLOGICAL: +left sided hemiparesis HEMATOLOGICAL: denies easy bruising SKIN: denies rash, LUE PICC PSYCHIATRIC: Unremarkable All other review of systems found to be negative. PHYSICAL EXAMINATION: VITAL SIGNS: Please see below. GENERAL: Pleasant and cooperative. No acute distress.. 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 HEENT: PERRL. Extraocular movements intact. Clear conjunctiva CARDIOVASCULAR: S1 S2 occasional extra beats LUNGS: Clear to auscultation bilaterally. No wheezes. No rhonchi ABDOMEN: Soft, nontender, nondistended. Positive bowel sounds. Normal active bowel sounds NEUROLOGICAL: Alert and oriented times three. Cranial nerves II through XII grossly intact. 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 Lacks full grasp on left. Recent left old right anterior healed midline knee incisions. Notes tenderness left medial foreleg, No swelling, redness, drainage or tenderness. Homans negative. SKIN: LUE PICC FUNCTIONAL STATUS: 6.30.2021 PT focused on gait training on uneven surfaces with and without AD for neuro-re ed. Pt plans to ambulate at home without AD due to improving dynamic balance therefore will continue to focus on ambulation without AD in order to maximize pt 12.13.2020 Discussed in Team Meeting, goals updated. Recent therapy intervention notes Pt instructed gait training with R platform walker with CGA- SBA; occasional VCs to slow gait speed to emphasize L heel strike and reduce tripping due to toe in gait bilaterally, R >L. Pt sitting in recliner at end of session- pt manages tray in place, dons universal cuff with LUE ASSESSMENT:70-year-old M with past medical history of DM FBS 182, will see improved control as we wean down the steroids prior to DC Phocomelia with concordant advanced aging effects ( associated with probable Thalidomide exposure, although unconfirmed, patient born in [place] Osteoarthritis with gouty flare left hand Cardiac arrhythmias including episodes of afib, stable, awaiting loop monitoring HTN Superficial VT left upper extremity s/p PICC BPH s/p recent UTI Mild Anemia Now status post right basal ganglia infarct affecting his left dominant side PLAN: 1. Rehab- OT/PT- advance mobility and ADLs, strengthen/stretch/maintain ROM all 4 limbs, splint for left wrist, e-stim ok on triceps and deltoids, avoid elbow flexion and wrist extension activation given superficial VTE -edema glove and LUE splint , consider individual digit wraps for edema reduction/pain control -[employer] for cog and swallow 2. Neuro- s/p right basal ganglia infarct on ASA 325mg and statin, c/u good BP management, f/u neuro outpatient -c/u SSRI for motor recovery - coordinating LOOP recorder placement as soon as possible for cryptogenic Afib- patient had cardio appointment 12-07-20 and case management coordinating loop recorder as soon as possible post discharge to qualify for insurance restrictions. 3.Cardiac- hx of HTN c/u BP meds, will add lasix for LE edema and d/c amlodipine as may be contributing to swelling (improved today) -HLD c/u statin -medicine consulted to assist in overall management 4. Resp- monitor for infection -hortencia and nasal saline for allergies 5. Endo- hx of DM with hyperglycemia and today hypoglycemic, will need to c/u to adjust meds while on prednisone for gout flair FBS 90s-100s, well controlled. DM FBS 182, will see improved control as we wean down the steroids prior to DC. 6. Rheum- gout flair s/p dose of colchicine on inpatient side, c/u prednisone, had increased dose back up to 15mg BID 12-08-20, added flecotr patch, will wean down now that flare seems to be subsiding. 7. DVT ppx- lovenox- + superficial VTE LUE, repeat Doppler 11-29-20 showing resolution then 12/12/20 showing persistence of left basilic superficial VTE ,persistent left median cubital vein superficial VTE- warm compresses ordered -repeat doppler 12-05-20 showing persistent left median cubital vein thrombus 8. Pain- Tylenol and oxycodone -gabapentin increased to 400mg qHS for leg cramping, added TUMS for possible electrolyte imbalance, encourage fluids. 9. - UA ordered due to reports of increased frequency, however negative, c/u flomax for suspected BPH- symptoms improving,c/u increased dose 0.8mg 10. Renal- recent ESTEBAN s/p IVF per hospitalist- resolved 11. Dispo- Home 7.2.21 TIME SPENT: Chart Review, examination and documentation [30] minutes. Allergies Coded Allergies: Sulfa (Sulfonamide Antibiotics) (Verified Allergy, Unknown, swelling/rash, 11/26/19) metformin (Verified Allergy, Unknown, swelling, 11/26/19) Vital Signs Vital Signs Date Time Temp Pulse Resp B/P (MAP) Pulse Ox O2 Delivery O2 Flow Rate FiO2 12/14/20 06:10 18 Room Air 12/14/20 06:00 97.3 63 149/87 (107) 98 Laboratory Data Labs 24H Laboratory Tests 2 12/13/20 12:13: Bedside Glucose (Misc Panel) 100 12/13/20 16:54: Bedside Glucose (Misc Panel) 244H 12/13/20 19:16: Bedside Glucose (Misc Panel) 316H 12/14/20 05:30: Bedside Glucose (Misc Panel) 182H Current Medications Current Medications Current Medications Medications (Trade) Dose Ordered Sig/Regina Route PRN Reason Start Time Stop Time Status Last Admin Dose Admin Acetaminophen (Tylenol Tab) 650 mg Q4HP PRN PO fever/ MILD PAIN (PS 1-4) 11/25/20 17:30 11/29/20 20:31 Amlodipine Besylate (Norvasc) 10 mg DAILY PO 11/27/20 09:00 11/26/20 09:25 DC Amlodipine Besylate (Norvasc) 10 mg DAILY PO 11/27/20 09:00 12/08/20 16:42 DC 12/08/20 07:45 Artificial Tears (Akwa Tears) 2 drop QID OU 12/08/20 17:00 12/14/20 08:18 Ascorbic Acid (Vitamin C) 500 mg DAILY PO 11/26/20 09:00 12/14/20 08:17 Aspirin (Ecotrin) 325 mg DAILY PO 11/26/20 09:00 12/14/20 08:17 Atorvastatin Calcium (Lipitor) 40 mg QHS PO 11/25/20 21:00 12/13/20 20:08 Bisacodyl (Dulcolax Suppository) 10 mg DAILYPRN PRN NE CONSTIPATION 11/25/20 17:30 Calcium Carbonate (Tums) 500 mg BID PO 12/14/20 09:00 Dextrose (Dextrose 50%) 25 ml ASDIRECTED PRN IV SEE LABEL COMMENTS 11/25/20 17:30 Diclofenac Epolamine (Flector 1.3%) 1 patch Q12H TOP 12/08/20 18:00 12/12/20 20:21 DC 12/12/20 05:51 Diclofenac Epolamine (Flector 1.3%) 1 patch Q12H PRN TOP PAIN LEVEL 5-10 12/12/20 20:25 Docusate Sodium (Colace) 100 mg BID PO 11/25/20 21:00 12/14/20 08:18 Enoxaparin Sodium (Lovenox) 40 mg DAILY SC 11/26/20 09:00 12/14/20 08:14 Ferrous Sulfate (Ferrous Sulfate) 325 mg DAILY PO 11/26/20 09:00 12/14/20 08:17 Fexofenadine HCl (Hortencia) 60 mg DAILY PO 12/08/20 09:00 12/14/20 08:16 Fluoxetine HCl (PROzac) 20 mg DAILY PO 11/29/20 09:25 12/14/20 08:17 Furosemide (Lasix) 20 mg DAILY PO 12/08/20 09:00 12/14/20 08:17 Gabapentin (Neurontin) 200 mg QHS PO 12/06/20 21:00 12/08/20 16:42 DC 12/07/20 20:15 Gabapentin (Neurontin) 400 mg QHS PO 12/08/20 21:00 12/13/20 20:08 Glipizide (Glucotrol) 2.5 mg BID@0730,1730 PO 12/08/20 17:30 12/14/20 08:17 Glipizide (Glucotrol) 5 mg BID@0730,1730 PO 12/01/20 17:30 12/08/20 14:47 DC 12/08/20 07:45 Glipizide (Glucotrol) 5 mg DAILY@0730 PO 11/30/20 07:30 12/01/20 07:54 DC 12/01/20 07:50 Glucagon (Glucagon) 1 mg ASDIRECTED PRN SC SEE LABEL COMMENTS 11/25/20 17:30 Glucose (Glucose) 16 GM ASDIRECTED PRN PO SEE LABEL COMMENTS 11/25/20 17:30 Heparin Sodium (Heparin (Flush)) 200 units ASDIRECTED PRN IV SEE LABEL COMMENTS 11/26/20 04:50 12/14/20 05:27 Heparin Sodium (Heparin (Flush)) 200 units PICC IV 11/26/20 06:00 12/14/20 05:27 Home Med (Med Rec Complete!) ASDIRECTED XX 12/08/20 17:10 12/08/20 17:50 DC Hydralazine HCl (Apresoline) 10 mg Q8H PO 11/27/20 22:00 12/05/20 08:12 DC 12/05/20 05:29 Hydralazine HCl (Apresoline) 25 mg Q8H PO 12/05/20 14:00 12/14/20 05:31 Hydrocortisone (Proctosol Hc) apply to left hand D... BID TOP 11/26/20 09:00 12/08/20 16:42 DC 12/08/20 07:47 Insulin Detemir (Levemir Insulin) 5 units BID SC 11/26/20 09:15 11/27/20 11:04 DC 11/27/20 07:45 Insulin Detemir (Levemir Insulin) 5 units BID SC 12/09/20 21:00 12/10/20 20:56 DC 12/10/20 08:15 Insulin Detemir (Levemir Insulin) 5 units DAILY CA 12/05/20 09:00 12/08/20 10:07 DC 12/08/20 07:46 Insulin Detemir (Levemir Insulin) 5 units QHS CA 12/08/20 21:00 12/08/20 14:46 DC Insulin Detemir (Levemir Insulin) 5 units QHS CA 12/08/20 21:00 12/09/20 18:08 DC 12/08/20 22:05 Insulin Detemir (Levemir Insulin) 10 units BID CA 12/10/20 21:00 12/14/20 08:12 Insulin Detemir (Levemir Insulin) 10 units QHS CA 11/27/20 21:00 11/29/20 10:57 DC 11/28/20 21:00 Insulin Detemir (Levemir Insulin) 14 units QHS CA 11/29/20 21:00 12/08/20 10:07 DC 12/07/20 20:16 Insulin Human Lispro (HumaLOG INSULIN) SEE PROTOCOL TABLE AC CA 11/25/20 17:30 12/08/20 14:46 DC 12/08/20 07:46 Insulin Human Lispro (HumaLOG INSULIN) SEE PROTOCOL TABLE AC CA 12/08/20 17:30 12/14/20 08:13 Insulin Human Lispro (HumaLOG INSULIN) [facility] 11/25[facility] 21:00 12/08/20 14:46 DC 12/07/20 20:17 Insulin Human Lispro (HumaLOG INSULIN) [facility]OTOCOL TABLE [facility] 12/08/20 21:00 12/13/20 20:09 Metoprolol Tartrate (Lopressor) 12.5 mg BID PO 12/07/20 09:00 12/08/20 16:42 DC 12/07/20 20:16 Metoprolol Tartrate (Lopressor) 12.5 mg Q8H PO 11/26/20 06:00 11/27/20 11:01 DC 11/27/20 05:50 Oxycodone HCl (Roxicodone, Oxyir) 5 mg Q4HP PRN PO PAIN 11/25/20 17:30 12/14/20 05:39 Pantoprazole Sodium (Protonix) 40 mg DAILY PO 11/26/20 09:00 12/14/20 08:17 Polyethylene Glycol (Miralax) 1 pkt DAILY PRN PO CONSTIPATION 11/25/20 17:30 Prednisone (Deltasone) 5 mg BID PO 12/09/20 09:00 12/08/20 16:42 DC Prednisone (Deltasone) 5 mg DAILY PO 12/12/20 09:00 12/08/20 16:42 DC Prednisone (Deltasone) 10 mg BID PO 12/06/20 09:00 12/08/20 16:42 DC 12/08/20 07:45 Prednisone (Deltasone) 15 mg BID PO 11/25/20 21:00 12/05/20 23:00 DC 12/05/20 21:11 Prednisone (Deltasone) 15 mg BID PO 12/08/20 21:00 12/14/20 10:16 DC 12/14/20 08:17 Senna (Senokot) 1 tab QHS PO 11/25/20 21:00 12/13/20 20:08 Sodium Chloride 1,000 ml @ 100 mls/hr Q10H IV 11/27/20 12:00 11/28/20 07:59 DC 11/27/20 22:21 Sodium Chloride (Saline Lock Flush) 10 ml ASDIRECTED PRN IV SEE LABEL COMMENTS 11/26/20 04:50 12/14/20 05:27 Sodium Chloride (Saline Lock Flush) 10 ml PICC IV 11/26/20 06:00 12/14/20 05:27 Tamsulosin HCl (Flomax) 0.4 mg DAILY PO 11/29/20 09:25 12/06/20 15:15 DC 12/06/20 09:17 Tamsulosin HCl (Flomax) 0.8 mg DAILY PO 12/07/20 09:00 12/14/20 08:17 JUANJOSE GUZMAN MD Dec 14, 2020 10:38
[2020-12-14] MEDS: CALCIUM CARBONATE 500 MG CHEW U/D PO SCH ×2 (12:13→20:36)
[2020-12-14 14:00] VITALS: BP 124/76
[2020-12-14] MEDS: GABAPENTIN 400MG CAP PO SCH (20:35)
[2020-12-14] MEDS: ATORVASTATIN 20 MG TAB PO SCH (20:35)
[2020-12-14] MEDS: SENNA 8.6 MG TAB (SENOKOT) PO SCH (20:36)
[2020-12-14 20:38] VITALS: BP 147/86
[2020-12-15] MEDS: oxyCODONE 5MG TAB PO PRN ×2 (01:02→20:54)
[2020-12-15] MEDS: SODIUM CHLORIDE 0.9% INJ 10 ML SYR IV SCH ×2 (05:28→18:04)
[2020-12-15 05:30] LABS: BASO % 0.2 % (0.0-1.0); EOS # 0.2 10^3/uL (0.0-0.5); HEMATOCRIT 36.3 % (42.0-52.0); LYMPH # 1.2 10^3/uL (1.5-5.0); LYMPH % 18.4 % (24.0-44.0); MEAN CORPUSCULAR HEMOGLOBIN 31.7 pg (27.0-33.0); MEAN CORPUSCULAR HGB CONC 33.1 g/dl (32.0-36.5); MEAN CORPUSCULAR VOLUME 95.8 fl (80.0-96.0); MONO # 0.5 10^3/uL (0.0-0.8); MONO % 8.1 % (2.0-8.0); NEUTROPHILS # 4.4 10^3/uL (1.5-8.5); NEUTROPHILS % 68.4 % (36.0-66.0); PLATELET COUNT, AUTOMATED 116 10^3/uL (150-450); RED BLOOD COUNT 3.79 10^6/uL (4.30-6.10); WHITE BLOOD COUNT 6.4 10^3/uL (4.0-10.0)
[2020-12-15 05:50] LABS: CALCIUM LEVEL 8.9 MG/DL (8.8-10.2); CREATININE FOR GFR 1.31 MG/DL (0.70-1.30); GLOMERULAR FILTRATION RATE 57.9 (>49); POTASSIUM SERUM 4.1 MEQ/L (3.5-5.1)
[2020-12-15 06:15] VITALS: BP 144/75
[2020-12-15] MEDS: **hydrALAZINE HCL** 25 MG TAB PO SCH ×3 (06:26→20:57)
[2020-12-15] MEDS: HumaLOG INSULIN (NovoLOG) PER UNIT SC SCH ×4 (07:03→20:56)
[2020-12-15] MEDS: LEVEMIR (INSULIN DETEMIR) 1 UNITS/0.01ML SC SCH ×2 (07:04→20:56)
[2020-12-15] MEDS: DOCUSATE SODIUM 100MG CAPSULE PO SCH ×2 (08:15→20:55)
[2020-12-15] MEDS: glipiZIDE *2.5MG* 1/2 TABLET PO SCH ×2 (08:15→17:05)
[2020-12-15] MEDS: CALCIUM CARBONATE 500 MG CHEW U/D PO SCH ×2 (08:16→20:55)
[2020-12-15] MEDS: ASPIRIN ENTERIC 325 MG TAB PO SCH (08:16)
[2020-12-15] MEDS: FERROUS SULFATE 325MG TAB PO SCH (08:16)
[2020-12-15] MEDS: FLUoxetine 20 MG CAP PO SCH (08:16)
[2020-12-15] MEDS: TAMSULOSIN 0.4 MG CAP PO SCH (08:16)
[2020-12-15] MEDS: FEXOFENADINE 60 MG TAB PO SCH (08:16)
[2020-12-15] MEDS: ASCORBIC ACID 500 MG TAB PO SCH (08:16)
[2020-12-15] MEDS: PANTOPRAZOLE 40MG TAB (PROTONIX) PO SCH (08:16)
[2020-12-15] MEDS: FUROSEMIDE 20 MG TAB PO SCH (08:16)
[2020-12-15] MEDS: POLYVINYL ALCOHOL OPHTH SOLN 15 ML(LIQUITEARS) OU SCH ×4 (08:17→21:01)
[2020-12-15] MEDS: ENOXAPARIN 40MG/0.4ML SYRINGE (J1650 PER 10MG) SC SCH (08:18)
[2020-12-15] MEDS ORDERED: predniSONE 10 MG TAB PO ONE (09:00)
--- NOTE | 2020-12-15 10:55 | IPNPDOC ---
Text Note Date of Service The patient was seen on 12/15/20. NOTE Patient was seen and examined. Continues to participate in therapy. Physical examination GENERAL: Patient is awake, alert, oriented to person, place and time, answering questions appropriately. Speech is fluent. No pallor or icterus. HEENT: Regular rate and rhythm. No murmurs, rubs, or gallops LUNGS: Clear to auscultation. No wheezing, rales or rhonchi. HEART: S1, S2. Sinus bradycardia. ABDOMEN: Soft, nontender, nondistended. Positive bowel sounds. EXTREMITIES: 4/5 LLE, 5/5 RLE, 3-4/5 elbow flexion and 3/5 board filler, grossly 5/5 right upper arm Labs reviewed Radiology reviewed Assessment and plan 1. Ischemic cerebrovascular accident (CVA) with left hemiplegia and dysarthria with right basal ganglia CVA.on ASA 325mg and statin, the patient will require a loop recorder placement and the patient has a cardiology appointment after his discharge. He needs an insurance approval for the loop recorder. As this could be a cryptogenic stroke which is not proven at this time. The patient has not been started on anticoagulation. 2. Acute gout flare, left wrist, left elbow, left ankle. . He was on colchicine and now has been on prednisone 15 mg twice a day. Will taper to 10 BID today as he continues to be hyperglycemic 3. Steroid induced hyperglycemia with type 2 diabetes, uncontrolled. Continue long and short-acting insulin and adjust the insulin according to 24-hour requirement. 4. Superficial thrombosis, left cephalic and basilic vein secondary to peripherally inserted central catheter (PICC) line. repeat Doppler reviewed. Still superficial. No need of full dose AC 5. Poor intravenous (IV) access requiring peripherally inserted central cat heter (PICC) line. Continue monitoring 6. Hypertension, uncontrolled. Continue current regimen. 7. Dyslipidemia.. Continue statins 8. Acute kidney injury due to contrast nephropathy. Resolved. Avoid any nephrotoxic drugs. Disposition as per primary. VS,Fishbone, I+O VS, Fishbone, I+O Laboratory Tests 12/15/20 05:18 Vital Signs Date Time Temp Pulse Resp B/P (MAP) Pulse Ox O2 Delivery O2 Flow Rate FiO2 12/15/20 06:26 144/75 12/15/20 06:15 97.0 61 18 99 Room Air I&O- Last 24 Hours up to 6 AM 12/15/20 06:00 Intake Total 450 ml Balance 450 ml SANCHEZ HOPKINS MD Dec 15, 2020 10:55
--- NOTE | 2020-12-15 11:54 | IPNPDOC ---
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 He presented to [facility] ED on 11-22-20 after getting up at night. Also, the restroom and finding left arm weakness, slurred speech, and difficulty walking. CTH was negative for intracranial hemorrhage and MRI revealed a right basal ganglia ischemic infarct with extension into the posterior periventricular region. MRA brain was negative for intracranial stenosis and imaging also did not reveal carotid stenosis. Neurology recommended statin and ASA 325mg daily. He developed LUE swelling with Doppler revealing Left basilica vein and left median cubital vein thrombosis for which he was started on Lovenox. He also was suspected to have a gout flair with fever and swelling noted in his left hand and fingers for which he was given Col chicine and started on oral steroids. He had mobility and ADL impairment and deemed medically appropriate for admission to ARU on 11-25-20. 12.09.2020 Patient reporting his left hand feels better with flector patch and increased oral steroids. He is continuing to get more return in his left arm. 12.12.2020 . Patient feels he has gained significant benefit shinto of active range of motion in the left hand and only wishes to use Flector patch as needed. He is relieved with shinto of function of his left upper extremity. He notes had a bowel movement today. He notes he was under recent workup and is scheduled to have a loop monitor placed for recurrent cardiac arrhythmias. 12.13.2020 keeping a positive attitude, discussed persisting clot and PICC in LUE and need to avoid overhead activities on left, notes new discomfort left foreleg, however knee has no change. Reading several novels, excellent cognitive function. Is desirous of ultimate goal to be cleared to return to driving, wi lling to take all steps, possibly include use of "knobs" or other adaptive equipment, using universal cuff on right. 12.14.2020 he slept better last night. Does note episode of cramping in the left thigh worse with kicking and balance activities in therapy yesterday. Express concern on status of follow up on the loop monitor placement and agrees with the idea taking advantage of his excellent progress for an earlier discharge. 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 He is not particularly keen on the use of the Flector patch, but does agree to drink more fluids to see if that might help with the cramping episodes. 12.15.2020 Sleep and overall discomfort continues to improve. He is encouraged that he can now close his left hand almost completely. There was some struggle with cramping in the left lower extremity, improved with Biofreeze, myofascial release and possibly also addition of calcium supplementation. He is encouraged to know that we worked out a plan with cardiology upon discharge anticipated for tomorrow to get him scheduled for placement of Loop monitor early next week. Left-handed improving, weaning down steroids. REVIEW OF SYSTEMS: The following is a completed review of systems and has been reviewed. Review of systems otherwise unremarkable. PAIN: Patient self reports evening muscle cramping EYES: No recent vision changes EARS, NOSE, & THROAT: No throat pain, or dysphagia, or rhinorrhea CARDIOVASCULAR: Denies chest pain or palpitations PULMONARY: Denies shortness of breath GASTROINTESTINAL: Denies constipation/diarrhea GENITOURINARY: denies dysuria, +increased frequency (improving) MUSCULOSKELETAL: left sided paresis, congenital RUE amputation NEUROLOGICAL: +left sided hemiparesis HEMATOLOGICAL: denies easy bruising SKIN: denies rash, LUE PICC PSYCHIATRIC: Unremarkable All other review of systems found to be negative. PHYSICAL EXAMINATION: VITAL SIGNS: Please see below. GENERAL: Pleasant and cooperative. No acute distress. 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 HEENT: Extraocular movements intact. Clear conjunctiva CARDIOVASCULAR: S1 S2 regularly irregular extra beats LUNGS: Clear to auscultation bilaterally. No wheezes. No rhonchi ABDOMEN: Soft, nontender, nondistended. Positive bowel sounds. Normal active bowel sounds NEUROLOGICAL: Alert and oriented times three. Cranial nerves II through XII grossly intact. 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 Recent left old right anterior healed midline knee incisions. Notes less tenderness left quadriceps. No swelling, redness, drainage or tenderness. Homans negative. SKIN: LUE PICC Labs: 12/15/2020, hemoglobin 12, hematocrit 36.3, platelet 116 K FBS 70, then up to 2 70 by 11am, Cr 1.31 FUNCTIONAL STATUS: 7..2020 Pt screened for room privileges; pt completes transfers from bed, toilet and bed mobility Mod I. pt able to unplug cell phone from wall and manage tray to opposite side of bed with mod I. Pt negotiates 10 steps sidestepping to descend with CG. Improved functional use left hand. 12.14.2020 making steady progress in mobility, biofreeze massage to left quads for muscle spasms 12.13.2020 Discussed in Team Meeting, goals updated. Recent therapy intervention notes Pt instructed gait training with R platform walker with CGA- SBA; occas ional VCs to slow gait speed to emphasize L heel strike and reduce tripping due to toe in gait bilaterally, R >L. Pt sitting in recliner at end of session- pt manages tray in place, dons universal cuff with LUE ASSESSMENT:70-year-old M with past medical history of DM FBS 158 on the this morning down to 70, noting improved control , dietary improvement and increased activity as well as weaning down the steroids prior to DC Phocomelia with concordant advanced aging effects ( associated with probable Thalidomide exposure, although unconfirmed, patient born in [place] Osteoarthritis with gouty flare left hand Cardiac arrhythmias including episodes of afib, stable, awaiting loop monitoring HTN Superficial VT left upper extremity s/p PICC BPH s/p recent UTI Mild Anemia Now status post right basal ganglia infarct affecting his left dominant side PLAN: 1. Rehab- OT/PT- advance mobility and ADLs, strengthen/stretch/maintain ROM all 4 limbs, splint for left wrist, e-stim ok on triceps and deltoids, avoid elbow flexion and wrist extension activation given superficial VTE -edema glove and LUE splint , consider individual digit wraps for edema reduction/pain control -FIRER LOW PRESSURE for cog and swallow 2. Neuro- s/p right basal ganglia infarct on ASA 325mg and statin, c/u good BP management, f/u neuro outpatient -c/u SSRI for motor recovery 3.Cardiac- hx of HTN c/u BP meds, - coordinating LOOP recorder placement as soon as possible for cryptogenic Afib- patient had cardio appointment 12-07-20 and case management coordinating loop recorder as soon as possible post discharge to qualify for insurance restrictions. Switching to decaf coffee. Willing to have another PICC placed vs keeping one in until cardiology appointment next week. -HLD c/u statin -medicine consulted to assist in overall management 4. Resp- monitor for infection -hortencia and nasal saline for allergies 5. Endo- hx of DM with hyperglycemia and today hypoglycemic, will need to c/u to adjust meds while on prednisone for gout flair FBS 90s-100s, well controlled. DM FBS 182, will see improved control as we wean down the steroids prior to DC. 6. Rheum- gout flair s/p dose of colchicine on inpatient side, c/u prednisone, had increased dose back up to 15mg BID 12-08-20, had added, then dcd flecotr patch, will wean down now that flare seems to be subsiding. 7. DVT ppx- lovenox- + superficial VTE LUE, repeat Doppler 11-29-20 showing resolution then 12/12/20 showing persistence of left basilic superficial VTE ,persistent left median cubital vein superficial VTE- warm compresses ordered , hospitalist suggested dc anticoag -repeat doppler 12-05-20 showing persistent left median cubital vein thrombus 8. Pain- Tylenol and oxycodone, responded well to myofascial release and biofreeze applications -gabapentin increased to 400mg qHS for leg cramping, added TUMS for possible electrolyte imbalance, encourage fluids, may benefit from Baclofen, to be considered as outpatient followup. 9. - UA ordered due to reports of increased frequency, however negative, c/u flomax for suspected BPH- symptoms improving,c/u increased dose 0.8mg 10. Renal- recent ESTEBAN s/p IVF per hospitalist- creatinine crept up a bit to 1.31, needs to be monitored, fluids encouraged. 11. Dispo- Home 7.2 TIME SPENT: Chart Review, examination and documentation [35] minutes. Allergies Coded Allergies: Sulfa (Sulfonamide Antibiotics) (Verified Allergy, Unknown, swelling/rash, 11/26/19) metformin (Verified Allergy, Unknown, swelling, 11/26/19) Vital Signs Vital Signs Date Time Temp Pulse Resp B/P (MAP) Pulse Ox O2 Delivery O2 Flow Rate FiO2 12/15/20 06:26 144/75 12/15/20 06:15 97.0 61 18 99 Room Air Laboratory Data CBC/BMP Laboratory Tests 12/15/20 05:18 Labs 24H Laboratory Tests 2 12/14/20 16:27: Bedside Glucose (Misc Panel) 163H 12/14/20 20:13: Bedside Glucose (Misc Panel) 218H 12/15/20 05:18: Immature Granulocyte % (Auto) 1.9, Neutrophils (%) (Auto) 68.4H, Lymphocytes (%) (Auto) 18.4L, Monocytes (%) (Auto) 8.1H, Eosinophils (%) (Auto) 3.0, Basophils (%) (Auto) 0.2, Neutrophils # (Auto) 4.4, Lymphocytes # (Auto) 1.2L, Monocytes # (Auto) 0.5, Eosinophils # (Auto) 0.2, Basophils # (Auto) 0.0, Nucleated Red Blood Cells % (auto) 0.0, Anion Gap 4L, Glomerular Filtration Rate 57.9, Calcium Level 8.9 12/15/20 11:18: Bedside Glucose (Misc Panel) 270H Current Medications Current Medications Current Medications Medications (Trade) Dose Ordered Sig/Regina Route PRN Reason Start Time Stop Time Status Last Admin Dose Admin Acetaminophen (Tylenol Tab) 650 mg Q4HP PRN PO fever/ MILD PAIN (PS 1-4) 11/25/20 17:30 11/29/20 20:31 Amlodipine Besylate (Norvasc) 10 mg DAILY PO 11/27/20 09:00 11/26/20 09:25 DC Amlodipine Besylate (Norvasc) 10 mg DAILY PO 11/27/20 09:00 12/08/20 16:42 DC 12/08/20 07:45 Artificial Tears (Akwa Tears) 2 drop QID OU 12/08/20 17:00 12/15/20 08:17 Ascorbic Acid (Vitamin C) 500 mg DAILY PO 11/26/20 09:00 12/15/20 08:16 Aspirin (Ecotrin) 325 mg DAILY PO 11/26/20 09:00 12/15/20 08:16 Atorvastatin Calcium (Lipitor) 40 mg QHS PO 11/25/20 21:00 12/14/20 20:35 Bisacodyl (Dulcolax Suppository) 10 mg DAILYPRN PRN RI CONSTIPATION 11/25/20 17:30 Calcium Carbonate (Tums) 500 mg BID PO 12/14/20 09:00 12/15/20 08:16 Dextrose (Dextrose 50%) 25 ml ASDIRECTED PRN IV SEE LABEL COMMENTS 11/25/20 17:30 Diclofenac Epolamine (Flector 1.3%) 1 patch Q12H TOP 12/08/20 18:00 12/12/20 20:21 DC 12/12/20 05:51 Diclofenac Epolamine (Flector 1.3%) 1 patch Q12H PRN TOP PAIN LEVEL 5-10 12/12/20 20:25 Docusate Sodium (Colace) 100 mg BID PO 11/25/20 21:00 12/15/20 08:15 Enoxaparin Sodium (Lovenox) 40 mg DAILY SC 11/26/20 09:00 12/15/20 08:18 Ferrous Sulfate (Ferrous Sulfate) 325 mg DAILY PO 11/26/20 09:00 12/15/20 08:16 Fexofenadine HCl (Hortencia) 60 mg DAILY PO 12/08/20 09:00 12/15/20 08:16 Fluoxetine HCl (PROzac) 20 mg DAILY PO 11/29/20 09:25 12/15/20 08:16 Furosemide (Lasix) 20 mg DAILY PO 12/08/20 09:00 12/15/20 08:16 Gabapentin (Neurontin) 200 mg QHS PO 12/06/20 21:00 12/08/20 16:42 DC 12/07/20 20:15 Gabapentin (Neurontin) 400 mg QHS PO 12/08/20 21:00 12/14/20 20:35 Glipizide (Glucotrol) 2.5 mg BID@1130,1410 PO 12/08/20 17:30 12/15/20 08:15 Glipizide (Glucotrol) 5 mg BID@0730,1730 PO 12/01/20 17:30 12/08/20 14:47 DC 12/08/20 07:45 Glipizide (Glucotrol) 5 mg DAILY@0730 PO 11/30/20 07:30 12/01/20 07:54 DC 12/01/20 07:50 Glucagon (Glucagon) 1 mg ASDIRECTED PRN SC SEE LABEL COMMENTS 11/25/20 17:30 Glucose (Glucose) 16 GM ASDIRECTED PRN PO SEE LABEL COMMENTS 11/25/20 17:30 Heparin Sodium (Heparin (Flush)) 200 units ASDIRECTED PRN IV SEE LABEL COMMENTS 11/26/20 04:50 12/14/20 17:01 Heparin Sodium (Heparin (Flush)) 200 units PICC IV 11/26/20 06:00 12/15/20 05:28 Home Med (Med Rec Complete!) ASDIRECTED XX 12/08/20 17:10 12/08/20 17:50 DC Hydralazine HCl (Apresoline) 10 mg Q8H PO 11/27/20 22:00 12/05/20 08:12 DC 12/05/20 05:29 Hydralazine HCl (Apresoline) 25 mg Q8H PO 12/05/20 14:00 12/15/20 06:26 Hydrocortisone (Proctosol Hc) apply to left hand D... BID TOP 11/26/20 09:00 12/08/20 16:42 DC 12/08/20 07:47 Insulin Detemir (Levemir Insulin) 5 units BID SC 11/26/20 09:15 11/27/20 11:04 DC 11/27/20 07:45 Insulin Detemir (Levemir Insulin) 5 units BID SC 12/09/20 21:00 12/10/20 20:56 DC 12/10/20 08:15 Insulin Detemir (Levemir Insulin) 5 units DAILY SC 12/05/20 09:00 12/08/20 10:07 DC 12/08/20 07:46 Insulin Detemir (Levemir Insulin) 5 units QHS SC 12/08/20 21:00 12/08/20 14:46 DC Insulin Detemir (Levemir Insulin) 5 units QHS SC 12/08/20 21:00 12/09/20 18:08 DC 12/08/20 22:05 Insulin Detemir (Levemir Insulin) 10 units BID SC 12/10/20 21:00 12/14/20 20:37 [facility]ulin [facility] 21:00 11/29/20 10:57 DC 11/28/20 21:00 Insulin Detemir ([facility] Insulin) [facility] 11/29/20 21:00 12/08/20 10:07 DC 12/07/20 20:16 Insulin Human Lispro (HumaLOG INSULIN) SEE PROTOCOL TABLE AC WA 11/25/20 17:30 12/08/20 14:46 DC 12/08/20 07:46 Insulin Human Lispro (HumaLOG INSULIN) SEE PROTOCOL TABLE AC WA 12/08/20 17:30 12/14/20 16:59 Insulin Human Lispro (HumaLOG INSULIN) [facility]OC[facility] 11/25/20 21:00 12/08/20 14:46 DC 12/07/20 20:17 Insulin Human Lispro (HumaLOG INSULIN) [facility]OC[facility] 12/08/20 21:00 12/13/20 20:09 Metoprolol Tartrate (Lopressor) 12.5 mg BID PO 12/07/20 09:00 12/08/20 16:42 DC 12/07/20 20:16 Metoprolol Tartrate (Lopressor) 12.5 mg Q8H PO 11/26/20 06:00 11/27/20 11:01 DC 11/27/20 05:50 Oxycodone HCl (Roxicodone, Oxyir) 5 mg Q4HP PRN PO PAIN 11/25/20 17:30 12/15/20 01:02 Pantoprazole Sodium (Protonix) 40 mg DAILY PO 11/26/20 09:00 12/15/20 08:16 Polyethylene Glycol (Miralax) 1 pkt DAILY PRN PO CONSTIPATION 11/25/20 17:30 Prednisone (Deltasone) 5 mg BID PO 12/09/20 09:00 12/08/20 16:42 DC Prednisone (Deltasone) 5 mg DAILY PO 12/12/20 09:00 12/08/20 16:42 DC Prednisone (Deltasone) 10 mg BID PO 12/06/20 09:00 12/08/20 16:42 DC 12/08/20 07:45 Prednisone (Deltasone) 15 mg BID PO 11/25/20 21:00 12/05/20 23:00 DC 12/05/20 21:11 Prednisone (Deltasone) 15 mg BID PO 12/08/20 21:00 12/14/20 10:16 DC 12/14/20 08:17 Senna (Senokot) 1 tab QHS PO 11/25/20 21:00 12/14/20 20:36 Sodium Chloride 1,000 ml @ 100 mls/hr Q10H IV 11/27/20 12:00 11/28/20 07:59 DC 11/27/20 22:21 Sodium Chloride (Saline Lock Flush) 10 ml ASDIRECTED PRN IV SEE LABEL COMMENTS 11/26/20 04:50 12/14/20 17:01 Sodium Chloride (Saline Lock Flush) 10 ml PICC IV 11/26/20 06:00 12/15/20 05:28 Tamsulosin HCl (Flomax) 0.4 mg DAILY PO 11/29/20 09:25 12/06/20 15:15 DC 12/06/20 09:17 Tamsulosin HCl (Flomax) 0.8 mg DAILY PO 12/07/20 09:00 12/15/20 08:16 JUANJOSE GUZMAN MD Dec 15, 2020 11:54
[2020-12-15 14:00] VITALS: BP 101/63
[2020-12-15] MEDS: SENNA 8.6 MG TAB (SENOKOT) PO SCH (20:54)
[2020-12-15] MEDS: GABAPENTIN 400MG CAP PO SCH (20:55)
[2020-12-15] MEDS: ATORVASTATIN 20 MG TAB PO SCH (20:55)
[2020-12-15 20:57] VITALS: BP 134/86
[2020-12-16] MEDS: oxyCODONE 5MG TAB PO PRN (00:58)
[2020-12-16] MEDS: SODIUM CHLORIDE 0.9% INJ 10 ML SYR IV SCH (06:06)
[2020-12-16] MEDS: **hydrALAZINE HCL** 25 MG TAB PO SCH ×2 (06:07→14:00)
[2020-12-16] MEDS: SODIUM CHLORIDE 0.9% INJ 10 ML SYR IV PRN (06:07)
[2020-12-16 06:15] VITALS: BP 141/74
[2020-12-16] MEDS: HumaLOG INSULIN (NovoLOG) PER UNIT SC SCH ×2 (07:30→12:00)
[2020-12-16] MEDS: ASPIRIN ENTERIC 325 MG TAB PO SCH (08:26)
[2020-12-16] MEDS: FERROUS SULFATE 325MG TAB PO SCH (08:27)
[2020-12-16] MEDS: DOCUSATE SODIUM 100MG CAPSULE PO SCH (08:27)
[2020-12-16] MEDS: FLUoxetine 20 MG CAP PO SCH (08:27)
[2020-12-16] MEDS: glipiZIDE *2.5MG* 1/2 TABLET PO SCH (08:27)
[2020-12-16] MEDS: ASCORBIC ACID 500 MG TAB PO SCH (08:27)
[2020-12-16] MEDS: TAMSULOSIN 0.4 MG CAP PO SCH (08:27)
[2020-12-16] MEDS: PANTOPRAZOLE 40MG TAB (PROTONIX) PO SCH (08:27)
[2020-12-16] MEDS: CALCIUM CARBONATE 500 MG CHEW U/D PO SCH (08:28)
[2020-12-16] MEDS: FUROSEMIDE 20 MG TAB PO SCH (08:28)
[2020-12-16] MEDS: FEXOFENADINE 60 MG TAB PO SCH (08:28)
[2020-12-16] MEDS: POLYVINYL ALCOHOL OPHTH SOLN 15 ML(LIQUITEARS) OU SCH ×2 (08:29→12:11)
[2020-12-16] MEDS: ENOXAPARIN 40MG/0.4ML SYRINGE (J1650 PER 10MG) SC SCH (08:29)
[2020-12-16] MEDS: LEVEMIR (INSULIN DETEMIR) 1 UNITS/0.01ML SC SCH (08:29)
[2020-12-16] MEDS ORDERED: predniSONE 5 MG TAB PO ONE (09:00)
[2020-12-16] MEDS ORDERED: FURO20TA2 PO (13:38)
[2020-12-16] MEDS ORDERED: FLUO20CA22 PO (13:38)
[2020-12-16] MEDS ORDERED: CALC200T15 PO (13:38)
[2020-12-16] MEDS ORDERED: GABA-283 PO (13:38)
[2020-12-16] MEDS ORDERED: HYDR25TA PO (13:38)
[2020-12-16 14:00] VITALS: BP 117/72
--- NOTE | 2020-12-16 16:33 | DS.PDOC ---
PM&R Discharge Summary Physician/Ophthalmologist Discharge Note DATE OF ADMISSION: Nov 25, 2020 at 19:56 DATE OF DISCHARGE: Dec 16, 2020 at 14:55 DISCHARGE DIAGNOSES: 1. Right basal ganglia ischemic infarct with extension in the posterior periventricular region. 2. Diabetes. 3. Osteoarthritis. 4. Cardiac arrhythmias. 5. Gouty arthritis flare 6. Anemia 7. DVT left upper extremity 8. Phocomelia right upper extremity 9. Hypertension 10. BPH status post UTI 11. Status post left TKR PAST MEDICAL HISTORY: Diabetes. Hypertension. Osteoarthritis. Phocomelia BPH PAST SURGICAL HISTORY: Status post right knee arthrotomy. 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 He presented to [facility] ED on 11-22-20 after getting up at night. Also, the restroom and finding left arm weakness, slurred speech, and difficulty walking. CTH was negative for intracranial hemorrhage and MRI revealed a right basal ganglia ischemic infarct with extension into the posterior periventricular region. MRA brain was negative for intracranial stenosis and imaging also did not reveal carotid stenosis. Neurology recommended statin and ASA 325mg daily. He developed LUE swelling with Doppler revealing Left basilica vein and left median cubital vein thrombosis for which he was started on Lovenox. He also was suspected to have a gout flair with fever and swelling noted in his left hand and fingers for which he was given Colchicine and started on oral steroids. He had mobility and ADL impairment and deemed medically appropriate for admission to ARU on 11-25-20. 12.09.2020 Patient reporting his left hand feels better with flector patch and increased oral steroids. He is continuing to get more return in his left arm. 12.12.2020 . Patient feels he has gained significant benefit protestant of active range of motion in the left hand and only wishes to use Flector patch as needed. He is relieved with protestant of function of his left upper extremity. He notes had a bowel movement today. He notes he was under recent workup and is scheduled to have a loop monitor placed for recurrent cardiac arrhythmias. 12.13.2020 keeping a positive attitude, discussed persisting clot and PICC in LUE and need to avoid overhead activities on left, notes new discomfort left foreleg, however knee has no change. Reading several novels, excellent cognitive function. Is desirous of ultimate goal to be cleared to return to driving, willing to take all steps, possibly include use of "knobs" or other adaptive equipment, using universal cuff on right. 12.14.2020 he slept better last night. Does note episode of cramping in the left thigh but when kicking and balance activities in therapy yesterday. Express concern on status of follow up on the loop monitor placement and agrees with the idea taking advantage of his excellent progress for an earlier discharge. This Saturday to get him as soon as possible to the silicator next week to proceed with that. He is not particularly keen on the use of the Flector patch, but does agree to drink more fluids to see if that might help with the cramping episodes. 12.15.2020 Sleep and overall discomfort continues to improve. He is encouraged that he can now close his left hand almost completely. There was some struggle with cramping in the left lower extremity, improve with Biofreeze, myofascial release and possibly also addition of calcium supplementation. He is encouraged to know that we worked out a plan with cardiology upon discharge anticipated for tomorrow to get him scheduled for placement of Loop monitor early next week. Left-handed imp roving, weaning down steroids. 12.16.2020 Patient has completed all goals including an overnight stay mod I with room privileges demonstrating safety awareness and sufficient independence in self- care care activities to be discharged home. Left hand swelling and redness has significantly diminished. He is tolerating the slow wean of steroids to new and is scheduled to follow-up with cardiology next week to complete loop recorder. Diabetes education has been provided these encouraged to continued close monitoring of dietary choices, blood sugar levels and adjusting his medications as he transitions back to PO meds. PHYSICAL EXAMINATION: GENERAL: Pleasant and cooperative. No acute distress. 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 HEENT: Extraocular movements intact. Clear conjunctiva CARDIOVASCULAR: S1 S2 regularly irregular extra beats LUNGS: Clear to auscultation bilaterally. No wheezes. No rhonchi ABDOMEN: Soft, nontender, nondistended. Positive bowel sounds. Normal active bowel sounds NEUROLOGICAL: Alert and oriented times three. Cranial nerves II through XII grossly intact. 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 Able to make a full fist on left now.Recent left, old right anterior healed midline knee incisions. Notes less tenderness left quadriceps. No swelling, redness, drainage or tenderness. Homans negative. FUNCTIONAL STATUS AT DISCHARGE: Independent gait on level surfaces, modified independent self-care, feeding, grooming, toileting activities. LABORATORY DATA: Please see below. ALLERGIES: See below. MEDICATIONS: See Below. DISCHARGE DISPOSITION: Home. Extensive coordination with home health, cardiology office, Dr. Marcos going to be able to place loop monitor next week. PICC line pulled at patients request, not comfortable with care/home health overview. Out patient re evaluation desired for eventual return to driving activities. TIME SPENT: Chart Review, examination and documentation 60 minutes. This document is generated using speech recognition software which may result in grammatical, typographical and individual word errors. Vital Signs/I&O Vital Sign - Last 24 Hours 12/15/20 12/15/20 12/15/20 12/15/20 20:54 20:57 20:57 21:31 Temp 97.8 Pulse 89 Resp 18 18 18 B/P (MAP) 134/86 134/86 (102) Pulse Ox 98 O2 Delivery Room Air 12/16/20 12/16/20 12/16/20 12/16/20 00:58 01:28 06:07 06:15 Temp 97.1 Pulse 65 Resp 18 18 18 B/P (MAP) 141/74 141/74 (96) Pulse Ox 99 O2 Delivery Room Air 12/16/20 12/16/20 14:00 14:00 Temp 98.4 Pulse 109 Resp 18 B/P (MAP) 117/72 117/72 (87) Pulse Ox 99 O2 Delivery Room Air I&O- Last 24 Hours up to 6 AM 12/16/20 06:00 Intake Total 500 ml Balance 500 ml Laboratory Data CBC/BMP Laboratory Tests 12/15/20 05:18 Labs 48H Laboratory Tests 12/14/20 20:13: Bedside Glucose (Misc Panel) 218H 12/15/20 05:18: White Blood Count 6.4, Red Blood Count 3.79L, Hemoglobin 12.0L, Hematocrit 36.3L, Mean Corpuscular Volume 95.8, Mean Corpuscular Hemoglobin 31.7, Mean Corpuscular Hemoglobin Concent 33.1, Red Cell Distribution Width 14.2, Platelet Count 116L, Immature Granulocyte % (Auto) 1.9, Neutrophils (%) (Auto) 68.4H, Lymphocytes (%) (Auto) 18.4L, Monocytes (%) (Auto) 8.1H, Eosinophils (%) (Auto) 3.0, Basophils (%) (Auto) 0.2, Neutrophils # (Auto) 4.4, Lymphocytes # (Auto) 1.2L, Monocytes # (Auto) 0.5, Eosinophils # (Auto) 0.2, Basophils # (Auto) 0.0, Nucleated Red Blood Cells % (auto) 0.0, Sodium Level 144, Potassium Level 4.1, Chloride Level 109H, Carbon Dioxide Level 31, Anion Gap 4L, Blood Urea Nitrogen 35H, Creatinine 1.31H, Glomerular Filtration Rate 57.9, Fasting Glucose 70, Calcium Level 8.9 12/15/20 11:18: Bedside Glucose (Misc Panel) 270H 12/15/20 16:33: Bedside Glucose (Misc Panel) 248H 12/15/20 19:55: Bedside Glucose (Misc Panel) 244H 12/16/20 06:03: Bedside Glucose (Misc Panel) 164H 12/16/20 11:32: Bedside Glucose (Misc Panel) 156H FSBS Laboratory Tests Test 12/15/20 16:33 12/15/20 19:55 12/16/20 06:03 12/16/20 11:32 Range/Units Bedside Glucose (Misc Panel) 248 244 164 156 80-115 MG/DL Medications Medications Current Medications Medications (Trade) Dose Ordered Sig/Regina Route PRN Reason Start Time Stop Time Status Last Admin Dose Admin Acetaminophen (Tylenol Tab) 650 mg Q4HP PRN PO fever/ MILD PAIN (PS 1-4) 11/25/20 17:30 12/16/20 15:05 DC 11/29/20 20:31 Amlodipine Besylate (Norvasc) 10 mg DAILY PO 11/27/20 09:00 11/26/20 09:25 DC Amlodipine Besylate (Norvasc) 10 mg DAILY PO 11/27/20 09:00 12/08/20 16:42 DC 12/08/20 07:45 Artificial Tears (Akwa Tears) 2 drop QID OU 12/08/20 17:00 12/16/20 15:05 DC 12/15/20 21:01 Ascorbic Acid (Vitamin C) 500 mg DAILY PO 11/26/20 09:00 12/16/20 15:05 DC 12/16/20 08:27 Aspirin (Ecotrin) 325 mg DAILY PO 11/26/20 09:00 12/16/20 15:05 DC 12/16/20 08:26 Atorvastatin Calcium (Lipitor) 40 mg QHS PO 11/25/20 21:00 12/16/20 15:05 DC 12/15/20 20:55 Bisacodyl (Dulcolax Suppository) 10 mg DAILYPRN PRN GA CONSTIPATION 11/25/20 17:30 12/16/20 15:05 DC Calcium Carbonate (Tums) 500 mg BID PO 12/14/20 09:00 12/16/20 15:05 DC 12/16/20 08:28 Dextrose (Dextrose 50%) 25 ml ASDIRECTED PRN IV SEE LABEL COMMENTS 11/25/20 17:30 12/16/20 15:05 DC Diclofenac Epolamine (Flector 1.3%) 1 patch Q12H TOP 12/08/20 18:00 12/12/20 20:21 DC 12/12/20 05:51 Diclofenac Epolamine (Flector 1.3%) 1 patch Q12H PRN TOP PAIN LEVEL 5-10 12/12/20 20:25 12/16/20 15:05 DC Docusate Sodium (Colace) 100 mg BID PO 11/25/20 21:00 12/16/20 15:05 DC 12/16/20 08:27 Enoxaparin Sodium (Lovenox) 40 mg DAILY SC 11/26/20 09:00 12/16/20 15:05 DC 12/16/20 08:29 Ferrous Sulfate (Ferrous Sulfate) 325 mg DAILY PO 11/26/20 09:00 12/16/20 15:05 DC 12/16/20 08:27 Fexofenadine HCl (Hortencia) 60 mg DAILY PO 12/08/20 09:00 12/16/20 15:05 DC 12/16/20 08:28 Fluoxetine HCl (PROzac) 20 mg DAILY PO 11/29/20 09:25 12/16/20 15:05 DC 12/16/20 08:27 Furosemide (Lasix) 20 mg DAILY PO 12/08/20 09:00 12/16/20 15:05 DC 12/16/20 08:28 Gabapentin (Neurontin) 200 mg QHS PO 12/06/20 21:00 12/08/20 16:42 DC 12/07/20 20:15 Gabapentin (Neurontin) 400 mg QHS PO 12/08/20 21:00 12/16/20 15:05 DC 12/15/20 20:55 Glipizide (Glucotrol) 2.5 mg BID@0730,1730 PO 12/08/20 17:30 12/16/20 15:05 DC 12/16/20 08:27 Glipizide (Glucotrol) 5 mg BID@0730,1730 PO 12/01/20 17:30 12/08/20 14:47 DC 12/08/20 07:45 Glipizide (Glucotrol) 5 mg DAILY@0730 PO 11/30/20 07:30 12/01/20 07:54 DC 12/01/20 07:50 Glucagon (Glucagon) 1 mg ASDIRECTED PRN SC SEE LABEL COMMENTS 11/25/20 17:30 12/16/20 15:05 DC Glucose (Glucose) 16 GM ASDIRECTED PRN PO SEE LABEL COMMENTS 11/25/20 17:30 12/16/20 15:05 DC Heparin Sodium (Heparin (Flush)) 200 units ASDIRECTED PRN IV SEE LABEL COMMENTS 11/26/20 04:50 12/16/20 15:05 DC 12/16/20 06:06 Heparin Sodium (Heparin (Flush)) 200 units PICC IV 11/26/20 06:00 12/16/20 15:05 DC 12/16/20 06:06 Home Med (Med Rec Complete!) ASDIRECTED XX 12/08/20 17:10 12/08/20 17:50 DC Hydralazine HCl (Apresoline) 10 mg Q8H PO 11/27/20 22:00 12/05/20 08:12 DC 12/05/20 05:29 Hydralazine HCl (Apresoline) 25 mg Q8H PO 12/05/20 14:00 12/16/20 15:05 DC 12/16/20 06:07 Hydrocortisone (Proctosol Hc) apply to left hand D... BID TOP 11/26/20 09:00 12/08/20 16:42 DC 12/08/20 07:47 Insulin Detemir (Levemir Insulin) 5 units BID SC 11/26/20 09:15 11/27/20 11:04 DC 11/27/20 07:45 Insulin Detemir (Levemir Insulin) 5 units BID SC 12/09/20 21:00 12/10/20 20:56 DC 12/10/20 08:15 Insulin Detemir (Levemir Insulin) 5 units DAILY SC 12/05/20 09:00 12/08/20 10:07 DC 12/08/20 07:46 Insulin Detemir (Levemir Insulin) 5 units QHS SC 12/08/20 21:00 12/08/20 14:46 DC Insulin Detemir (Levemir Insulin) 5 units QHS SC 12/08/20 21:00 12/09/20 18:08 DC 12/08/20 22:05 Insulin Detemir (Levemir Insulin) 10 units BID SC 12/10/20 21:00 12/16/20 15:05 DC 12/15/20 20:56 Insulin Detemir (Levemir Insulin) 10 units QHS SC 11/27/20 21:00 11/29/20 10:57 DC 11/28/20 21:00 Insulin Detemir (Levemir Insulin) 14 units QHS SC 11/29/20 21:00 12/08/20 10:07 DC 12/07/20 20:16 Insulin Human Lispro (HumaLOG INSULIN) SEE PROTOCOL TABLE AC SC 11/25/20 17:30 12/08/20 14:46 DC 12/08/20 07:46 Insulin Human Lispro (HumaLOG INSULIN) SEE PROTOCOL TABLE AC SC 12/08/20 17:30 12/16/20 15:05 DC 12/15/20 17:05 Insulin Human Lispro (HumaLOG INSULIN) SEE PROTOCOL TABLE QHS SC 11/25/20 21:00 12/08/20 14:46 DC 12/07/20 20:17 Insulin Human Lispro (HumaLOG INSULIN) [facility]OCOL [facility] 12/[facility]20 21:00 12/16/20 15:05 DC 12/13/20 20:09 Metoprolol Tartrate (Lopressor) 12.5 mg BID PO 12/07/20 09:00 12/08/20 16:42 DC 12/07/20 20:16 Metoprolol Tartrate (Lopressor) 12.5 mg Q8H PO 11/26/20 06:00 11/27/20 11:01 DC 11/27/20 05:50 Oxycodone HCl (Roxicodone, Oxyir) 5 mg Q4HP PRN PO PAIN 11/25/20 17:30 12/16/20 15:05 DC 12/16/20 00:58 Pantoprazole Sodium (Protonix) 40 mg DAILY PO 11/26/20 09:00 12/16/20 15:05 DC 12/16/20 08:27 Polyethylene Glycol (Miralax) 1 pkt DAILY PRN PO CONSTIPATION 11/25/20 17:30 12/16/20 15:05 DC Prednisone (Deltasone) 5 mg BID PO 12/09/20 09:00 12/08/20 16:42 DC Prednisone (Deltasone) 5 mg DAILY PO 12/12/20 09:00 12/08/20 16:42 DC Prednisone (Deltasone) 10 mg BID PO 12/06/20 09:00 12/08/20 16:42 DC 12/08/20 07:45 Prednisone (Deltasone) 15 mg BID PO 11/25/20 21:00 12/05/20 23:00 DC 12/05/20 21:11 Prednisone (Deltasone) 15 mg BID PO 12/08/20 21:00 12/14/20 10:16 DC 12/14/20 08:17 Senna (Senokot) 1 tab QHS PO 11/25/20 21:00 12/16/20 15:05 DC 12/15/20 20:54 Sodium Chloride 1,000 ml @ 100 mls/hr Q10H IV 11/27/20 12:00 11/28/20 07:59 DC 11/27/20 22:21 Sodium Chloride (Saline Lock Flush) 10 ml ASDIRECTED PRN IV SEE LABEL COMMENTS 11/26/20 04:50 12/16/20 15:05 DC 12/16/20 06:07 Sodium Chloride (Saline Lock Flush) 10 ml PICC IV 11/26/20 06:00 12/16/20 15:05 DC 12/16/20 06:06 Tamsulosin HCl (Flomax) 0.4 mg DAILY PO 11/29/20 09:25 12/06/20 15:15 DC 12/06/20 09:17 Tamsulosin HCl (Flomax) 0.8 mg DAILY PO 12/07/20 09:00 12/16/20 15:05 DC 12/16/20 08:27 Scheduled Ascorbic Acid (Vitamin C) 500 Mg Tablet, 500 MG PO DAILY, (Reported) Aspirin (Aspirin) 325 Mg Tablet, 325 MG PO DAILY Atorvastatin Calcium (Atorvastatin Calcium) 20 Mg Tablet, 40 MG PO QHS Calcium Carbonate (Calcium Carbonate) 200 Mg Tab.chew, 500 MG PO BID Enoxaparin Sodium (Lovenox) 40 Mg/0.4 Ml Syringe, 40 MG SC DAILY Ferrous Sulfate (Ferrous Sulfate) 325 Mg Tablet, 325 MG PO DAILY, (Reported) Fluoxetine Hcl (Fluoxetine HCl) 20 Mg Capsule, 20 MG PO DAILY Furosemide (Furosemide) 20 Mg Tablet, 20 MG PO DAILY Gabapentin (Gabapentin) 400 Mg Capsule, 400 MG PO QHS Glipizide (Glipizide) 5 Mg Tablet, 5 MG PO BID, (Reported) Hydralazine HCl (Hydralazine HCl) 25 Mg Tablet, 25 MG PO Q8H Oxycodone HCl (Oxycodone HCl) 5 Mg Tablet, 5 MG PO Q6H Scheduled PRN Tramadol HCl (Tramadol HCl) 50 Mg Tablet, 50 MG PO Q6H PRN for PAIN, (Reported) Allergies Coded Allergies: Sulfa (Sulfonamide Antibiotics) (Verified Allergy, Unknown, swelling/rash, 11/26/19) metformin (Verified Allergy, Unknown, swelling, 11/26/19) JUANJOSE GUZMAN MD Dec 16, 2020 16:33
== END 2020-12-16 14:55 | disposition home health service (06) | DRG 57 ==
LOC: M PM&R 11-25 19:56
PROVIDERS: ADMIT Physical Medicine & Rehabilitation; ATTEND Physical Medicine & Rehabilitation
DX: I69.352 Hemiplegia and hemiparesis following cerebral infarction affecting left dominant side (principal); Q71.21 Congenital absence of both forearm and hand, right upper limb; E11.9 Type 2 diabetes mellitus without complications; M10.9 Gout, unspecified; Z96.652 Presence of left artificial knee joint; Z96.641 Presence of right artificial hip joint; Z87.891 Personal history of nicotine dependence; Z79.82 Long term (current) use of aspirin; Z79.52 Long term (current) use of systemic steroids; Z79.891 Long term (current) use of opiate analgesic; Z79.899 Other long term (current) drug therapy; Z88.2 Allergy status to sulfonamides; Z88.8 Allergy status to other drugs, medicaments and biological substances; I10 Essential (primary) hypertension; N40.1 Benign prostatic hyperplasia with lower urinary tract symptoms

== ENCOUNTER 2020-12-20 13:29 | Day surgery (SDC) | payer OTHER ==
[~2020-12-20] VITALS: Ht 175.3 cm; Wt 70.3 kg
[~2020-12-20 13:29] MED LIST changes: +ASPI-1 PO; +ATOR1TAB21 PO; +CALC200T15 PO; +FLUO20CA22 PO; +FURO20TA2 PO; +GABA-283 PO; +HYDR25TA PO; +LOVE1INJ SC; +PRED5TA PO; +ceFAZolin SOD 1 GM in D5W MINI-BAG PLUS 50 ML IV SCH; +fentaNYL 100 MCG/2 ML INJECTION (J3010) As Ordered ONE; +propofoL 200 MG/20 ML VIAL As Ordered ONE
[2020-12-20] MEDS ORDERED: ASPI81CH33 PO (13:45)
[2020-12-20] MEDS ORDERED: LR 1,000 ML IV SCH (15:25)
[2020-12-20] MEDS ORDERED: MIDAZOLAM INJ 2MG/2ML VIAL (J2250 PER 1MG) As Ordered ONE (15:36)
[2020-12-20] MEDS ORDERED: LIDOCAINE 2% 100MG/5ML SDV (FOR ANES.) As Ordered ONE (15:38)
[2020-12-20] MEDS ORDERED: ceFAZolin 1GM VIAL (J0690 PER 500MG) As Ordered ONE (15:40)
[2020-12-20] MEDS ORDERED: LIDOCAINE 1% SDV 30ML VIAL As Ordered ONE (15:42)
--- NOTE | 2020-12-20 16:50 | RO ---
OPERATIVE NOTE DATE OF OPERATION: 12/20/2020 PREOPERATIVE DIAGNOSIS: Cryptogenic stroke. POSTOPERATIVE DIAGNOSIS: Cryptogenic stroke. FINDINGS: Cryptogenic stroke. PROCEDURE PERFORMED: Implantation of a [employer]onic subcutaneous cardiac rhythm monitor. SURGEON: Christopher Mcmahon M.D. SOLE ROUNDER: None. ANESTHESIA: Lidocaine 1% local/monitored anesthetic care. SPECIMEN: None. ESTIMATED BLOOD LOSS: Less than 1 mL. BLOOD PRODUCTS: None replaced. DRAINS: None. COMPLICATIONS: None. DESCRIPTION OF PROCEDURE: The patient was prepped and draped over the left anterior chest and sternum. Lidocaine 1% was used for local anesthetic. An incision was made with a #15 blade approximately 1 cm in length at the left fourth interspace 1 inch lateral to the left parasternal border. The guide on the insertion tube was then placed into the incision and advanced parallel to the skin in the subcutaneous tissue in a left lateral/caudal direction at roughly 45 degrees in that plane. The insertion tool was rotated 180 degrees and the punch was placed into the insertion tool. The punch was used to advance the cardiac rhythm monitor into the subcutaneous tissue. The punch was then removed and then the guide was removed leaving the implantable loop recorder in place. The initial R wave amplitude measured 0.57 mV. The incision was temporarily approximated using a 4-0 Biosyn suture placed subcuticular with the free ends protruding 1 cm from both ends of the incision line. Next three layers of Dermabond was applied. The Biosyn suture was then pulled through the incision and removed entirely. The patient tolerated the procedure well without any immediate complications. The subcutaneous cardiac rhythm monitor implanted was a [employer] LINQ II, Model LNQ22 with Serial No. [id number].
[2020-12-20 17:00] VITALS: BP 154/98
== END 2020-12-20 17:05 | disposition home or self-care (01) ==
LOC: M SDC 13:29
PROVIDERS: ATTEND Internal Medicine Cardiovascular Disease
DX: I69.354 Hemiplegia and hemiparesis following cerebral infarction affecting left non-dominant side (principal); I45.10 Unspecified right bundle-branch block; I10 Essential (primary) hypertension; E11.9 Type 2 diabetes mellitus without complications; M19.90 Unspecified osteoarthritis, unspecified site; N40.0 Benign prostatic hyperplasia without lower urinary tract symptoms; M10.9 Gout, unspecified; Z86.718 Personal history of other venous thrombosis and embolism; Z88.2 Allergy status to sulfonamides; Z88.5 Allergy status to narcotic agent; Z79.899 Other long term (current) drug therapy; Z79.82 Long term (current) use of aspirin; Z79.891 Long term (current) use of opiate analgesic
CPT/HCPCS: 33285; C1764; J0690; J2250; J3010; U0002

== ENCOUNTER → 2020-12-27 | Outpatient (REF) | payer MEDICARE, OTHER ==
[~2020-12-27] MED LIST changes: +ASPI81CH33 PO; -ceFAZolin SOD 1 GM in D5W MINI-BAG PLUS 50 ML IV SCH; -fentaNYL 100 MCG/2 ML INJECTION (J3010) As Ordered ONE; -propofoL 200 MG/20 ML VIAL As Ordered ONE
[2020-12-27 16:51] LABS: BASO % 0.9 % (0.0-1.0); EOS # 0.1 10^3/uL (0.0-0.5); EOS % 2.6 % (0.0-3.0); HEMATOCRIT 36.7 % (42.0-52.0); HEMOGLOBIN 11.9 g/dl (13.5-17.5); LYMPH # 0.9 10^3/uL (1.5-5.0); LYMPH % 20.3 % (24.0-44.0); MEAN CORPUSCULAR HEMOGLOBIN 31.8 pg (27.0-33.0); MEAN CORPUSCULAR HGB CONC 32.4 g/dl (32.0-36.5); MEAN CORPUSCULAR VOLUME 98.1 fl (80.0-96.0); MONO # 0.4 10^3/uL (0.0-0.8); MONO % 9.6 % (2.0-8.0); NEUTROPHILS # 2.9 10^3/uL (1.5-8.5); PLATELET COUNT, AUTOMATED 165 10^3/uL (150-450); RED BLOOD COUNT 3.74 10^6/uL (4.30-6.10); WHITE BLOOD COUNT 4.6 10^3/uL (4.0-10.0)
[2020-12-27 17:13] LABS: ALBUMIN 3.7 GM/DL (3.2-5.2); BILIRUBIN,TOTAL 0.7 MG/DL (0.2-1.0); CALCIUM LEVEL 9.2 MG/DL (8.8-10.2); CREATININE FOR GFR 1.29 MG/DL (0.70-1.30); MAGNESIUM LEVEL 2.1 MG/DL (1.8-2.4); PERCENT SATURATION 28.2 % (19.7-50.0); TOTAL PROTEIN 6.6 GM/DL (6.4-8.2)
[2020-12-27 17:21] LABS: TOTAL 25(OH) VITAMIN D 23.1 NG/ML (30.0-100.0)
[2020-12-27 17:22] LABS: HEMOGLOBIN A1c 6.9 %
[2020-12-27 18:05] LABS: CREATININE, URINE 43.3 MG/DL; MAU/CREAT RATIO 1027.7 MCG/MG (0.0-30.0)
== END ==
LOC: M SFHCADAM 12:31
PROVIDERS: ATTEND Physician Assistant
DX: I82.622 Acute embolism and thrombosis of deep veins of left upper extremity (principal); Z86.73 Personal history of transient ischemic attack (TIA), and cerebral infarction without residual deficits; E11.52 Type 2 diabetes mellitus with diabetic peripheral angiopathy with gangrene; I10 Essential (primary) hypertension; E78.00 Pure hypercholesterolemia, unspecified; M10.9 Gout, unspecified; F32.0 Major depressive disorder, single episode, mild; G62.9 Polyneuropathy, unspecified; D50.8 Other iron deficiency anemias; Z79.899 Other long term (current) drug therapy

== ENCOUNTER → 2021-01-05 | Outpatient (CLI) | payer OTHER ==
--- NOTE | 2021-01-05 14:26 | REP ---
INDICATION: SURGICAL AFTERCARE. COMPARISON: None. TECHNIQUE: Three-view with the AP standing. FINDINGS: There is a left total knee arthroplasty with the 3 components well aligned in relationship to each other and the [place] bone. A fabella is noted on the lateral view posterior to the knee. There are vascular calcifications in popliteal artery. Appears to be screw tracks in the proximal tibial shaft. No new or acute finding. The sunrise view shows no patellar subluxation. IMPRESSION: 1. Status post right total knee arthroplasty with the 3 components well aligned in relationship to the [place] bone and each other. <Electronically signed by Bang Arriaga > 01/05/21 [id number]
== END ==
LOC: M SOG 08:47
PROVIDERS: ATTEND Orthopaedic Surgery Adult Reconstructive Orthopaedic Surgery
DX: Z48.89 Encounter for other specified surgical aftercare (principal); Z96.651 Presence of right artificial knee joint

== ENCOUNTER 2021-03-08 09:40 | Outpatient (RCR) | payer OTHER ==
[~2021-03-08 09:40] MED LIST changes: +DOK1CAP4 PO; -DOK1CAP7 PO
== END 2021-03-16 ==
LOC: M OT 09:40
PROVIDERS: ATTEND Physician Assistant
DX: Z86.73 Personal history of transient ischemic attack (TIA), and cerebral infarction without residual deficits (principal)

== ENCOUNTER 2021-03-08 09:40 | Outpatient (RCR) | payer OTHER | END 2021-03-16 | LOC: M PT 09:40 | PROVIDERS: ATTEND Physician Assistant | DX: Z86.73 Personal history of transient ischemic attack (TIA), and cerebral infarction without residual deficits (principal) ==

== ENCOUNTER 2021-03-22 19:35 | Observation (INO) | payer OTHER ==
[~2021-03-22] VITALS: Ht 175.3 cm; Wt 71.8 kg
--- NOTE | 2021-03-22 20:28 | REPVR ---
PROCEDURE INFORMATION: Exam: CT Head Without Contrast Exam date and time: 03/22/2021 8:19 PM Age: 71 years old Clinical indication: Other: Slurred speach; Additional info: Slurred speech TECHNIQUE: Imaging protocol: Computed tomography of the head without contrast. Radiation optimization: All CT scans at this facility use at least one of these dose optimization techniques: automated exposure control; mA and/or kV adjustment per patient size (includes targeted exams where dose is matched to clinical indication); or iterative reconstruction. Other technique: STROKE PROTOCOL was implemented. COMPARISON: MRI-Brain without Contrast 11/23/2020 7:03 PM FINDINGS: Brain: Chronic basal ganglia lacunar infarcts. There is mild cerebral volume loss. Changes of chronic white matter microvascular disease are present. No signs of a recent infarction or hemorrhage. No midline shift or mass effect. Cerebral ventricles: No ventriculomegaly. Paranasal sinuses: Visualized sinuses are clear. Mastoid air cells: Mastoid air cells are clear. Bones/joints: Unremarkable. No acute fracture. Soft tissues: Unremarkable. IMPRESSION: 1. Mild cerebral volume loss and chronic white matter changes. No acute intracranial abnormality. 2. Chronic basal ganglia lacunar infarcts. ASSESSMENT: ASPECTS ([place] Stroke Program Early CT Score) is 10. Electronically signed by: Hector Valle On 03/22/2021 20:28:12 PM
--- NOTE | 2021-03-22 20:42 | REPVR ---
PROCEDURE INFORMATION: Exam: XR Chest Exam date and time: 03/22/2021 8:27 PM Age: 71 years old Clinical indication: Other: CVA TECHNIQUE: Imaging protocol: XR of the chest. Views: 1 view. COMPARISON: CR Chest, 2 view PA, Lat 11/25/2020 2:48 PM FINDINGS: Lungs: Clear. No consolidation. Pleural spaces: No pleural effusion. No pneumothorax. Heart/Mediastinum: There is a monitoring manager over the left heart border. Normal heart size. Bones/joints: Skeletal degenerative changes.. IMPRESSION: 1. No acute findings. 2. ekg monitor over the left heart border. Electronically signed by: Hector Valle On 03/22/2021 20:42:05 PM
[2021-03-22 21:39] LABS: BASO # 0.1 10^3/uL (0.0-0.2); BASO % 1.2 % (0.0-1.0); EOS # 0.2 10^3/uL (0.0-0.5); EOS % 3.5 % (0.0-3.0); HEMATOCRIT 42.4 % (42.0-52.0); HEMOGLOBIN 14.3 g/dl (13.5-17.5); LYMPH # 1.2 10^3/uL (1.5-5.0); LYMPH % 18.1 % (24.0-44.0); MEAN CORPUSCULAR HEMOGLOBIN 31.6 pg (27.0-33.0); MEAN CORPUSCULAR HGB CONC 33.7 g/dl (32.0-36.5); MEAN CORPUSCULAR VOLUME 93.6 fl (80.0-96.0); MONO # 0.4 10^3/uL (0.0-0.8); MONO % 5.7 % (2.0-8.0); NEUTROPHILS # 4.7 10^3/uL (1.5-8.5); NEUTROPHILS % 70.7 % (36.0-66.0); PLATELET COUNT, AUTOMATED 176 10^3/uL (150-450); RED BLOOD COUNT 4.53 10^6/uL (4.30-6.10); WHITE BLOOD COUNT 6.6 10^3/uL (4.0-10.0)
[2021-03-22 21:50] LABS: INR 0.96; PROTHROMBIN TIME 13.2 SECONDS (12.7-14.5)
[2021-03-22 21:51] LABS: PARTIAL THROMBOPLASTIN TIME 26.6 SECONDS (25.9-37.0)
[2021-03-22 22:13] LABS: ALBUMIN 3.9 GM/DL (3.2-5.2); ALT/SGPT 18 U/L (12-78); BILIRUBIN,DIRECT < 0.1 MG/DL (0.0-0.2); BILIRUBIN,TOTAL 0.4 MG/DL (0.2-1.0); BLOOD UREA NITROGEN 31 MG/DL (7-18); CALCIUM LEVEL 9.5 MG/DL (8.8-10.2); CARBON DIOXIDE LEVEL 26 MEQ/L (21-32); CHLORIDE LEVEL 111 MEQ/L (98-107); CPK CREATINE PHOSPHOKINASE 67 U/L (39-308); CREATININE FOR GFR 1.94 MG/DL (0.70-1.30); FREE T4 1.23 NG/DL (0.76-1.46); GLOMERULAR FILTRATION RATE 36.7 (>49); GLUCOSE, FASTING 85 MG/DL (70-100); MB/CK RELATIVE INDEX 1.49 (< OR =4); POTASSIUM SERUM 3.6 MEQ/L (3.5-5.1); SODIUM LEVEL 146 MEQ/L (136-145); TOTAL PROTEIN 7.1 GM/DL (6.4-8.2); TROPONIN I < 0.02 NG/ML (< 0.10)
[2021-03-22] MEDS ORDERED: DEXTROSE 50% 50 ML SYRINGE IV PRN (23:00)
[2021-03-22] MEDS ORDERED: GLUCOSE 4GM CHEW TABLET PO PRN (23:00)
[2021-03-22] MEDS ORDERED: GABAPENTIN 400MG CAP PO ONE (23:00)
[2021-03-22] MEDS ORDERED: GLUCAGON INJ 1MG VIAL SC PRN (23:00)
--- NOTE | 2021-03-22 23:39 | REPVR ---
PROCEDURE INFORMATION: Exam: XR Left Knee Exam date and time: 03/22/2021 10:51 PM Age: 71 years old Clinical indication: Other: Trauma TECHNIQUE: Imaging protocol: XR Left knee. Views: 4 or more views. COMPARISON: CR KNEE PARTIAL (AP/LAT) 01/05/2021 1:33 PM FINDINGS: Bones/joints: Prior knee arthroplasty. Hardware is in expected location. No signs of hardware loosening. No fracture or malalignment. Soft tissues: Mild soft tissue swelling. IMPRESSION: No fracture or malalignment. Electronically signed by: Hector Valle On 03/22/2021 23:38:47 PM
--- NOTE | 2021-03-22 23:40 | REPVR ---
PROCEDURE INFORMATION: Exam: XR Left Tibia and Fibula Exam date and time: 03/22/2021 10:51 PM Age: 71 years old Clinical indication: Other: Tr; Additional info: Trauma TECHNIQUE: Imaging protocol: XR Left tibia and fibula. Views: 2 views. COMPARISON: US Duplex, Ext,LOWER veins,unilat 11/22/2020 9:26 AM FINDINGS: Bones/joints: Knee arthroplasty in expected location. Normal alignment. No acute fracture. Soft tissues: Mild soft tissue swelling at the knee and ankle. IMPRESSION: No fracture or malalignment. Electronically signed by: Hector Valle On 03/22/2021 23:40:47 PM
[2021-03-23] MEDS: D5W/0.45% SODIUM CHLORIDE 1,000 ML IV SCH ×3 (00:12→18:05)
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
[2021-03-23 01:03] LABS: RSV AMPLIFICATION NEGATIVE (NEGATIVE)
[2021-03-23] MEDS ORDERED: RA T500C2 PO (01:23)
[2021-03-23] MEDS ORDERED: GABA-1171 PO (01:23)
[2021-03-23] MEDS ORDERED: ATOR1TAB21 PO (01:23)
[2021-03-23] MEDS ORDERED: TUMS500C PO (01:23)
[2021-03-23] MEDS ORDERED: TELM1TAB37 PO (01:23)
[2021-03-23] MEDS ORDERED: VITMTA PO (01:23)
[2021-03-23] MEDS ORDERED: HYDR25TA PO (01:23)
[2021-03-23] MEDS ORDERED: ASPI-161 PO (01:23)
[2021-03-23] MEDS ORDERED: HOME MED LIST COMPLETE! XX SCH (01:25)
[2021-03-23 01:47] LABS: CHOLESTEROL LEVEL 182 MG/DL (<200); CHOLESTEROL RISK RATIO 4.439 (<5); HDL CHOLESTEROL 41 MG/DL (>40); LDL CHOLESTEROL 76 MG/DL (<100); NON-HDL-C 141 MG/DL; TRIGLYCERIDES LEVEL 323 MG/DL (<150)
[2021-03-23] MEDS ORDERED: CALCIUM CARBONATE 500 MG CHEW U/D PO PRN (01:50)
[2021-03-23] MEDS: ATORVASTATIN 20 MG TAB PO SCH ×2 (02:22→21:13)
--- NOTE | 2021-03-23 04:28 | ECGEPIP ---
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
[2021-03-23] MEDS: HEPARIN SOD (PORCINE) 5000UNITS/ML 1ML VIAL/SYRINGE SQ SCH ×3 (08:30→21:13)
[2021-03-23] MEDS: HumaLOG INSULIN (NovoLOG) PER UNIT SC SCH ×4 (08:30→18:05)
[2021-03-23 08:54] VITALS: BP 142/86
[2021-03-23] MEDS ORDERED: FLUBLOK(EGG FREE)(QUAD)INFLUENZA VACC 0.5ML SYRINGE 18YRS & OLDER IM ONE (09:00)
[2021-03-23] MEDS: MULTIVITAMINS/MINERALS THERAP 1 TAB PO SCH (10:09)
[2021-03-23] MEDS: ASPIRIN 81MG ENTERIC TABLET PO SCH (10:09)
[2021-03-23 10:59] LABS: BASO # 0.1 10^3/uL (0.0-0.2); BASO % 1.3 % (0.0-1.0); EOS # 0.2 10^3/uL (0.0-0.5); EOS % 4.9 % (0.0-3.0); HEMATOCRIT 36.6 % (42.0-52.0); HEMOGLOBIN 12.5 g/dl (13.5-17.5); LYMPH # 0.8 10^3/uL (1.5-5.0); MEAN CORPUSCULAR HEMOGLOBIN 31.3 pg (27.0-33.0); MEAN CORPUSCULAR HGB CONC 34.2 g/dl (32.0-36.5); MEAN CORPUSCULAR VOLUME 91.7 fl (80.0-96.0); MONO # 0.3 10^3/uL (0.0-0.8); MONO % 8.8 % (2.0-8.0); NEUTROPHILS # 2.5 10^3/uL (1.5-8.5); NEUTROPHILS % 64.5 % (36.0-66.0); PLATELET COUNT, AUTOMATED 163 10^3/uL (150-450); RED BLOOD COUNT 3.99 10^6/uL (4.30-6.10); WHITE BLOOD COUNT 3.9 10^3/uL (4.0-10.0)
[2021-03-23 11:26] LABS: CALCIUM LEVEL 8.9 MG/DL (8.8-10.2); CREATININE FOR GFR 1.4 MG/DL (0.70-1.30); GLOMERULAR FILTRATION RATE 53.5 (>49); POTASSIUM SERUM 4.1 MEQ/L (3.5-5.1)
[2021-03-23 11:46] VITALS: O2SAT 94
[2021-03-23 12:05] LABS: PROLACTIN 6.4 NG/ML (2.1-17.7)
[2021-03-23 14:00] VITALS: BP 148/98
[2021-03-23] MEDS ORDERED: D5W/0.9% SODIUM CHLORIDE 1,000 ML IV SCH (17:05)
--- NOTE | 2021-03-23 17:22 | IPNPDOC ---
Date Seen The patient was seen on 03/23/21. Progress Note SUBJECTIVE: Neuro exams neg, no new neuro deficits. Swallowing eval went well. MRI brain pending. Denies blurry vision, n/v/d, headaches or lightheadedness. OBJECTIVE: VITAL SIGNS: Please see below PHYSICAL EXAMINATION: CONSTITUTIONAL: No acute distress, resting comfortably, AAO x 3 EYES: PERRLA, EOM intact HENT, MOUTH: Normocephalic, atraumatic, moist mucous membranes NECK: SUPPLE, no JVD, no lymphadenopathy, no carotid bruit CV: Regular rate and rhythm, S1S2 normal, no murmurs/rubs/gallops RESPIRATORY: Clear to auscultation bilaterally, no rales/rhonchi/wheezes GI: BS positive in 4 quadrants, soft, nontender, nondistended, no rebound or guarding, no organomegaly : Deferred MUSCULOSKELETAL: Normal ROM. No cyanosis, clubbing, swelling, extremity edema. Right upper arm deformity. Multiple well healed scars on the lower extremities INTEGUMENTARY: Intact, no rashes, no lesions, no erythema NEUROLOGIC: Cranial Nerves II-XII are intact, no focal deficits PSYCHIATRIC: Mood and affect are normal CURRENT MEDICATIONS: Please see below LABORATORY DATA: Please see below IMAGING: MRI brain pending ASSESSMENT: 71 y/o M admitted for AMS r/o TIAvs. CVA vs. Hypoglycemic event. PLAN: 1. Speech changes and generalized weakness secondary to TIA v hypoglycemic event: -Neuro checks neg, no events on tele -CT head neg for acute findings, old lacunar infarcts -Consider Echo pending MRI reading -Speech: cleared -PT/OT #ESTEBAN likely 2/2 to home lasix and prerenal causes -Cr improved to 1.4 -C/w IVFS, holding lasix and avoid other nephrotoxic meds -Monitor fluid balance, I's and O's, daily labs #DM with hypoglycemia -Hypoglycemia resolved and likely 2/2 to glipizide -Check A1c, cleared by speech so consistent carb diet added -FS AC/HS, hypoglycemia protocol #DHFrEF, not currently in exacerbation -Echo November 2020 shows grade 1 diastolic with preserved EF. Patient's home medication does include furosemide 20 mg daily. -Monitor fluid balance, I's and O's. -Hold Lasix given above; monitor monitor for any overload during hydration process. Restart furosemide accordingly pending patient clinical course. #HTN: -Monitor BP in setting of above. #Bilateral lower extremity knee/lopez pain -Patient is status post recent falls. He did not fall today reportedly. X-ray nonacute but did show some minor swelling. -Plan for symptom management/supportive care. Ice as needed for comfort. Elevate extremity. Pain medication as needed. #DVT prophylaxis: -SCDs. Hep SQ DISPOSITION: Likely d/c tomorrow home if MRI brain neg, cleared by PT to c/w services as o/p. VS, I&O, 24H, Fishbone Vital Signs/I&O Vital Signs Date Time Temp Pulse Resp B/P (MAP) Pulse Ox O2 Delivery O2 Flow Rate FiO2 03/23/21 11:46 94 Room Air 03/23/21 08:54 97.9 66 17 142/86 (104) Laboratory Data 24H LABS Laboratory Tests 2 03/22/21 21:14: Immature Granulocyte % (Auto) 0.8, Neutrophils (%) (Auto) 70.7H, Lymphocytes (%) (Auto) 18.1L, Monocytes (%) (Auto) 5.7, Eosinophils (%) (Auto) 3.5H, Basophils (%) (Auto) 1.2H, Neutrophils # (Auto) 4.7, Lymphocytes # (Auto) 1.2L, Monocytes # (Auto) 0.4, Eosinophils # (Auto) 0.2, Basophils # (Auto) 0.1, Nucleated Red Blood Cells % (auto) 0.0, Prothrombin Time 13.2, Prothromb Time International Ratio 0.96, Activated Partial Thromboplast Time 26.6, Anion Gap 9, Glomerular Filtration Rate 36.7L, Calcium Level 9.5, Total Bilirubin 0.4, Direct Bilirubin < 0.1, Aspartate Amino Transf (AST/SGOT) 12, Alanine Aminotransferase (ALT/SGPT) 18, Alkaline Phosphatase 106, Total Creatine Kinase 67, Creatine Kinase MB 1.0, Creatine Kinase MB Relative Index 1.49, Troponin I < 0.02, Total Protein 7.1, Albumin 3.9, Albumin/Globulin Ratio 1.2, Triglycerides Level 323H, Total Cholesterol 182, LDL Cholesterol 76, Non-HDL Cholesterol (LDL + VLDL) 141, Total HDL Cholesterol 41, Cholesterol/HDL Ratio 4.439, Thyroid Stimulating Hormone (TSH) 2.560, Free Thyroxine 1.23 03/22/21 21:19: 03/22/21 21:33: POC Prothrombin Time (Misc) 12.0L, POC INR (Misc) 1.0 03/22/21 21:36: POC Glucose (Misc Panel) 84, POC Sodium (Misc Panel) 144, POC Potassium (Misc Panel) 3.7, POC Chloride (Misc Panel) 111H, POC Total CO2 (Misc Panel) 21.0L, POC Blood Urea Nitrogen (Misc Panel 34H, POC Ionized Calcium (Misc Panel) 4.2L, POC Creatinine (Misc Panel) 2.1H, POC Hematocrit (Misc Panel) 40.0 03/22/21 21:38: Bedside Glucose (Misc Panel) 76L 03/22/21 22:59: 03/22/21 23:53: Bedside Glucose (Misc Panel) 79L 03/23/21 00:14: Coronavirus (COVID-19)(PCR) NEGATIVE, Influenza Type A (RT-PCR) NEGATIVE, Influenza Type B (RT-PCR) NEGATIVE, Respiratory Syncytial Virus (PCR) NEGATIVE 03/23/21 02:27: Bedside Glucose (Misc Panel) 130H 03/23/21 07:57: Bedside Glucose (Misc Panel) 131H 03/23/21 10:28: Immature Granulocyte % (Auto) 0.5, Neutrophils (%) (Auto) 64.5, Lymphocytes (%) (Auto) 20.0L, Monocytes (%) (Auto) 8.8H, Eosinophils (%) (Auto) 4.9H, Basophils (%) (Auto) 1.3H, Neutrophils # (Auto) 2.5, Lymphocytes # (Auto) 0.8L, Monocytes # (Auto) 0.3, Eosinophils # (Auto) 0.2, Basophils # (Auto) 0.1, Nucleated Red Blood Cells % (auto) 0.0, Anion Gap 8, Glomerular Filtration Rate 53.5, Calcium Level 8.9, Prolactin 6.4 03/23/21 12:16: Bedside Glucose (Misc Panel) 145H 03/23/21 16:39: Bedside Glucose (Misc Panel) 169H CBC/BMP Laboratory Tests 03/22/21 21:14 03/23/21 10:28 Arelis Sheridan MD Mar 23, 2021 17:22
[2021-03-23] MEDS ORDERED: HumaLOG INSULIN (NovoLOG) PER UNIT SC SCH (21:00)
[2021-03-23 22:00] VITALS: BP 138/86
[2021-03-24] MEDS: D5W/0.45% SODIUM CHLORIDE 1,000 ML IV SCH (03:16)
[2021-03-24 06:00] VITALS: BP 141/51
[2021-03-24] MEDS: HEPARIN SOD (PORCINE) 5000UNITS/ML 1ML VIAL/SYRINGE SQ SCH (06:40)
[2021-03-24 06:54] LABS: EOS # 0.2 10^3/uL (0.0-0.5); HEMATOCRIT 35.3 % (42.0-52.0); HEMOGLOBIN 11.7 g/dl (13.5-17.5); LYMPH # 0.9 10^3/uL (1.5-5.0); LYMPH % 22.2 % (24.0-44.0); MEAN CORPUSCULAR HEMOGLOBIN 31.5 pg (27.0-33.0); MEAN CORPUSCULAR HGB CONC 33.1 g/dl (32.0-36.5); MEAN CORPUSCULAR VOLUME 94.9 fl (80.0-96.0); MONO # 0.4 10^3/uL (0.0-0.8); MONO % 9.6 % (2.0-8.0); NEUTROPHILS # 2.4 10^3/uL (1.5-8.5); NEUTROPHILS % 61.4 % (36.0-66.0); PLATELET COUNT, AUTOMATED 142 10^3/uL (150-450); RED BLOOD COUNT 3.72 10^6/uL (4.30-6.10)
[2021-03-24 07:19] LABS: CALCIUM LEVEL 8.4 MG/DL (8.8-10.2); CREATININE FOR GFR 1.5 MG/DL (0.70-1.30); GLOMERULAR FILTRATION RATE 49.4 (>49)
[2021-03-24] MEDS: HumaLOG INSULIN (NovoLOG) PER UNIT SC SCH ×2 (08:52→12:00)
[2021-03-24] MEDS: ASPIRIN 81MG ENTERIC TABLET PO SCH (08:52)
[2021-03-24] MEDS: MULTIVITAMINS/MINERALS THERAP 1 TAB PO SCH (08:52)
[2021-03-24] MEDS ORDERED: amLODIPine 5 MG TAB PO SCH (09:00)
--- NOTE | 2021-03-24 10:19 | REPVR ---
PROCEDURE INFORMATION: Exam: MR Head Without Contrast Exam date and time: 03/23/2021 2:02 PM Age: 71 years old Clinical indication: Other: Weakness; Additional info: CVA w/u TECHNIQUE: Imaging protocol: MR of the head without contrast. COMPARISON: CT Head without contrast 03/22/2021 8:06 PM FINDINGS: Brain: There is no extra-axial collection or intra-axial mass. Moderate diffuse volume loss is within the range of normal for patient age. There are foci of increased T2/FLAIR white matter hyperintensity, nonspecific but typically small-vessel ischemia in this age group. Chronic lacunar infarcts involve the arambula radiata and basal ganglia as well as the left neda.. There is no diffusion restriction. There is stable ovoid T1 hyperintensity within the right inferior cerebellum, potentially focal laminar necrosis. Cerebral ventricles: Prominence of the ventricular system is commensurate with volume loss Bones/joints: Unremarkable. Paranasal sinuses: There is mild ethmoid mucosal thickening. Mastoid air cells: There is minimal fluid within mastoid air cells. Orbital cavity: Unremarkable. Soft tissues: Unremarkable. IMPRESSION: No acute intracranial abnormality. Chronic changes. Electronically signed by: Isabella Bonilla On 03/24/2021 10:19:06 AM
[2021-03-24] MEDS ORDERED: AMLO1TAB24 PO (12:19)
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
== END 2021-03-24 13:00 | disposition home or self-care (01) ==
LOC: M ED 19:35 → M ED INP 22:59 → INTOOBSV 22:59 → ENRESERV 03-23 08:05 → M MSPAV 03-23 09:08
PROVIDERS: ADMIT Internal Medicine; ATTEND Internal Medicine
DX: R47.9 Unspecified speech disturbances (principal); R53.1 Weakness; I69.354 Hemiplegia and hemiparesis following cerebral infarction affecting left non-dominant side; I69.328 Other speech and language deficits following cerebral infarction; N17.9 Acute kidney failure, unspecified; E10.649 Type 1 diabetes mellitus with hypoglycemia without coma; I11.0 Hypertensive heart disease with heart failure; I50.20 Unspecified systolic (congestive) heart failure; M19.90 Unspecified osteoarthritis, unspecified site; H66.90 Otitis media, unspecified, unspecified ear; Q71.21 Congenital absence of both forearm and hand, right upper limb; Z91.81 History of falling; M25.561 Pain in right knee; M25.562 Pain in left knee; Z96.652 Presence of left artificial knee joint; Z96.641 Presence of right artificial hip joint; Z79.899 Other long term (current) drug therapy; Z79.82 Long term (current) use of aspirin; Z88.2 Allergy status to sulfonamides
CPT/HCPCS: 36415; 70450; 70551; 71045; 73564; 73590; 80047; 80048; 80061; 80076; 82550; 82553; 83036; 84146; 84439; 84443; 84484; 85025; 85610; 85730; 87631; 90682; 92526; 92610; 93005; 93041; 94760; 96372; 97116; 97161; 97165; 97530; 99285; G0008; G0378; J1644

== ENCOUNTER → 2021-03-29 | Outpatient (REF) | payer OTHER ==
[~2021-03-29] MED LIST changes: +AMLO1TAB24 PO; +GABA-1171 PO; +RA T500C2 PO; +TELM1TAB37 PO; +TUMS500C PO; +VITMTA PO
[2021-03-29 18:13] LABS: HEMOGLOBIN A1c 6.2 %
[2021-03-29 18:28] LABS: CALCIUM LEVEL 8.9 MG/DL (8.8-10.2); CREATININE FOR GFR 1.65 MG/DL (0.70-1.30); GLOMERULAR FILTRATION RATE 44.3 (>49); POTASSIUM SERUM 4.4 MEQ/L (3.5-5.1)
== END ==
LOC: M SFHCADAM 14:17
PROVIDERS: ATTEND Physician Assistant
DX: E11.52 Type 2 diabetes mellitus with diabetic peripheral angiopathy with gangrene (principal); N18.31 Chronic kidney disease, stage 3a; I10 Essential (primary) hypertension

== ENCOUNTER → 2021-04-07 | Outpatient (CLI) | payer OTHER ==
--- NOTE | 2021-04-09 07:03 | REP ---
INDICATION: ACUTE KIDNEY INJURY COMPARISON: None TECHNIQUE: Real time mckeon scale ultrasound examination using curved array transducer. FINDINGS: Bilateral kidneys are normal in reniform shape and demonstrate increased central sinus fat with mild cortical lobulations suggesting chronic age-related changes. Few scattered bilateral cysts no hydronephrosis, nephrolithiasis, or renal mass lesion. Right kidney measures 9.8 x 5.6 x 5.3 cm and includes 1.1 cm upper pole cyst and 1.9 cm lower pole cysts. No hydronephrosis, nephrolithiasis, or renal mass lesion. Left kidney measures 9.1 x 4.4 x 4.2 cm and includes 7 mm upper pole cyst along with 1.7 cm and 1.2 cm lower pole cysts. There is a 1.8 x 1.8 x 2.3 cm complex lesion along the lower pole. No hydronephrosis or nephrolithiasis. Bladder is under distended and grossly normal. Prostate gland is heterogeneous and measures 3.8 x 3.6 x 3.2 cm (23 cc). IMPRESSION: 1. Bilateral kidneys demonstrate age-related changes without hydronephrosis. 2. Left kidney includes 2.3 cm complex lesion with surrounding vascularity suspicious for mass and warranting pre and postcontrast CT of the abdomen and pelvis for further investigation. <Electronically signed by Paolo Hernadez > 04/09/21 0700
== END ==
LOC: M RAD 10:54
PROVIDERS: ATTEND Physician Assistant
DX: N17.9 Acute kidney failure, unspecified (principal); Q61.02 Congenital multiple renal cysts; N28.9 Disorder of kidney and ureter, unspecified

== ENCOUNTER 2021-04-13 09:57 | Outpatient (RCR) | payer OTHER | END 2021-04-16 | LOC: M PT 09:57 | PROVIDERS: ATTEND Physician Assistant | DX: Z86.73 Personal history of transient ischemic attack (TIA), and cerebral infarction without residual deficits (principal) ==

== ENCOUNTER → 2021-04-14 | Outpatient (CLI) | payer OTHER ==
--- NOTE | 2021-04-14 17:05 | REPVR ---
PROCEDURE INFORMATION: Exam: CT Abdomen And Pelvis Without Contrast Exam date and time: 04/14/2021 4:02 PM Age: 71 years old Clinical indication: Other: Lt renal mass TECHNIQUE: Imaging protocol: Computed tomography of the abdomen and pelvis without contrast. Radiation optimization: All CT scans at this facility use at least one of these dose optimization techniques: automated exposure control; mA and/or kV adjustment per patient size (includes targeted exams where dose is matched to clinical indication); or iterative reconstruction. COMPARISON: [facility] HIP/KNEE RECONSTRUCTION 10/27/2020 11:22 AM FINDINGS: Lungs: The visualized portions of the lung bases are normal. Liver: There is a finely nodular contour to the liver with periportal atrophy and hypertrophy of the caudate lobe, consistent with cirrhosis. Liver length is 14.6 cm with no evidence of focal mass lesion without benefit of contrast. Gallbladder and bile ducts: There is a contracted gallbladder containing multiple rim calcified stones. There are no features suspicious for cholecystitis and there is no biliary dilatation. Pancreas: There are punctate pancreatic parenchymal calcifications, consistent with chronic pancreatitis. The pancreatic duct measures 13 mm in the body tail junction on axial image 46 and 11 mm in the anterior body on image 45. The duct is not dilated in the head of the pancreas which could indicate ductal obstruction by changes reflecting chronic pancreatitis but malignancy is not excluded in this presentation. Spleen: There is mild nonspecific splenomegaly measuring 14.3 cm. Adrenal glands: The right adrenal gland is normal. There is a 16 mm fatty lesion protruding from the left adrenal gland on axial image 44 with density of -42 units. This is relatively low for a simple adenoma and could represent a myelolipoma. Kidneys and ureters: There are bilateral renal cysts on ultrasound. There is an intracortical 17 mm cyst at the lower pole of the right kidney with an adjacent exophytic 19 mm cyst. There is an intracortical mid lateral 12 mm cyst. There appears to be a nonobstructing 2 mm calculus of the mid kidney on image 58 and at least 3 nonobstructing calculi at the lower pole on image 65. There is a well-defined 14 mm hypodense lesion at the lower pole of the left kidney corresponding to a cyst on ultrasound. A 6 mm cyst at the upper pole is not identified on CT. Question was raised of an intrarenal mass measuring about 23 mm on transverse images of the lower pole with no corresponding mass lesion identified on CT. This may represent peripelvic fat. Stomach and bowel: Unremarkable. No obstruction. No mucosal thickening. Appendix: No evidence of appendicitis. Intraperitoneal space: There is no free intraperitoneal air. Vasculature: Unremarkable. No abdominal aortic aneurysm. Lymph nodes: Unremarkable. No enlarged lymph nodes. Urinary bladder: Unremarkable as visualized. Reproductive: Unremarkable as visualized. Bones/joints: Unremarkable. No acute fracture. Soft tissues: Unremarkable. IMPRESSION: 1. There is mild nonspecific splenomegaly measuring 14.3 cm. 2. There is a finely nodular contour to the liver with periportal atrophy and hypertrophy of the caudate lobe, consistent with cirrhosis. Liver length is 14.6 cm with no evidence of focal mass lesion without benefit of contrast. 3. There is a contracted gallbladder containing multiple rim calcified stones. There are no features suspicious for cholecystitis and there is no biliary dilatation. 4. The pancreatic duct measures 13 mm in the body tail junction on axial image 46 and 11 mm in the anterior body on image 45. The duct is not dilated in the head of the pancreas which could indicate ductal obstruction by changes reflecting chronic pancreatitis but malignancy is not excluded in this presentation. 5. There are bilateral renal cysts on ultrasound. There is an intracortical 17 mm cyst at the lower pole of the right kidney with an adjacent exophytic 19 mm cyst. There is an intracortical mid lateral 12 mm cyst. There appears to be a nonobstructing 2 mm calculus of the mid kidney on image 58 and at least 3 nonobstructing calculi at the lower pole on image 65. 6. There is a well-defined 14 mm hypodense lesion at the lower pole of the left kidney corresponding to a cyst on ultrasound. A 6 mm cyst at the upper pole is not identified on CT. Question was raised of an intrarenal mass measuring about 23 mm on transverse images of the lower pole with no corresponding mass lesion identified on CT. This may represent peripelvic fat. RECOMMENDATION: MRCP and contrast MRI may be appropriate for assessment of the gallbladder, liver, and pancreatic pathology. COMMENTS: 1. Consistent with the [employer]'s Incidental Findings Committee white paper (J Am Shilpi Radiol 2017): For any incidental adrenal lesion greater than 1 cm but less than 4 cm classified in this report as benign, likely benign, or containing fat (including classification as an adenoma or myelolipoma), no follow-up imaging is recommended per consensus recommendations based on imaging criteria. Further lab evaluation could be pursued if warranted based on clinical findings. 2. Consistent with the [employer]'s Incidental Findings Committee white paper (J Am Shilpi Radiol 2018): Any incidental renal lesion less than 1 cm or classified as too small to characterize, or any incidental cystic renal lesion characterized as simple-appearing, is likely benign. No follow-up imaging is recommended for these lesions per consensus recommendations based on imaging criteria. Electronically signed by: Nik Arthur On 04/14/2021 17:04:57 PM
== END ==
LOC: M RAD 15:58
PROVIDERS: ATTEND Physician Assistant
DX: N28.89 Other specified disorders of kidney and ureter (principal); R16.1 Splenomegaly, not elsewhere classified; K76.9 Liver disease, unspecified; K80.20 Calculus of gallbladder without cholecystitis without obstruction

== ENCOUNTER → 2021-05-03 | Outpatient (REF) | payer OTHER ==
[2021-05-03 13:04] LABS: CALCIUM LEVEL 10.4 MG/DL (8.8-10.2); CREATININE FOR GFR 1.46 MG/DL (0.70-1.30)
== END ==
LOC: M SFHCADAM 09:52
PROVIDERS: ATTEND Nurse Practitioner Women's Health
DX: N28.89 Other specified disorders of kidney and ureter (principal)

== ENCOUNTER 2021-05-08 09:57 | Outpatient (RCR) | payer OTHER ==
[2021-06-29] MEDS ORDERED: PERCOCET PO (08:26)
[2021-06-29] MEDS ORDERED: COLA100C5 PO (08:26)
== END 2021-05-16 ==
LOC: M PT 09:57
PROVIDERS: ATTEND Physician Assistant
DX: Z86.73 Personal history of transient ischemic attack (TIA), and cerebral infarction without residual deficits (principal)

== ENCOUNTER → 2021-05-10 | Outpatient (CLI) | payer OTHER ==
[~2021-05-10] MED LIST changes: +ISOVUE-370 76% 100ML VIAL As Ordered ONE
--- NOTE | 2021-05-11 20:06 | REP ---
INDICATION: RENAL MASS. COMPARISON: None TECHNIQUE: Axial contrast-enhanced images from the lung bases to the pubic symphysis in the portal venous phase of enhancement along with precontrast, arterial phase, and 5 minute delayed phased images of the abdomen using 100 cc Isovue 370 intravenous contrast material. Coronal and sagittal reformations obtained. This CT examination was performed using the following dose reduction techniques: Automated exposure control, adjustment of mA and/or kv according to the patient's size, and the use of iterative reconstruction technique. FINDINGS: Left kidney includes multiple benign cysts up to 1.5 cm. There appears to be a small enhancing mass along the anterior cortex at the midpole level measuring 1.4 cm diameter concerning for renal cell carcinoma unless proven otherwise (series 401; image 76). No evidence for perinephric stranding or obvious pathologic adenopathy appreciated. Right kidney demonstrates few punctate 1-2 mm nonobstructing nephroliths along with multiple benign cysts measuring up to approximately 2.4 cm maximal diameter. Liver is normal. Cholelithiasis noted without acute cholecystitis. Pancreas demonstrates multiple parenchymal calcifications and diffusely dilated pancreatic duct likely reflecting chronic pancreatitis. Spleen includes 1.5 cm enhancing lesion consistent with benign hemangioma. 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 The enteric system is without evidence for obstruction or acute inflammatory process. Normal terminal ileum and appendix are identified in the right lower quadrant. Sigmoid diverticulosis noted without diverticulitis. Despite metallic artifact reduction technique, evaluation of the pelvis is limited due to beam hardening artifact from right hip replacement. Visualized portions of the bladder suggest mild chronic bladder wall thickening. The prostate appears enlarged. There is evidence for a penile implant with fluid-filled reservoir in the right hemipelvis. No obvious pelvic fluid. A small to moderate fat containing left inguinal hernia is identified. No ascites. No free air. Abdominal aorta is without aneurysm or dissection. Musculoskeletal structures demonstrate presumed degenerative changes and large Schmorl's node along superior endplate of L3. IMPRESSION: 1. 1.4 cm enhancing left renal mass is suspected and warrants further investigation. Urology consultation is recommended. No obvious associated pathologic adenopathy or stranding. 2. Bilateral renal cysts and punctate nonobstructing right renal calculi noted. 3. Further nonacute findings as described above. <Electronically signed by Paolo Hernadez > 05/11/212001
== END ==
LOC: M RAD 05-05 12:43
PROVIDERS: ATTEND Nurse Practitioner Women's Health
DX: N28.89 Other specified disorders of kidney and ureter (principal); N28.1 Cyst of kidney, acquired; K40.91 Unilateral inguinal hernia, without obstruction or gangrene, recurrent
CPT/HCPCS: 74178; Q9967

== ENCOUNTER → 2021-06-08 | Outpatient (CLI) | payer OTHER ==
[~2021-06-08] MED LIST changes: -ISOVUE-370 76% 100ML VIAL As Ordered ONE
--- NOTE | 2021-06-19 07:59 | REP ---
INDICATION: LEFT RENAL MASS COMPARISON: 03/22/2021 TECHNIQUE: PA and lateral. FINDINGS: The mediastinum and cardiac silhouette are normal. The lung bishop are clear and without acute consolidation, effusion, or pneumothorax. The skeletal structures are intact and normal. IMPRESSION: No acute cardiopulmonary process. <Electronically signed by Paolo Hernadez > 06/19/21 0751
== END ==
LOC: M RAD 13:34
PROVIDERS: ATTEND Nurse Practitioner Women's Health
DX: Z01.818 Encounter for other preprocedural examination (principal); N28.89 Other specified disorders of kidney and ureter

== ENCOUNTER → 2021-06-19 | Outpatient (REF) | payer OTHER ==
[2021-06-19 13:03] LABS: APPEARANCE, URINE CLEAR (CLEAR); BACTERIA, URINE AUTO NEGATIVE (NEGATIVE); BILIRUBIN, URINE AUTO NEGATIVE (NEGATIVE); BLOOD, URINE BLOOD NEGATIVE (NEGATIVE); COLOR, URINE YELLOW (YELLOW); GLUCOSE, URINE (UA) AUTO NEGATIVE (NEGATIVE); KETONE, URINE AUTO TRACE mg/dL (NEGATIVE); LEUKOCYTE ESTERASE, URINE AUTO NEGATIVE (NEGATIVE); NITRITE, URINE AUTO NEGATIVE (NEGATIVE); PROTEIN, URINE AUTO 3+ mg/dL (NEGATIVE); RBC, URINE AUTO 1 /HPF (0-3); SPECIFIC GRAVITY URINE AUTO 1.016 (1.002-1.035); SQUAMOUS EPITHELIAL CELL UR AU 0 /HPF (0-6); UROBILINOGEN, URINE AUTO 0.2 mg/dL (0.0-2.0); WBC, URINE AUTO 1 /HPF (0-3)
[2021-06-19 13:06] LABS: HEMATOCRIT 45.3 % (42.0-52.0); HEMOGLOBIN 15.1 g/dl (13.5-17.5); MEAN CORPUSCULAR HEMOGLOBIN 31.3 pg (27.0-33.0); MEAN CORPUSCULAR HGB CONC 33.3 g/dl (32.0-36.5); MEAN CORPUSCULAR VOLUME 93.8 fl (80.0-96.0); PLATELET COUNT, AUTOMATED 182 10^3/uL (150-450); RED BLOOD COUNT 4.83 10^6/uL (4.30-6.10); WHITE BLOOD COUNT 5.8 10^3/uL (4.0-10.0)
[2021-06-19 13:18] LABS: INR 0.99; PARTIAL THROMBOPLASTIN TIME 32.4 SECONDS (25.9-37.0); PROTHROMBIN TIME 13.5 SECONDS (12.7-14.5)
[2021-06-19 13:42] LABS: ALBUMIN 4.4 GM/DL (3.2-5.2); BILIRUBIN,TOTAL 0.8 MG/DL (0.2-1.0); CALCIUM LEVEL 9.9 MG/DL (8.8-10.2); CREATININE FOR GFR 1.55 MG/DL (0.70-1.30); GLOMERULAR FILTRATION RATE 47.6 (>49); POTASSIUM SERUM 3.9 MEQ/L (3.5-5.1); TOTAL PROTEIN 7.4 GM/DL (6.4-8.2)
== END ==
LOC: M LABSMT 12:33
PROVIDERS: ATTEND Nurse Practitioner Women's Health
DX: Z01.818 Encounter for other preprocedural examination (principal); N28.89 Other specified disorders of kidney and ureter

== ENCOUNTER → 2021-06-22 | Outpatient (CLI) | payer OTHER | LOC: M LABSMTC 10:45 | PROVIDERS: ATTEND Anesthesiology | DX: Z01.818 Encounter for other preprocedural examination (principal); Z11.52 Encounter for screening for COVID-19 ==

== ENCOUNTER → 2021-08-09 | Outpatient (CLI) | payer OTHER ==
[~2021-08-09] MED LIST changes: +COLA100C5 PO; +PERCOCET PO
== END ==
LOC: M SOG 08:18
PROVIDERS: ATTEND Orthopaedic Surgery Adult Reconstructive Orthopaedic Surgery
DX: M25.562 Pain in left knee (principal); Z96.653 Presence of artificial knee joint, bilateral

== ENCOUNTER → 2021-09-12 | Outpatient (REF) | payer OTHER ==
[2021-09-12 13:02] LABS: HEMATOCRIT 42.1 % (42.0-52.0); HEMOGLOBIN 14.4 g/dl (13.5-17.5); MEAN CORPUSCULAR HEMOGLOBIN 31.4 pg (27.0-33.0); MEAN CORPUSCULAR HGB CONC 34.2 g/dl (32.0-36.5); MEAN CORPUSCULAR VOLUME 91.7 fl (80.0-96.0); PLATELET COUNT, AUTOMATED 163 10^3/uL (150-450); RED BLOOD COUNT 4.59 10^6/uL (4.30-6.10); WHITE BLOOD COUNT 5.3 10^3/uL (4.0-10.0)
[2021-09-12 13:25] LABS: ALBUMIN 4.2 GM/DL (3.2-5.2); BILIRUBIN,TOTAL 0.7 MG/DL (0.2-1.0); CALCIUM LEVEL 9.5 MG/DL (8.8-10.2); CHOLESTEROL RISK RATIO 5.045 (<5); CREATININE FOR GFR 1.35 MG/DL (0.70-1.30); GLOMERULAR FILTRATION RATE 55.8 (>49); POTASSIUM SERUM 3.9 MEQ/L (3.5-5.1); TOTAL PROTEIN 7.2 GM/DL (6.4-8.2)
[2021-09-12 13:27] LABS: TOTAL 25(OH) VITAMIN D 26.4 NG/ML (30.0-100.0)
[2021-09-12 13:51] LABS: HEMOGLOBIN A1c 6.7 %
== END ==
LOC: M SFHCADAM 09:20
PROVIDERS: ATTEND Physician Assistant
DX: N18.32 Chronic kidney disease, stage 3b (principal); E55.9 Vitamin D deficiency, unspecified; E11.52 Type 2 diabetes mellitus with diabetic peripheral angiopathy with gangrene; Z86.73 Personal history of transient ischemic attack (TIA), and cerebral infarction without residual deficits

== ENCOUNTER → 2021-11-07 | Outpatient (CLI) | payer OTHER | LOC: M SOG 09:26 | PROVIDERS: ATTEND Orthopaedic Surgery Adult Reconstructive Orthopaedic Surgery | DX: S82.092D Other fracture of left patella, subsequent encounter for closed fracture with routine healing (principal); Z96.652 Presence of left artificial knee joint ==

== ENCOUNTER → 2022-01-11 | Outpatient (CLI) | payer OTHER | LOC: M LABSMTC 09:36 | PROVIDERS: ATTEND Internal Medicine Gastroenterology | DX: Z11.52 Encounter for screening for COVID-19 (principal) ==

== ENCOUNTER → 2022-01-16 | Outpatient (REF) | payer OTHER ==
[2022-01-16 17:20] LABS: CALCIUM LEVEL 9.6 MG/DL (8.8-10.2); CREATININE FOR GFR 1.81 MG/DL (0.70-1.30); GLOMERULAR FILTRATION RATE 39.8 (>49)
== END ==
LOC: M SFHCADAM 12:58
PROVIDERS: ATTEND Urology
DX: C64.2 Malignant neoplasm of left kidney, except renal pelvis (principal)

== ENCOUNTER → 2022-01-18 | Outpatient (CLI) | payer OTHER ==
[~2022-01-18] MED LIST changes: +ISOVUE-370 76% 100ML VIAL As Ordered ONE
== END ==
LOC: M RAD 08:33
PROVIDERS: ATTEND Urology
DX: C64.2 Malignant neoplasm of left kidney, except renal pelvis (principal)
CPT/HCPCS: 74170; Q9967

== ENCOUNTER 2022-02-03 19:35 | Inpatient (IN) | payer OTHER ==
[~2022-02-03] VITALS: Ht 175.3 cm; Wt 72.0 kg
[~2022-02-03 19:35] MED LIST changes: -ISOVUE-370 76% 100ML VIAL As Ordered ONE
[2022-02-03] MEDS ORDERED: ASPIRIN 81 MG CHEW TABLET PO ONE (19:50)
[2022-02-03 21:06] LABS: BASO # 0.1 10^3/uL (0.0-0.2); EOS # 0.2 10^3/uL (0.0-0.5); HEMATOCRIT 38.6 % (42.0-52.0); HEMOGLOBIN 13.3 g/dl (13.5-17.5); LYMPH # 1.3 10^3/uL (1.5-5.0); LYMPH % 26.2 % (24.0-44.0); MEAN CORPUSCULAR HGB CONC 34.5 g/dl (32.0-36.5); MEAN CORPUSCULAR VOLUME 92.8 fl (80.0-96.0); MONO # 0.4 10^3/uL (0.0-0.8); MONO % 7.8 % (2.0-8.0); NEUTROPHILS # 2.8 10^3/uL (1.5-8.5); NEUTROPHILS % 59.6 % (36.0-66.0); PLATELET COUNT, AUTOMATED 162 10^3/uL (150-450); RED BLOOD COUNT 4.16 10^6/uL (4.30-6.10); WHITE BLOOD COUNT 4.8 10^3/uL (4.0-10.0)
[2022-02-03 21:57] LABS: CK-MB VALUE MASS 1.1 NG/ML (<3.6); MB/CK RELATIVE INDEX 1.31 (< OR =4)
[2022-02-03] MEDS ORDERED: CLOPIDOGREL 300 MG TAB (PLAVIX) PO STA (22:44)
[2022-02-03 23:28] VITALS: BP 168/87
[2022-02-04] MEDS ORDERED: KETOROLAC 30 MG/ML 1ML VIAL IV ONE (00:45)
[2022-02-04 00:49] LABS: CALCIUM LEVEL 9.3 MG/DL (8.8-10.2); CREATININE FOR GFR 1.79 MG/DL (0.70-1.30); GLOMERULAR FILTRATION RATE 40.3 (>49); POTASSIUM SERUM 3.4 MEQ/L (3.5-5.1)
[2022-02-04 01:46] LABS: RSV AMPLIFICATION NEGATIVE (NEGATIVE)
[2022-02-04] MEDS ORDERED: AMLO2.5T3 PO (02:16)
[2022-02-04] MEDS ORDERED: HOME MED LIST COMPLETE! XX SCH (02:20)
[2022-02-04] MEDS ORDERED: MOM 30ML SUSPENSION UDC PO PRN (02:45)
[2022-02-04] MEDS ORDERED: DEXTROSE 50% 50 ML SYRINGE IV PRN (02:50)
[2022-02-04] MEDS ORDERED: CALCIUM CARBONATE 500 MG CHEW U/D PO PRN (02:50)
[2022-02-04] MEDS ORDERED: GLUCAGON INJ 1MG VIAL SC PRN (02:50)
[2022-02-04] MEDS ORDERED: GLUCOSE 4GM CHEW TABLET PO PRN (02:50)
[2022-02-04 03:50] VITALS: BP 184/106
[2022-02-04] MEDS: ACETAMINOPHEN TAB 650MG DOSE (2X325MG) PO PRN ×2 (04:02→22:12)
[2022-02-04 06:00] VITALS: BP 176/89
[2022-02-04] MEDS: HEPARIN SOD (PORCINE) 5000UNITS/ML 1ML VIAL/SYRINGE SC SCH ×3 (06:18→21:02)
[2022-02-04 07:13] LABS: HEMOGLOBIN 13.3 g/dl (13.5-17.5); MEAN CORPUSCULAR HEMOGLOBIN 32.1 pg (27.0-33.0); MEAN CORPUSCULAR VOLUME 91.8 fl (80.0-96.0); PLATELET COUNT, AUTOMATED 144 10^3/uL (150-450); RED BLOOD COUNT 4.14 10^6/uL (4.30-6.10); WHITE BLOOD COUNT 4.7 10^3/uL (4.0-10.0)
[2022-02-04] MEDS: INSULIN LISPRO (NovoLOG) PER UNIT SC SCH ×3 (07:30→17:43)
[2022-02-04 07:46] LABS: CHOLESTEROL RISK RATIO 2.859 (<5)
[2022-02-04 07:48] LABS: ALBUMIN 3.6 GM/DL (3.2-5.2); BILIRUBIN,TOTAL 0.8 MG/DL (0.2-1.0); CALCIUM LEVEL 9.6 MG/DL (8.8-10.2); CREATININE FOR GFR 1.7 MG/DL (0.70-1.30); GLOMERULAR FILTRATION RATE 42.8 (>49); POTASSIUM SERUM 3.8 MEQ/L (3.5-5.1); TOTAL PROTEIN 5.7 GM/DL (6.4-8.2)
[2022-02-04] MEDS: ATORVASTATIN 20 MG TAB PO SCH (09:51)
[2022-02-04] MEDS: ASPIRIN 81MG ENTERIC TABLET PO SCH (09:51)
[2022-02-04] MEDS: DOCUSATE SODIUM 100MG CAPSULE PO SCH ×2 (09:51→21:02)
[2022-02-04 09:55] VITALS: BP 147/96
[2022-02-04 14:00] VITALS: BP 133/87
[2022-02-04] MEDS ORDERED: RAMELTEON 8 MG TAB (ROZEREM) PO PRN (20:25)
[2022-02-04] MEDS ORDERED: INSULIN LISPRO (NovoLOG) PER UNIT SC SCH (21:00)
[2022-02-04 21:04] VITALS: BP 140/92
[2022-02-04 22:00] VITALS: BP 140/92
[2022-02-05] MEDS: HEPARIN SOD (PORCINE) 5000UNITS/ML 1ML VIAL/SYRINGE SC SCH (05:29)
[2022-02-05 05:49] VITALS: BP 117/69
[2022-02-05] MEDS: ASPIRIN 81MG ENTERIC TABLET PO SCH (08:30)
[2022-02-05] MEDS: INSULIN LISPRO (NovoLOG) PER UNIT SC SCH ×2 (08:30→12:27)
[2022-02-05] MEDS: DOCUSATE SODIUM 100MG CAPSULE PO SCH (08:31)
[2022-02-05] MEDS: ATORVASTATIN 20 MG TAB PO SCH (08:31)
[2022-02-05] MEDS ORDERED: ATOR1TAB21 PO (11:41)
== END 2022-02-05 14:25 | disposition home or self-care (01) | DRG 552 ==
LOC: M ED 19:35 → EDBD 19:35 → M ED INP 02-04 02:44 → M MS5PR 02-04 03:40
PROVIDERS: ADMIT Family Medicine; ATTEND Internal Medicine
DX: M47.814 Spondylosis without myelopathy or radiculopathy, thoracic region (principal); I69.354 Hemiplegia and hemiparesis following cerebral infarction affecting left non-dominant side; E11.9 Type 2 diabetes mellitus without complications; R53.1 Weakness; M50.20 Other cervical disc displacement, unspecified cervical region; Z96.641 Presence of right artificial hip joint; Z87.891 Personal history of nicotine dependence; Q71.21 Congenital absence of both forearm and hand, right upper limb; Z79.82 Long term (current) use of aspirin; Z96.652 Presence of left artificial knee joint; Z79.84 Long term (current) use of oral hypoglycemic drugs; Z79.899 Other long term (current) drug therapy; Z88.2 Allergy status to sulfonamides; Z88.8 Allergy status to other drugs, medicaments and biological substances

== ENCOUNTER → 2022-02-20 | Outpatient (CLI) | payer OTHER ==
[~2022-02-20] MED LIST changes: +AMLO2.5T3 PO
== END ==
LOC: M LABSMTC 11:05
PROVIDERS: ATTEND Internal Medicine Gastroenterology
DX: Z11.52 Encounter for screening for COVID-19 (principal)

== ENCOUNTER → 2022-02-21 | Outpatient (CLI) | payer OTHER | LOC: M SOG 08:10 | PROVIDERS: ATTEND Orthopaedic Surgery | DX: M47.892 Other spondylosis, cervical region (principal); M48.02 Spinal stenosis, cervical region ==

== ENCOUNTER 2022-03-02 18:59 | Inpatient (IN) | payer OTHER ==
[~2022-03-02] VITALS: Ht 175.3 cm; Wt 72.7 kg
[2022-03-02 19:46] LABS: BASO # 0.1 10^3/uL (0.0-0.2); BASO % 0.8 % (0.0-1.0); EOS # 0.2 10^3/uL (0.0-0.5); EOS % 3.3 % (0.0-3.0); HEMOGLOBIN 15.5 g/dl (13.5-17.5); LYMPH # 1.1 10^3/uL (1.5-5.0); LYMPH % 16.7 % (24.0-44.0); MEAN CORPUSCULAR HEMOGLOBIN 32.1 pg (27.0-33.0); MEAN CORPUSCULAR HGB CONC 34.4 g/dl (32.0-36.5); MEAN CORPUSCULAR VOLUME 93.2 fl (80.0-96.0); MONO # 0.3 10^3/uL (0.0-0.8); NEUTROPHILS # 4.7 10^3/uL (1.5-8.5); NEUTROPHILS % 74.4 % (36.0-66.0); PLATELET COUNT, AUTOMATED 220 10^3/uL (150-450); RED BLOOD COUNT 4.83 10^6/uL (4.30-6.10); WHITE BLOOD COUNT 6.3 10^3/uL (4.0-10.0)
[2022-03-02] MEDS ORDERED: ONDANSETRON 4MG 2ML VIAL IV ONE (19:55)
[2022-03-02 20:01] LABS: INR 0.88; PROTHROMBIN TIME 12.4 SECONDS (12.7-14.5)
[2022-03-02 20:02] LABS: PARTIAL THROMBOPLASTIN TIME 24.3 SECONDS (25.9-37.0)
[2022-03-02 20:17] LABS: ALBUMIN 4.2 GM/DL (3.2-5.2); BILIRUBIN,DIRECT 0.3 MG/DL (0.0-0.2); BILIRUBIN,TOTAL 0.9 MG/DL (0.2-1.0); C REACTIVE PROTEIN QUANTITATIV 0.82 MG/DL (0.00-0.30); CALCIUM LEVEL 10.5 MG/DL (8.8-10.2); CK-MB VALUE MASS 1.9 NG/ML (<3.6); CREATININE FOR GFR 1.48 MG/DL (0.70-1.30); ETHYL ALCOHOL (ETHANOL) 0.294 % (0.000-0.010); MB/CK RELATIVE INDEX 2.26 (< OR =4); POTASSIUM SERUM 4.5 MEQ/L (3.5-5.1); TOTAL PROTEIN 7.5 GM/DL (6.4-8.2)
[2022-03-02] MEDS ORDERED: NS 1,000 ML IV ONE (22:00)
[2022-03-02] MEDS ORDERED: METOCLOPRAMIDE INJ 10MG/2ML VIAL (J2765 PER 1) IV ONE (22:25)
[2022-03-02] MEDS ORDERED: MULTIVITAMIN -ADULT INJECTION 10 ML, THIAMINE INJection 100 MG, FOLIC ACID 1 MG in NS 1... IV ONE (23:00)
[2022-03-03] MEDS ORDERED: NS 1,000 ML IV ONE (00:15)
[2022-03-03] MEDS ORDERED: DEXTROSE 50% 50 ML SYRINGE IV STA (00:17)
[2022-03-03] MEDS ORDERED: ISOVUE-370 76% 100ML VIAL As Ordered ONE (01:53)
[2022-03-03 01:55] LABS: MB/CK RELATIVE INDEX 3.17 (< OR =4)
[2022-03-03] MEDS ORDERED: HOME MED LIST COMPLETE! XX SCH (03:40)
[2022-03-03] MEDS ORDERED: LORazepam 2 MG TAB PO PRN (04:35)
[2022-03-03] MEDS ORDERED: GLUCAGON INJ 1MG VIAL SC PRN (04:40)
[2022-03-03] MEDS ORDERED: GLUCOSE 4GM CHEW TABLET PO PRN (04:40)
[2022-03-03] MEDS ORDERED: DEXTROSE 50% 50 ML SYRINGE IV PRN (04:40)
[2022-03-03 05:45] VITALS: BP 139/84
[2022-03-03] MEDS ORDERED: HEPARIN SOD (PORCINE) 5000UNITS/ML 1ML VIAL/SYRINGE SC SCH (06:00)
[2022-03-03] MEDS ORDERED: NS 1,000 ML IV SCH (06:15)
[2022-03-03] MEDS ORDERED: INSULIN LISPRO (NovoLOG) PER UNIT SC SCH ×2 (07:30→21:00)
[2022-03-03 08:03] VITALS: BP 159/93
[2022-03-03 08:40] VITALS: BP 159/93
[2022-03-03] MEDS ORDERED: MULTIVITAMINS/MINERALS THERAP 1 TAB PO SCH (09:00)
[2022-03-03] MEDS ORDERED: KETOROLAC 30 MG/ML 1ML VIAL IV ONE (10:15)
[2022-03-03] MEDS ORDERED: SERT-141 PO (12:00)
[2022-03-03 12:03] VITALS: BP 161/92
[2022-03-03] MEDS ORDERED: SUCR1ORA PO (12:26)
[2022-03-03] MEDS ORDERED: PROT1TAB2 PO (12:26)
[2022-03-03] MEDS ORDERED: THIAMINE 100 MG TAB PO SCH (21:00)
[2022-03-04] MEDS ORDERED: FOLIC ACID 1MG TAB PO SCH (09:00)
== END 2022-03-03 13:58 | disposition home or self-care (01) | DRG 641 ==
LOC: M ED 18:59 → EDBD 18:59 → M ED INP 03-03 04:00 → M PCU 03-03 05:56
PROVIDERS: ADMIT Family Medicine; ATTEND Internal Medicine
DX: E87.2 Acidosis (principal); I69.354 Hemiplegia and hemiparesis following cerebral infarction affecting left non-dominant side; F10.288 Alcohol dependence with other alcohol-induced disorder; E87.1 Hypo-osmolality and hyponatremia; J32.9 Chronic sinusitis, unspecified; K20.90 Esophagitis, unspecified without bleeding; E86.0 Dehydration; I12.9 Hypertensive chronic kidney disease with stage 1 through stage 4 chronic kidney disease, or unspecified chronic kidney disease; E11.22 Type 2 diabetes mellitus with diabetic chronic kidney disease; N18.9 Chronic kidney disease, unspecified; F32.A Depression, unspecified; Z66 Do not resuscitate; Z79.84 Long term (current) use of oral hypoglycemic drugs; Z79.899 Other long term (current) drug therapy; Z88.2 Allergy status to sulfonamides; Z88.8 Allergy status to other drugs, medicaments and biological substances; Z96.652 Presence of left artificial knee joint; Z85.528 Personal history of other malignant neoplasm of kidney

== ENCOUNTER → 2022-03-11 | Outpatient (CLI) | payer OTHER ==
[~2022-03-11] MED LIST changes: +HYDR-3910 PO; +PRAV40TA2 PO; +PROT1TAB2 PO; +SERT-141 PO; +SUCR1ORA PO
== END ==
LOC: M LABSMTC 10:19
PROVIDERS: ATTEND Anesthesiology
DX: Z01.812 Encounter for preprocedural laboratory examination (principal); Z20.822 Contact with and (suspected) exposure to COVID-19

== ENCOUNTER 2022-04-17 12:04 | Emergency (ER) | payer OTHER ==
[~2022-04-17] VITALS: Ht 175.3 cm; Wt 71.4 kg
[2022-04-17] MEDS ORDERED: OXAZEPAM 15MG CAP PO ONE (12:40)
[2022-04-17] MEDS ORDERED: NS 1,000 ML IV ONE ×2 (13:00→14:15)
[2022-04-17 13:09] LABS: BASO # 0.1 10^3/uL (0.0-0.2); BASO % 0.6 % (0.0-1.0); EOS # 0.1 10^3/uL (0.0-0.5); EOS % 1.4 % (0.0-3.0); HEMATOCRIT 44.6 % (42.0-52.0); HEMOGLOBIN 15.3 g/dl (13.5-17.5); LYMPH # 0.6 10^3/uL (1.5-5.0); MEAN CORPUSCULAR HEMOGLOBIN 32.5 pg (27.0-33.0); MEAN CORPUSCULAR HGB CONC 34.3 g/dl (32.0-36.5); MEAN CORPUSCULAR VOLUME 94.7 fl (80.0-96.0); MONO # 0.7 10^3/uL (0.0-0.8); MONO % 8.9 % (2.0-8.0); NEUTROPHILS # 6.5 10^3/uL (1.5-8.5); NEUTROPHILS % 80.6 % (36.0-66.0); PLATELET COUNT, AUTOMATED 176 10^3/uL (150-450); RED BLOOD COUNT 4.71 10^6/uL (4.30-6.10)
[2022-04-17 13:25] LABS: INR 0.89; PROTHROMBIN TIME 12.2 SECONDS (12.5-14.5)
[2022-04-17 13:26] LABS: PARTIAL THROMBOPLASTIN TIME 21.4 SECONDS (24.8-34.2)
[2022-04-17 13:44] LABS: CK-MB VALUE MASS 1.8 NG/ML (<3.6); MB/CK RELATIVE INDEX 2.07 (< OR =4)
[2022-04-17 13:45] LABS: RSV AMPLIFICATION NEGATIVE (NEGATIVE)
[2022-04-17 14:07] LABS: ALBUMIN 4.1 GM/DL (3.2-5.2); BILIRUBIN,DIRECT 0.1 MG/DL (0.0-0.2); BILIRUBIN,TOTAL 1.2 MG/DL (0.2-1.0); CALCIUM LEVEL 9.8 MG/DL (8.8-10.2); CREATININE FOR GFR 1.6 MG/DL (0.70-1.30); GLOMERULAR FILTRATION RATE 45.7 (>42); MAGNESIUM LEVEL 1.5 MG/DL (1.8-2.4); THYROID STIMULATING HORMONE 3.15 uIU/ML (0.358-3.740)
[2022-04-17] MEDS ORDERED: MAG SULF 1GM/100ML (MAG RUN) 1 GM in IV 1 EA IV ONE (14:15)
[2022-04-17 15:41] LABS: CK-MB VALUE MASS 1.9 NG/ML (<3.6); MB/CK RELATIVE INDEX 3.17 (< OR =4)
[2022-04-17] MEDS ORDERED: MAGN250T11 PO (15:55)
[2022-04-17 16:00] VITALS: BP 165/116
== END 2022-04-17 16:17 | disposition left against medical advice (07) ==
LOC: M ED 12:04 → EDBD 12:04 → M ED 16:17
DX: E83.42 Hypomagnesemia (principal); R74.8 Abnormal levels of other serum enzymes; Z53.20 Procedure and treatment not carried out because of patient's decision for unspecified reasons; R94.31 Abnormal electrocardiogram [ECG] [EKG]; E11.9 Type 2 diabetes mellitus without complications; I12.9 Hypertensive chronic kidney disease with stage 1 through stage 4 chronic kidney disease, or unspecified chronic kidney disease; E78.5 Hyperlipidemia, unspecified; K74.60 Unspecified cirrhosis of liver; Z87.891 Personal history of nicotine dependence; Z88.2 Allergy status to sulfonamides; Z88.8 Allergy status to other drugs, medicaments and biological substances; Z79.899 Other long term (current) drug therapy

== ENCOUNTER → 2022-09-25 | Outpatient (REF) | payer OTHER ==
[~2022-09-25] MED LIST changes: +MAGN250T11 PO
[2022-09-25 16:20] LABS: HEMATOCRIT 42.5 % (42.0-52.0); HEMOGLOBIN 14.4 g/dl (13.5-17.5); MEAN CORPUSCULAR HEMOGLOBIN 32.4 pg (27.0-33.0); MEAN CORPUSCULAR HGB CONC 33.9 g/dl (32.0-36.5); MEAN CORPUSCULAR VOLUME 95.7 fl (80.0-96.0); PLATELET COUNT, AUTOMATED 187 10^3/uL (150-450); RED BLOOD COUNT 4.44 10^6/uL (4.30-6.10); WHITE BLOOD COUNT 5.6 10^3/uL (4.0-10.0)
[2022-09-25 16:43] LABS: FOLATE 9.2 NG/ML (>5.4)
[2022-09-25 16:44] LABS: BILIRUBIN,TOTAL 0.7 MG/DL (0.3-1.2); CALCIUM LEVEL 9.7 MG/DL (8.3-10.6); CHOLESTEROL RISK RATIO 3.91 (<5); CREATININE FOR GFR 1.83 MG/DL (0.70-1.30); GLOMERULAR FILTRATION RATE 39.2 (>42); HDL CHOLESTEROL 52.1 MG/DL (>40); LDL CHOLESTEROL 126.5 MG/DL (<100); NON-HDL-C 151.9 MG/DL; POTASSIUM SERUM 4.2 MMOL/L (3.5-5.1); THYROID STIMULATING HORMONE 3.549 uIU/ML (0.55-4.78); TOTAL PROTEIN 6.8 G/DL (5.7-8.2)
[2022-09-25 16:45] LABS: TOTAL 25(OH) VITAMIN D 18.7 NG/ML (20.0-100.0)
[2022-09-25 16:46] LABS: FREE T4 1.13 NG/DL (0.89-1.76)
[2022-09-25 17:32] LABS: HEMOGLOBIN A1c 5.3 % (4.0-6.0)
== END ==
LOC: M SFHCADAM 15:06
PROVIDERS: ATTEND Physician Assistant
DX: C64.9 Malignant neoplasm of unspecified kidney, except renal pelvis (principal); I12.9 Hypertensive chronic kidney disease with stage 1 through stage 4 chronic kidney disease, or unspecified chronic kidney disease; N18.32 Chronic kidney disease, stage 3b; E11.59 Type 2 diabetes mellitus with other circulatory complications; F32.1 Major depressive disorder, single episode, moderate; Z86.73 Personal history of transient ischemic attack (TIA), and cerebral infarction without residual deficits; Z12.5 Encounter for screening for malignant neoplasm of prostate

== ENCOUNTER 2022-10-26 09:59 | Emergency (ER) | payer OTHER ==
[~2022-10-26] VITALS: Ht 175.3 cm; Wt 75.1 kg
[2022-10-26] MEDS ORDERED: diphenhydrAMINE 50MG/ML VIAL IV ONE (11:35)
[2022-10-26] MEDS ORDERED: **hydrALAZINE HCL** 25 MG TAB PO ONE (11:40)
[2022-10-26] MEDS ORDERED: amLODIPine 5 MG TAB PO ONE (11:40)
[2022-10-26 12:47] LABS: BASO # 0.1 10^3/uL (0.0-0.2); BASO % 0.6 % (0.0-1.0); EOS # 0.2 10^3/uL (0.0-0.5); EOS % 2.8 % (0.0-3.0); HEMATOCRIT 42.2 % (42.0-52.0); HEMOGLOBIN 14.8 g/dl (13.5-17.5); LYMPH # 0.8 10^3/uL (1.5-5.0); LYMPH % 8.7 % (24.0-44.0); MEAN CORPUSCULAR HEMOGLOBIN 32.3 pg (27.0-33.0); MEAN CORPUSCULAR HGB CONC 35.1 g/dl (32.0-36.5); MEAN CORPUSCULAR VOLUME 92.1 fl (80.0-96.0); MONO # 0.6 10^3/uL (0.0-0.8); MONO % 6.6 % (2.0-8.0); NEUTROPHILS # 6.9 10^3/uL (1.5-8.5); NEUTROPHILS % 80.7 % (36.0-66.0); PLATELET COUNT, AUTOMATED 191 10^3/uL (150-450); RED BLOOD COUNT 4.58 10^6/uL (4.30-6.10); WHITE BLOOD COUNT 8.6 10^3/uL (4.0-10.0)
[2022-10-26 13:08] LABS: C REACTIVE PROTEIN QUANTITATIV 1.8 MG/DL (<1.0)
[2022-10-26 13:14] LABS: CALCIUM LEVEL 8.8 MG/DL (8.3-10.6); CREATININE FOR GFR 1.93 MG/DL (0.70-1.30); GLOMERULAR FILTRATION RATE 36.8 (>42); POTASSIUM SERUM 5.6 MMOL/L (3.5-5.1)
[2022-10-26 13:35] LABS: ERYTHROCYTE SEDIMENTATION RATE 24 mm/hr (0-20)
[2022-10-26] MEDS ORDERED: cefTRIAXone SOD 1 GM in D5W MINI-BAG PLUS 50 ML IV ONE (13:40)
[2022-10-26] MEDS ORDERED: DALBAVANCIN 1,500 MG in D5W 250 ML IV ONE (15:45)
[2022-10-26] MEDS ORDERED: AMLO25TA PO (15:58)
[2022-10-26] MEDS ORDERED: BENA2CRE3 TOP (15:58)
[2022-10-26] MEDS ORDERED: HYDR-3910 PO (15:58)
[2022-10-26 17:09] VITALS: BP 168/88
== END 2022-10-26 17:19 | disposition home or self-care (01) ==
LOC: M ED 09:59
DX: L03.114 Cellulitis of left upper limb (principal); E11.9 Type 2 diabetes mellitus without complications; I10 Essential (primary) hypertension; E78.5 Hyperlipidemia, unspecified; Z86.73 Personal history of transient ischemic attack (TIA), and cerebral infarction without residual deficits; Z88.2 Allergy status to sulfonamides; Z88.8 Allergy status to other drugs, medicaments and biological substances; Z79.899 Other long term (current) drug therapy
CPT/HCPCS: 80048; 85025; 85652; 86140; 93971; 96365; 96367; 96375; 99284; J0696; J0875; J1200

== ENCOUNTER → 2022-11-15 | Outpatient (REF) | payer OTHER ==
[~2022-11-15] MED LIST changes: +AMLO25TA PO; +BENA2CRE3 TOP
== END ==
LOC: M SFHCADAM 13:59
PROVIDERS: ATTEND Physician Assistant
DX: N18.32 Chronic kidney disease, stage 3b (principal); E11.22 Type 2 diabetes mellitus with diabetic chronic kidney disease